=== PATIENT | male | born 1945 | race Caucasian/White ===

== ENCOUNTER 2016-11-29 04:57 | Inpatient (IN) | payer OTHER, MEDICAID, MEDICARE ==
[2016-11-29] VITALS (7 sets, daily range): BP systolic 114–185; BP diastolic 77–109; PULSE 100–109; RESP 16–20; TEMP 97.3–99.5; O2SAT 95–99
[~2016-11-29] VITALS: Ht 172.7 cm; Wt 69.1 kg
[~2016-11-29 04:57] MED LIST: ATOR20TA42 PO; CIPR500T2 PO; CIPR500T4 PO; DEPA250T2 PO; METO100T PO; PROT40TA PO; SUCR1S PO
[2016-11-29] MEDS ORDERED: VANCOMYCIN INJ 1,000 MG in SODIUM CHLOR 0.9% 250 ML INJ 250 ML IV STA (05:28)
[2016-11-29] MEDS ORDERED: SODIUM CHLOR 0.9% 1000 ML INJ 1,000 ML IV SCH (05:28)
[2016-11-29] MEDS ORDERED: CLINDAMYCIN INJ 900 MG in SODIUM CHLORIDE 0.9% INJ 100 ML IV STA (05:28)
[2016-11-29] MEDS ORDERED: SODIUM CHLORIDE 0.9% FLUSH 5 ML FLUSH IV FLUSH PRN (05:30)
--- NOTE | 2016-11-29 06:08 | PD ---
HPI Chief Complaint: Skin Problem Time Seen by Provider: 05:28 Travel History International Travel<30 days: No Contact w/Intl Traveler<30days: No Traveled to known affect area: No History of Present Illness HPI 71-year-old male presents to the emergency department by private transportation for complaint of worsening rash to the groin and buttock region after reportedly being bitten by a brown recluse spider 2 weeks ago on the right leg. Patient states he's been attempting to manage the area on his own 2 weeks. Patient is been applying all kind of topical ointments, [id number] and homeopathic regimens, including "soaking" in Clorox this morning prior to arrival to the emergency department. Patient does not report any fever or chills. Patient states that the area is becoming foul-smelling. Patient denies history of diabetes. Patient does self-cath but unclear as to why. Patient does not report any fever or chills. Patient also appears somewhat grandiose as he repetitively states that he is a , he is train to kill, he is in good health, and he has done everything to manage his illness but is not being successful. Patient denies any fever chills chest pain shortness of breath abdominal pain vomiting or diarrhea. Patient states that he has been in a coma for 3 days. Patient ambulates about the exam room without any antalgic movement or gait disturbance and appears to be in no distress; however rates his pain as 8/10 in intensity. PFSH Past Medical History Narrative Medical Asthma, hypertension, bipolar disorder, depression, urinary retention with self catheter; alcohol use; nursing notes reviewed Asthma: Yes (CHILDHOOD) Bipolar Disorder: Yes Anxiety: Yes High Cholesterol: Yes Diminished Hearing: Yes ([place]) Gastrointestinal Disorders: Yes (ACID REFLUX, FREQUENTLY VOMITS FOOD) GERD: Yes Genitourinary: Yes ((PER PT) S/P MRSA INF PROSTATE FREQUENT INFLAMATION -STR CATHS SELF-) Hypertension: Yes Psychiatric: Yes (BIPOLAR DISORDER) PNEUMOCCOCAL Vaccine (Year): 2 ?: Not Past Surgical History Hysterectomy: No Joint Replacement: No (? PARTS IN RIGHT KNEE AFTER O.R.) Valve Replacement: Yes (RIGHT KNEE PAIN) Social History Alcohol Use: Yes Tobacco Use: No Substance Use: No Allergies-Medications (Allergen,Severity, Reaction): Coded Allergies: Cipro (Verified Allergy, Severe, 8/7/17) states that in the past he got violent and does not want to take the med Penicillin (Verified Allergy, Severe, 11/29/16) Reported Meds & Prescriptions Reported Meds & Active Scripts Active Carafate 1 Gm/10 Ml Udc (Sucralfate) 1 Gm/10 Ml Susp 1 Gm PO TIDACHS 30 Days Protonix (Pantoprazole Sodium) 40 Mg Tabdr 40 Mg PO DAILY Ciprofloxacin HCl (Ciprofloxacin) 500 Mg Tab 500 Mg PO Q12 9 Days Lipitor (Atorvastatin) 20 Mg Tab 20 Mg PO HS 30 Days Cipro (Ciprofloxacin HCl) 500 Mg Tab 500 Mg PO BID 10 Days Reported Depakote 250 mg (Divalproex Sodium) 250 Mg Tab 1 Tab PO TID Lopressor (Metoprolol Tartrate) 100 Mg Tab 100 Mg PO BID Review of Systems ROS Limitations: Psychotic, Poor Historian Except as stated in HPI: all other systems reviewed are Neg Physical Exam Narrative GENERAL: Well-developed well-nourished without boisterous grandiose behavior in no acute distress no respiratory distress T: 97.3 F; RR:18, BP:114/83, O2sat: HR: 106 SKIN: Warm and dry. Attention to the groin and buttock region with erythema and large area of eschar -- foul smelling, scrotal erythema with 3 cm x 1.5 cm eschar, buttock cheeks across perineum 4 cm x 13 cm area of eschar and buttock cleft 2 cm x 0.5 cm ulceration with central subcentimeter eschar. No crepitus; scrotum nontender to palpation, buttock and perineal tenderness. HEAD: Atraumatic. Normocephalic. EYES: Pupils equal and round. No scleral icterus. No injection or drainage. ENT: No nasal bleeding or discharge. Mucous membranes pink and moist. NECK: Trachea midline. No JVD. CARDIOVASCULAR: Regular rate and rhythm. RESPIRATORY: No accessory muscle use. Clear to auscultation. Breath sounds equal bilaterally. GASTROINTESTINAL: Abdomen soft, non-tender, nondistended. Hepatic and splenic margins not palpable. MUSCULOSKELETAL: Extremities without clubbing, cyanosis, or edema. No obvious deformities. NEUROLOGICAL: Awake and alert. No obvious cranial nerve deficits. Motor grossly within normal limits. Five out of 5 muscle strength in the arms and legs. Normal speech. PSYCHIATRIC: Grandiose and delusional mood and affect; poor insight and judgment. Data Data Last Documented VS Vital Signs Date Time Temp Pulse Resp B/P Pulse Ox O2 Delivery O2 Flow Rate FiO2 11/29/16 07:00 98 11/29/16 05:04 97.3 103 18 114/83 Orders Ammonia (11/29/16 05:28) Complete Blood Count With Diff (11/29/16 05:28) Comprehensive Metabolic Panel (11/29/16:28) Creatine Kinase (Cpk) (11/29/16 05:28) Prothrombin Time / Inr (Pt) (11/29/16 05:28) Act Partial Throm Time (Ptt) (11/29/16:28) Thyroid Stimulating Hormone (11/29/16:28) Urinalysis - C+S If Indicated (11/29/16 05:28) Lactic Acid Sepsis Protocol (11/29/16 05:28) Blood Culture (11/29/16 05:28) Chest, Single Ap (11/29/16 05:28) Blood Glucose (11/29/16 05:28) Ecg Monitoring (11/29/16 05:28) Iv Access Insert/Monitor (11/29/16 05:28) Oximetry (11/29/16 05:28) Sodium Chloride 0.9% Flush (Ns Flush) (11/29/16 05:30) Sodium Chlor 0.9% 1000 Ml Inj (Ns 1000 M (11/29/16 05:28) Clindamycin Inj (Cleocin Inj) (11/29/16 05:28) Vancomycin Inj (Vancomycin Inj) (11/29/16 05:28) Wound Culture And Gram Stain (11/29/16 05:36) Alcohol (Ethanol) (11/29/16 05:50) Drug Screen, Random Urine (11/29/16 05:50) Salicylates (Aspirin) (11/29/16 05:50) Tylenol (Acetaminophen) (11/29/16 05:50) Valproic Acid (Depakene) (11/29/16 06:13) Aztreonam Inj (Azactam Inj) (11/29/16 06:15) Sodium Chlor 0.9% 1000 Ml Inj (Ns 1000 M (11/29/16 06:15) Potassium Chlor 10 Meq Premix (Kcl 10 Me (11/29/16 07:15) Urinary Catheter Insert/Apply (11/29/16 07:38) Admit Order (Ed Use Only) (11/29/16 ) ^ Saline Lock (11/29/16 07:41) Resp Oxygen Loki C Titrat 1-4 L (11/29/16 ) Notify Dr: Other (11/29/16 07:41) Sodium Chloride 0.9% Flush (Ns Flush) (11/29/16 09:00) Sodium Chloride 0.9% Flush (Ns Flush) (11/29/16 07:45) Consult General Surgery (11/29/16 07:41) Consult Urology (11/29/16 07:41) Labs Laboratory Tests Test 11/29/16 11/29/16 05:55 06:10 Lactic Acid Level 2.2 mmol/L Ammonia 32 MCMOL/L White Blood Count 6.5 TH/MM3 Red Blood Count 4.51 MIL/MM3 Hemoglobin 14.8 GM/DL Hematocrit 43.9 % Mean Corpuscular Volume 97.3 FL Mean Corpuscular Hemoglobin 32.8 PG Mean Corpuscular Hemoglobin 33.7 % Concent Red Cell Distribution Width 13.8 % Platelet Count 276 TH/MM3 Mean Platelet Volume 6.2 FL Neutrophils (%) (Auto) 57.9 % Lymphocytes (%) (Auto) 27.9 % Monocytes (%) (Auto) 11.9 % Eosinophils (%) (Auto) 1.1 % Basophils (%) (Auto) 1.2 % Neutrophils # (Auto) 3.7 TH/MM3 Lymphocytes # (Auto) 1.8 TH/MM3 Monocytes # (Auto) 0.8 TH/MM3 Eosinophils # (Auto) 0.1 TH/MM3 Basophils # (Auto) 0.1 TH/MM3 CBC Comment DIFF FINAL Differential Comment Prothrombin Time 10.2 SEC Prothromb Time International 0.9 RATIO Ratio Activated Partial 28.9 SEC Thromboplast Time Sodium Level 138 MEQ/L Potassium Level 2.5 MEQ/L Chloride Level 99 MEQ/L Carbon Dioxide Level 30.2 MEQ/L Anion Gap 9 MEQ/L Blood Urea Nitrogen 4 MG/DL Creatinine 0.55 MG/DL Estimat Glomerular Filtration 146 ML/MIN Rate Random Glucose 99 MG/DL Calcium Level 8.9 MG/DL Total Bilirubin 0.2 MG/DL Aspartate Amino Transf 29 U/L (AST/SGOT) Alanine Aminotransferase 20 U/L (ALT/SGPT) Alkaline Phosphatase 143 U/L Total Creatine Kinase 66 U/L Total Protein 7.4 GM/DL Albumin 2.8 GM/DL Thyroid Stimulating Hormone 0.824 uIU/ML 3rd Gen Ethyl Alcohol Level 223 MG/DL [facility] Medical Decision Making Medical Screen Exam Complete: Yes Emergency Medical Condition: Yes Medical Record Reviewed: Yes Interpretation(s) Lactic acid: 2.2, elevated cbc: wnl ammonia: 32, wnl coags: wnl Differential Diagnosis Cellulitis, Shavonne's gangrene, necrotizing fasciitis, decubitus ulcer, mood disorder, psychosis, substance ingestion, alcohol intoxication Narrative Course IV access obtained specimens collected and IV antibiotics administered vancomycin 1 g, clindamycin 900 mg, aztreonam 2 g as patient is allergic to penicillin Patient administered 1 L normal saline along with maintenance fluids 125 cc per hour Bedside Accu-Chek 96 Specimens collected and sent for resulting Area of involvement measures 13 x 4 cm across the buttock comparison a.m. and then area of 2 x 3 cm eschar to the scrotum with scrotal erythema c/w cellulitis and age indeterminate pressure ulcer w/ eschar appears somewhat chronic in nature however still concerning for dry gangrene without crepitus unlikely Shavonne's or necrotizing fasciitis no crepitus or rapid progression. Lactic acid identified to be elevated at 2.2 Call placed to Gen. surgery urology medicine services for admission and transfer to [facility] for surgical consultation and intervention cbc wnl; metabolic panel normal range bicarb and anion gap, hypokalemia alcohol level elevated 223 HemaPrompt Point of Care Internal Pos. & Neg. Controls: Passed Fecal Specimen Occult Blood: Negative Sepsis Criteria SIRS Criteria (2 or more): Heart rate over 90 Sepsis Criteria (SIRS+source): Infect source susp/known (scrotum/perineum) Severe Sepsis (+one): Lactate >2 Physician Communication Physician Communication call placed to urology--call back pending--discussed with Dr Bear, gen surgery -- discussed with customer care consultant, Dr Chahal, service will see in consultation at [facility] , medicine service will admit to their service-discussed with DR Boggs Diagnosis Primary Impression: Cellulitis, perineum Additional Impressions: Cellulitis of scrotum Pressure ulcer, unstageable, with eschar Alcohol abuse Hypokalemia Bipolar disorder Admitting Information Admitting Physician Requests: Admit Milena Saunders MD Nov 29, 2016 06:08
[2016-11-29] MEDS ORDERED: SODIUM CHLOR 0.9% 1000 ML INJ 1,000 ML IV ONE (06:15)
[2016-11-29] MEDS ORDERED: AZTREONAM INJ 2,000 MG in SODIUM CHLORIDE 0.9% INJ 100 ML IV ONE (06:15)
[2016-11-29 06:30] LABS: AUTOMATED NEUTROPHIL # 3.7 TH/MM3 (1.8-7.7); BASOPHIL # 0.1 TH/MM3 (0-0.2); BASOPHIL % 1.2 % (0.0-2.0); EOSINOPHIL # 0.1 TH/MM3 (0-0.4); EOSINOPHIL % 1.1 % (0.0-4.0); HEMATOCRIT 43.9 % (39.0-51.0); HEMO FLAGS DIFF FINAL; LYMPH % 27.9 % (9.0-44.0); LYMPHOCYTE # 1.8 TH/MM3 (1.0-4.8); MEAN CELL VOLUME 97.3 FL (80.0-100.0); MEAN CORPUSCULAR HEMOGLOBIN 32.8 PG (27.0-34.0); MEAN CORPUSCULAR HGB CONC 33.7 % (32.0-36.0); MONO % 11.9 % (0.0-8.0); NEUT % 57.9 % (16.0-70.0); PLATELET COUNT 276 TH/MM3 (150-450); RED BLOOD COUNT 4.51 MIL/MM3 (4.50-5.90); RED CELL DISTRIBUTION WIDTH 13.8 % (11.6-17.2); WHITE BLOOD COUNT 6.5 TH/MM3 (4.0-11.0)
[2016-11-29 06:42] LABS: APTT (PATIENT) 28.9 SEC (24.3-30.1); INTERNATIONAL NORMALIZED RATIO 0.9 RATIO; PROTHROMBIN TIME - PATIENT 10.2 SEC (9.8-11.6)
--- NOTE | 2016-11-29 06:47 | RADRPT ---
EXAM DATE/TIME: 11/29/2016 06:33 [facility] COMPARISON: CHEST SINGLE AP, May 12, 2014, 19:42. INDICATIONS : Syncopal episode. MEDICAL HISTORY : Hypertension. Asthma. SURGICAL HISTORY : None. ENCOUNTER: Initial ACUITY: 1 day PAIN SCORE: 0/10 LOCATION: Bilateral chest FINDINGS: The lungs are clear. Cardiomediastinal contours are normal. There is a fracture deformity distal left clavicle, mildly displaced, non-acute. CONCLUSION: No acute disease. Gerry Otoole MD on November 29, 2016 at 6:46 Board Certified Radiologist. This report was verified electronically.
[2016-11-29 06:55] LABS: ALKALINE PHOSPHATASE 143 U/L (45-117); ALT (GPT) 20 U/L (12-78); ANION GAP 9 MEQ/L (5-15); AST (GOT) 29 U/L (15-37); BICARBONATE 30.2 MEQ/L (21.0-32.0); BLOOD UREA NITROGEN 4 MG/DL (7-18); CHLORIDE 99 MEQ/L (98-107); GLOMERULAR FILTRATION RATE 146 ML/MIN (>89); SODIUM (NA) 138 MEQ/L (136-145); TOTAL BILIRUBIN ADULT 0.2 MG/DL (0.2-1.0)
[2016-11-29 06:56] LABS: CREATINE KINASE 66 U/L (39-308)
[2016-11-29 06:57] LABS: POTASSIUM 2.5 MEQ/L (3.5-5.1)
[2016-11-29] MEDS ORDERED: SODIUM CHLORIDE 0.9% FLUSH 10 ML FLUSH IVF PRN (07:45)
[2016-11-29] MEDS: POTASSIUM CHLOR 10 MEQ PREMIX 100 ML IV SCH ×3 (07:58→10:05)
[2016-11-29 08:03] LABS: ACETAMINOPHEN LESS THAN 2.0 MCG/ML (10.0-30.0)
[2016-11-29 08:03] LABS: LACTIC ACID GHOST NOT REPORTABLE
[2016-11-29 08:15] LABS: BLOOD, URINE NEG (NEG); KETONE, URINE NEG (NEG); NITRITE,URINE NEG (NEG)
[2016-11-29] MEDS ORDERED: ACETAMINOPHEN 325 MG TAB PO PRN (08:15)
[2016-11-29] MEDS ORDERED: ONDANSETRON HCL 4 MG/2 ML VIAL IVP PRN (08:15)
[2016-11-29 08:21] LABS: GLUCOSE,URINE 1000 OR GREATER mg/dL (NEG)
[2016-11-29 08:22] LABS: METHOD OF COLLECTION CATH; URINE COLOR STRAW (YELLW/STRAW)
[2016-11-29 08:23] LABS: BACTERIA, URINE MOD /hpf; COMMENT (UR) CATH-CULTURE IND; CULTURE IF INDICATED CATH CULTURE IND; SQUAMOUS EPITHELIAL CELL URINE 0-5 /hpf (0-5)
[2016-11-29 08:32] LABS: AMPHETAMINE, URINE NEG (NEG); BARBITURATES, URINE NEG (NEG)
[2016-11-29 08:36] LABS: COCAINE, URINE NEG (NEG)
[2016-11-29 08:39] LABS: MAGNESIUM 1.6 MG/DL (1.5-2.5)
[2016-11-29] MEDS: SODIUM CHLORIDE 0.9% FLUSH 10 ML FLUSH IV FLUSH SCH ×2 (09:00→19:47)
[2016-11-29] MEDS ORDERED: KETOROLAC TROMETHAMINE 30 MG/ML (IVP) VIAL IV PUSH PRN (10:30)
[2016-11-29] MEDS ORDERED: Vancomycin Consult Pharmacy 1 EA OTHER SCH (10:30)
[2016-11-29] MEDS ORDERED: VANCOMYCIN INJ 1,000 MG in SODIUM CHLOR 0.9% 250 ML INJ 250 ML IV SCH (10:30)
[2016-11-29] MEDS ORDERED: LORazepam 2 MG/ML VIAL IV PUSH PRN ×4 (10:45)
[2016-11-29] MEDS ORDERED: LORazepam 2 MG TAB PO PRN (10:45)
[2016-11-29] MEDS ORDERED: FLUMAZENIL 0.5 MG/5 ML VIAL IV PUSH PRN (10:45)
[2016-11-29] MEDS ORDERED: LORazepam 1 MG TAB PO PRN (10:45)
--- NOTE | 2016-11-29 10:46 | HHI.HP ---
[facility] Service [place] [facility] Primary Care Physician [facility] Admission Diagnosis Cellulits-scrotal/perineum;hypokalemia;alcohol ingestion;bipolar Diagnoses: Chief Complaint: Scrotal and perineal pain Travel History International Travel<30 Days: No Contact w/Intl Traveler <30 Da: No Traveled to Known Affected Are: No History of Present Illness Patient is a 71-year-old gentleman who is bipolar. He came to the emergency room today complaining of increased pain in the buttocks and scrotal area after he was apparently bitten by a spider 2 weeks ago area patient says that he did not see the spider but sought a spider bite. He reports having history of MRSA. The patient has been applying Indira and cinnamon and old bases into the area. He did take a bath and bleach. He also used soap and water and some sort of steroid cream. When the area became more painful and swollen and painful patient came to the emergency room, after the ghosts in his trailer told him to come. He reports that he is a [employer] and has been trained to kill. He is difficult historian due to his apparent tangential thought and hyperverbal speech. His pain he reports improved with ibuprofen. He does not use narcotics. 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 In the emergency room he isn't tachycardic. He does have elevated lactic acid and his blood pressure has been running low. He is septic. Patient has been admitted to the hospital through the emergency room for treatment of the same. Review of Systems Constitutional: DENIES: Diaphoretic episodes, Fatigue, Fever, Weight gain, Weight loss, Chills, Dizziness, Change in appetite, Night Sweats Endocrine: DENIES: Heat/cold intolerance, Polydipsia, Polyuria, Polyphagia Eyes: DENIES: Blurred vision, Diplopia, Eye inflammation, Eye pain, Vision loss , Photosensitivity, Double Vision Ears, nose, mouth, throat: DENIES: Tinnitus, Hearing loss, Vertigo, Nasal discharge, Oral lesions, Throat pain, Hoarseness, Ear Pain, Running Nose, Epistaxis, Sinus Pain, Toothache, Odynophagia Respiratory: DENIES: Apneas, Cough, Snoring, Wheezing, Hemoptysis, Sputum production, Shortness of breath Cardiovascular: DENIES: Chest pain, Palpitations, Syncope, Dyspnea on Exertion , PND, Lower Extremity Edema, Orthopnea, Claudication Gastrointestinal: DENIES: Abdominal pain, Black stools, Bloody stools, Constipation, Diarrhea, Nausea, Vomiting, Difficulty Swallowing, Anorexia Genitourinary: COMPLAINS OF: Testicular Pain, DENIES: Sexual dysfunction, Urinary frequency, Urinary incontinence, Urgency, Hematuria, Dysuria, Nocturia, Penile Discharge, Testicular Swelling Integumentary: DENIES: Abnormal pigmentation, Nail changes, Pruritus, Rash Hematologic/lymphatic: DENIES: Bruising, Lymphadenopathy Neurologic: DENIES: Abnormal gait, Headache, Localized weakness, Paresthesias, Seizures, Speech Problems, Tremor, Poor Balance Psychiatric: COMPLAINS OF: Anxiety, Agitation, DENIES: Confusion, Mood changes , Depression, Hallucinations, Suicidal Ideation, Homicidal Ideation, Delusions Past Family Social History Past Medical History Bipolar disorder Dyspepsia Hypertension Poor adherence to medical treatment Hyperlipidemia benign prostatic hyperplasia with urinary retention Past Surgical History Right knee Reported Medications Reviewed in the medical record, patient says he only takes his loperamide me and Lopressor and periodically takes Protonix Allergies: Coded Allergies: Cipro (Verified Allergy, Severe, 11/29/16) states that in the past he got violent and does not want to take the med Penicillin (Verified Allergy, Severe, 11/29/16) Active Ordered Medications Reviewed in the medical record Family History Patient has "no family no one cares about him " Social History No tobacco, excessive alcohol, lives alone Physical Exam Vital Signs Vital Signs Date Time Temp Pulse Resp B/P Pulse Ox O2 Delivery O2 Flow Rate FiO2 11/29/16 10:02 98.5 109 16 150/82 99 Room Air 11/29/16 07:00 98 11/29/16 05:04 97.3 103 18 114/83 97 Physical Exam GENERAL: This is a well-nourished, well-developed patient, hyperverbal, tangential and with grandiose ideas SKIN: Perineum is foul smelling with unstageable eschars in the scrotal sac and large eschar covered area in the perineal area with early ulcer formation in the gluteal Cleft HEAD: Atraumatic. Normocephalic. No temporal or scalp tenderness. EYES: Pupils equal round and reactive. Extraocular motions intact. No scleral icterus. No injection or drainage. ENT: Nose without bleeding, purulent drainage or septal hematoma. Throat without erythema, tonsillar hypertrophy or exudate. Uvula midline. Airway patent. NECK: Trachea midline. No JVD or lymphadenopathy. Supple, nontender, no meningeal signs. CARDIOVASCULAR: Sinus tachycardia without murmurs, gallops, or rubs. RESPIRATORY: Clear to auscultation. Breath sounds equal bilaterally. No wheezes , rales, or rhonchi. GASTROINTESTINAL: Abdomen soft, non-tender, nondistended. No hepato-splenomegaly , or palpable masses. No guarding. MUSCULOSKELETAL: Extremities without clubbing, cyanosis, or edema. No joint tenderness, effusion, or edema noted. No calf tenderness. Negative Homans sign bilaterally. NEUROLOGICAL: Awake and alert. Cranial nerves II through XII intact. Motor and sensory grossly within normal limits. Five out of 5 muscle strength in all muscle groups. Normal speech. Laboratory Laboratory Tests Test 11/29/16 11/29/16 11/29/16 11/29/16 05:55 06:10 08:00 08:45 Lactic Acid Level 2.2 2.3 Phosphorus Level 3.3 Magnesium Level 1.6 Ammonia 32 White Blood Count 6.5 Red Blood Count 4.51 Hemoglobin 14.8 Hematocrit 43.9 Mean Corpuscular Volume 97.3 Mean Corpuscular Hemoglobin 32.8 Mean Corpuscular Hemoglobin 33.7 Concent Red Cell Distribution Width 13.8 Platelet Count 276 Mean Platelet Volume 6.2 Neutrophils (%) (Auto) 57.9 Lymphocytes (%) (Auto) 27.9 Monocytes (%) (Auto) 11.9 Eosinophils (%) (Auto) 1.1 Basophils (%) (Auto) 1.2 Neutrophils # (Auto) 3.7 Lymphocytes # (Auto) 1.8 Monocytes # (Auto) 0.8 Eosinophils # (Auto) 0.1 Basophils # (Auto) 0.1 CBC Comment DIFF FINAL Differential Comment Prothrombin Time 10.2 Prothromb Time International 0.9 Ratio Activated Partial 28.9 Thromboplast Time Sodium Level 138 Potassium Level 2.5 Chloride Level 99 Carbon Dioxide Level 30.2 Anion Gap 9 Blood Urea Nitrogen 4 Creatinine 0.55 Estimat Glomerular Filtration 146 Rate Random Glucose 99 Calcium Level 8.9 Total Bilirubin 0.2 Aspartate Amino Transf 29 (AST/SGOT) Alanine Aminotransferase 20 (ALT/SGPT) Alkaline Phosphatase 143 Total Creatine Kinase 66 Total Protein 7.4 Albumin 2.8 Thyroid Stimulating Hormone 0.824 3rd Gen Salicylates Level LESS THAN 1.7 Acetaminophen Level LESS THAN 2.0 Valproic Acid (Depakene) Level 5 Ethyl Alcohol Level 223 Urine Collection Type CATH Urine Color STRAW Urine Turbidity CLEAR Urine pH 7.0 Urine Specific [place] 1.004 Urine Protein NEG Urine Glucose (UA) 1000 OR GREATER Urine Ketones NEG Urine Occult Blood NEG Urine Nitrite NEG Urine Bilirubin NEG Urine Leukocyte Esterase SMALL Urine WBC 3-5 Urine Squamous Epithelial 0-5 Cells Urine Amorphous Sediment FEW Urine Bacteria MOD Microscopic Urinalysis Comment CATH-CULTURE IND Urine Collection Time 0800 Urine Opiates Screen NEG Urine Barbiturates Screen NEG Urine Amphetamines Screen NEG Urine Benzodiazepines Screen NEG Urine Cocaine Screen NEG Urine Cannabinoids Screen NEG Date/Time Procedure Status Source Growth 11/29/16 08:00 Urine Culture Received Urine Catheterized Urine Pending 11/29/16 06:10 Gram Stain Received Wound Groin Pending 11/29/16 06:10 Wound Culture Received Wound Groin Pending 11/29/16 06:10 Aerobic Blood Culture Received Blood Peripheral Pending 11/29/16 06:10 Anaerobic Blood Culture Received Blood Peripheral Pending Result Diagram: 11/29/16 0610 11/29/16 0610 Imaging Last Impressions Chest X-Ray 11/29/16 0528 Signed Impressions: Service Date/Time: Tuesday, November 29, 2016 06:33 - CONCLUSION: No acute disease. Gerry Otoole MD Septic Shock Reassessment Heart: Regular rate and rhythm Lungs: Clear Skin: Warm Peripheral Pulses: Bounding Right Radial Bounding Left Radial Bounding Right Popliteal Bounding Left Popliteal Bounding Right Dorsalis Pedis Bounding Left Dorsalis Pedis Bounding Right Posterior Tibial Bounding Left Posterior Tibial Capillary Refill: Brisk Assessment and Plan Problem List: (1) Bipolar disorder ICD Code: F31.9 Status: Chronic Plan: Patient appears quite manic Says that he is having difficulty sleeping (has not slept for days) he does not take medications because they make him uncomfortable Patient will need psychiatry for evaluation (2) Hypokalemia ICD Code: E87.6 Status: Acute Plan: Place, follow trend, check magnesium and phosphorus (3) Perineal abscess ICD Code: L02.215 Status: Acute Plan: We'll continue vancomycin and aztreonam for now, patient reports he has a history of MRSA ID to see MRI pelvis pending rule out deep abscess May need surgical debridement Etiology unclear as patient is ambulatory (4) EtOH dependence ICD Code: F10.20 Status: Acute Plan: Patient's alcohol level is over 200 Will add Ativan as needed per protocol (5) HTN (hypertension) ICD Code: I10 Status: Acute Plan: Patient's home medications of Lopressor to resume (6) BPH (benign prostatic hyperplasia) ICD Code: N40.0 Status: Acute Plan: We'll check bladder scan, urinary catheterization as needed Flomax Assessment and Plan Plan of care to be determined by Hospital course Code Status Full code Discussed Condition With Patient, JOSE ENRIQUE Alvarez, [employer]BI[employer] Physician Certification 2 Midnight Certification Type: Admission for Inpatient Services Order for Inpatient Services The services are ordered in accordance with Medicare regulations or non- Medicare payer requirements, as applicable. In the case of services not specified as inpatient-only, they are appropriately provided as inpatient services in accordance with the 2-midnight benchmark. Estimated LOS (days): 4 4 days is the estimated time the patient will need to remain in the hospital, assuming treatment plan goals are met and no additional complications. Post-Hospital Plan: Home Aminata Boggs MD Nov 29, 2016 10:46
[2016-11-29] MEDS ORDERED: LOPE2CAP PO (12:17)
[2016-11-29] MEDS ORDERED: LISI40TA PO (12:17)
--- NOTE | 2016-11-29 13:06 | RADRPT ---
EXAM DATE/TIME: 11/29/2016 11:13 [facility] COMPARISON: No previous studies available for comparison. INDICATIONS : Abscess, from bottom 1/3 of scrotum to rectum for two weeks. CONTRAST: 14 cc Omniscan (gadodiamide) IV MEDICAL HISTORY : Prior MRSA issues. SURGICAL HISTORY : Total knee replacement, right. ENCOUNTER: Initial ACUITY: 2 weeks PAIN SCORE: 9/10 LOCATION: Bilateral scrotum to rectum. TECHNIQUE: Multiplanar, multisequence magnetic resonance imaging of the pelvis was performed. FINDINGS: REPRODUCTIVE: Marked distention of the corpus spongiosum is identified from the level of the membranous urethra to the glans penis. The penile urethra is concentrically compressed. Significant inflammation is identified in the scrotal wall however there are no organized fluid collections. Inflammatory changes involve the peroneal soft tissues. Again there is no evidence of or ganized fluid collection. The corpora cavernosum are moderately distended as well but otherwise have a normal anatomic con figuration. Small fluid collections are noted surrounding the testicles which otherwise demonstrate homogene ous signal intensity. There are no intrinsic testicular abnormalities. BLADDER: The bladder is incompletely distended. There is mild trabeculated wall thickening without evidence of intrinsic mass. RETROPERITONEUM: There is no lymphadenopathy. Vascular structures are within normal limits. BOWEL/MESENTERY: Visualized small and large bowel demonstrates no acute abnormality. There is no free fluid. INGUINAL: Mildly prominent lymph nodes are identified ranging in size up to 1.5 cm. MUSCULOSKELETAL: Bone marrow signal is within normal limits. CONCLUSION: 1. Marked fluid distention of the corpus spongiosum with concentric compression of the urethra 2. Moderate distention of the corpora cavernosum without intrinsic filling defects. 3. Scrotal and perineal soft tissue swelling without organized fluid collections. 4. Mildly prominent inguinal lymph nodes ranging in size up to 1.5 cm. Usman Anguiano MD on November 29, 2016 at 12:44 Board Certified Radiologist. This report was verified electronically.
[2016-11-29] MEDS: TAMSULOSIN HCL 0.4 MG CAP PO SCH (13:23)
[2016-11-29] MEDS: PANTOPRAZOLE SOD 40 MG DELAYED RELEASE TAB PO SCH (13:23)
[2016-11-29] MEDS ORDERED: GADODIAMIDE PF 287 MG/ML 5 ML VIAL (for RAD MRI) IV ONE (14:07)
--- NOTE | 2016-11-29 16:34 | PD.CONS ---
HPI Service Urology Consult Requested By Primary Care Physician [facility] Diagnosis: (1) Bipolar disorder ICD Code: F31.9 (2) Hypokalemia ICD Code: E87.6 (3) Perineal abscess ICD Code: L02.215 (4) EtOH dependence ICD Code: F10.20 (5) HTN (hypertension) ICD Code: I10 (6) BPH (benign prostatic hyperplasia) ICD Code: N40.0 History of Present Illness 71-year-old male with history of bipolar disorder who apparently believes he was bitten by a spider a few weeks ago and has cellulitis and ulceration of the perineal scrotal area. He's noted this for over the past 2 weeks and is actually baby and bleach to try to eradicate the problem. He also is having a lot of diarrhea he states for an unclear amount of time. He denies any fever or chills. He does have a history of nocturia with BPH and urinary retention. He is not a diabetic. Review of Systems ROS Limitations: Clinical Condition Constitutional: DENIES: Diaphoretic episodes Endocrine: DENIES: Heat/cold intolerance Eyes: DENIES: Blurred vision Ears, nose, mouth, throat: DENIES: Tinnitus Respiratory: DENIES: Apneas Cardiovascular: DENIES: Chest pain Gastrointestinal: DENIES: Abdominal pain Musculoskeletal: DENIES: Joint pain Integumentary: DENIES: Abnormal pigmentation Hematologic/lymphatic: DENIES: Bruising Neurologic: DENIES: Abnormal gait Psychiatric: COMPLAINS OF: Mood changes, Depression Except as stated in HPI: all other systems reviewed are Neg Past Family Social History Past Medical History Hypertension Bipolar disorder Hyperlipidemia BPH with obstruction and urinary retention in the past GERD Past Surgical History Arthroscopic surgery left knee Allergies: Coded Allergies: Cipro (Verified Allergy, Severe, 11/29/16) states that in the past he got violent and does not want to take the med Penicillin (Verified Allergy, Severe, 11/29/16) Family History Mother with COPD Social History Heavy drinker Denies smoking or using drugs Physical Exam Vital Signs Date Time Temp Pulse Resp B/P Pulse Ox O2 Delivery O2 Flow Rate FiO2 11/29/16 15:22 98.5 103 20 185/109 97 11/29/16 14:10 109 16 145/80 98 11/29/16 10:02 98.5 109 16 150/82 99 Room Air 11/29/16 07:00 98 11/29/16 05:04 97.3 103 18 114/83 97 Physical Exam GENERAL: This is a well-nourished, well-developed patient, in no apparent distress. SKIN: No rashes, ecchymoses or lesions. Cool and dry. HEAD: Atraumatic. Normocephalic. No temporal or scalp tenderness. EYES: Pupils equal round and reactive. Extraocular motions intact. No scleral icterus. No injection or drainage. ENT: Nose without bleeding, purulent drainage or septal hematoma. Throat without erythema, tonsillar hypertrophy or exudate. Uvula midline. Airway patent. NECK: Trachea midline. No JVD or lymphadenopathy. Supple, nontender, no meningeal signs. CARDIOVASCULAR: Regular rate and rhythm without murmurs, gallops, or rubs. RESPIRATORY: Clear to auscultation. Breath sounds equal bilaterally. No wheezes , rales, or rhonchi. GASTROINTESTINAL: Abdomen soft, non-tender, nondistended. No hepato-splenomegaly , or palpable masses. No guarding. GENITOURINARY: Cellulitis with skin breakdown of the perineum and scrotal region with eschar MUSCULOSKELETAL: Extremities without clubbing, cyanosis, or edema. No joint tenderness, effusion, or edema noted. No calf tenderness. Negative Homans sign bilaterally. NEUROLOGICAL: Awake and alert. Cranial nerves II through XII intact. Motor and sensory grossly within normal limits. Five out of 5 muscle strength in all muscle groups. Normal speech. Laboratory Tests Test 11/29/16 11/29/16 11/29/16 11/29/16 05:55 06:10 08:00 08:45 Lactic Acid Level 2.2 2.3 Phosphorus Level 3.3 Magnesium Level 1.6 Ammonia 32 White Blood Count 6.5 Red Blood Count 4.51 Hemoglobin 14.8 Hematocrit 43.9 Mean Corpuscular Volume 97.3 Mean Corpuscular Hemoglobin 32.8 Mean Corpuscular Hemoglobin 33.7 Concent Red Cell Distribution Width 13.8 Platelet Count 276 Mean Platelet Volume 6.2 Neutrophils (%) (Auto) 57.9 Lymphocytes (%) (Auto) 27.9 Monocytes (%) (Auto) 11.9 Eosinophils (%) (Auto) 1.1 Basophils (%) (Auto) 1.2 Neutrophils # (Auto) 3.7 Lymphocytes # (Auto) 1.8 Monocytes # (Auto) 0.8 Eosinophils # (Auto) 0.1 Basophils # (Auto) 0.1 CBC Comment DIFF FINAL Differential Comment Prothrombin Time 10.2 Prothromb Time International 0.9 Ratio Activated Partial 28.9 Thromboplast Time Sodium Level 138 Potassium Level 2.5 Chloride Level 99 Carbon Dioxide Level 30.2 Anion Gap 9 Blood Urea Nitrogen 4 Creatinine 0.55 Estimat Glomerular Filtration 146 Rate Random Glucose 99 Calcium Level 8.9 Total Bilirubin 0.2 Aspartate Amino Transf 29 (AST/SGOT) Alanine Aminotransferase 20 (ALT/SGPT) Alkaline Phosphatase 143 Total Creatine Kinase 66 Total Protein 7.4 Albumin 2.8 Thyroid Stimulating Hormone 0.824 3rd Gen Salicylates Level LESS THAN 1.7 Acetaminophen Level LESS THAN 2.0 Valproic Acid (Depakene) Level 5 Ethyl Alcohol Level 223 Urine Collection Type CATH Urine Color STRAW Urine Turbidity CLEAR Urine pH 7.0 Urine Specific [place] 1.004 Urine Protein NEG Urine Glucose (UA) 1000 OR GREATER Urine Ketones NEG Urine Occult Blood NEG Urine Nitrite NEG Urine Bilirubin NEG Urine Leukocyte Esterase SMALL Urine WBC 3-5 Urine Squamous Epithelial 0-5 Cells Urine Amorphous Sediment FEW Urine Bacteria MOD Microscopic Urinalysis Comment CATH-CULTURE IND Urine Collection Time 0800 Urine Opiates Screen NEG Urine Barbiturates Screen NEG Urine Amphetamines Screen NEG Urine Benzodiazepines Screen NEG Urine Cocaine Screen NEG Urine Cannabinoids Screen NEG Date/Time Procedure Status Source Growth 11/29/16 08:00 Urine Culture Received Urine Catheterized Urine Pending 11/29/16 06:10 Gram Stain - Final Resulted Wound Groin 11/29/16 06:10 Wound Culture Resulted Wound Groin Pending 11/29/16 06:10 Aerobic Blood Culture Received Blood Peripheral Pending 11/29/16 06:10 Anaerobic Blood Culture Received Blood Peripheral Pending Result Diagram: 11/29/16 0610 11/29/16 0610 Imaging Last Impressions Chest X-Ray 11/29/16 0528 Signed Impressions: Service Date/Time: Tuesday, November 29, 2016 06:33 - CONCLUSION: No acute disease. Gerry Otoole MD Pelvis MRI 11/29/16 0000 Signed Impressions: Service Date/Time: Tuesday, November 29, 2016 11:13 - CONCLUSION: 1. Marked fluid distention of the corpus spongiosum with concentric compression of the urethra 2. Moderate distention of the corpora cavernosum without intrinsic filling defects. 3. Scrotal and perineal soft tissue swelling without organized fluid collections. 4. Mildly prominent inguinal lymph nodes ranging in size up to 1.5 cm. Usman Anguiano MD Assessment and Plan Assessment and Plan 71-year-old male with evidence of bipolar disorder and BPH with obstruction with eschar and cellulitis of the perineal scrotal area Plan for debridement in the OR tomorrow afternoon. Nothing by mouth after midnight. Recommend wound care consult. Recommend psych consult. Thank you for the consult. Meliton Bear DO Nov 29, 2016 16:34
--- NOTE | 2016-11-29 17:28 | PD.CONS ---
cc: Maldonado Chahal MD [facility] Service Consultation NOTE FOR SURGICAL ATTENDING, DR. MALDONADO CHAHAL General Surgery Consult Requested By Dr. Saunders Reason for Consult Perineal cellulitis [facility] History of Present Illness This is a 71-year-old male with a past medical history of hypertension and bipolar. The patient arrived to the emergency department with complaints of a spider bite to his RIGHT leg and a wound to his perineal and scrotal area. The patient is a poor historian. The patient states that he has been "in a coma" for the past 3 days at home because of [place]. The patient reports that he attempted to soak the infected area in a bleach and water combined bath several times without any success. The patient states he has tried this in the past and has worked. The patient states he had a spider bite occur several weeks ago on his right leg and a neighbor who is also a nurse looked at the spider bite and diagnosed him with MRSA. He states he did not receive treatment for the spider bite. The patient believes that the spider bite on his leg is causing the perineal wound. Urology has been consulted and Dr. Bear plans to take the patient to the operating room and debridement of the perineal and scrotal wounds. A General Surgery has been requested for evaluation of perineal and scrotal wounds. Review of Systems Constitutional: COMPLAINS OF: Fatigue, DENIES: Weight loss, Chills Endocrine: DENIES: Polydipsia, Polyuria, Polyphagia Eyes: DENIES: Diplopia Ears, nose, mouth, throat: DENIES: Hearing loss Respiratory: DENIES: Cough Cardiovascular: DENIES: Chest pain Gastrointestinal: DENIES: Abdominal pain, Nausea, Vomiting Genitourinary: DENIES: Urinary frequency Musculoskeletal: DENIES: Joint pain Integumentary: DENIES: Rash Hematologic/lymphatic: DENIES: Bruising Immunologic/allergic: DENIES: Eczema Neurologic: DENIES: Headache, Localized weakness Psychiatric: DENIES: Confusion, Mood changes, Depression Past Family Social History Past Medical History Bipolar Hypertension Past Surgical History Right knee arthroscopy Reported Medications Lisinopril Allergies: Coded Allergies: Cipro (Verified Allergy, Severe, 11/29/16) states that in the past he got violent and does not want to take the med Penicillin (Verified Allergy, Severe, 11/29/16) Active Ordered Medications Current Medications Medications (Trade) Dose Ordered Sig/Ernie Route Start Time Stop Time Status Last Admin (NS Flush) 2 ml BID IV FLUSH 11/29/16 09:00 (NS Flush) 2 ml UNSCH PRN IVF 11/29/16 07:45 (Tylenol) 650 mg Q4H PRN PO 11/29/16 08:15 Ondansetron HCl 4 mg 4 mg Q6H PRN IVP 11/29/16 08:15 Aztreonam 1000 mg/ Sodium Chloride 100 ml @ 200 mls/hr Q8H IV 11/29/16 14:00 (Vancomycin Consult Pharmacy) 0 ml @ 0 mls/hr UNSCH OTHER 11/29/16 10:30 Ketorolac Tromethamine 15 mg 15 mg Q6H PRN IV PUSH 11/29/16 10:30 12/02/16 10:29 (NS 1000 ml Inj) 1,000 ml @ 100 mls/hr Q10H IV 11/29/16 11:00 (Romazicon Inj) 0.2 mg Q1M PRN IV PUSH 11/29/16 10:45 (Ativan) 1 mg Q4H PRN PO 11/29/16 10:45 (Ativan Inj) 1 mg Q4H PRN IV PUSH 11/29/16 10:45 (Ativan) 2 mg Q2H PRN PO 11/29/16 10:45 (Ativan Inj) 2 mg Q2H PRN IV PUSH 11/29/16 10:45 (Ativan Inj) 2 mg Q1H PRN IV PUSH 11/29/16 10:45 (Ativan Inj) 2 mg Q15M PRN IV PUSH 11/29/16 10:45 (Flomax) 0.4 mg DAILY PO 11/29/16 10:44 11/29/16 13:23 (Protonix) 40 mg DAILY PO 11/29/16 09:00 11/29/16 13:23 Metoprolol Tartrate 100 mg 100 mg BID PO 11/29/16 21:00 (Vancomycin Inj/ NS 500 ml Inj) 515 ml @ 257.5 mls/ hr Q12H IV 11/29/16 18:00 Miscellaneous Information SPECIFIC LAB TO BE DRAWN:VANCOMY... ONCE ONCE .XX 12/01/16 05:45 12/01/16 05:46 Family History non contributory Social History Positive EtOH use--- vodka drinks mixed with fruit juice; approximately 4 daily Denies tobacco use Denies illicit drug use Physical Exam Vital Signs Vital Signs Date Time Temp Pulse Resp B/P Pulse Ox O2 Delivery O2 Flow Rate FiO2 11/29/16 15:22 98.5 103 20 185/109 97 11/29/16 14:10 109 16 145/80 98 11/29/16 10:02 98.5 109 16 150/82 99 Room Air 11/29/16 07:00 98 11/29/16 05:04 97.3 103 18 114/83 97 Physical Exam GENERAL: A 71-year-old male who is hyperverbal; resting in bed in no acute distress; constantly moving SKIN: Perineal and scrotal eschar; erythema surrounding area; no drainage. HEAD: Atraumatic. Normocephalic. EYES: Pupils equal and round. No scleral icterus. No injection or drainage. ENT: No nasal bleeding or discharge. Mucous membranes pink and moist. NECK: Trachea midline. CARDIOVASCULAR: Regular rate and rhythm. RESPIRATORY: No accessory muscle use. Clear to auscultation. Breath sounds equal bilaterally. GASTROINTESTINAL: Abdomen soft, non-tender, nondistended. . MUSCULOSKELETAL: Extremities without clubbing, cyanosis, or edema. No obvious deformities. NEUROLOGICAL: Awake and alert. No obvious cranial nerve deficits. Motor grossly within normal limits. Five out of 5 muscle strength in the arms and legs. Hyperverbal. PSYCHIATRIC: Appropriate mood and affect; insight and judgment normal. Laboratory Laboratory Tests Test 11/29/16 11/29/16 11/29/16 11/29/16 05:55 06:10 08:00 08:45 Lactic Acid Level 2.2 2.3 Phosphorus Level 3.3 Magnesium Level 1.6 Ammonia 32 White Blood Count 6.5 Red Blood Count 4.51 Hemoglobin 14.8 Hematocrit 43.9 Mean Corpuscular Volume 97.3 Mean Corpuscular Hemoglobin 32.8 Mean Corpuscular Hemoglobin 33.7 Concent Red Cell Distribution Width 13.8 Platelet Count 276 Mean Platelet Volume 6.2 Neutrophils (%) (Auto) 57.9 Lymphocytes (%) (Auto) 27.9 Monocytes (%) (Auto) 11.9 Eosinophils (%) (Auto) 1.1 Basophils (%) (Auto) 1.2 Neutrophils # (Auto) 3.7 Lymphocytes # (Auto) 1.8 Monocytes # (Auto) 0.8 Eosinophils # (Auto) 0.1 Basophils # (Auto) 0.1 CBC Comment DIFF FINAL Differential Comment Prothrombin Time 10.2 Prothromb Time International 0.9 Ratio Activated Partial 28.9 Thromboplast Time Sodium Level 138 Potassium Level 2.5 Chloride Level 99 Carbon Dioxide Level 30.2 Anion Gap 9 Blood Urea Nitrogen 4 Creatinine 0.55 Estimat Glomerular Filtration 146 Rate Random Glucose 99 Calcium Level 8.9 Total Bilirubin 0.2 Aspartate Amino Transf 29 (AST/SGOT) Alanine Aminotransferase 20 (ALT/SGPT) Alkaline Phosphatase 143 Total Creatine Kinase 66 Total Protein 7.4 Albumin 2.8 Thyroid Stimulating Hormone 0.824 3rd Gen Salicylates Level LESS THAN 1.7 Acetaminophen Level LESS THAN 2.0 Valproic Acid (Depakene) Level 5 Ethyl Alcohol Level 223 Urine Collection Type CATH Urine Color STRAW Urine Turbidity CLEAR Urine pH 7.0 Urine Specific [place] 1.004 Urine Protein NEG Urine Glucose (UA) 1000 OR GREATER Urine Ketones NEG Urine Occult Blood NEG Urine Nitrite NEG Urine Bilirubin NEG Urine Leukocyte Esterase SMALL Urine WBC 3-5 Urine Squamous Epithelial 0-5 Cells Urine Amorphous Sediment FEW Urine Bacteria MOD Microscopic Urinalysis Comment CATH-CULTURE IND Urine Collection Time 0800 Urine Opiates Screen NEG Urine Barbiturates Screen NEG Urine Amphetamines Screen NEG Urine Benzodiazepines Screen NEG Urine Cocaine Screen NEG Urine Cannabinoids Screen NEG Date/Time Procedure Status Source Growth 11/29/16 08:00 Urine Culture Received Urine Catheterized Urine Pending 11/29/16 06:10 Gram Stain - Final Resulted Wound Groin 11/29/16 06:10 Wound Culture Resulted Wound Groin Pending 11/29/16 06:10 Aerobic Blood Culture Received Blood Peripheral Pending 11/29/16 06:10 Anaerobic Blood Culture Received Blood Peripheral Pending Result Diagram: 11/29/16 0610 11/29/16 0610 Imaging Last 48 hours Impressions Chest X-Ray 11/29/16 0528 Signed Impressions: Service Date/Time: Tuesday, November 29, 2016 06:33 - CONCLUSION: No acute disease. Gerry Otoole MD Pelvis MRI 11/29/16 0000 Signed Impressions: Service Date/Time: Tuesday, November 29, 2016 11:13 - CONCLUSION: 1. Marked fluid distention of the corpus spongiosum with concentric compression of the urethra 2. Moderate distention of the corpora cavernosum without intrinsic filling defects. 3. Scrotal and perineal soft tissue swelling without organized fluid collections. 4. Mildly prominent inguinal lymph nodes ranging in size up to 1.5 cm. Usman Anguiano MD Assessment and Plan Assessment and Plan 71-year-old male with perineal and scrotal eschar wounds -Dr. Bear from urology planning to take patient to the operating room tomorrow for debridement -Will be available if needed in operating room -Diet as tolerated; nothing by mouth after midnight -Recommend psychiatric evaluation -Thank you for this consult; we will continue to follow as needed Discussed Condition With Dr. Tirso Rodriguez Attending Statement NOTE FOR SURGICAL ATTENDING, DR. MALDONADO CHAHAL I agree with above assessment and plan. The exam, history, and the medical decision-making described in the above note were completed with the assistance of the mid-level provider. I reviewed and agree with the findings presented. I The following services were provided during this hospital visit: Chart data review, vital sign assessments/reviewing monitor data Review of consultations notes if present. Medication orders/review and/or management Ordering and/or reviewing lab tests Ordering and/or interpreting/reviewing x-rays and/or diagnostic studies Care of the patient and discussion of the patient with the care team Documentation time To help prompt me to consider important information that might be impacting today's encounter and assessment, information from prior notes written by myself or my colleagues may have been "brought forward/copy and pasted" into today's note. Evelyn Angel Nov 29, 2016 17:28 Maldonado Chahal MD Dec 01, 2016 08:13
[2016-11-29] MEDS: AZTREONAM INJ 1,000 MG in SODIUM CHLORIDE 0.9% INJ 100 ML IV SCH (18:21)
[2016-11-29] MEDS: SODIUM CHLOR 0.9% 1000 ML INJ 1,000 ML IV SCH ×2 (18:25→19:47)
[2016-11-29] MEDS: VANCOMYCIN 1,500 MG/NS 500 ML IV SCH ×2 (18:34)
[2016-11-29] MEDS: METOPROLOL TARTRATE 100 MG TAB PO SCH (19:46)
[2016-11-30] VITALS (7 sets, daily range): BP systolic 131–160; BP diastolic 64–93; PULSE 69–103; RESP 17–18; TEMP 97.6–98.8; O2SAT 92–99
[2016-11-30] MEDS: AZTREONAM INJ 1,000 MG in SODIUM CHLORIDE 0.9% INJ 100 ML IV SCH ×4 (00:40→22:43)
[2016-11-30] MEDS: SODIUM CHLOR 0.9% 1000 ML INJ 1,000 ML IV SCH ×2 (05:53→18:10)
[2016-11-30] MEDS: VANCOMYCIN 1,500 MG/NS 500 ML IV SCH ×4 (07:32→19:11)
[2016-11-30] MEDS ORDERED: PNEUMOCOCCAL POLYVALENT INJ 25 MCG/0.5 ML SYR IM ONE (09:00)
[2016-11-30] MEDS: TAMSULOSIN HCL 0.4 MG CAP PO SCH (10:11)
[2016-11-30] MEDS: PANTOPRAZOLE SOD 40 MG DELAYED RELEASE TAB PO SCH (10:11)
[2016-11-30] MEDS: SODIUM CHLORIDE 0.9% FLUSH 10 ML FLUSH IV FLUSH SCH ×2 (10:11→21:00)
[2016-11-30] MEDS: METOPROLOL TARTRATE 100 MG TAB PO SCH ×2 (10:11→22:42)
--- NOTE | 2016-11-30 10:59 | PD.PSY.CON ---
Provisional Diagnosis Admission Date Nov 29, 2016 at 07:47 Browning I. Bipolar disorder type I, manic episode with psychosis, alcohol use disorder Browning II. Deferred Browning III. Hypertension, scrotal inflammation Browning IV. No family or social support Browning V. 35 History of Present Illness Service Psychiatry Consult Requested By Reason for Consult Manic symptoms Primary Care Physician [facility] HPI The patient is a 71-year-old man, domiciled alone in [place], single, retired, , service connected, with psychiatric history of bipolar disorder, alcohol use disorder, multiple psychiatric hospitalizations, no previous suicidal attempts, establish outpatient psychiatric care through the [facility], apparently poorly compliant with medications, medical history of hypertension, BPH, who come to the emergency room today complaining of increased pain in the buttocks and scrotal area after he was apparently bitten by a spider 2 weeks ago area patient says that he did not see the spider but sought a spider bite. He was diagnosed with cellulitis of the perineal scrotal area. Dr. Bear from urology planning to take patient to the operating room for debridement today. On psychiatric evaluation today patient is found in his bed, he is cooperative, but poor historian, with pronounced pressured speech, malodorous, at times disorganized and tangential, but usually pleasant. Patient says that he came to the hospital because he has a problem "down there" he says that he has been applying Indira and cinnamon and old bases into the area. He also said he too a bath with bleach. When the area became more painful and swollen and painful patient came to the emergency room, after the ghosts in his trailer told him to come. Patient reports happy mood, he says that he recognizes that his acutely manic "but I like to be manic". Patient says that he came to the doctors, he usually doesn't come "because I have premaster degrees, to PhD's and I know more that you know". He reports that he is a [employer] and has been trained to kill, he also served to the [employer]. He says that he doesn't like to take medications, but if he has to take his Depakote and Seroquel and was doing. He says that [facility], but I don't usually take the medication. 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 Patient reports multiple psychiatric hospitalization, he has been in lithium in the past, Depakote, olanzapine, Seroquel, and SSRIs. 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 At this moment the patient denies suicidal ideation, denies homicidal ideation. He denies visual and auditory hallucinations. But, prominent delusions of grandiosity, disorganized speech, loosening of associations, tangentiality, pressured speech are present. Patient denies the use of illicit drugs, but he reports daily use of alcohol. Patient says that he takes about 1 pint of vodka, he denies withdrawal symptoms in the past or now. Review of Systems Constitutional: DENIES: Diaphoretic episodes, Fatigue, Fever, Weight gain, Weight loss, Chills, Dizziness, Change in appetite, Night Sweats Endocrine: DENIES: Heat/cold intolerance, Polydipsia, Polyuria, Polyphagia Eyes: DENIES: Blurred vision, Diplopia, Eye inflammation, Eye pain, Vision loss , Photosensitivity, Double Vision Ears, nose, mouth, throat: DENIES: Tinnitus, Hearing loss, Vertigo, Nasal discharge, Oral lesions, Throat pain, Hoarseness, Ear Pain, Running Nose, Epistaxis, Sinus Pain, Toothache, Odynophagia Respiratory: DENIES: Apneas, Cough, Snoring, Wheezing, Hemoptysis, Sputum production, Shortness of breath Gastrointestinal: DENIES: Abdominal pain, Black stools, Bloody stools, Constipation, Diarrhea, Nausea, Vomiting, Difficulty Swallowing, Anorexia Genitourinary: COMPLAINS OF: Testicular Pain, Testicular Swelling Musculoskeletal: DENIES: Joint pain, Muscle aches, Stiffness, Joint Swelling, Back pain, Neck pain Integumentary: DENIES: Abnormal pigmentation, Nail changes, Pruritus, Rash Hematologic/lymphatic: DENIES: Bruising, Lymphadenopathy Immunologic/allergic: DENIES: Eczema, Urticaria Neurologic: DENIES: Abnormal gait, Headache, Localized weakness, Paresthesias, Seizures, Speech Problems, Tremor, Poor Balance Psychiatric: COMPLAINS OF: Anxiety, Mood changes, Delusions, DENIES: Confusion , Depression, Hallucinations, Agitation, Suicidal Ideation, Homicidal Ideation Past Family Social History Coded Allergies: Cipro (Verified Allergy, Severe, 11/29/16) states that in the past he got violent and does not want to take the med Penicillin (Verified Allergy, Severe, 11/29/16) Reported Medications Loperamide 2 Mg Cap2 Mg PO DIRECTED PRN (DIARRHEA) Ref 0 One capsule after each loose stool. Not to exceed 8 capsules per day. 11/29/16 Lisinopril 40 Mg Tab40 Mg PO DAILY #30 TAB Ref 0 11/29/16 Current Medications Medications (Trade) Dose Ordered Sig/Ernie Route Start Time Stop Time Status Last Admin (NS Flush) 2 ml BID IV FLUSH 11/29/16 09:00 11/30/16 10:11 (NS Flush) 2 ml UNSCH PRN IVF 11/29/16 07:45 (Tylenol) 650 mg Q4H PRN PO 11/29/16 08:15 Ondansetron HCl 4 mg 4 mg Q6H PRN IVP 11/29/16 08:15 Aztreonam 1000 mg/ Sodium Chloride 100 ml @ 200 mls/hr Q8H IV 11/29/16 14:00 11/30/16 05:52 (Vancomycin Consult Pharmacy) 0 ml @ 0 mls/hr UNSCH OTHER 11/29/16 10:30 Ketorolac Tromethamine 15 mg 15 mg Q6H PRN IV PUSH 11/29/16 10:30 12/02/16 10:29 (NS 1000 ml Inj) 1,000 ml @ 100 mls/hr Q10H IV 11/29/16 11:00 11/30/16 05:53 (Romazicon Inj) 0.2 mg Q1M PRN IV PUSH 11/29/16 10:45 (Ativan) 1 mg Q4H PRN PO 11/29/16 10:45 (Ativan Inj) 1 mg Q4H PRN IV PUSH 11/29/16 10:45 (Ativan) 2 mg Q2H PRN PO 11/29/16 10:45 (Ativan Inj) 2 mg Q2H PRN IV PUSH 11/29/16 10:45 (Ativan Inj) 2 mg Q1H PRN IV PUSH 11/29/16 10:45 (Ativan Inj) 2 mg Q15M PRN IV PUSH 11/29/16 10:45 (Flomax) 0.4 mg DAILY PO 11/29/16 10:44 11/30/16 10:11 (Protonix) 40 mg DAILY PO 11/29/16 09:00 11/30/16 10:11 Metoprolol Tartrate 100 mg 100 mg BID PO 11/29/16 21:00 11/30/16 10:11 (Vancomycin Inj/ NS 500 ml Inj) 515 ml @ 257.5 mls/ hr Q12H IV 11/29/16 18:00 11/30/16 07:32 Miscellaneous Information SPECIFIC LAB TO BE DRAWN:VANCOMY... ONCE ONCE .XX 12/01/16 05:45 12/01/16 05:46 Family History Patient reports that his mother and grandmother were bipolar Social History Patient was born and raised in [place], he has been living in [place] since 1987, he is single, he lives alone in a trailer, , with [facility] benefits, and service-connected, his highest level of education is "masters and PHDs" Patient's Strengths (min. 2) Patient seems to have an insight of his manic behavior Physical Exam No tremors, no EPS, no stiffness, no kids disturbances present, but restlessness and psychomotor agitation noted. Vital Signs Vital Signs Date Time Temp Pulse Resp B/P Pulse Ox O2 Delivery O2 Flow Rate FiO2 11/30/16 08:00 98.8 82 18 160/91 95 11/30/16 04:39 21 11/29/16 10:02 Room Air I/O 11/29/16 11/29/16 11/30/16 08:00 16:00 00:00 Intake Total 1200 ml Balance 1200 ml Lab Results Mental Status Examination Appearance Elderly man, he appears younger than his stated age, long hair, disheveled, malodorous, he is cooperative, but disorganized, tangential kind of restless Speech: Pressured, Rapid Orientation: x3 Memory: Unremarkable Thought Process: Flight of Ideas, Loose Association, Tangential Thought Content: Bizarre thinking, Paranoid Language Patient uses correct grammar, good wording, Fund of Knowledge Patient knows who is president, understand the nature of his illness Hallucination Type: None Attention and Concentration: Abnormal Suicidal Ideation: No Previous Suicide Attempts: No Homicidal Ideation: No Previous Homicide Attempts: No Insight: Fair Judgment: Impulsive Affect: Irritable, Other (elevated ) Mood: Manic Motor Activity: Normal gait Assessment & Plan Problem List: (1) Bipolar disorder Assessment & Plan: At the moment of my psychiatric evaluation the patient presents with acute symptoms of mai consistent on pressured speech, disorganized behavior and thoughts, tangentiality, loosening of associations, delusions of grandiosity, inflated self-esteem. Patient denies suicidal and homicidal ideation, patient denies visual and auditory hallucinations. Patient has a significant history of bipolar disorder, with multiple hospitalizations, apparently doesn't have a good adherence with psychotropics which, was apparently exacerbated by daily alcohol use, have led to acute manic state. Acute state of mai has definitely impacted patient's judgment to the point that he has been taking very poor care and neglect in of his medical conditions. At this moment due to level of mai/psychosis patient can potentially become a danger to himself and he needs psychiatric hospitalization for stabilization. Patient is willing to come to the psychiatric unit voluntarily, but he definitely meets criteria for involuntary admission. We'll start Depakote 250 mg twice a day, Seroquel 25 mg twice a day for mood stabilization and psychosis. We will coordinate with medical team to transfer patient to med psych unit after surgery. Collateral information from [facility] is still pending. ICD Code: F31.9 Assessment & Plan Estimated LOS: days Problem Qualifiers (1) Bipolar disorder: Rafy Aggarwal MD Nov 30, 2016 10:59
--- NOTE | 2016-11-30 12:53 | HHI.PR ---
Subjective Remarks Patient reports feeling okay since last night. Plans for debridement today. Wanting to eat, has maintained his nothing by mouth status as instructed. Noted to be hypokalemic on most recent BMP Objective Vital Signs Date Time Temp Pulse Resp B/P Pulse Ox O2 Delivery O2 Flow Rate FiO2 11/30/16 12:00 98.8 69 18 158/93 97 11/30/16 08:00 98.8 82 18 160/91 95 11/30/16 04:39 21 11/30/16 04:00 98.3 91 17 133/81 95 11/30/16 00:00 98.6 92 18 131/64 92 11/29/16 20:00 99.5 103 18 136/77 95 11/29/16 17:00 98.7 100 157/102 97 11/29/16 15:22 98.5 103 20 185/109 97 11/29/16 14:10 109 16 145/80 98 I/O 11/29/16 11/29/16 11/29/16 11/30/16 11/30/16 11/30/16 06:59 14:59 22:59 06:59 14:59 22:59 Intake Total 1200 ml 900 ml Balance 1200 ml 900 ml Intake IV Total 1200 ml 900 ml Bladder Scan Volume Amount 36 ml Result Diagram: 11/29/16 0610 11/30/16 0545 Imaging Last Impressions Chest X-Ray 11/29/16 0528 Signed Impressions: Service Date/Time: Tuesday, November 29, 2016 06:33 - CONCLUSION: No acute disease. Gerry Otoole MD Pelvis MRI 11/29/16 0000 Signed Impressions: Service Date/Time: Tuesday, November 29, 2016 11:13 - CONCLUSION: 1. Marked fluid distention of the corpus spongiosum with concentric compression of the urethra 2. Moderate distention of the corpora cavernosum without intrinsic filling defects. 3. Scrotal and perineal soft tissue swelling without organized fluid collections. 4. Mildly prominent inguinal lymph nodes ranging in size up to 1.5 cm. Usman Anguiano MD Objective Remarks GENERAL: Resting comfortably CARDIOVASCULAR: Regular rate and rhythm without murmurs, gallops, or rubs. RESPIRATORY: Breath sounds equal and clear bilaterally. Unlabored breathing GASTROINTESTINAL: Abdomen soft, non-tender, nondistended. MUSCULOSKELETAL: No cyanosis, or edema. Skin: Has a scrotal, perineal and right groin eschars and ulcer that are foul- smelling A/P Problem List: (1) Hypokalemia ICD Code: E87.6 (2) Alcohol abuse ICD Code: F10.10 (3) Pressure ulcer, unstageable, with eschar ICD Code: L89.95 (4) Cellulitis, perineum ICD Code: L03.315 (5) Cellulitis of scrotum ICD Code: N49.2 (6) Perineal abscess ICD Code: L02.215 (7) Bipolar disorder ICD Code: F31.9 (8) HTN (hypertension) ICD Code: I10 (9) BPH (benign prostatic hyperplasia) ICD Code: N40.0 Assessment and Plan Patient admitted with infected perineal and scrotal eschars and ulcers. More clinically stable today, surgery planned today 1) Bipolar disorder Status: Chronic Plan: Clinically improved, appreciate psychiatry's input and recommendations, plan to transfer to [facility] when more medically stable posterior debridement. (2) Hypokalemia Plan: Replace and trend along with magnesium (3) Perineal abscess IPlan: Continue antibiotics, urology and surgery consulted, plan for debridement today (4) EtOH dependence Plan: CIWA protocol (5) HTN (hypertension) Plan: Lopressor (6) BPH (benign prostatic hyperplasia) Flomax Problem Qualifiers (1) Bipolar disorder: Quique Sullivan MD Nov 30, 2016 12:53
[2016-11-30] MEDS: QUEtiapine FUMARATE 25 MG TAB PO SCH ×2 (13:06→22:42)
[2016-11-30] MEDS: DIVALPROEX SODIUM DELAYED RELEASE 250 MG TAB PO SCH ×2 (13:07→22:42)
[2016-11-30] MEDS: POTASSIUM CHLOR 20 MEQ PREMIX 100 ML IV SCH ×2 (13:34→16:05)
[2016-11-30] MEDS ORDERED: ONDANSETRON HCL 4 MG/2 ML VIAL IV PUSH ONE (14:34)
[2016-11-30] MEDS ORDERED: PHENYLEPH/NS 1000 MCG/10 ML SYR IV ONE (14:34)
[2016-11-30] MEDS ORDERED: PROPOFOL 200 MG/20 ML AMP IV ONE (14:34)
[2016-11-30] MEDS ORDERED: ePHEDrine/NS 25 MG/5 ML SYR IV ONE (14:34)
[2016-11-30] MEDS ORDERED: LACTATED RINGER'S 1000 ML INJ 1,000 ML IV ONE (14:35)
[2016-11-30] MEDS ORDERED: FAMOTIDINE 20 MG/2 ML VIAL ONE (15:40)
[2016-11-30] MEDS ORDERED: MIDAZOLAM HCL 2 MG/2 ML VIAL ONE (17:09)
[2016-11-30] MEDS ORDERED: MORPHINE SULFATE 4 MG/ML INJ ONE (17:09)
[2016-11-30] MEDS ORDERED: ACETAMINOPHEN/HYDROcodone 325 MG/5 MG TAB PO PRN (17:30)
--- NOTE | 2016-11-30 17:38 | PD.OP ---
Operative Report Date of Surgery: Nov 30, 2016 Preoperative Diagnosis: Perineal/scrotal wound with eschar Postoperative Diagnosis: same Procedure: Debridement of eschar of perineal and scrotal wounds Anesthesia: Gen. LMA Surgeon: Meliton Bear Copyholder(s): None Resident Surgeon: None Operation and Findings: 71-year-old male presented with perineal and scrotal wounds with eschar and necrotic tissue. Decision made to bring the patient to the operating room to undergo debridement of the wound area. Risk and benefits were discussed preoperatively and he was willing to proceed. The patient is brought to the operating room identified by myself as Matthias Rodriguez. His placement dorsal lithotomy position, prepped and draped in usual sterile fashion, received preprocedure antibiotics and general LMA anesthesia was administered. Using the tenotomy scissors the eschar was debrided from the perineal region. 15 blade was used to excise the tissue overlying the inferior scrotal area which is about 2 cm in size. The curet was then used to remove all necrotic tissue that was remaining. Once the entire wound was free of necrotic tissue. Bovie cautery was used to obtain hemostasis. Wet-to-dry dressings were then placed over the perineal wounds and Xeroform was placed on the scrotal wound. A rectal bag was placed over the anus to prevent this patient from soiling as he has a habit of doing so. He was awoken next been transferred from stable condition. Meliton Bear DO Nov 30, 2016 17:38
[2016-11-30] MEDS ORDERED: DO NOT ADM ANY ANTICOAGULANT DRUGS PRN (17:41)
--- NOTE | 2016-11-30 18:05 | MB ---
cc: VASILE CHACON MD DATE OF CONSULTATION: 11/30/[address] Boggs REASON FOR CONSULTATION: Perineal abscess. HISTORY OF PRESENT ILLNESS This is a 71-year-old white male who presented to the emergency department with pain and worsening rash at the groin and buttock. The patient reports that he had a spider bite at the right leg at the lateral aspect of the knee approximately 2 weeks ago. He states that he was using local measures to treat that and then he subsequently developed a skin lesion at the scrotum and also the area at the buttock beneath the scrotum at the perineum. He was using different local treatments including cinnamon powder and also used Clorox as well and was using toilet paper to keep the area dry. He noted that the area was weeping quite a bit and the drainage was foul-smelling and subsequently developed worsening pain, and presented to the emergency department for evaluation. The patient appears to have disjointed thoughts. He states that he has used all kinds of different home remedies to treat himself in the past. Culture was taken from the wound and it is pending. The patient was evaluated by urology and he is due to undergo debridement later today. He is awake and alert. He is afebrile. White blood cell count is normal. The patient denies fever or chills and has no other complaints. PAST MEDICAL HISTORY: 1. Bipolar disorder. 2. Hypertension. 3. Hyperlipidemia. 4. Dyspepsia. ALLERGIES CIPRO PENICILLIN MEDICATIONS: 1. Seroquel. 2. Depakote. 3. Lopressor. 4. Vancomycin. 5. Aztreonam. 6. Ativan. 7. Flomax. 8. Protonix. SOCIAL HISTORY: Denies tobacco use. Positive alcohol use. Denies illicit drugs. FAMILY HISTORY: Noncontributory. REVIEW OF SYSTEMS: Pertinent as mentioned above, pain in the scrotum and perineum. Otherwise, negative on 10 point review. PHYSICAL EXAMINATION: The patient is a well-developed male who is in no acute distress. He is awake, alert, oriented. VITAL SIGNS: Temperature 98.8, blood pressure 160/91, respiratory rate 18, heart rate 82. HEENT: Atraumatic. Extraocular movements grossly intact. Pupils reactive to light. No icterus. OROPHARYNX: No visible lesions. NECK: Supple. No adenopathy. LUNGS: Clear breath sounds bilaterally. HEART: Regular rate and rhythm. No murmurs, rubs, or gallops. ABDOMEN: Bowel sounds present, soft, nontender. GENITOURINARY: Scrotum has a necrotic superficial lesion with surrounding pale discoloration of the skin. Underneath the scrotum, the perineum on both sides has peeled necrotic ulcerations which is weeping and has foul-smelling fluid. This goes across from the left to the right side of the perineum and he has also other coin lesion satellites around the main ulcerations. The area is very painful to palpation. RECTAL: Not performed. EXTREMITIES: Patient has one excoriated dry lesion at the right tibia just below the knee region. There is no drainage or erythema located there. The rest of the extremities have no clubbing, cyanosis or edema. SKIN: Noted just rash. NEUROLOGIC: Nonfocal. PSYCHIATRIC: The patient appears to have disjointed thoughts, otherwise is calm. LABORATORY DATA WBC 6.5, platelets 276, 57% neutrophils, creatinine 0.59. Liver function tests normal. Wound culture pending. Gram stain showed rare white cells and heavy mixed jacquelyn. Blood cultures, no growth. Urine culture pending. MRI of the pelvis showed scrotum and perineal soft tissue swelling without organized fluid collection. IMPRESSION Perineal abscess and necrotic cellulitis. RECOMMENDATIONS 1. Continue vancomycin. 2. Continue aztreonam. 3. Monitor wound culture. 4. Monitor blood culture. 5. Monitor new cultures after surgery is performed today. Thank you for this consultation. The patient's progress will be monitored and further recommendations will be given on followup. Vasile Chacon MD FD/SELVIN /11:18 AM /5:33 PM
[2016-11-30] MEDS ORDERED: HYDROmorphone HCL PF 1 MG/ML VIAL IV PRN (19:45)
[2016-12-01] VITALS: BP 94/52; PULSE 74; RESP 18; TEMP 97.1; O2SAT 96
[2016-12-01 04:00] VITALS: BP 112/67; PULSE 83; RESP 17; TEMP 96.1; O2SAT 97
[2016-12-01] MEDS: AZTREONAM INJ 1,000 MG in SODIUM CHLORIDE 0.9% INJ 100 ML IV SCH ×2 (04:54→14:15)
[2016-12-01] MEDS: SODIUM CHLOR 0.9% 1000 ML INJ 1,000 ML IV SCH (04:55)
[2016-12-01] MEDS ORDERED: PHARMACY ORDERED LAB ONE (05:45)
[2016-12-01] MEDS: VANCOMYCIN 1,500 MG/NS 500 ML IV SCH ×2 (06:14)
[2016-12-01 08:00] VITALS: BP_SYST 113; BP_SYST 138; BP_DIAS 68; BP_DIAS 96; PULSE 72; PULSE 83; RESP 18; TEMP 97.3; TEMP 98; O2SAT 98; O2SAT 99
--- NOTE | 2016-12-01 08:29 | EKG ---
Date Performed: 11/30/2016 Time Performed: 15:50:25 PTAGE: 71 years EKG: Sinus rhythm PROLONGED QT INTERVAL ABNORMAL ECG PREVIOUS TRACING : 05/06/2014 11.00 DOCTOR: Bryan Magana Interpretating Date/Time 12/01/2016 08:27:34
--- NOTE | 2016-12-01 08:32 | HHI.PR ---
Subjective Patient symptoms today Pt seen and examined. Desires regular food with salt. Objective Vital Signs Vital Signs Date Time Temp Pulse Resp B/P Pulse Ox O2 Delivery O2 Flow Rate FiO2 12/01/16 08:00 97.3 72 18 113/68 99 12/01/16 04:00 96.1 83 17 112/67 97 12/01/16 00:00 97.1 74 18 94/52 96 11/30/16 20:00 97.6 103 17 141/89 99 11/30/16 18:10 97.5 77 16 148/86 95 Room Air 11/30/16 18:00 76 16 137/79 98 Nasal Cannula 2 11/30/16 17:45 78 16 121/74 100 Nasal Cannula 3 11/30/16 17:40 97.3 76 17 113/68 99 Nasal Cannula 3 11/30/16 17:37 98 21 11/30/16 13:29 98 21 11/30/16 12:00 98.8 69 18 158/93 97 Intake & Output 12/01/16 12/01/16 07:00 19:00 Intake Total 1140 ml 240 ml Balance 1140 ml 240 ml Intake Oral 240 ml 240 ml IV Total 900 ml # Voids 2 1 # Bowel Movements 1 1 Result Diagram: 11/29/16 0610 11/30/16 0545 Objective Remarks Abd:soft,nt,nd Wound: dressings intact with some drainage Medications and IVs Current Medications Medications (Trade) Dose Ordered Sig/Ernie Route Start Time Stop Time Status Last Admin (NS Flush) 2 ml BID IV FLUSH 11/29/16 09:00 11/30/16 10:11 (NS Flush) 2 ml UNSCH PRN IVF 11/29/16 07:45 (Tylenol) 650 mg Q4H PRN PO 11/29/16 08:15 Ondansetron HCl 4 mg 4 mg Q6H PRN IVP 11/29/16 08:15 Aztreonam 1000 mg/ Sodium Chloride 100 ml @ 200 mls/hr Q8H IV 11/29/16 14:00 12/01/16 04:54 (Vancomycin Consult Pharmacy) 0 ml @ 0 mls/hr UNSCH OTHER 11/29/16 10:30 Ketorolac Tromethamine 15 mg 15 mg Q6H PRN IV PUSH 11/29/16 10:30 12/02/16 10:29 (NS 1000 ml Inj) 1,000 ml @ 100 mls/hr Q10H IV 11/29/16 11:00 12/01/16 04:55 (Romazicon Inj) 0.2 mg Q1M PRN IV PUSH 11/29/16 10:45 (Ativan) 1 mg Q4H PRN PO 11/29/16 10:45 (Ativan Inj) 1 mg Q4H PRN IV PUSH 11/29/16 10:45 (Ativan) 2 mg Q2H PRN PO 11/29/16 10:45 (Ativan Inj) 2 mg Q2H PRN IV PUSH 11/29/16 10:45 (Ativan Inj) 2 mg Q1H PRN IV PUSH 11/29/16 10:45 (Ativan Inj) 2 mg Q15M PRN IV PUSH 11/29/16 10:45 (Flomax) 0.4 mg DAILY PO 11/29/16 10:44 11/30/16 10:11 (Protonix) 40 mg DAILY PO 11/29/16 09:00 11/30/16 10:11 Metoprolol Tartrate 100 mg 100 mg BID PO 11/29/16 21:00 11/30/16 22:42 (Vancomycin Inj/ NS 500 ml Inj) 515 ml @ 257.5 mls/ hr Q12H IV 11/29/16 18:00 12/01/16 06:14 (SEROquel) 25 mg BID PO 11/30/16 10:30 11/30/16 22:42 (Depakote Dr) 250 mg Q12HR PO 11/30/16 10:30 11/30/16 22:42 (Dilaudid Pf Inj) 1 mg Q4H PRN IV 11/30/16 19:45 (Sarepta 5-325 Mg) 2 tab Q6H PRN PO 11/30/16 17:30 Miscellaneous Information ALL NURSING DEPARTME... UNSCH PRN .XX 11/30/16 17:41 12/01/16 17:40 Assessment and Plan Assessment and Plan 71-year-old male with evidence of bipolar disorder and BPH with obstruction with eschar and cellulitis of the perineal scrotal area Plan for debridement in the OR tomorrow afternoon. Nothing by mouth after midnight. Recommend wound care consult. Recommend psych consult. Thank you for the consult. 12/01/16 71-year-old male with evidence of bipolar disorder and BPH with obstruction with eschar and cellulitis of the perineal scrotal area s/p debridement. Continue wet/dry dressing changes Regular diet Meliton Bear DO Dec 01, 2016 08:32
[2016-12-01] MEDS: PANTOPRAZOLE SOD 40 MG DELAYED RELEASE TAB PO SCH (08:35)
[2016-12-01] MEDS: QUEtiapine FUMARATE 25 MG TAB PO SCH (08:35)
[2016-12-01] MEDS: TAMSULOSIN HCL 0.4 MG CAP PO SCH (08:35)
[2016-12-01] MEDS: METOPROLOL TARTRATE 100 MG TAB PO SCH (08:35)
[2016-12-01] MEDS: SODIUM CHLORIDE 0.9% FLUSH 10 ML FLUSH IV FLUSH SCH (08:35)
[2016-12-01] MEDS: DIVALPROEX SODIUM DELAYED RELEASE 250 MG TAB PO SCH (08:35)
[2016-12-01 08:40] LABS: BICARBONATE 26.4 MEQ/L (21.0-32.0); POTASSIUM 3.4 MEQ/L (3.5-5.1)
[2016-12-01 10:20] VITALS: O2SAT 97
[2016-12-01 12:00] VITALS: BP 130/92; PULSE 77; RESP 18; TEMP 98.2; O2SAT 97
--- NOTE | 2016-12-01 12:10 | HHI.PYPN ---
Subjective Remarks Patient seen for psychiatric reevaluation while nurse is changing gauzes. Patient is very talkative, pressured, disorganized. He has been compliant with his medication, no significant side effects reported. As per nursing staff, patient has been restless, continuously talking, no making much sense. No agitation, no aggressive behavior reported. Review of Systems Genitourinary: COMPLAINS OF: Testicular Pain, Testicular Swelling Objective Alert: Yes [place]: Person, Place, Date Mood: Anxious Affect: Manic, Other (elevated) Memory Intact: Comment (no formally assessed) Hallucinations: Other (no perceptual disturbances) Delusions: No Delusion Type: Other (not elicited at this moment) Suicidal: Ideation (no SI) Homicidal: Ideation (no HI) Insight/Judgment Poor Labs Test 12/01/16 12/01/16 06:10 07:53 Vancomycin Level Trough 11.0 MCG/ML Sodium Level 138 MEQ/L Potassium Level 3.4 MEQ/L Chloride Level 104 MEQ/L Carbon Dioxide Level 26.4 MEQ/L Anion Gap 8 MEQ/L Blood Urea Nitrogen 6 MG/DL Creatinine 0.55 MG/DL Estimat Glomerular Filtration 146 ML/MIN Rate Random Glucose 82 MG/DL Calcium Level 7.6 MG/DL Date/Time Procedure Status Source Growth 11/29/16 08:00 Urine Culture - Final Complete Urine Catheterized Urine Strep Not A,B D Klebsiella Pneumoniae 11/29/16 06:10 Gram Stain - Final Complete Wound Groin 11/29/16 06:10 Wound Culture - Final Complete Strep Not A,B D Proteus Mirabilis 11/29/16 06:10 Aerobic Blood Culture - Preliminary Resulted Blood Peripheral NO GROWTH IN 2 DAYS 11/29/16 06:10 Anaerobic Blood Culture - Preliminary Resulted Blood Peripheral NO GROWTH IN 2 DAYS Vitals/IOs Vital Signs Date Time Temp Pulse Resp B/P Pulse Ox O2 Delivery O2 Flow Rate FiO2 12/01/16 12:00 98.2 77 18 130/92 97 12/01/16 10:20 21 11/30/16 18:10 Room Air 11/30/16 18:00 2 Intake and Output 11/30/16 11/30/16 12/01/16 08:00 16:00 00:00 Intake Total 900 ml 900 ml 2040 ml Output Total 15 ml Balance 900 ml 900 ml 2025 ml Assessment & Plan Problem List: (1) Bipolar disorder Assessment & Plan: Patient continues to be acutely manic. He will be transferred to the med psych unit continue psychiatric medication. ICD Code: F31.9 Assessment & Plan Estimated LOS: days Justification for Cont. Inpt. Patient needs psychiatric admission for stabilization of mai. Problem Qualifiers (1) Bipolar disorder: Rafy Aggarwal MD Dec 01, 2016 12:10
--- NOTE | 2016-12-01 13:19 | HHI.IDPN ---
Note Infectious Disease Note Patient is post debridement of perineum abscess. No distress. Complaining that he asked for a pain pill and is not getting it soon enough. Swearing and threatening ti leave the hospital. Afebrile. Wound culture has Strep non A,B D and klebsiella. PAST MEDICAL HISTORY: 1. Bipolar disorder. 2. Hypertension. 3. Hyperlipidemia. 4. Dyspepsia. ALLERGIES CIPRO PENICILLIN ANTIBIOTICS: 1. Vancomycin. 2. Aztreonam. PHYSICAL EXAMINATION: GENERAL: No acute distress. HEENT: No icterus. OROPHARYNX: No visible lesions. LUNGS: Clear breath sounds. HEART: Regular rate and rhythm. No murmurs, rubs, or gallops. ABDOMEN: Bowel sounds present, soft, nontender. GENITOURINARY: Post debridement of perineum. dressing in place. EXTREMITIES: No clubbing, cyanosis or edema. SKIN: Noted just rash. NEUROLOGIC: Nonfocal. PSYCHIATRIC: Anxious. Disjointed thoughts. Emotionally labile. IMPRESSION Perineal abscess and necrotic cellulitis. RECOMMENDATIONS 1. Continue vancomycin. 2. Continue aztreonam. Would give IV vancomycin plus Aztreonam or Ertapenem( Once a day dosing) x 2 weeks from day of last debridement. Planned debridement tomorrow pre Urology note. Ankur Chacon MD Dec 01, 2016 13:19
--- NOTE | 2016-12-01 13:23 | PD.WCN.NOT ---
Wound Consult Description: Scrotal/ Perianal wound s/p surgical debridement,and coccyx wound. Communicated with: CLARI Chin and Call placed to Doctor Meliton Bear for orders Recommendation: Please cleanse wound to perianal/ scrotal area with normal saline Apply 0.125% Dakin's moistened gauze packed into wound bed and pulled out ~1cm to allow for tissue growth. Apply skin prep to periwound. Cover periwound full thickness skin loss to scrotal area with Xeroform single layer gauze. Cover Scrotal/ perianal wound with dry 4x4 gauze pads and ABD pad. Secure dressing with mesh under wear and change BID. Please cleanse wound to coccyx area with normal saline and apply single layer Xeroform gauze dressing just over wound bed and cover with small dry bordered gauze change every other day or PRN if saturated or dislodged. Additional Information: Patient seen on for evaluation of wound to perianal/ scrotum that is s/p surgical debridement. Surgery was performed yesterday by Doctor Meliton Bear.Removed dry wash cloth and mesh underwear to reveal Scrotal/ Perianal wound. Wound bed presents with ~20%yellow loosely adherent yellow slough, ~50% dark red non granulation tissue and ~30% adipose tissue. Wound is noted with minimal sanguinous drainage that is without odor. Wound measurements are as follows 7cmx 5cm x3.8cm. Wound margins are sharp and defined.Periwound presents with erythema that is blanchable and full thickness skin loss at 6 o'clock. Full thickness skin loss is noted with ~70% yellow tissue and ~30% pink tissue.Cleansed wound with normal saline. Applied skin prep to periwound, before applying Xeroform single layer gauze just over full thickness skin loss. Packed wound with normal saline moistened 4x4 gauze pads pulled out ~1cm to allow for tissue growth. Covered with dry 4x4 gauze pads and ABD pad. Secured with mesh underwear. Patient also noted with wound to coccyx area. Patient states, I don't know how I got this wound back there.I layed in bed for several days in pain from this wound on my scrotum and had diarrhea." Coccyx wound presents with ~30% pink tissue and ~70% white tissue. Wound measures 2.4 cm x 0.4 cm x ~0.2 cm. Periwound is thickened with slight erythema. Cleansed wound with normal saline and applied Xeroform in single layer just over wound bed and covered with dry 4x4 gauze pad. Secured dressing with tape. Ostomy Date of Surgery: Nov 30, 2016 [facility] Dec 01, 2016 13:23
[2016-12-01] MEDS ORDERED: SODIUM HYPOCHLORITE 0.125% 500 ML BTL OTHER SCH (15:30)
[2016-12-01] MEDS ORDERED: VANCOMYCIN INJ 1,750 MG in SODIUM CHLORID 0.9% 500 ML INJ 500 ML IV SCH (18:00)
--- NOTE | 2016-12-01 18:15 | HHI.PR ---
Subjective Remarks Patient had debridement yesterday in OR, tolerated well overall. Did have some mood disturbance episodes afterwards. Vital signs remained overall stable. Upon entering the room, the patient speaking in a very tangential fashion. Not complaining of any pain to me Objective Vital Signs Date Time Temp Pulse Resp B/P Pulse Ox O2 Delivery O2 Flow Rate FiO2 12/01/16 12:00 98.2 77 18 130/92 97 12/01/16 10:20 97 21 12/01/16 08:00 98.0 83 18 138/96 98 12/01/16 08:00 97.3 72 18 113/68 99 12/01/16 04:00 96.1 83 17 112/67 97 12/01/16 00:00 97.1 74 18 94/52 96 11/30/16 20:00 97.6 103 17 141/89 99 I/O 11/30/16 11/30/16 11/30/16 12/01/16 12/01/16 12/01/16 06:59 14:59 22:59 06:59 14:59 22:59 Intake Total 900 ml 900 ml 1800 ml 1140 ml 1440 ml Output Total 15 ml Balance 900 ml 900 ml 1785 ml 1140 ml 1440 ml Intake Oral 0 ml 240 ml 1440 ml IV Total 900 ml 900 ml 100 ml 900 ml Other 1700 ml Estimated Blood Loss 15 ml # Voids 1 1 2 4 # Bowel Movements 0 1 1 2 Result Diagram: 11/29/16 0610 12/01/16 0753 Objective Remarks GENERAL: Resting comfortably, talking nonstop CARDIOVASCULAR: No lower extremity edema RESPIRATORY: Breath sounds equal and clear bilaterally. Unlabored breathing GASTROINTESTINAL: Abdomen soft, non-tender, nondistended. Skin: Surgical wounds on perineum status post debridement A/P Problem List: (1) Hypokalemia ICD Code: E87.6 (2) Alcohol abuse ICD Code: F10.10 (3) Pressure ulcer, unstageable, with eschar ICD Code: L89.95 (4) Cellulitis, perineum ICD Code: L03.315 (5) Cellulitis of scrotum ICD Code: N49.2 (6) Perineal abscess ICD Code: L02.215 (7) Bipolar disorder ICD Code: F31.9 (8) HTN (hypertension) ICD Code: I10 (9) BPH (benign prostatic hyperplasia) ICD Code: N40.0 Assessment and Plan Patient admitted with infected perineal and scrotal eschars and ulcers. s/p debridement; psychiatry managing bipolar d/o 1) Bipolar disorder Psychiatry managing. Being transferred to psychiatry today pending okay from urology. (2) Hypokalemia Replace and monitor as necessary (3) Perineal abscess IPlan: Continue antibiotics; status post debridement, neurology following. (4) EtOH dependence Plan: CIWA protocol (5) HTN (hypertension) Plan: Lopressor (6) BPH (benign prostatic hyperplasia) Flomax Problem Qualifiers (1) Bipolar disorder: Quique Sullivan MD Dec 01, 2016 18:15
[2016-12-03] MEDS ORDERED: PHARMACY ORDERED LAB ONE (05:45)
== END 2016-12-01 15:58 | DRG 571 ==
LOC: PHED 04:57 → PHEDA 07:47 → HOCB 14:51
PROVIDERS: ADMIT Hospitalist; ATTEND Hospitalist
PROC: 0JBB0ZZ Excision of Perineum Subcutaneous Tissue and Fascia, Open Approach (ICD-10-PCS; principal; 2016-11-30 16:08)
DX: L02.215 Cutaneous abscess of perineum (principal); N13.8 Other obstructive and reflux uropathy; L89.890 Pressure ulcer of other site, unstageable; L03.315 Cellulitis of perineum; I10 Essential (primary) hypertension; N40.1 Benign prostatic hyperplasia with lower urinary tract symptoms; E87.6 Hypokalemia; H91.90 Unspecified hearing loss, unspecified ear; K21.9 Gastro-esophageal reflux disease without esophagitis; E78.5 Hyperlipidemia, unspecified; R33.8 Other retention of urine; F31.9 Bipolar disorder, unspecified; R19.7 Diarrhea, unspecified; N49.2 Inflammatory disorders of scrotum; F10.20 Alcohol dependence, uncomplicated; F41.9 Anxiety disorder, unspecified; T63.301A Toxic effect of unspecified spider venom, accidental (unintentional), initial encounter; Y90.7 Blood alcohol level of 200-239 mg/100 ml; Z86.14 Personal history of Methicillin resistant Staphylococcus aureus infection; Z88.0 Allergy status to penicillin; Z88.1 Allergy status to other antibiotic agents; Z23 Encounter for immunization
CPT/HCPCS: 71010; 72197; 80048; 80053; 80164; 80202; 80307; 81001; 82140; 82550; 82565; 83605; 83735; 84100; 84443; 85025; 85610; 85730; 86403; 87040; 87070; 87077; 87086; 87186; 87205; 88304; 88307; 90732; 93005; 96361; 96365; 96375; A9579; J2250; J2270; J2370; J2405; J3010; J3370; J3480; J7030; J7040; J7050; J7120

== ENCOUNTER 2016-12-01 16:11 | Inpatient (IN) | payer OTHER, MEDICAID, MEDICARE ==
[~2016-12-01 16:11] MED LIST changes: -ATOR20TA42 PO; -CIPR500T2 PO; -CIPR500T4 PO; -DEPA250T2 PO; +LISI40TA PO; +LOPE2CAP PO; -METO100T PO; -PROT40TA PO; -SUCR1S PO
[2016-12-01 16:33] VITALS: BP 130/78; PULSE 90; RESP 16; TEMP 98.4
[2016-12-01] MEDS ORDERED: LORazepam 2 MG/ML VIAL IV PUSH PRN ×4 (16:45)
[2016-12-01] MEDS ORDERED: FLUMAZENIL 0.5 MG/5 ML VIAL IV PUSH PRN (16:45)
[2016-12-01] MEDS ORDERED: LORazepam 1 MG TAB PO PRN ×2 (16:45→18:00)
[2016-12-01] MEDS: REMOVE OLD PATCH T-DERMAL SCH (17:49)
[2016-12-01] MEDS: NICOTINE 21 MG/24 HR PATCH T-DERMAL SCH (17:49)
[2016-12-01] MEDS ORDERED: LORazepam 2 MG/ML VIAL IM PRN ×2 (18:00)
[2016-12-01] MEDS ORDERED: ACETAMINOPHEN 325 MG TAB PO PRN (18:00)
[2016-12-01] MEDS ORDERED: MAGNESIUM HYDROXIDE SUSP 30 ML CUP PO PRN (18:00)
[2016-12-01 18:12] VITALS: BP 130/78; PULSE 90; RESP 16; TEMP 98.4
[2016-12-01] MEDS: DIVALPROEX DR 500 MG TABEC PO SCH (21:00)
[2016-12-01] MEDS: LOPERAMIDE HCL 2 MG CAP PO PRN (21:23)
[2016-12-01] MEDS: QUEtiapine FUMARATE 100 MG TAB PO SCH (21:23)
[2016-12-01] MEDS: LORazepam 2 MG TAB PO PRN (21:23)
[2016-12-02 05:38] VITALS: BP 141/82; PULSE 112; RESP 16; TEMP 98.7; O2SAT 95
[2016-12-02] MEDS: DIVALPROEX DR 500 MG TABEC PO SCH ×2 (09:00→21:53)
[2016-12-02] MEDS ORDERED: LISINOPRIL 20 MG TAB PO SCH (09:00)
[2016-12-02] MEDS: REMOVE OLD PATCH T-DERMAL SCH (09:00)
--- NOTE | 2016-12-02 09:01 | PD.CONS ---
HPI Service [facility] Hospitalists Consult Requested By Rafy Aggarwal M.D. Reason for Consult Medical management Primary Care Physician Unknown Diagnoses: History of Present Illness Written by Chad Barajas, acting as scribe for Dr. Brooke Figueredo on 12/02/16 at 08: 30. Mr. Rodriguez is 71 yo, with history of bipolar disease, hypertension, hyperlipidemia, and benign prostatic hypertrophy. Due to his mental state, Mr. Rodriguez did not provide much history of his current condition. 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 Per medical records, patient had been applying Indira and cinnamon into the area. He did take a bath and bleach. He also used soap and water and some sort of steroid cream. His pain he reports improved with ibuprofen. When the area became more painful and swollen and painful patient came to the emergency room, after the ghosts in his trailer told him to come. Additionally, he reported he is a [employer] and has been trained to kill. Admitting team noted pt was a difficult historian due to his apparent tangential thought and hyperverbal speech. He does not use narcotics. 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 In the emergency room he isn't tachycardic. He does have elevated lactic acid and his blood pressure has been running low. He is septic. Patient to be admitted to the hospital through the emergency room for treatment of the same. Mr. Rodriguez was diagnosed with cellulitis of the perineal and scrotal area. Infectious disease (Dr. Chacon) was consulted and he was started on a regimen of IV vancomycin and aztreonam for wound infected with Strep non A B and D strains as well as Klebsiella.. Pt underwent debridement on 11/30/[address] Bear, urology. Psychiatry was consulted and after he was medically stable transferred to the medical psychiatry unit. Dr. Aggarwal consulted the hospitalist team to medically manage Mr. Rodriguez's condition. At time of interview, Mr. Rodriguez was sitting up in bed, eating breakfast. He questioned why he was in long term and when Dr. Figueredo stated the reason for the visit, pt stated "the same old psychobabble again." Pt claimed he had an IQ of 140 and "one you go above 139 you go cuckoo." He reported having chills that "come and go" as well as "diarrhea." Pt stated he had concerns about the diarrhea as "it is close to the wound site and I can't get it dirty with poop." Pt denied fever, cough,shortness of breath, nausea, vomiting, pain (other than that associated with recent debridement). Personal history questions were not answered. Review of Systems ROS Limitations: Psychotic Except as stated in HPI: all other systems reviewed are Neg Past Family Social History Allergies: Coded Allergies: Cipro (Verified Allergy, Severe, 11/29/16) states that in the past he got violent and does not want to take the med Penicillin (Verified Allergy, Severe, 11/29/16) Past Medical History benign prostatic hypertrophy. bipolar disease hyperlipidemia hypertension Past Surgical History Right knee arthroplasty Reported Medications Reported Meds & Active Scripts Active Reported Loperamide (Loperamide HCl) 2 Mg Cap 2 Mg PO DIRECTED PRN One capsule after each loose stool. Not to exceed 8 capsules per day. Lisinopril 40 Mg Tab 40 Mg PO DAILY Active Ordered Medications Current Medications Medications (Trade) Dose Ordered Sig/Ernie Route Start Time Stop Time Status Last Admin (Imodium) 2 mg Q4HR PRN PO 12/01/16 18:00 12/01/16 21:23 (Prinivil) 49 mg DAILY PO 12/02/16 09:00 (Ativan) 0.5 mg Q12H PRN PO 12/01/16 18:00 (Ativan Inj) 0.5 mg Q12H PRN IM 12/01/16 18:00 12/01/16 17:50 (Tylenol) 650 mg Q4H PRN PO 12/01/16 18:00 (Milk Of Magnesia Liq) 30 ml DAILY PRN PO 12/01/16 18:00 (Mag-Al Plus Susp Liq) 30 ml Q6H PRN PO 12/01/16 18:00 (Habitrol 21 Mg Patch.24 Hr) 1 patch DAILY T-DERMAL 12/01/16 18:00 (Romazicon Inj) 0.2 mg Q1M PRN IV PUSH 12/01/16 16:45 (Ativan) 1 mg Q4H PRN PO 12/01/16 16:45 (Ativan Inj) 1 mg Q4H PRN IV PUSH 12/01/16 16:45 (Ativan) 2 mg Q2H PRN PO 12/01/16 16:45 12/01/16 21:23 (Ativan Inj) 2 mg Q2H PRN IV PUSH 12/01/16 16:45 (Ativan Inj) 2 mg Q1H PRN IV PUSH 12/01/16 16:45 (Ativan Inj) 2 mg Q15M PRN IV PUSH 12/01/16 16:45 (Depakote Dr) 500 mg BID PO 12/01/16 21:00 (SEROquel) 100 mg HS PO 12/01/16 21:00 12/01/16 21:23 Miscellaneous Information 1 DAILY T-DERMAL 12/01/16 18:00 ([place] 10-325 Mg) 1 tab Q6H PRN PO 12/02/16 00:30 (Lactinex) 1 tab Q12HR PO 12/02/16 09:00 Family History Both parents from complications of COPD Mother was noted to have lived into her 90's (per chart review). Social History Information obtained through chart review: Pt is single and lives alone. History of illicit drug in distant past. Marijuana usage reported. Nicotine use denied. Pt is reported to drink vodka mixed into fruit drinks approximately 4/day. Physical Exam Vital Signs Vital Signs Date Time Temp Pulse Resp B/P Pulse Ox O2 Delivery O2 Flow Rate FiO2 12/02/16 05:38 98.7 112 16 141/82 95 12/01/16 18:12 98.4 90 16 130/78 12/01/16 16:33 98.4 90 16 130/78 Physical Exam GENERAL: This is a well-nourished, well-developed patient, in mild distress. SKIN: No rashes, ecchymoses. Cool and dry. Dressing noted over perineal region. Barrett catheter present. HEAD: Atraumatic. Normocephalic. No temporal or scalp tenderness. EYES: Pupils equal round and reactive. Extraocular motions intact. No scleral icterus. No injection or drainage. ENT: Nose without bleeding or purulent drainage. Airway patent. NECK: Trachea midline. No lymphadenopathy. Supple and nontender. CARDIOVASCULAR: Regular rate and rhythm without murmurs, gallops, or rubs. RESPIRATORY: Clear to auscultation. Breath sounds equal bilaterally. No wheezes , rales, or rhonchi. GASTROINTESTINAL: Abdomen soft, non-tender, nondistended. No hepato- splenomegaly or guarding. MUSCULOSKELETAL: Extremities without clubbing, cyanosis, or edema. No joint tenderness, effusion, or edema noted. NEUROLOGICAL: Awake and alert. Cranial nerves II through XII intact. Motor and sensory grossly within normal limits. Five out of 5 muscle strength in all muscle groups. Speech clear and fluent, tangential and at times bizarre. Assessment and Plan Assessment and Plan Mr. Rodriguez is 71 yo, with history of bipolar disease, hypertension, hyperlipidemia, and benign prostatic hypertrophy. He was admitted on 11/29 for perineal eschar and ulcers and underwent debridement on 11/30/16. He was subsequently transferred to the medical psychiatric unit on 11/30/16. 1) Bipolar disorder -Psychiatry managing. (2) Hypokalemia -Replace and monitor as necessary (3) Perineal abscess -Continue antibiotics; status post debridement, -Wound care consulted -Infectious disease consulted -Continue Vancomycin and aztreonam daily (stop date 12/14/16). (4) EtOH dependence -CIWA protocol (5) HTN (hypertension) -Lopressor (6) BPH (benign prostatic hyperplasia) -Flomax -Barrett catheter -Urology following Thank you for the consult. Hospitalist team will continue to follow. This note was transcribed by hayes MILLAN. I, Dr. Tawana Figueredo personally performed the history, physical exam, and medical decision making; and confirmed the accuracy of the information in the transcribed note. Authenticated by Dr. Tawana Figueredo on 12/02/16 at 08:30. Discussed Condition With Pt, RN, and Dr. Aggarwal. Chad Barajas Jr. Dec 02, 2016 09:01 Tawana Figueredo MD Dec 02, 2016 14:28
[2016-12-02] MEDS ORDERED: METOPROLOL TARTRATE 100 MG TAB PO SCH (09:15)
[2016-12-02] MEDS: LACTOBACILLUS ACIDOPHILUS TAB PO SCH ×2 (09:43→21:53)
[2016-12-02] MEDS: NICOTINE 21 MG/24 HR PATCH T-DERMAL SCH (09:43)
[2016-12-02] MEDS: LISINOPRIL 20 MG TAB PO SCH (09:44)
[2016-12-02 11:32] LABS: ANION GAP 7 MEQ/L (5-15); BLOOD UREA NITROGEN 7 MG/DL (7-18); CHLORIDE 105 MEQ/L (98-107); GLOMERULAR FILTRATION RATE 128 ML/MIN (>89); POTASSIUM 3.5 MEQ/L (3.5-5.1); SODIUM (NA) 139 MEQ/L (136-145)
[2016-12-02 11:35] LABS: HDL CHOLESTEROL 51.3 MG/DL (40.0-60.0); LDL CHOLESTEROL 92 MG/DL (0-99)
[2016-12-02 11:37] LABS: C. DIFF EPI 027 PRESUMPTIVE NEGATIVE (NEGATIVE)
--- NOTE | 2016-12-02 12:43 | HHI.PR ---
Subjective Patient symptoms today Pt irritated and uncooperative. Soiling of underwear. Sood placed last PM due to AUR. Objective Vital Signs Vital Signs Date Time Temp Pulse Resp B/P Pulse Ox O2 Delivery O2 Flow Rate FiO2 12/02/16 05:38 98.7 112 16 141/82 95 12/01/16 18:12 98.4 90 16 130/78 12/01/16 16:33 98.4 90 16 130/78 Intake & Output 12/02/16 12/02/16 07:00 19:00 Intake Total 720 ml 960 ml Output Total 2150 ml Balance -1430 ml 960 ml Intake Oral 720 ml 960 ml Output Urine Total 2150 ml Result Diagram: 12/02/16 1101 Objective Remarks Abd:soft,nt,nd Sood; Urine clear Wound: soiled Medications and IVs Current Medications Medications (Trade) Dose Ordered Sig/Ernie Route Start Time Stop Time Status Last Admin (Imodium) 2 mg Q4HR PRN PO 12/01/16 18:00 12/01/16 21:23 (Ativan) 0.5 mg Q12H PRN PO 12/01/16 18:00 (Ativan Inj) 0.5 mg Q12H PRN IM 12/01/16 18:00 12/01/16 17:50 (Tylenol) 650 mg Q4H PRN PO 12/01/16 18:00 (Milk Of Magnesia Liq) 30 ml DAILY PRN PO 12/01/16 18:00 (Mag-Al Plus Susp Liq) 30 ml Q6H PRN PO 12/01/16 18:00 (Habitrol 21 Mg Patch.24 Hr) 1 patch DAILY T-DERMAL 12/01/16 18:00 12/02/16 09:43 (Romazicon Inj) 0.2 mg Q1M PRN IV PUSH 12/01/16 16:45 (Ativan) 1 mg Q4H PRN PO 12/01/16 16:45 (Ativan Inj) 1 mg Q4H PRN IV PUSH 12/01/16 16:45 (Ativan) 2 mg Q2H PRN PO 12/01/16 16:45 12/01/16 21:23 (Ativan Inj) 2 mg Q2H PRN IV PUSH 12/01/16 16:45 (Ativan Inj) 2 mg Q1H PRN IV PUSH 12/01/16 16:45 (Ativan Inj) 2 mg Q15M PRN IV PUSH 12/01/16 16:45 (Depakote Dr) 500 mg BID PO 12/01/16 21:00 (SEROquel) 100 mg HS PO 12/01/16 21:00 12/01/16 21:23 Miscellaneous Information 1 DAILY T-DERMAL 12/01/16 18:00 ([place] 10-325 Mg) 1 tab Q6H PRN PO 12/02/16 00:30 (Lactinex) 1 tab Q12HR PO 12/02/16 09:00 12/02/16 09:43 (Lopressor) 100 mg Q12HR PO 12/02/16 21:00 (Prinivil) 40 mg DAILY PO 12/02/16 10:00 12/02/16 09:44 Assessment and Plan Assessment and Plan 71 y.o psychotic male s/p debridement of perineal/scrotal wound with AUR Dakins solution ordered for BID Maintain sood catheter Start Flomax 0.4mg QHS Meliton Bear DO Dec 02, 2016 12:43
[2016-12-02] MEDS: SODIUM HYPOCHLORITE 0.5% 500 ML BTL TOPICAL SCH ×2 (12:45→21:00)
[2016-12-02] MEDS: LOPERAMIDE HCL 2 MG CAP PO PRN ×2 (12:51→20:11)
[2016-12-02] MEDS: TAMSULOSIN HCL 0.4 MG CAP PO SCH ×2 (13:02→13:05)
--- NOTE | 2016-12-02 13:39 | HHI.HP ---
Provisional Diagnosis Admission Date Dec 01, 2016 at 16:11 [place] I. Bipolar disorder, current episode manic severe [place] II. Deferred [place] III. Hypertension, dyspepsia, hyperlipidemia, benign prostatic hyperplasia with urinary retention. Current perennial abscess. [place] IV. History of noncompliance with treatment, chronic mental illness, limited social support Columbia V. 30 Certification of Person's Competence To Provide Express and Informed Consent I have personally examined Matthias Rodriguez , a person being served at [facility] on, Dec 02, 2016 13:30. Express and informed consent means consent voluntarily given in writing, by a competent person, after sufficient explanation and disclosure of the subject matter involved to enable the person to make a knowing and willful decision without any element of force, fraud, deceit, duress, or other form of constraint or coercion. This person is 18 years of age or older, is not now known to be incompetent to consent to treatment with a guardian advocate, and does not have a health care surrogate or proxy currently making medical treatment decisions. I have found this person to be one of the following: [] Competent to provide express and informed consent, as defined above, for voluntary admission to this facility and is competent to provide express and informed consent for treatment. He/she has the consistent capacity to make well reasoned, willful, and knowing decisions concerning his or her medical or mental health treatment. The person fully and consistently understands the purpose of the admission for examination/placement and is fully capable of personally exercising all rights assured under [place] [] Incompetent to provide express and informed consent to voluntary admission, and this is incompetent to provide express and informed consent to treatment. The person must be transferred to involuntary status and a petition for a guardian advocate filed with the Circuit Court. [x] Refusing to provide express and informed consent to voluntary admission but is competent to provide express and informed consent for treatment. The person must be discharged or transferred to involuntary status. Form shall be completed within 24 hours of a person's arrival at the receiving facility and filed in the clinical record of each person: 1. Admitted on a voluntary basis 2. Permitted to provide express and informed consent to his/her own treatment 3. Allowed to transfer from involuntary to voluntary status 4. Prior to permitting a person to consent to his or her own treatment after having been previously found incompetent to consent to treatment. History of Present Illness Capacity: Has Capacity HPI Patient is a 71-year-old man, single living in [place], , past psychiatric history of bipolar disorder, alcohol use disorder, previous psychiatric hospitalizations, no prior suicide attempts, [facility], history of noncompliance with treatment, who brought himself to the emergency room on 11/29/16 complaining of pain in his scrotal area which he had been self treating himself with Indira, cinnamon, bleach bath, and unspecified steroid cream and told by a ghost to come to the emergency room. Patient was admitted to the medical floor for perennial abscess for further management and treatment. Patient was followed by urology and surgical team for debridement and continued on antibiotics. During admission patient was noted to be hyperverbal, tangential, grandiose suspicion of acute mai which psychiatry was consulted for evaluation. As per Dr. Rogers note: patient reports happy mood, he says that he recognizes that his acutely manic "but I like to be manic". Patient says that he came to the doctors, he usually doesn't come "because I have premaster degrees, to PhD's and I know more that you know". 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 He says that he doesn't like to take medications, but if he has to take his Depakote and Seroquel and was doing. He says that he [facility], but I don't usually take the medication. 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 ..prominent delusions of grandiosity, disorganized speech, loosening of associations, tangentiality, pressured speech are present.... It was determined that due to patients acute state of mai has impacted patients judgment in that he has been taking very poor care and neglect of his medical conditions and poses danger to himself which he was placed under involuntary admission and transferred to the medical/psychiatry unit on for mood stabilization and psychosis . Patient was restarted on Depakote 250mg PO BID and titrated up to 500mg PO BID as well as Seroquel 25mg PO BID and uptitrated to 50mg PO BID. Patient seen on the unit with nurse, found to be irritable and superficially cooperative and at times dismissive. As per nursing report patient has been irritable. Patient found sitting in hospital bed eating breakfast reports be feeling upset that he has to be under psychiatric care and noted to be tangential, somewhat disorganized and irritable with administrative underwriter. Patient states that he is here to take his medications for his current problem down there but refuses take any psychiatric medications as he states that he has a lot of energy which he doesnt need to take energy drinks for and that theyre trying to sandbag me referring to reducing the amount of energy feels. Patient states that he does not need take medications. Patient also noted to be hypersexual and that he was stayed that he needs to have a woman any woman even an Amazon woman. Patient also mentioning feeling upset that he has to take medications for his diarrhea and that he is difficult for him and frustrating to be soiling himself. Patient states that if anyone tries to force him to take medications intramuscularly he will fight everyone tooth-and- nail. Patient continues to be dismissive, hyperverbal with some pressured speech, irritable and refused to continue interview with administrative underwriter. Past psychiatric history: Previous psychiatric diagnoses of bipolar disorder, alcohol use disorder, history of previous substance use, previous psychiatric hospitalizations, as per chart patient admitted to various [facility] facilities, no history of suicide attempt or self aged behavior as per chart, previous medication trials as reported by patient and previous notes include Depakote, olanzapine, Seroquel, SSRIs. Past family psychiatric history: As per chart, paternal grandmother diagnosed with classic manic depression. Past medical history: Hypertension, dyspepsia, hyperlipidemia, benign prostatic hyperplasia with urinary retention. Current perennial abscess. 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 Patient is single living in [facility], living in [place] since 1987. Currently receiving [facility] benefits. Patient previously reported ties education as masters in PhDs Review of Systems Except as stated in HPI: all other systems reviewed are Neg Past Psych History Psychological trauma history Unable to assess Violence risk - others (6 mos) Low Violence risk - self (6 mos) Low Substance Abuse History Drugs/Alcohol past 12 months History of alcohol use disorder as per chart daily use of alcohol. As per chart history of abusing illicit drugs but unable to assess current use of any is patient of cooperative with interview. Past Family Social History Coded Allergies: Cipro (Verified Allergy, Severe, 11/29/16) states that in the past he got violent and does not want to take the med Penicillin (Verified Allergy, Severe, 11/29/16) Reported Medications Loperamide 2 Mg Cap2 Mg PO DIRECTED PRN (DIARRHEA) Ref 0 One capsule after each loose stool. Not to exceed 8 capsules per day. 11/29/16 Lisinopril 40 Mg Tab40 Mg PO DAILY #30 TAB Ref 0 11/29/16 Current Medications Medications (Trade) Dose Ordered Sig/Ernie Route Start Time Stop Time Status Last Admin (Imodium) 2 mg Q4HR PRN PO 12/01/16 18:00 12/02/16 12:51 (Ativan) 0.5 mg Q12H PRN PO 12/01/16 18:00 (Ativan Inj) 0.5 mg Q12H PRN IM 12/01/16 18:00 12/01/16 17:50 (Tylenol) 650 mg Q4H PRN PO 12/01/16 18:00 (Milk Of Magnesia Liq) 30 ml DAILY PRN PO 12/01/16 18:00 (Mag-Al Plus Susp Liq) 30 ml Q6H PRN PO 12/01/16 18:00 (Habitrol 21 Mg Patch.24 Hr) 1 patch DAILY T-DERMAL 12/01/16 18:00 12/02/16 09:43 (Romazicon Inj) 0.2 mg Q1M PRN IV PUSH 12/01/16 16:45 (Ativan) 1 mg Q4H PRN PO 12/01/16 16:45 (Ativan Inj) 1 mg Q4H PRN IV PUSH 12/01/16 16:45 (Ativan) 2 mg Q2H PRN PO 12/01/16 16:45 12/01/16 21:23 (Ativan Inj) 2 mg Q2H PRN IV PUSH 12/01/16 16:45 (Ativan Inj) 2 mg Q1H PRN IV PUSH 12/01/16 16:45 (Ativan Inj) 2 mg Q15M PRN IV PUSH 12/01/16 16:45 (Depakote Dr) 500 mg BID PO 12/01/16 21:00 (SEROquel) 100 mg HS PO 12/01/16 21:00 12/01/16 21:23 Miscellaneous Information 1 DAILY T-DERMAL 12/01/16 18:00 ([place] 10-325 Mg) 1 tab Q6H PRN PO 12/02/16 00:30 (Lactinex) 1 tab Q12HR PO 12/02/16 09:00 12/02/16 09:43 (Lopressor) 100 mg Q12HR PO 12/02/16 21:00 (Prinivil) 40 mg DAILY PO 12/02/16 10:00 12/02/16 09:44 (Dakin'S 0.5% Soln) 500 ml BID TOPICAL 12/02/16 12:45 (Flomax) 0.4 mg DAILY PO 12/02/16 12:45 12/02/16 13:02 Family History As per chart, paternal grandmother diagnosed with classic manic depression. 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 Patient is single living in [facility], living in [place] since 1987. Currently receiving [facility] benefits. Patient previously reported ties education as masters in PhDs Patient's Strengths (min. 2) Verbal, communicative Physical Exam Patient uncooperative with physical exam about appearance no gross motor abnormalities, no tremors, no EPS, no stiffness, but noted to have some psychomotor agitation. Vital Signs Vital Signs Date Time Temp Pulse Resp B/P Pulse Ox O2 Delivery O2 Flow Rate FiO2 12/02/16 05:38 98.7 112 16 141/82 95 I/O 12/01/16 12/01/16 12/02/16 08:00 16:00 00:00 Intake Total 360 ml Output Total 650 ml Balance -290 ml Lab Results Labs reviewed Laboratory Tests Test 12/02/16 11:01 Random Glucose 115 MG/DL (74-106) Calcium Level 8.2 MG/DL (8.5-10.1) Mental Status Examination Appearance Patient appears younger than stated age, poor hygiene and grooming, in hospital leeann found sitting in hospital bed eating breakfast, uncooperative interview noted to be irritable. Fair eye contact Speech: Pressured Orientation: Person, Place Memory: Unremarkable Thought Process: Loose Association, Tangential Thought Content: Other (perseverative on having high energy and not needing any medications.) Language Fluid and spontaneous Fund of Knowledge Average Hallucination Type: None Attention and Concentration: Easily Distracted Suicidal Ideation: No Previous Suicide Attempts: No Homicidal Ideation: No Previous Homicide Attempts: No Insight: Poor Judgment: Poor Affect: Irritable Mood: Irritable Assessment & Plan Problem List: (1) Bipolar disorder ICD Code: F31.9 Assessment & Plan Estimated LOS: 5-7 days. Patient is a 71-year-old man who carries a diagnoses of bipolar disorder with multiple psychiatric hospitalizations, history of medication noncompliance who was recently admitted to the medical floor for perennial abscess, treated with antibiotics and surgical debridement, which during admission was noted to endorse manic symptoms and was transferred to the medical/psychiatric unit under involuntary admission for psychiatric stabilization. Patient during evaluation noted to be irritable, pressured speech, grandiose with delusions of grandeur, hypersexual, disorganized, tangential, and will continue to require inpatient hospitalization for psychiatric stabilization. Patient to continue Depakote 500 mg by mouth twice a day for mood stabilization and quetiapine 100 mg by mouth at bedtime. Monitor for medication response and adverse drug reactions. Encourage patient to adhere to medication treatment. [facility]. Discharge planning in progress Discharge Planning In progress Problem Qualifiers (1) Bipolar disorder: Qualified Code: F31.13 - Bipolar disorder, current episode manic without psychotic features, severe Camron Hayes MD Dec 02, 2016 13:39
[2016-12-02] MEDS ORDERED: DIVALPROEX DR 500 MG TABEC PO ONE (14:00)
--- NOTE | 2016-12-02 14:13 | HHI.IDPN ---
Note Infectious Disease Note ID follow up. Transferred to psych inpatient. Patient is post debridement of perineum abscess. reportedly has feces getting unto the perineum wound per RN. No distress. Rambling and complaining. Afebrile. Wound culture has Strep non A,B D and klebsiella. PAST MEDICAL HISTORY: 1. Bipolar disorder. 2. Hypertension. 3. Hyperlipidemia. 4. Dyspepsia. ALLERGIES CIPRO PENICILLIN ANTIBIOTICS: 1. Vancomycin. 2. Aztreonam. PHYSICAL EXAMINATION: GENERAL: No acute distress. HEENT: No icterus. OROPHARYNX: No visible lesions. LUNGS: Clear breath sounds. HEART: Regular rate and rhythm. No murmurs, rubs, or gallops. ABDOMEN: Bowel sounds present, soft, nontender. GENITOURINARY: Post debridement of perineum. dressing in place. EXTREMITIES: No clubbing, cyanosis or edema. SKIN: No rash. NEUROLOGIC: Nonfocal. PSYCHIATRIC: remains anxious. Disjointed thoughts. Emotionally labile. IMPRESSION Perineal abscess and necrotic cellulitis. Klebsiella/ strep not A,B D. Post debridement. RECOMMENDATIONS 1. Continue vancomycin. Pharmacy to dose. 2. Continue aztreonam. Plan on IV vancomycin plus Aztreonam or Ertapenem( Once a day dosing) x 2 weeks from day of last debridement. Ankur Chacon MD Dec 02, 2016 14:13
[2016-12-02] MEDS ORDERED: Vancomycin Consult Pharmacy 1 EA OTHER SCH (14:15)
[2016-12-02] MEDS: AZTREONAM INJ 2,000 MG in SODIUM CHLORIDE 0.9% INJ 100 ML IV SCH (16:00)
[2016-12-02 16:45] LABS: HEMOGLOBIN A1a 1.3 %; HEMOGLOBIN A1b 0.8 %; HEMOGLOBIN Ao 84.8 %; HEMOGLOBIN F 1.5 %; HEMOGLOBIN LA1C 2.2 %; HEMOGLOBIN P3 3.4 %
[2016-12-02 18:08] VITALS: BP 154/92; PULSE 115; RESP 19; TEMP 98.5; O2SAT 97
[2016-12-02] MEDS: VANCOMYCIN INJ 1,750 MG in SODIUM CHLORID 0.9% 500 ML INJ 500 ML IV SCH (18:25)
[2016-12-02] MEDS: ACETAMINOPHEN/HYDROcodone 325 MG/10 MG TAB PO PRN (20:12)
[2016-12-02] MEDS: METOPROLOL TARTRATE 100 MG TAB PO SCH (21:53)
[2016-12-02] MEDS: QUEtiapine FUMARATE 100 MG TAB PO SCH (21:54)
[2016-12-03] MEDS: AZTREONAM INJ 2,000 MG in SODIUM CHLORIDE 0.9% INJ 100 ML IV SCH ×3 (01:45→16:00)
[2016-12-03] MEDS: LORazepam 0.5 MG TAB PO PRN (02:19)
[2016-12-03] MEDS: ACETAMINOPHEN/HYDROcodone 325 MG/10 MG TAB PO PRN (02:24)
[2016-12-03] MEDS: VANCOMYCIN INJ 1,750 MG in SODIUM CHLORID 0.9% 500 ML INJ 500 ML IV SCH ×2 (05:28→18:12)
[2016-12-03 06:24] VITALS: BP 148/91; PULSE 85; RESP 18; TEMP 97; O2SAT 95
[2016-12-03] MEDS: NICOTINE 21 MG/24 HR PATCH T-DERMAL SCH (09:00)
[2016-12-03] MEDS: SODIUM HYPOCHLORITE 0.5% 500 ML BTL TOPICAL SCH ×2 (09:00→21:00)
[2016-12-03] MEDS: REMOVE OLD PATCH T-DERMAL SCH (09:00)
[2016-12-03] MEDS: LACTOBACILLUS ACIDOPHILUS TAB PO SCH ×2 (09:27→21:00)
[2016-12-03] MEDS: LISINOPRIL 20 MG TAB PO SCH (09:27)
[2016-12-03] MEDS: LOPERAMIDE HCL 2 MG CAP PO PRN (09:27)
[2016-12-03] MEDS: METOPROLOL TARTRATE 100 MG TAB PO SCH ×2 (09:28→21:00)
[2016-12-03] MEDS: DIVALPROEX DR 500 MG TABEC PO SCH ×2 (09:28→21:00)
--- NOTE | 2016-12-03 10:49 | HHI.PR ---
Subjective Patient symptoms today Pt resting comfortably. Sood with clear urine. Objective Vital Signs Vital Signs Date Time Temp Pulse Resp B/P Pulse Ox O2 Delivery O2 Flow Rate FiO2 12/03/16 06:24 97.0 85 18 148/91 95 12/02/16 18:08 98.5 115 19 154/92 97 Intake & Output 12/03/16 12/03/16 07:00 19:00 Intake Total 3800 ml 240 ml Output Total 3850 ml Balance -50 ml 240 ml Intake Oral 3200 ml 240 ml IV Total 600 ml Output Urine Total 3850 ml Result Diagram: 12/02/16 1101 Objective Remarks Abd:soft,nt,nd Sood; Urine clear Wound: soiled 12/03 Abd:soft,nt,nd Sood clear Wound: dressing intact Medications and IVs Current Medications Medications (Trade) Dose Ordered Sig/Ernie Route Start Time Stop Time Status Last Admin (Imodium) 2 mg Q4HR PRN PO 12/01/16 18:00 12/03/16 09:27 (Ativan) 0.5 mg Q12H PRN PO 12/01/16 18:00 12/03/16 02:19 (Ativan Inj) 0.5 mg Q12H PRN IM 12/01/16 18:00 12/01/16 17:50 (Tylenol) 650 mg Q4H PRN PO 12/01/16 18:00 (Milk Of Magnesia Liq) 30 ml DAILY PRN PO 12/01/16 18:00 (Mag-Al Plus Susp Liq) 30 ml Q6H PRN PO 12/01/16 18:00 (Habitrol 21 Mg Patch.24 Hr) 1 patch DAILY T-DERMAL 12/01/16 18:00 12/03/16 09:00 (Romazicon Inj) 0.2 mg Q1M PRN IV PUSH 12/01/16 16:45 (Ativan) 1 mg Q4H PRN PO 12/01/16 16:45 (Ativan Inj) 1 mg Q4H PRN IV PUSH 12/01/16 16:45 (Ativan) 2 mg Q2H PRN PO 12/01/16 16:45 12/01/16 21:23 (Ativan Inj) 2 mg Q2H PRN IV PUSH 12/01/16 16:45 (Ativan Inj) 2 mg Q1H PRN IV PUSH 12/01/16 16:45 (Ativan Inj) 2 mg Q15M PRN IV PUSH 12/01/16 16:45 (Depakote Dr) 500 mg BID PO 12/01/16 21:00 12/03/16 09:28 (SEROquel) 100 mg HS PO 12/01/16 21:00 12/02/16 21:54 Miscellaneous Information 1 DAILY T-DERMAL 12/01/16 18:00 ([place] 10-325 Mg) 1 tab Q6H PRN PO 12/02/16 00:30 12/03/16 02:24 (Lactinex) 1 tab Q12HR PO 12/02/16 09:00 12/03/16 09:27 (Lopressor) 100 mg Q12HR PO 12/02/16 21:00 12/03/16 09:28 (Prinivil) 40 mg DAILY PO 12/02/16 10:00 12/03/16 09:27 (Dakin'S 0.5% Soln) 500 ml BID TOPICAL 12/02/16 12:45 12/02/16 21:00 Tamsulosin HCl 0.4 mg 0.4 mg DAILY PO 12/02/16 12:45 12/02/16 13:02 Pharmacy Profile Note 0 ml @ 0 mls/hr UNSCH OTHER 12/02/16 14:15 Aztreonam 2000 mg/ Sodium Chloride 100 ml @ 200 mls/hr Q8H IV 12/02/16 16:00 12/03/16 08:00 (Vancomycin Inj/ NS 500 ml Inj) 517.5 ml @ 250 mls/hr Q12H IV 12/02/16 18:00 12/03/16 05:28 Miscellaneous Information SPECIFIC LAB TO BE DRAWN:VANCOMYCIN TROUGH DATE TO... ONCE ONCE .XX 12/04/16 05:45 12/04/16 05:46 (KlonoPIN) 0.5 mg BID PO 12/03/16 10:15 (SEROquel) 50 mg DAILY PO 12/03/16 10:15 Assessment and Plan Assessment and Plan 71 y.o psychotic male s/p debridement of perineal/scrotal wound with AUR Dakins solution ordered for BID Maintain sood catheter Start Flomax 0.4mg QHS 12/03 71 y.o psychotic male s/p debridement of perineal/scrotal wound with AUR Dakins solution to wound BID; apply tegaderm over dressing to prevent soiling. Maintain sood catheter. Void trial next /Tue. Continue Flomax 0.4mg QHS Meliton Bear DO Dec 03, 2016 10:48
[2016-12-03] MEDS: QUEtiapine FUMARATE 25 MG TAB PO SCH (11:18)
[2016-12-03] MEDS: clonazePAM 0.5 MG TAB PO SCH ×2 (11:18→21:00)
--- NOTE | 2016-12-03 11:58 | HHI.PR ---
Subjective Remarks In the chair. says he has no fevr or chills. No pain in his groin. Says he is eating well but doesn't like the food much. ' No fever ro chills. No n/v/d/c. Objective Vitals Vital Signs Date Time Temp Pulse Resp B/P Pulse Ox O2 Delivery O2 Flow Rate FiO2 12/03/16 06:24 97.0 85 18 148/91 95 12/02/16 18:08 98.5 115 19 154/92 97 I/O 12/02/16 12/02/16 12/02/16 12/03/16 12/03/16 12/03/16 07:00 15:00 23:00 07:00 15:00 23:00 Intake Total 360 ml 2200 ml 960 ml 3800 ml 240 ml Output Total 2150 ml 1000 ml 3850 ml Balance -1790 ml 2200 ml -40 ml -50 ml 240 ml Intake Oral 360 ml 2200 ml 960 ml 3200 ml 240 ml IV Total 600 ml Output Urine Total 2150 ml 1000 ml 3850 ml Result Diagram: 12/02/16 1101 Objective Remarks GENERAL: This is a well-nourished, well-developed patient, in mild distress. CARDIOVASCULAR: Regular rate and rhythm without murmurs, gallops, or rubs. RESPIRATORY: Clear to auscultation. Breath sounds equal bilaterally. No wheezes , rales, or rhonchi. GASTROINTESTINAL: Abdomen soft, non-tender, nondistended. No hepato- splenomegaly or guarding. MUSCULOSKELETAL: Extremities without clubbing, cyanosis, or edema. No joint tenderness, effusion, or edema noted. NEUROLOGICAL: Awake and alert. Cranial nerves II through XII intact. Motor and sensory grossly within normal limits. Five out of 5 muscle strength in all muscle groups. Speech clear and fluent, tangential and at times bizarre. A/P Assessment and Plan Mr. Rodriguez is 71 yo, with history of bipolar disease, hypertension, hyperlipidemia, and benign prostatic hypertrophy. He was admitted on 11/29 for perineal eschar and ulcers and underwent debridement on 11/30/16. He was subsequently transferred to the medical psychiatric unit on 11/30/16. Bipolar disorder -Psychiatry managing. Hypokalemia -Replace and monitor as necessary Perineal abscess Continue antibiotics; status post debridement, Wound care consulted Infectious disease consulted Continue Vancomycin and aztreonam daily (stop date 12/14/16). EtOH dependence -CIWA protocol HTN (hypertension) Lopressor BPH (benign prostatic hyperplasia) Flomax Barrett catheter Urology following Discussed Condition With Patient, nurse Tawana Figueredo MD Dec 03, 2016 11:58
--- NOTE | 2016-12-03 16:14 | HHI.PYPN ---
Subjective Remarks Patient seen for follow-up, chart reviewed. After discussion with nursing patient required Ativan IM last evening as he had pulled out his IV line twice and was found picking up feces and throwing them around the bathroom. He was also reported as per nursing the patient was soil himself allowing feces to contaminate recent debridement and would also pullout dressing. It was also reported nursing the patient is inappropriate and noted to be hypersexual stating inappropriate sexual comments toward nursing staff. Patient found sitting in hospital bed after showering this morning and was noted to be loud with pressured speech somewhat disorganized, and perseverative on the idea that he has diarrhea although as per nursing patient has well-formed stools. Patient also complains of not having enough skin cream which is states and asking but has not been given. Patient stated that he did feeling "good" and that he has been talking to the machinery that the machinery or telling him that they need to be calibrated. Patient reports tolerating medications well. Compliance with treatment recommendations reiterated to patient and had denies to discontinue from pulling out his IV line as he continued to required IV antibiotics as per primary medical team which she states that they had come off as he would roll his side or rub up against the bed. Patient states that he will work with the nurses but that he will "fight the doctors". Review of Systems Except as stated in HPI: all other systems reviewed are Neg Objective Alert: Yes [place]: Person, Place Mood: Other ("good") Affect: Manic Memory Intact: Comment (not formally assessed) Hallucinations: Other (denied) Delusions: Yes Delusion Type: Grandiose Suicidal: Ideation (denies) Homicidal: Ideation (denies) Insight/Judgment Poor insight, poor impulse control and judgment Vitals/IOs Vital Signs Date Time Temp Pulse Resp B/P Pulse Ox O2 Delivery O2 Flow Rate FiO2 12/03/16 06:24 97.0 85 18 148/91 95 Intake and Output 12/02/16 12/02/16 12/02/16 07:59 15:59 23:59 Intake Total 360 ml 2200 ml 2880 ml Output Total 1500 ml 2450 ml Balance -1140 ml 2200 ml 430 ml Assessment & Plan Problem List: (1) Bipolar disorder ICD Code: F31.9 Assessment & Plan Patient continues to endorse manic symptoms noted to have pressured speech, irritable, hypersexual, continues with delusions of grandeur with poor insight, impulse control and judgment. Patient perseverative on having diarrhea yet nursing reports patient has well-formed stools. Patient was provided with information regarding risks of contaminating his recent debridement and maintaining good hygiene for the same. Patient continues to be disorganized and tangential and due to current manic symptoms continue to require inpatient psychiatric stabilization. Patient at this time requests discharge, currently under [place] act, petition for involuntary hospitalization started Will request second opinion. Patient to continue Depakote 500 mg by mouth twice a day, cervical be increased to 50 mg a.m. and out of milligrams at bedtime, we'll start clonazepam 0.5 mg twice a day. Monitored for medication response and possible adverse drug reactions. Valproic acid level requested for tomorrow a.m. Recommendations as per primary medical team. Discharge planning in progress. Justification for Cont. Inpt. Patient at risk for further decompensation if at lower level of care Discharge Planning In progress Problem Qualifiers (1) Bipolar disorder: Qualified Code: F31.13 - Bipolar disorder, current episode manic without psychotic features, severe Camron Hayes MD Dec 03, 2016 16:14
[2016-12-03 18:19] VITALS: BP 169/98; PULSE 98; RESP 18; TEMP 98.5; O2SAT 99
[2016-12-03 18:23] VITALS: BP 137/86
[2016-12-03] MEDS: QUEtiapine FUMARATE 100 MG TAB PO SCH (21:00)
[2016-12-04] MEDS: ALUMINUM/MAGNESIUM/SIMETH 30 ML CUP PO PRN (00:15)
[2016-12-04] MEDS: LORazepam 0.5 MG TAB PO PRN (00:34)
[2016-12-04] MEDS: LOPERAMIDE HCL 2 MG CAP PO PRN (00:34)
[2016-12-04 04:59] VITALS: BP 127/35; PULSE 72; RESP 18; TEMP 98; O2SAT 98
[2016-12-04] MEDS ORDERED: PHARMACY ORDERED LAB ONE ×2 (05:45→17:45)
[2016-12-04] MEDS: VANCOMYCIN INJ 1,750 MG in SODIUM CHLORID 0.9% 500 ML INJ 500 ML IV SCH ×2 (05:54→18:00)
[2016-12-04] MEDS: METOPROLOL TARTRATE 100 MG TAB PO SCH ×2 (07:57→21:00)
[2016-12-04] MEDS: TAMSULOSIN HCL 0.4 MG CAP PO SCH (07:57)
[2016-12-04] MEDS: AZTREONAM INJ 2,000 MG in SODIUM CHLORIDE 0.9% INJ 100 ML IV SCH ×4 (07:57→15:35)
[2016-12-04] MEDS: DIVALPROEX DR 500 MG TABEC PO SCH (07:57)
[2016-12-04] MEDS: NICOTINE 21 MG/24 HR PATCH T-DERMAL SCH (07:58)
[2016-12-04] MEDS: clonazePAM 0.5 MG TAB PO SCH ×2 (07:58→21:00)
[2016-12-04] MEDS: LACTOBACILLUS ACIDOPHILUS TAB PO SCH ×2 (07:58→21:00)
[2016-12-04] MEDS: LISINOPRIL 20 MG TAB PO SCH (07:58)
[2016-12-04] MEDS: QUEtiapine FUMARATE 25 MG TAB PO SCH (07:58)
[2016-12-04] MEDS: REMOVE OLD PATCH T-DERMAL SCH (07:58)
[2016-12-04] MEDS: SODIUM HYPOCHLORITE 0.5% 500 ML BTL TOPICAL SCH ×2 (08:00→21:00)
[2016-12-04 09:03] LABS: ALT (GPT) 21 U/L (12-78); ANION GAP 8 MEQ/L (5-15); AST (GOT) 29 U/L (15-37); BICARBONATE 25.9 MEQ/L (21.0-32.0); BLOOD UREA NITROGEN 10 MG/DL (7-18); CHLORIDE 106 MEQ/L (98-107); GLOMERULAR FILTRATION RATE 132 ML/MIN (>89); POTASSIUM 3.9 MEQ/L (3.5-5.1); SODIUM (NA) 140 MEQ/L (136-145)
[2016-12-04 09:12] LABS: ALKALINE PHOSPHATASE 92 U/L (45-117); TOTAL BILIRUBIN ADULT 0.3 MG/DL (0.2-1.0)
--- NOTE | 2016-12-04 10:07 | PD.PSY.CON ---
Provisional Diagnosis Admission Date Dec 01, 2016 at 16:11 [place] I. Bipolar disorder, current episode manic severe [place] II. Deferred [place] III. Hypertension, dyspepsia, hyperlipidemia, benign prostatic hyperplasia with urinary retention. Current perennial abscess. [place] IV. History of noncompliance with treatment, chronic mental illness, limited social support [place] V. 30 History of Present Illness Service Psychiatry Consult Requested By Reason for Consult Second opinion Primary Care Physician Unknown HPI Patient is a 71-year-old man, single living in the [place], , past psychiatric history of bipolar disorder, alcohol use disorder, previous psychiatric hospitalizations, no prior suicide attempts, currently connected to outpatient services through the [place], history of noncompliance with treatment, who brought himself to the emergency room on 11/29/16 complaining of pain in his scrotal area which he had been self treating himself with Indira, cinnamon, bleach bath, and unspecified steroid cream and told by a ghost to come to the emergency room. Patient was admitted to the medical floor for perennial abscess for further management and treatment. Patient was followed by urology and surgical team for debridement and continued on antibiotics. During admission patient was noted to be hyperverbal, tangential, grandiose suspicion of acute mai which psychiatry was consulted for evaluation. As per Dr. Rogers note: patient reports happy mood, he says that he recognizes that his acutely manic "but I like to be manic". Patient says that he came to the doctors, he usually doesn't come "because I have premaster degrees, to PhD's and I know more that you know". 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 He says that he doesn't like to take medications, but if he has to take his Depakote and Seroquel and was doing. He [facility] but I don't usually take the medication. 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 ..prominent delusions of grandiosity, disorganized speech, loosening of associations, tangentiality, pressured speech are present.... It was determined that due to patients acute state of mai has impacted patients judgment in that he has been taking very poor care and neglect of his medical conditions and poses danger to himself which he was placed under involuntary admission and transferred to the medical/psychiatry unit on for mood stabilization and psychosis . Patient was restarted on Depakote 250mg PO BID and titrated up to 500mg PO BID as well as Seroquel 25mg PO BID and uptitrated to 50mg PO BID. Patient seen on the unit with nurse, found to be irritable and superficially cooperative and at times dismissive. As per nursing report patient has been irritable. Patient found sitting in hospital bed eating breakfast reports be feeling upset that he has to be under psychiatric care and noted to be tangential, somewhat disorganized and irritable with publicity writer. Patient states that he is here to take his medications for his current problem down there but refuses take any psychiatric medications as he states that he has a lot of energy which he doesnt need to take energy drinks for and that theyre trying to sandbag me referring to reducing the amount of energy feels. Patient states that he does not need take medications. Patient also noted to be hypersexual and that he was stayed that he needs to have a woman any woman even an Amazon woman. Patient also mentioning feeling upset that he has to take medications for his diarrhea and that he is difficult for him and frustrating to be soiling himself. Patient states that if anyone tries to force him to take medications intramuscularly he will fight everyone tooth-and- nail. Patient continues to be dismissive, hyperverbal with some pressured speech, irritable and refused to continue interview with publicity writer. Past psychiatric history: Previous psychiatric diagnoses of bipolar disorder, alcohol use disorder, history of previous substance use, previous psychiatric hospitalizations, as per chart patient admitted to various [place] facilities, no history of suicide attempt or self aged behavior as per chart, previous medication trials as reported by patient and previous notes include Depakote, olanzapine, Seroquel, SSRIs. Past family psychiatric history: As per chart, paternal grandmother diagnosed with classic manic depression. Past medical history: Hypertension, dyspepsia, hyperlipidemia, benign prostatic hyperplasia with urinary retention. Current perennial abscess. 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 Patient is single living in [facility], living in [place] since 1987. [facility]. Patient previously reported ties education as masters in PhDs Today 12/04/2016 patient seen for second opinion, continue to be manic, very talkative, elevated mood, disorganized, but more insightful and redirectable. Oriented 3, compliant with his medication. Denies suicidal or homicidal ideation, denies visual and auditory hallucinations. Review of Systems Constitutional: DENIES: Diaphoretic episodes, Fatigue, Fever, Weight gain, Weight loss, Chills, Dizziness, Change in appetite, Night Sweats Endocrine: DENIES: Heat/cold intolerance, Polydipsia, Polyuria, Polyphagia Eyes: DENIES: Blurred vision, Diplopia, Eye inflammation, Eye pain, Vision loss , Photosensitivity, Double Vision Ears, nose, mouth, throat: DENIES: Tinnitus, Hearing loss, Vertigo, Nasal discharge, Oral lesions, Throat pain, Hoarseness, Ear Pain, Running Nose, Epistaxis, Sinus Pain, Toothache, Odynophagia Respiratory: DENIES: Apneas, Cough, Snoring, Wheezing, Hemoptysis, Sputum production, Shortness of breath Cardiovascular: DENIES: Chest pain, Palpitations, Syncope, Dyspnea on Exertion , PND, Lower Extremity Edema, Orthopnea, Claudication Gastrointestinal: DENIES: Abdominal pain, Black stools, Bloody stools, Constipation, Diarrhea, Nausea, Vomiting, Difficulty Swallowing, Anorexia Musculoskeletal: DENIES: Joint pain, Muscle aches, Stiffness, Joint Swelling, Back pain, Neck pain Integumentary: DENIES: Abnormal pigmentation, Nail changes, Pruritus, Rash Hematologic/lymphatic: DENIES: Bruising, Lymphadenopathy Immunologic/allergic: DENIES: Eczema, Urticaria Neurologic: DENIES: Abnormal gait, Headache, Localized weakness, Paresthesias, Seizures, Speech Problems, Tremor, Poor Balance Psychiatric: DENIES: Anxiety, Confusion, Mood changes, Depression, Hallucinations, Agitation, Suicidal Ideation, Homicidal Ideation, Delusions Past Family Social History Coded Allergies: Cipro (Verified Allergy, Severe, 11/29/16) states that in the past he got violent and does not want to take the med Penicillin (Verified Allergy, Severe, 11/29/16) Reported Medications Loperamide 2 Mg Cap2 Mg PO DIRECTED PRN (DIARRHEA) Ref 0 One capsule after each loose stool. Not to exceed 8 capsules per day. 11/29/16 Lisinopril 40 Mg Tab40 Mg PO DAILY #30 TAB Ref 0 11/29/16 Current Medications Medications (Trade) Dose Ordered Sig/Ernie Route Start Time Stop Time Status Last Admin (Imodium) 2 mg Q4HR PRN PO 12/01/16 18:00 12/04/16 00:34 (Ativan) 0.5 mg Q12H PRN PO 12/01/16 18:00 12/04/16 00:34 (Ativan Inj) 0.5 mg Q12H PRN IM 12/01/16 18:00 12/01/16 17:50 (Tylenol) 650 mg Q4H PRN PO 12/01/16 18:00 (Milk Of Magnesia Liq) 30 ml DAILY PRN PO 12/01/16 18:00 (Mag-Al Plus Susp Liq) 30 ml Q6H PRN PO 12/01/16 18:00 12/04/16 00:15 (Habitrol 21 Mg Patch.24 Hr) 1 patch DAILY T-DERMAL 12/01/16 18:00 12/04/16 07:58 (Romazicon Inj) 0.2 mg Q1M PRN IV PUSH 12/01/16 16:45 (Ativan) 1 mg Q4H PRN PO 12/01/16 16:45 (Ativan Inj) 1 mg Q4H PRN IV PUSH 12/01/16 16:45 (Ativan) 2 mg Q2H PRN PO 12/01/16 16:45 12/01/16 21:23 (Ativan Inj) 2 mg Q2H PRN IV PUSH 12/01/16 16:45 (Ativan Inj) 2 mg Q1H PRN IV PUSH 12/01/16 16:45 (Ativan Inj) 2 mg Q15M PRN IV PUSH 12/01/16 16:45 (Depakote Dr) 500 mg BID PO 12/01/16 21:00 12/04/16 07:57 (SEROquel) 100 mg HS PO 12/01/16 21:00 12/03/16 21:00 Miscellaneous Information 1 DAILY T-DERMAL 12/01/16 18:00 12/04/16 07:58 ([place] 10-325 Mg) 1 tab Q6H PRN PO 12/02/16 00:30 12/03/16 02:24 (Lactinex) 1 tab Q12HR PO 12/02/16 09:00 12/04/16 07:58 (Lopressor) 100 mg Q12HR PO 12/02/16 21:00 12/04/16 07:57 (Prinivil) 40 mg DAILY PO 12/02/16 10:00 12/04/16 07:58 (Dakin'S 0.5% Soln) 500 ml BID TOPICAL 12/02/16 12:45 12/02/16 21:00 Tamsulosin HCl 0.4 mg 0.4 mg DAILY PO 12/02/16 12:45 12/04/16 07:57 Pharmacy Profile Note 0 ml @ 0 mls/hr UNSCH OTHER 12/02/16 14:15 Aztreonam 2000 mg/ Sodium Chloride 100 ml @ 200 mls/hr Q8H IV 12/02/16 16:00 12/04/16 07:57 (Vancomycin Inj/ NS 500 ml Inj) 517.5 ml @ 250 mls/hr Q12H IV 12/02/16 18:00 12/04/16 05:54 (KlonoPIN) 0.5 mg BID PO 12/03/16 10:15 12/04/16 07:58 (SEROquel) 50 mg DAILY PO 12/03/16 10:15 12/04/16 07:58 Miscellaneous Information SPECIFIC LAB TO BE DRAWN:VANCOMYCIN TROUGH DATE TO... ONCE ONCE .XX 12/04/16 17:45 12/04/16 17:46 Patient's Strengths (min. 2) Verbal, communicative Physical Exam Vital Signs Vital Signs Date Time Temp Pulse Resp B/P Pulse Ox O2 Delivery O2 Flow Rate FiO2 12/04/16 04:59 98.0 72 18 127/35 98 I/O 12/03/16 12/03/16 12/03/16 07:59 15:59 23:59 Intake Total 1880 ml 840 ml 480 ml Output Total 2400 ml 900 ml Balance -520 ml 840 ml -420 ml Mental Status Examination Speech: Pressured Orientation: Person, Place Memory: Unremarkable Thought Process: Loose Association, Tangential Thought Content: Other (perseverative on having high energy and not needing any medications.) Hallucination Type: None Attention and Concentration: Easily Distracted Suicidal Ideation: No Previous Suicide Attempts: No Homicidal Ideation: No Previous Homicide Attempts: No Insight: Poor Judgment: Poor Affect: Irritable Mood: Irritable Assessment & Plan Problem List: (1) Bipolar disorder Assessment & Plan: I have seen and examined this patient, review psychoeducation, I agree and concur with Dr. Hayes ICD Code: F31.9 Assessment & Plan Estimated LOS: days Problem Qualifiers (1) Bipolar disorder: Qualified Code: F31.13 - Bipolar disorder, current episode manic without psychotic features, severe Rafy Aggarwal MD Dec 04, 2016 10:07
--- NOTE | 2016-12-04 10:14 | HHI.PR ---
Subjective Remarks Ambulating in the room. Says she has no fever or chills. There is no pain in his groin. Eating better. No n/v/d/c. Objective Vitals Vital Signs Date Time Temp Pulse Resp B/P Pulse Ox O2 Delivery O2 Flow Rate FiO2 12/04/16 04:59 98.0 72 18 127/35 98 12/03/16 18:23 137/86 12/03/16 18:19 98.5 98 18 169/98 99 I/O 12/03/16 12/03/16 12/03/16 12/04/16 12/04/16 12/04/16 07:00 15:00 23:00 07:00 15:00 23:00 Intake Total 3800 ml 840 ml 480 ml 728 ml 240 ml Output Total 3850 ml 900 ml 2550 ml Balance -50 ml 840 ml -420 ml -1822 ml 240 ml Intake Oral 3200 ml 840 ml 480 ml 120 ml 240 ml IV Total 600 ml 608 ml Output Urine Total 3850 ml 900 ml 2550 ml # Bowel Movements 0 0 Result Diagram: 12/04/16 0808 Objective Remarks GENERAL: This is a well-nourished, well-developed patient, in mild distress. CARDIOVASCULAR: Regular rate and rhythm without murmurs, gallops, or rubs. RESPIRATORY: Clear to auscultation. Breath sounds equal bilaterally. No wheezes , rales, or rhonchi. GASTROINTESTINAL: Abdomen soft, non-tender, nondistended. No hepato- splenomegaly or guarding. MUSCULOSKELETAL: Extremities without clubbing, cyanosis, or edema. No joint tenderness, effusion, or edema noted. NEUROLOGICAL: Awake and alert. Cranial nerves II through XII intact. Motor and sensory grossly within normal limits. Five out of 5 muscle strength in all muscle groups. Speech clear and fluent, tangential and at times bizarre. A/P Assessment and Plan Mr. Rodriguez is 71 yo, with history of bipolar disease, hypertension, hyperlipidemia, and benign prostatic hypertrophy. He was admitted on 11/29 for perineal eschar and ulcers and underwent debridement on 11/30/16. He was subsequently transferred to the medical psychiatric unit on 11/30/16. Bipolar disorder -Psychiatry managing. Hypokalemia -Replace and monitor as necessary Perineal abscess Continue antibiotics; status post debridement, Wound care consulted Infectious disease consulted Continue Vancomycin and aztreonam daily (stop date 12/14/16). EtOH dependence -CIWA protocol HTN (hypertension) Lopressor BPH (benign prostatic hyperplasia) Flomax Barrett catheter Urology following Discussed Condition With Patient, nurse Tawana Figueredo MD Dec 04, 2016 10:14
--- NOTE | 2016-12-04 10:25 | HHI.PYPN ---
Subjective Remarks Patient is a for follow, chart review. After discussion with nursing staff patient patient refusing to hear to dressing changes of recent debridement. Patient continues to be noted to be sexually inappropriate but recently has not been noted to be throwing feces in the bathroom. Patient found sitting in hospital bed, noted to be labile, continues to have some pressured speech but less so than yesterday. Patient continues to be tangential and disorganized at times but noted to be improving. Patient was upset that his meal requests of her back wrong and not having been his choices. Patient states be grateful that he has "great nurses" caring after him during his hospitalization. Patient at this time denies SI, HI, AVH but continues to endorse grandiose and paranoid delusions against doctor's that are all against him. Review of Systems Except as stated in HPI: all other systems reviewed are Neg Objective Alert: Yes [place]: Person, Place Mood: Other ("good") Affect: Manic Memory Intact: Comment (not formally assessed) Hallucinations: Other (denied) Delusions: Yes Delusion Type: Grandiose Suicidal: Ideation (denies) Homicidal: Ideation (denies) Insight/Judgment Poor insight, impulse control and judgment Labs Labs reviewed. Valproic acid level: 40 (subtherapeutic) Test 12/04/16 08:08 Sodium Level 140 MEQ/L Potassium Level 3.9 MEQ/L Chloride Level 106 MEQ/L Carbon Dioxide Level 25.9 MEQ/L Anion Gap 8 MEQ/L Blood Urea Nitrogen 10 MG/DL Creatinine 0.60 MG/DL Estimat Glomerular Filtration 132 ML/MIN Rate Random Glucose 83 MG/DL Calcium Level 8.7 MG/DL Total Bilirubin 0.3 MG/DL Aspartate Amino Transf 29 U/L (AST/SGOT) Alanine Aminotransferase 21 U/L (ALT/SGPT) Alkaline Phosphatase 92 U/L Total Protein 7.3 GM/DL Albumin 2.6 GM/DL Thyroid Stimulating Hormone 2.020 uIU/ML 3rd Gen Valproic Acid (Depakene) Level 40 MCG/ML Vitals/IOs Vital Signs Date Time Temp Pulse Resp B/P Pulse Ox O2 Delivery O2 Flow Rate FiO2 12/04/16 04:59 98.0 72 18 127/35 98 Intake and Output 12/03/16 12/03/16 12/04/16 08:00 16:00 00:00 Intake Total 1880 ml 840 ml 480 ml Output Total 2400 ml 900 ml Balance -520 ml 840 ml -420 ml Assessment & Plan Problem List: (1) Bipolar disorder ICD Code: F31.9 Assessment & Plan Patient at this time continues to be noted to be labile, slightly less disorganized today however continues to be grandiose with paranoid delusions against doctor's, sexually inappropriate with nursing and continues to have some pressured speech along with tangentiality. Patient seems to be slowly improving was encouraged to continue following recommendations as per primary medical team so that patient can have an adequate recovery after recent debridement. Patient encouraged to allow nursing staff to change wound dressing which he acknowledged. Labs reviewed. Valproic acid level was subtherapeutic therefore Depakote will be increased to 500 a.m. and 750 at bedtime, continued quetiapine 50 mg a.m. and 100 mg at bedtime, will repeat EKG and recheck QTc. Patient to continue medical recommendations as per primary medical team. Continue to encourage patient to maintain wound dressing clean. Discharge planning in progress Justification for Cont. Inpt. Patient at risk for further decompensation if it lower level of care Discharge Planning In progress Problem Qualifiers (1) Bipolar disorder: Qualified Code: F31.13 - Bipolar disorder, current episode manic without psychotic features, severe Camron Hayes MD Dec 04, 2016 10:25
[2016-12-04] MEDS: PROMETHAZINE HCL 25 MG TAB PO PRN (15:06)
--- NOTE | 2016-12-04 17:13 | EKG ---
Date Performed: 12/04/2016 Time Performed: 11:19:00 PTAGE: 71 years EKG: Sinus rhythm NORMAL ECG Since PREVIOUS TRACING , no significant change noted PREVIOUS TRACIN11/30/2016 15.50 DOCTOR: Bob Clark Interpretating Date/Time 12/04/2016 17:11:51
[2016-12-04 18:00] VITALS: BP 122/84; PULSE 84; RESP 18; TEMP 98.9; O2SAT 96
[2016-12-04] MEDS: QUEtiapine FUMARATE 100 MG TAB PO SCH (21:00)
[2016-12-04] MEDS: DIVALPROEX SODIUM DELAYED RELEASE 250 MG TAB PO SCH (21:00)
[2016-12-05] MEDS: VANCOMYCIN INJ 1,250 MG in SODIUM CHLOR 0.9% 250 ML INJ 250 ML IV SCH ×3 (01:00→23:55)
[2016-12-05 05:13] VITALS: BP 132/86; PULSE 78; RESP 18; TEMP 98.3; O2SAT 96
[2016-12-05] MEDS: METOPROLOL TARTRATE 100 MG TAB PO SCH ×2 (08:04→21:25)
[2016-12-05] MEDS: AZTREONAM INJ 2,000 MG in SODIUM CHLORIDE 0.9% INJ 100 ML IV SCH ×4 (08:04→15:40)
[2016-12-05] MEDS: TAMSULOSIN HCL 0.4 MG CAP PO SCH (08:04)
[2016-12-05] MEDS: LACTOBACILLUS ACIDOPHILUS TAB PO SCH ×2 (08:04→21:25)
[2016-12-05] MEDS: NICOTINE 21 MG/24 HR PATCH T-DERMAL SCH (08:04)
[2016-12-05] MEDS: QUEtiapine FUMARATE 25 MG TAB PO SCH (08:04)
[2016-12-05] MEDS: DIVALPROEX DR 500 MG TABEC PO SCH ×2 (08:04→21:24)
[2016-12-05] MEDS: LISINOPRIL 20 MG TAB PO SCH (08:04)
[2016-12-05] MEDS: clonazePAM 0.5 MG TAB PO SCH ×2 (08:04→21:25)
[2016-12-05] MEDS: REMOVE OLD PATCH T-DERMAL SCH (08:05)
[2016-12-05] MEDS: SODIUM HYPOCHLORITE 0.5% 500 ML BTL TOPICAL SCH ×2 (08:05→21:00)
--- NOTE | 2016-12-05 10:54 | HHI.PR ---
Subjective Patient symptoms today Pt more calm today. Dressing intact. Objective Vital Signs Vital Signs Date Time Temp Pulse Resp B/P Pulse Ox O2 Delivery O2 Flow Rate FiO2 12/05/16 05:13 98.3 78 18 132/86 96 12/04/16 18:00 98.9 84 18 122/84 96 Intake & Output 12/05/16 12/05/16 07:00 19:00 Intake Total 720 ml 720 ml Output Total 3600 ml Balance -2880 ml 720 ml Intake Oral 720 ml 720 ml Output Urine Total 3600 ml Result Diagram: 12/04/16 0808 Objective Remarks Abd:soft,nt,nd Sood; Urine clear Wound: soiled 12/03 Abd:soft,nt,nd Sood clear Wound: dressing intact 12/05 Abd:soft,nt,nd Sood clear Wound: dressing changed: wound clean Medications and IVs Current Medications Medications (Trade) Dose Ordered Sig/Ernie Route Start Time Stop Time Status Last Admin (Imodium) 2 mg Q4HR PRN PO 12/01/16 18:00 12/04/16 00:34 (Ativan) 0.5 mg Q12H PRN PO 12/01/16 18:00 12/04/16 00:34 (Ativan Inj) 0.5 mg Q12H PRN IM 12/01/16 18:00 12/01/16 17:50 (Tylenol) 650 mg Q4H PRN PO 12/01/16 18:00 12/04/16 15:06 (Milk Of Magnesia Liq) 30 ml DAILY PRN PO 12/01/16 18:00 (Mag-Al Plus Susp Liq) 30 ml Q6H PRN PO 12/01/16 18:00 12/04/16 00:15 (Habitrol 21 Mg Patch.24 Hr) 1 patch DAILY T-DERMAL 12/01/16 18:00 12/04/16 07:58 (Romazicon Inj) 0.2 mg Q1M PRN IV PUSH 12/01/16 16:45 (Ativan) 1 mg Q4H PRN PO 12/01/16 16:45 (Ativan Inj) 1 mg Q4H PRN IV PUSH 12/01/16 16:45 (Ativan) 2 mg Q2H PRN PO 12/01/16 16:45 12/01/16 21:23 (Ativan Inj) 2 mg Q2H PRN IV PUSH 12/01/16 16:45 (Ativan Inj) 2 mg Q1H PRN IV PUSH 12/01/16 16:45 (Ativan Inj) 2 mg Q15M PRN IV PUSH 12/01/16 16:45 (SEROquel) 100 mg HS PO 12/01/16 21:00 12/04/16 21:00 Miscellaneous Information 1 DAILY T-DERMAL 12/01/16 18:00 12/04/16 07:58 ([place] 10-325 Mg) 1 tab Q6H PRN PO 12/02/16 00:30 12/03/16 02:24 (Lactinex) 1 tab Q12HR PO 12/02/16 09:00 12/05/16 08:04 (Lopressor) 100 mg Q12HR PO 12/02/16 21:00 12/05/16 08:04 (Prinivil) 40 mg DAILY PO 12/02/16 10:00 12/05/16 08:04 (Dakin'S 0.5% Soln) 500 ml BID TOPICAL 12/02/16 12:45 12/02/16 21:00 Tamsulosin HCl 0.4 mg 0.4 mg DAILY PO 12/02/16 12:45 12/05/16 08:04 Pharmacy Profile Note 0 ml @ 0 mls/hr UNSCH OTHER 12/02/16 14:15 (Azactam Inj/NS Inj) 100 ml @ 200 mls/hr Q8H IV 12/02/16 16:00 12/05/16 08:04 (KlonoPIN) 0.5 mg BID PO 12/03/16 10:15 12/05/16 08:04 (SEROquel) 50 mg DAILY PO 12/03/16 10:15 12/05/16 08:04 (Libertad Gutierrez) 500 mg BID PO 12/05/16 09:00 12/05/16 08:04 (Libertad Gutierrez) 250 mg HS PO 12/04/16 21:00 12/04/16 21:00 Promethazine HCl 25 mg 25 mg Q6H PRN PO 12/04/16 14:45 12/04/16 15:06 (Vancomycin Inj/ NS 250 ml Inj) 262.5 ml @ 250 mls/hr Q12H IV 12/05/16 01:00 12/05/16 01:00 Miscellaneous Information SPECIFIC LAB TO BE ... ONCE ONCE .XX 12/06/16 12:45 12/06/16 12:46 Assessment and Plan Assessment and Plan 71 y.o psychotic male s/p debridement of perineal/scrotal wound with AUR Dakins solution ordered for BID Maintain sood catheter Start Flomax 0.4mg QHS 12/03 71 y.o psychotic male s/p debridement of perineal/scrotal wound with AUR Dakins solution to wound BID; apply tegaderm over dressing to prevent soiling. Maintain sood catheter. Void trial next /Tue. Continue Flomax 0.4mg QHS 12/05 71 y.o psychotic male s/p debridement of perineal/scrotal wound with AUR Dakins solution to wound BID; apply tegaderm over dressing to prevent soiling. Maintain sood catheter. Void trial next /Tue. Continue Flomax 0.4mg QHS Will order santyl ointment to apply to wound. Meliton Bear DO Dec 05, 2016 10:54
[2016-12-05] MEDS: LORazepam 0.5 MG TAB PO PRN ×2 (13:36→21:25)
--- NOTE | 2016-12-05 16:09 | HHI.PYPN ---
Subjective Remarks Patient seen for psychiatric reevaluation along with nurse in charge, patient continues to be disorganized, irritable, confrontative, with marked rapid and tangential speech. As per nurses, patient has been less destructive and hostile in the unit. He is oriented 3, compliant with medications, no significant side effects noted. Review of Systems Other No somatic complaints Objective Alert: Yes [place]: Person, Place Mood: Other ("good") Affect: Manic Memory Intact: Comment (not formally assessed) Hallucinations: Other (denied) Delusions: Yes Delusion Type: Grandiose Suicidal: Ideation (denies) Homicidal: Ideation (denies) Insight/Judgment Poor Labs Test 12/04/16 17:50 Vancomycin Level Trough 22.7 MCG/ML Vitals/IOs Vital Signs Date Time Temp Pulse Resp B/P Pulse Ox O2 Delivery O2 Flow Rate FiO2 12/05/16 05:13 98.3 78 18 132/86 96 Intake and Output 12/04/16 12/04/16 12/05/16 08:00 16:00 00:00 Intake Total 968 ml 960 ml 960 ml Output Total 2550 ml 2400 ml Balance -1582 ml 960 ml -1440 ml Assessment & Plan Problem List: (1) Bipolar disorder Assessment & Plan: Patient continues to be acutely manic and delusional, we'll discontinue morning Seroquel, and increased at bedtime Seroquel to 200 mg for mood stabilization. ICD Code: F31.9 Assessment & Plan Estimated LOS: days Justification for Cont. Inpt. Patient is acutely manic/psychotic, Mr. continue psychiatric hospitalization for stabilization Problem Qualifiers (1) Bipolar disorder: Qualified Code: F31.13 - Bipolar disorder, current episode manic without psychotic features, severe Rafy Aggarwal MD Dec 05, 2016 16:09
--- NOTE | 2016-12-05 16:14 | HHI.PR ---
Subjective Remarks Ambulating in the room. Says he doesn't have any pain. No fever or chills. Urine is clear. Wants to take a shower. Denies abdominal pain or suprapubic pain. No groin pain. Denies chest pain shortness of breath nausea, vomiting, diarrhea or constipation. Objective Vitals Vital Signs Date Time Temp Pulse Resp B/P Pulse Ox O2 Delivery O2 Flow Rate FiO2 12/05/16 05:13 98.3 78 18 132/86 96 12/04/16 18:00 98.9 84 18 122/84 96 I/O 12/04/16 12/04/16 12/04/16 12/05/16 12/05/16 12/05/16 07:00 15:00 23:00 07:00 15:00 23:00 Intake Total 728 ml 480 ml 1680 ml 240 ml 1200 ml Output Total 2550 ml 2400 ml 1200 ml Balance -1822 ml 480 ml -720 ml -960 ml 1200 ml Intake Oral 120 ml 480 ml 1680 ml 240 ml 1200 ml IV Total 608 ml Output Urine Total 2550 ml 2400 ml 1200 ml # Bowel Movements 0 Result Diagram: 12/04/16 0808 Objective Remarks GENERAL: This is a well-nourished, well-developed patient, in mild distress. CARDIOVASCULAR: Regular rate and rhythm without murmurs, gallops, or rubs. RESPIRATORY: Clear to auscultation. Breath sounds equal bilaterally. No wheezes , rales, or rhonchi. GASTROINTESTINAL: Abdomen soft, non-tender, nondistended. No hepato- splenomegaly or guarding. MUSCULOSKELETAL: Extremities without clubbing, cyanosis, or edema. No joint tenderness, effusion, or edema noted. NEUROLOGICAL: Awake and alert. Cranial nerves II through XII intact. Motor and sensory grossly within normal limits. Five out of 5 muscle strength in all muscle groups. Speech clear and fluent, tangential and at times bizarre. A/P Assessment and Plan Mr. Rodriguez is 71 yo, with history of bipolar disease, hypertension, hyperlipidemia, and benign prostatic hypertrophy. He was admitted on 11/29 for perineal eschar and ulcers and underwent debridement on 11/30/16. He was subsequently transferred to the medical psychiatric unit on 11/30/16. Bipolar disorder -Psychiatry managing. Hypokalemia -Replace and monitor as necessary Perineal abscess Continue antibiotics; status post debridement, Wound care consulted Infectious disease consulted Continue Vancomycin and aztreonam daily (stop date 12/14/16). EtOH dependence -[facility] protocol HTN (hypertension) Lopressor BPH (benign prostatic hyperplasia) Flomax Barrett catheter Urology following Discussed Condition With Patient, nurse Tawana Figueredo MD Dec 05, 2016 16:14
[2016-12-05] MEDS ORDERED: QUEtiapine FUMARATE 200 MG TAB PO SCH (21:00)
[2016-12-05] MEDS: ALUMINUM/MAGNESIUM/SIMETH 30 ML CUP PO PRN (21:24)
[2016-12-05] MEDS: DIVALPROEX SODIUM DELAYED RELEASE 250 MG TAB PO SCH (21:24)
[2016-12-05] MEDS: LOPERAMIDE HCL 2 MG CAP PO PRN (21:25)
[2016-12-06] MEDS: AZTREONAM INJ 2,000 MG in SODIUM CHLORIDE 0.9% INJ 100 ML IV SCH ×3 (01:49→16:00)
[2016-12-06 04:46] VITALS: BP 94/53; PULSE 80; RESP 15; TEMP 97.7; O2SAT 93
[2016-12-06] MEDS: LACTOBACILLUS ACIDOPHILUS TAB PO SCH ×2 (08:51→20:20)
[2016-12-06] MEDS: DIVALPROEX DR 500 MG TABEC PO SCH ×2 (08:51→20:21)
[2016-12-06] MEDS: clonazePAM 0.5 MG TAB PO SCH ×2 (08:51→20:21)
[2016-12-06] MEDS: TAMSULOSIN HCL 0.4 MG CAP PO SCH (08:51)
[2016-12-06] MEDS: NICOTINE 21 MG/24 HR PATCH T-DERMAL SCH (08:52)
[2016-12-06] MEDS: METOPROLOL TARTRATE 100 MG TAB PO SCH (08:52)
[2016-12-06] MEDS: SODIUM HYPOCHLORITE 0.5% 500 ML BTL TOPICAL SCH ×2 (08:52→21:00)
[2016-12-06] MEDS: COLLAGENASE OINT 30 GM TUBE TOPICAL SCH (08:52)
[2016-12-06] MEDS: LISINOPRIL 20 MG TAB PO SCH (08:52)
[2016-12-06] MEDS: REMOVE OLD PATCH T-DERMAL SCH (08:52)
[2016-12-06] MEDS ORDERED: PILL SPLITTER OTHER PRN (09:00)
[2016-12-06] MEDS: LORazepam 0.5 MG TAB PO PRN (10:53)
[2016-12-06] MEDS ORDERED: PHARMACY ORDERED LAB ONE (12:45)
[2016-12-06] MEDS: VANCOMYCIN INJ 1,250 MG in SODIUM CHLOR 0.9% 250 ML INJ 250 ML IV SCH ×2 (13:00→17:05)
--- NOTE | 2016-12-06 14:10 | HHI.PR ---
Subjective Remarks patient agitated earlier today received ativa Discussed w RN patient sedated and sleeping Objective Vitals Vital Signs Date Time Temp Pulse Resp B/P Pulse Ox O2 Delivery O2 Flow Rate FiO2 12/06/16 04:46 97.7 80 15 94/53 93 I/O 12/05/16 12/05/16 12/05/16 12/06/16 12/06/16 12/06/16 07:00 15:00 23:00 07:00 15:00 23:00 Intake Total 240 ml 1200 ml 2400 ml 240 ml 960 ml Output Total 1200 ml 1650 ml 1900 ml Balance -960 ml 1200 ml 750 ml -1660 ml 960 ml Intake Oral 240 ml 1200 ml 2400 ml 240 ml 960 ml Output Urine Total 1200 ml 1650 ml 1900 ml Result Diagram: 12/06/16 0747 Objective Remarks Lethargic, difficult o arouse lungs clear bl S1S2 RRR abdomnen soft, non tender Procedures none Medications and IVs Current Medications Medications (Trade) Dose Ordered Sig/Ernie Route Start Time Stop Time Status Last Admin (Imodium) 2 mg Q4HR PRN PO 12/01/16 18:00 12/05/16 21:25 (Ativan) 0.5 mg Q12H PRN PO 12/01/16 18:00 12/06/16 10:53 (Ativan Inj) 0.5 mg Q12H PRN IM 12/01/16 18:00 12/01/16 17:50 (Tylenol) 650 mg Q4H PRN PO 12/01/16 18:00 12/04/16 15:06 (Milk Of Magnesia Liq) 30 ml DAILY PRN PO 12/01/16 18:00 (Mag-Al Plus Susp Liq) 30 ml Q6H PRN PO 12/01/16 18:00 12/05/16 21:24 (Habitrol 21 Mg Patch.24 Hr) 1 patch DAILY T-DERMAL 12/01/16 18:00 12/04/16 07:58 (Romazicon Inj) 0.2 mg Q1M PRN IV PUSH 12/01/16 16:45 (Ativan) 1 mg Q4H PRN PO 12/01/16 16:45 (Ativan Inj) 1 mg Q4H PRN IV PUSH 12/01/16 16:45 (Ativan) 2 mg Q2H PRN PO 12/01/16 16:45 12/01/16 21:23 (Ativan Inj) 2 mg Q2H PRN IV PUSH 12/01/16 16:45 (Ativan Inj) 2 mg Q1H PRN IV PUSH 12/01/16 16:45 (Ativan Inj) 2 mg Q15M PRN IV PUSH 12/01/16 16:45 Miscellaneous Information 1 DAILY T-DERMAL 12/01/16 18:00 12/04/16 07:58 ([place] 10-325 Mg) 1 tab Q6H PRN PO 12/02/16 00:30 12/03/16 02:24 (Lactinex) 1 tab Q12HR PO 12/02/16 09:00 12/06/16 08:51 (Lopressor) 100 mg Q12HR PO 12/02/16 21:00 12/06/16 08:52 (Prinivil) 40 mg DAILY PO 12/02/16 10:00 12/05/16 08:04 (Dakin'S 0.5% Soln) 500 ml BID TOPICAL 12/02/16 12:45 12/06/16 08:52 Tamsulosin HCl 0.4 mg 0.4 mg DAILY PO 12/02/16 12:45 12/06/16 08:51 Pharmacy Profile Note 0 ml @ 0 mls/hr UNSCH OTHER 12/02/16 14:15 (Azactam Inj/NS Inj) 100 ml @ 200 mls/hr Q8H IV 12/02/16 16:00 12/06/16 08:51 (KlonoPIN) 0.5 mg BID PO 12/03/16 10:15 12/06/16 08:51 (Libertad Gutierrez) 500 mg BID PO 12/05/16 09:00 12/06/16 08:51 (Libertad Gutierrez) 250 mg HS PO 12/04/16 21:00 12/05/16 21:24 (Phenergan) 25 mg Q6H PRN PO 12/04/16 14:45 12/04/16 15:06 (Santyl Oint) 1 applic DAILY TOPICAL 12/06/16 09:00 12/06/16 08:52 (SEROquel) 250 mg HS PO 12/06/16 21:00 Miscellaneous 1 ea 1 ea UNSCH PRN OTHER 12/06/16 09:00 (Vancomycin Inj/ NS 250 ml Inj) 262.5 ml @ 250 mls/hr Q18H IV 12/06/16 18:00 A/P Problem List: (1) Bipolar disorder ICD Code: F31.9 Status: Chronic (2) Cellulitis, perineum ICD Code: L03.315 Status: Acute (3) Alcohol abuse ICD Code: F10.10 Status: Chronic (4) Cellulitis of scrotum ICD Code: N49.2 Status: Acute (5) Perineal abscess ICD Code: L02.215 Status: Acute (6) BPH (benign prostatic hyperplasia) ICD Code: N40.0 Status: Chronic (7) HTN (hypertension) ICD Code: I10 Status: Chronic (8) Alcohol abuse with alcohol-induced disorder ICD Code: F10.19 Status: Chronic (9) Hypotension ICD Code: I95.9 Status: Acute Assessment and Plan Mr. Rodriguez is 71 yo, with history of bipolar disease, hypertension, hyperlipidemia, and benign prostatic hypertrophy. He was admitted on 11/29 for perineal eschar and ulcers and underwent debridement on 11/30/16. He was subsequently transferred to the medical psychiatric unit on 11/30/16. Bipolar disorder -Psychiatry managing. Seroquel increased to 200 mg. Hypokalemia - Resolved. Replace orally as needed. Continue to monitor BMP. Perineal abscess Continue antibiotics; status post debridement, Wound care consulted Infectious disease consulted - Recommended IV Vancomycin and Aztreonam. Continue Vancomycin and aztreonam daily (stop date 12/14/16). EtOH dependence -[facility] protocol HTN (hypertension) 12/06 Will hold metoprolol and lisinopril due to hypotension which could be sedation induced, Consider IVF bolus if still hypotensive. BPH (benign prostatic hyperplasia) Flomax Barrett catheter Urology following Discharge Planning not medically clear until bp stable and cleared by ID Problem Qualifiers (1) Bipolar disorder: Qualified Code: F31.13 - Bipolar disorder, current episode manic without psychotic features, severe (2) BPH (benign prostatic hyperplasia): Qualified Code: N40.0 - Benign prostatic hyperplasia without lower urinary tract symptoms Oj Rockwell MD Dec 06, 2016 14:10
--- NOTE | 2016-12-06 14:11 | HHI.PYPN ---
Subjective Remarks Patient seen for follow-up with nurse, chart review. In discussion with nursing staff, patient was noted to be irritable with all physicians upon their visits for follow-up. Patient allowed to have dressing changes yesterday also offered by mouth Ativan 1. Patient found sitting in hospital bed eating breakfast, noted irritable with pressured speech and tangential patient stated being upset about not having the flu that he had ordered immediately, stating that he would like to meet this person in charge of his order and "meet him oustide". 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 Later this morning patient had bag from sood catheter spill onto his bed and bag was found to have been punctured but unclear if this was intentional or not as patient noted to be placing bag not carefully around him. Review of Systems Except as stated in HPI: all other systems reviewed are Neg Objective Alert: Yes [place]: Person, Place Mood: Other ("good") Affect: Manic Memory Intact: Comment (not formally assessed) Hallucinations: Other (denied) Delusions: Yes Delusion Type: Grandiose Suicidal: Ideation (denies) Homicidal: Ideation (denies) Insight/Judgment poor insight, impulse control and judgement Remarks Patient appears stated age, and hospital gown, cooperative in interview, fair hygiene, poor grooming, noted to be irritable on interview. fair eye contact, thought process: less disorganized today, thought content: perseverative on not having his meals as he has requested them. Labs labs reviewed Test 12/06/16 12/06/16 07:47 12:20 Creatinine 0.59 MG/DL Estimat Glomerular Filtration 135 ML/MIN Rate Vancomycin Level Trough 20.0 MCG/ML Vitals/IOs Vital Signs Date Time Temp Pulse Resp B/P Pulse Ox O2 Delivery O2 Flow Rate FiO2 12/06/16 04:46 97.7 80 15 94/53 93 Intake and Output 12/05/16 12/05/16 12/06/16 08:00 16:00 00:00 Intake Total 960 ml 480 ml 2400 ml Output Total 1200 ml 1650 ml Balance -240 ml 480 ml 750 ml Assessment & Plan Problem List: (1) Bipolar disorder ICD Code: F31.9 Assessment & Plan Patient continues to be labile, irritable, with pressured speech noted (less today), tangential, less disorganized, less sexually preoccupied, but continues with poor impulse control and judgement. Patient did allow medical team to change dressing from debridement site. Increase quetiapine to 250mg PO HS, continue Depakote 500mg AM/750mg HS for mood stabilization, continue clonazepam 0.5mg PO BID, will draw valproic acid level tomorrow AM. Monitor for medication response, and possible adverse drug reactions. Continue to encourage patient to comply with treatment, and recommendations as per primary medical team. Discharge planning in progress Justification for Cont. Inpt. Patient at risk for decompensation if at lower level of care Discharge Planning In progress Problem Qualifiers (1) Bipolar disorder: Qualified Code: F31.13 - Bipolar disorder, current episode manic without psychotic features, severe Camron Hayes MD Dec 06, 2016 14:11
[2016-12-06] MEDS: ALUMINUM/MAGNESIUM/SIMETH 30 ML CUP PO PRN ×2 (16:05→20:20)
[2016-12-06] MEDS: PROMETHAZINE HCL 25 MG TAB PO PRN ×2 (16:05→21:11)
[2016-12-06] MEDS: LOPERAMIDE HCL 2 MG CAP PO PRN ×2 (18:05→21:55)
[2016-12-06 18:27] VITALS: BP 119/69; PULSE 83; RESP 14; TEMP 99.5; O2SAT 95
[2016-12-06] MEDS: ACETAMINOPHEN/HYDROcodone 325 MG/10 MG TAB PO PRN (20:20)
[2016-12-06] MEDS: DIVALPROEX SODIUM DELAYED RELEASE 250 MG TAB PO SCH (20:21)
[2016-12-06] MEDS ORDERED: QUEtiapine FUMARATE 100 MG TAB PO SCH (21:00)
[2016-12-07 05:17] VITALS: BP 99/60; PULSE 91; RESP 16; TEMP 97.5; O2SAT 96
[2016-12-07] MEDS: TAMSULOSIN HCL 0.4 MG CAP PO SCH (08:32)
[2016-12-07] MEDS: DIVALPROEX DR 500 MG TABEC PO SCH ×2 (08:32→21:16)
[2016-12-07] MEDS: clonazePAM 0.5 MG TAB PO SCH ×2 (08:32→21:16)
[2016-12-07] MEDS: LACTOBACILLUS ACIDOPHILUS TAB PO SCH ×2 (08:34→21:16)
[2016-12-07] MEDS: AZTREONAM INJ 2,000 MG in SODIUM CHLORIDE 0.9% INJ 100 ML IV SCH ×5 (08:34→23:16)
[2016-12-07] MEDS: COLLAGENASE OINT 30 GM TUBE TOPICAL SCH (08:34)
[2016-12-07] MEDS: SODIUM HYPOCHLORITE 0.5% 500 ML BTL TOPICAL SCH ×2 (08:34→21:25)
[2016-12-07] MEDS: REMOVE OLD PATCH T-DERMAL SCH (08:44)
[2016-12-07] MEDS: NICOTINE 21 MG/24 HR PATCH T-DERMAL SCH (08:44)
[2016-12-07] MEDS: LOPERAMIDE HCL 2 MG CAP PO PRN ×2 (08:46→16:31)
[2016-12-07] MEDS ORDERED: SODIUM CHLORID 0.9% 500 ML INJ 500 ML IV ONE (10:15)
[2016-12-07] MEDS: VANCOMYCIN INJ 1,250 MG in SODIUM CHLOR 0.9% 250 ML INJ 250 ML IV SCH (12:00)
--- NOTE | 2016-12-07 12:29 | HHI.PR ---
Subjective Patient symptoms today Pt OOB; sood clear Objective Vital Signs Vital Signs Date Time Temp Pulse Resp B/P Pulse Ox O2 Delivery O2 Flow Rate FiO2 12/07/16 05:17 97.5 91 16 99/60 96 12/06/16 18:27 99.5 83 14 119/69 95 Intake & Output 12/07/16 12/07/16 06:59 18:59 Intake Total 240 ml 480 ml Output Total 1900 ml Balance -1660 ml 480 ml Intake Oral 240 ml 480 ml Output Urine Total 1900 ml # Bowel Movements 1 Result Diagram: 12/06/16 0747 Objective Remarks Abd:soft,nt,nd Sood; Urine clear Wound: soiled 12/03 Abd:soft,nt,nd Sood clear Wound: dressing intact 12/05 Abd:soft,nt,nd Sood clear Wound: dressing changed: wound clean 12/07 Abd:soft,nt,nd Sood: urine clear Dressing intact Medications and IVs Current Medications Medications (Trade) Dose Ordered Sig/Ernie Route Start Time Stop Time Status Last Admin (Imodium) 2 mg Q4HR PRN PO 12/01/16 18:00 12/07/16 08:46 (Ativan) 0.5 mg Q12H PRN PO 12/01/16 18:00 12/06/16 10:53 (Ativan Inj) 0.5 mg Q12H PRN IM 12/01/16 18:00 12/01/16 17:50 (Tylenol) 650 mg Q4H PRN PO 12/01/16 18:00 12/04/16 15:06 (Milk Of Magnesia Liq) 30 ml DAILY PRN PO 12/01/16 18:00 (Mag-Al Plus Susp Liq) 30 ml Q6H PRN PO 12/01/16 18:00 12/06/16 20:20 (Habitrol 21 Mg Patch.24 Hr) 1 patch DAILY T-DERMAL 12/01/16 18:00 12/04/16 07:58 (Romazicon Inj) 0.2 mg Q1M PRN IV PUSH 12/01/16 16:45 (Ativan) 1 mg Q4H PRN PO 12/01/16 16:45 (Ativan Inj) 1 mg Q4H PRN IV PUSH 12/01/16 16:45 (Ativan) 2 mg Q2H PRN PO 12/01/16 16:45 12/01/16 21:23 (Ativan Inj) 2 mg Q2H PRN IV PUSH 12/01/16 16:45 (Ativan Inj) 2 mg Q1H PRN IV PUSH 12/01/16 16:45 (Ativan Inj) 2 mg Q15M PRN IV PUSH 12/01/16 16:45 Miscellaneous Information 1 DAILY T-DERMAL 12/01/16 18:00 12/04/16 07:58 ([place] 10-325 Mg) 1 tab Q6H PRN PO 12/02/16 00:30 12/06/16 20:20 (Lactinex) 1 tab Q12HR PO 12/02/16 09:00 12/07/16 08:34 (Lopressor) 100 mg Q12HR PO 12/02/16 21:00 Hold 12/06/16 08:52 (Prinivil) 40 mg DAILY PO 12/02/16 10:00 Hold 12/05/16 08:04 (Dakin'S 0.5% Soln) 500 ml BID TOPICAL 12/02/16 12:45 12/07/16 08:34 Tamsulosin HCl 0.4 mg 0.4 mg DAILY PO 12/02/16 12:45 12/07/16 08:32 Pharmacy Profile Note 0 ml @ 0 mls/hr UNSCH OTHER 12/02/16 14:15 (Azactam Inj/NS Inj) 100 ml @ 200 mls/hr Q8H IV 12/02/16 16:00 12/07/16 08:34 (KlonoPIN) 0.5 mg BID PO 12/03/16 10:15 12/07/16 08:32 (Libertad Gutierrez) 500 mg BID PO 12/05/16 09:00 12/07/16 08:32 (Depnicolás Gutierrez) 250 mg HS PO 12/04/16 21:00 12/06/16 20:21 (Phenergan) 25 mg Q6H PRN PO 12/04/16 14:45 12/06/16 21:11 (Santyl Oint) 1 applic DAILY TOPICAL 12/06/16 09:00 12/07/16 08:34 Miscellaneous 1 ea 1 ea UNSCH PRN OTHER 12/06/16 09:00 (Vancomycin Inj/ NS 250 ml Inj) 262.5 ml @ 250 mls/hr Q18H IV 12/06/16 18:00 12/07/16 12:00 (SEROquel) 300 mg HS PO 12/07/16 21:00 Assessment and Plan Assessment and Plan 71 y.o psychotic male s/p debridement of perineal/scrotal wound with AUR Dakins solution ordered for BID Maintain sood catheter Start Flomax 0.4mg QHS 12/03 71 y.o psychotic male s/p debridement of perineal/scrotal wound with AUR Dakins solution to wound BID; apply tegaderm over dressing to prevent soiling. Maintain sood catheter. Void trial next /Tue. Continue Flomax 0.4mg QHS 12/05 71 y.o psychotic male s/p debridement of perineal/scrotal wound with AUR Dakins solution to wound BID; apply tegaderm over dressing to prevent soiling. Maintain sood catheter. Void trial next /Tue. Continue Flomax 0.4mg QHS Will order santyl ointment to apply to wound. 12/07 71 y.o psychotic male s/p debridement of perineal/scrotal wound with AUR Dakins solution to wound BID; apply tegaderm over dressing to prevent soiling. Maintain sood catheter. Void trial in AM Continue Flomax 0.4mg QHS Santyl ointment to apply to wound. Meliton Bear DO Dec 07, 2016 12:29
[2016-12-07 14:46] LABS: AUTOMATED NEUTROPHIL # 2.9 TH/MM3 (1.8-7.7); BASOPHIL % 0.5 % (0.0-2.0); EOSINOPHIL # 0.1 TH/MM3 (0-0.4); EOSINOPHIL % 1.8 % (0.0-4.0); HEMATOCRIT 37.7 % (39.0-51.0); HEMO FLAGS DIFF FINAL; LYMPH % 29.1 % (9.0-44.0); LYMPHOCYTE # 1.6 TH/MM3 (1.0-4.8); MEAN CELL VOLUME 97.3 FL (80.0-100.0); MEAN CORPUSCULAR HEMOGLOBIN 33.4 PG (27.0-34.0); MEAN CORPUSCULAR HGB CONC 34.3 % (32.0-36.0); MONO % 15.5 % (0.0-8.0); NEUT % 53.1 % (16.0-70.0); PLATELET COUNT 405 TH/MM3 (150-450); RED BLOOD COUNT 3.87 MIL/MM3 (4.50-5.90); RED CELL DISTRIBUTION WIDTH 14.5 % (11.6-17.2); WHITE BLOOD COUNT 5.6 TH/MM3 (4.0-11.0)
[2016-12-07 14:46] LABS: ALT (GPT) 34 U/L (12-78); ANION GAP 8 MEQ/L (5-15); AST (GOT) 37 U/L (15-37); BICARBONATE 27.5 MEQ/L (21.0-32.0); BLOOD UREA NITROGEN 14 MG/DL (7-18); CHLORIDE 104 MEQ/L (98-107); GLOMERULAR FILTRATION RATE 119 ML/MIN (>89); MAGNESIUM 2.3 MG/DL (1.5-2.5); POTASSIUM 4.3 MEQ/L (3.5-5.1); SODIUM (NA) 139 MEQ/L (136-145)
[2016-12-07 14:47] LABS: ALKALINE PHOSPHATASE 97 U/L (45-117); TOTAL BILIRUBIN ADULT 0.2 MG/DL (0.2-1.0)
--- NOTE | 2016-12-07 16:19 | HHI.PYPN ---
Subjective Remarks Patient seen for follow-up, chart reviewed. As per nursing report patient yesterday was throwing feces in the bathroom, fixated on his meals, med compliant continued to be suspicious that the medication if we are poisoning. Patient found lying in hospital bed was able to engage in interview. Patient states that he is upset at the person in charge of his food is getting his food order wrong on purpose and makes comments that this person she'll be fired. Patient states that his current bowel but has been "off and on" and it is fixated on having loperamide to control his bowels. Aspirin as a staff patient has not had a loose stools but is noted to be throwing his feces in the bathroom. Patient also was noted to continue to shower water running for extended amounts of time and when asked about this patient stated that he simply wanted it on to get some water to drink. Patient continues to be perseverative on his food continues to report feeling upset due to the same. Review of Systems Except as stated in HPI: all other systems reviewed are Neg Objective Alert: Yes [place]: Person, Place Mood: Angry Affect: Other (congruent with mood) Memory Intact: Comment (not formally assessed) Hallucinations: Other (denied) Delusions: Yes Delusion Type: Grandiose, Paranoid (about food and meds) Suicidal: Ideation (denies) Homicidal: Ideation (denies) Insight/Judgment poor insight, impulse control and judgment Labs Test 12/07/16 12/07/16 13:34 13:36 Sodium Level 139 MEQ/L Potassium Level 4.3 MEQ/L Chloride Level 104 MEQ/L Carbon Dioxide Level 27.5 MEQ/L Anion Gap 8 MEQ/L Blood Urea Nitrogen 14 MG/DL Creatinine 0.66 MG/DL Estimat Glomerular Filtration 119 ML/MIN Rate Random Glucose 108 MG/DL Calcium Level 8.7 MG/DL Magnesium Level 2.3 MG/DL Total Bilirubin 0.2 MG/DL Aspartate Amino Transf 37 U/L (AST/SGOT) Alanine Aminotransferase 34 U/L (ALT/SGPT) Alkaline Phosphatase 97 U/L Total Protein 7.3 GM/DL Albumin 2.6 GM/DL Valproic Acid (Depakene) Level 61 MCG/ML White Blood Count 5.6 TH/MM3 Red Blood Count 3.87 MIL/MM3 Hemoglobin 12.9 GM/DL Hematocrit 37.7 % Mean Corpuscular Volume 97.3 FL Mean Corpuscular Hemoglobin 33.4 PG Mean Corpuscular Hemoglobin 34.3 % Concent Red Cell Distribution Width 14.5 % Platelet Count 405 TH/MM3 Mean Platelet Volume 6.9 FL Neutrophils (%) (Auto) 53.1 % Lymphocytes (%) (Auto) 29.1 % Monocytes (%) (Auto) 15.5 % Eosinophils (%) (Auto) 1.8 % Basophils (%) (Auto) 0.5 % Neutrophils # (Auto) 2.9 TH/MM3 Lymphocytes # (Auto) 1.6 TH/MM3 Monocytes # (Auto) 0.9 TH/MM3 Eosinophils # (Auto) 0.1 TH/MM3 Basophils # (Auto) 0.0 TH/MM3 CBC Comment DIFF FINAL Differential Comment Vitals/IOs Vital Signs Date Time Temp Pulse Resp B/P Pulse Ox O2 Delivery O2 Flow Rate FiO2 12/07/16 05:17 97.5 91 16 99/60 96 Intake and Output 12/06/16 12/06/16 12/07/16 08:00 16:00 00:00 Intake Total 240 ml 960 ml 240 ml Output Total 1900 ml 750 ml Balance -1660 ml 960 ml -510 ml Assessment & Plan Problem List: (1) Bipolar disorder ICD Code: F31.9 Assessment & Plan Patient continues to be disorganized at times with poor impulse control, continues to endorse grandiose delusions as well as paranoia that the [employer] employees are trying to get his orders or on purpose, continues to be noted to be throwing feces around in the restroom noted to be quite irritable still. Patient noted to be with less pressured speech but continues to require further inpatient psychiatric stabilization. Quetiapine will be decreased to 300 mg at bedtime, continue Depakote 500 a.m. 750 at bedtime, valproic acid level was not done this morning I will reorder for tomorrow morning to check levels and adjust dosages to reach therapeutic levels. Continue to monitor her medication response and adverse drug reactions. Continue to encourage patient to adhere to recommendations as per primary medical team. Discharge planning in progress Justification for Cont. Inpt. Patient risk for further decompensation if it lower level of care Discharge Planning In progress Problem Qualifiers (1) Bipolar disorder: Qualified Code: F31.13 - Bipolar disorder, current episode manic without psychotic features, severe Camron Hayes MD Dec 07, 2016 16:19
--- NOTE | 2016-12-07 16:32 | HHI.PR ---
Subjective Remarks deferred entry - patient seen earlier at 11:00 am BP low Patient states "everything hurts" denies cp/sob denies fevers or chills Objective Vitals Vital Signs Date Time Temp Pulse Resp B/P Pulse Ox O2 Delivery O2 Flow Rate FiO2 12/07/16 05:17 97.5 91 16 99/60 96 12/06/16 18:27 99.5 83 14 119/69 95 I/O 12/06/16 12/06/16 12/06/16 12/07/16 12/07/16 12/07/16 06:59 14:59 22:59 06:59 14:59 22:59 Intake Total 240 ml 960 ml 240 ml 1920 ml Output Total 3550 ml 1900 ml 2000 ml Balance -3310 ml 960 ml -1660 ml -80 ml Intake Oral 240 ml 960 ml 240 ml 1920 ml Output Urine Total 3550 ml 1900 ml 2000 ml # Voids 1 # Bowel Movements 1 Result Diagram: 12/07/16 1336 12/07/16 1334 Objective Remarks Lethargic, difficult o arouse lungs clear bl S1S2 RRR abdomnen soft, non tender Procedures none Medications and IVs Current Medications Medications (Trade) Dose Ordered Sig/Ernie Route Start Time Stop Time Status Last Admin (Imodium) 2 mg Q4HR PRN PO 12/01/16 18:00 12/07/16 08:46 (Ativan) 0.5 mg Q12H PRN PO 12/01/16 18:00 12/06/16 10:53 (Ativan Inj) 0.5 mg Q12H PRN IM 12/01/16 18:00 12/01/16 17:50 (Tylenol) 650 mg Q4H PRN PO 12/01/16 18:00 12/04/16 15:06 (Milk Of Magnesia Liq) 30 ml DAILY PRN PO 12/01/16 18:00 (Mag-Al Plus Susp Liq) 30 ml Q6H PRN PO 12/01/16 18:00 12/06/16 20:20 (Habitrol 21 Mg Patch.24 Hr) 1 patch DAILY T-DERMAL 12/01/16 18:00 12/04/16 07:58 (Romazicon Inj) 0.2 mg Q1M PRN IV PUSH 12/01/16 16:45 (Ativan) 1 mg Q4H PRN PO 12/01/16 16:45 (Ativan Inj) 1 mg Q4H PRN IV PUSH 12/01/16 16:45 (Ativan) 2 mg Q2H PRN PO 12/01/16 16:45 12/01/16 21:23 (Ativan Inj) 2 mg Q2H PRN IV PUSH 12/01/16 16:45 (Ativan Inj) 2 mg Q1H PRN IV PUSH 12/01/16 16:45 (Ativan Inj) 2 mg Q15M PRN IV PUSH 12/01/16 16:45 Miscellaneous Information 1 DAILY T-DERMAL 12/01/16 18:00 12/04/16 07:58 ([place] 10-325 Mg) 1 tab Q6H PRN PO 12/02/16 00:30 12/06/16 20:20 (Lactinex) 1 tab Q12HR PO 12/02/16 09:00 12/07/16 08:34 (Lopressor) 100 mg Q12HR PO 12/02/16 21:00 Hold 12/06/16 08:52 (Prinivil) 40 mg DAILY PO 12/02/16 10:00 Hold 12/05/16 08:04 (Dakin'S 0.5% Soln) 500 ml BID TOPICAL 12/02/16 12:45 12/07/16 08:34 Tamsulosin HCl 0.4 mg 0.4 mg DAILY PO 12/02/16 12:45 12/07/16 08:32 Pharmacy Profile Note 0 ml @ 0 mls/hr UNSCH OTHER 12/02/16 14:15 (Azactam Inj/NS Inj) 100 ml @ 200 mls/hr Q8H IV 12/02/16 16:00 12/07/16 08:34 (KlonoPIN) 0.5 mg BID PO 12/03/16 10:15 12/07/16 08:32 (Libertad Gutierrez) 500 mg BID PO 12/05/16 09:00 12/07/16 08:32 (Libertad Gutierrez) 250 mg HS PO 12/04/16 21:00 12/06/16 20:21 (Phenergan) 25 mg Q6H PRN PO 12/04/16 14:45 12/06/16 21:11 (Santyl Oint) 1 applic DAILY TOPICAL 12/06/16 09:00 12/07/16 08:34 Miscellaneous 1 ea 1 ea UNSCH PRN OTHER 12/06/16 09:00 (Vancomycin Inj/ NS 250 ml Inj) 262.5 ml @ 250 mls/hr Q18H IV 12/06/16 18:00 12/07/16 12:00 (SEROquel) 300 mg HS PO 12/07/16 21:00 Miscellaneous Information SPECIFIC LAB TO BE DRAWN:VANCOMYCIN TROUGH DATE TO... ONCE ONCE .XX 12/08/16 05:45 12/08/16 05:46 A/P Problem List: (1) Bipolar disorder ICD Code: F31.9 Status: Chronic (2) Cellulitis, perineum ICD Code: L03.315 Status: Acute (3) Alcohol abuse ICD Code: F10.10 Status: Chronic (4) Cellulitis of scrotum ICD Code: N49.2 Status: Acute (5) Perineal abscess ICD Code: L02.215 Status: Acute (6) BPH (benign prostatic hyperplasia) ICD Code: N40.0 Status: Chronic (7) HTN (hypertension) ICD Code: I10 Status: Chronic (8) Alcohol abuse with alcohol-induced disorder ICD Code: F10.19 Status: Chronic (9) Hypotension ICD Code: I95.9 Status: Acute Assessment and Plan Mr. Rodriguez is 71 yo, with history of bipolar disease, hypertension, hyperlipidemia, and benign prostatic hypertrophy. He was admitted on 11/29 for perineal eschar and ulcers and underwent debridement on 11/30/16. He was subsequently transferred to the medical psychiatric unit on 11/30/16. Bipolar disorder -Psychiatry managing. Seroquel increased to 200 mg. Hypokalemia - Resolved. Replace orally as needed. Continue to monitor BMP. Perineal abscess Continue antibiotics; status post debridement, Wound care consulted Infectious disease consulted - Recommended IV Vancomycin and Aztreonam. Continue Vancomycin and aztreonam daily (stop date 12/14/16). EtOH dependence -[facility] protocol HTN (hypertension) 12/06 Will hold metoprolol and lisinopril due to hypotension which could be sedation induced, Consider IVF bolus if still hypotensive. 12/07 Patient still hypotensive likely due to poor oral intake. Will give an IVF bolus with NS. BPH (benign prostatic hyperplasia) Flomax Barrett catheter Urology following 12/07 voiding trials in am Discharge Planning not cleared for DC until BP stable Problem Qualifiers (1) Bipolar disorder: Qualified Code: F31.13 - Bipolar disorder, current episode manic without psychotic features, severe (2) BPH (benign prostatic hyperplasia): Qualified Code: N40.0 - Benign prostatic hyperplasia without lower urinary tract symptoms Oj Rockwell MD Dec 07, 2016 16:32
[2016-12-07] MEDS: MEGESTROL ACETATE SUSP 400 MG/10 ML CUP PO SCH (17:00)
[2016-12-07 17:57] VITALS: BP 108/70; PULSE 113; RESP 18; TEMP 97.5; O2SAT 96
[2016-12-07 18:38] LABS: BACTERIA, URINE RARE /hpf; BLOOD, URINE NEG (NEG); GLUCOSE,URINE NEG (NEG); KETONE, URINE NEG (NEG); MUCUS URINE FEW /lpf (OCC); NITRITE,URINE NEG (NEG); SQUAMOUS EPITHELIAL CELL URINE 1 /hpf (0-5); URINE COLOR YELLOW (YELLW/STRAW)
[2016-12-07 18:39] LABS: COMMENT (UR) CATH-CULTURE IND; CULTURE IF INDICATED CATH CULTURE IND
[2016-12-07] MEDS: QUEtiapine FUMARATE 100 MG TAB PO SCH (21:16)
[2016-12-07] MEDS: DIVALPROEX SODIUM DELAYED RELEASE 250 MG TAB PO SCH (21:16)
[2016-12-08] MEDS: VANCOMYCIN INJ 1,250 MG in SODIUM CHLOR 0.9% 250 ML INJ 250 ML IV SCH (05:45)
[2016-12-08] MEDS ORDERED: PHARMACY ORDERED LAB ONE (05:45)
[2016-12-08 05:58] VITALS: BP 119/64; PULSE 82; RESP 18; TEMP 98.2; O2SAT 98
--- NOTE | 2016-12-08 08:49 | HHI.PYPN ---
Subjective Remarks Patient seen for follow-up, chart reviewed. After discussion with nursing staff patient had Barrett discontinued it was upset about this this morning. Patient has not pulled his IV lines recently. Patient continues to clean himself with his bare hands after a bowel movement and threw feces around the bathroom. Patient found lying in hospital bed as he was able to wake up for interview today. Patient mentions that they have remove the Barrett catheter and states that "it was like a ball and chain" to keep him from leaving the hospital. Dimension the prior his authorization he would use a catheter on himself multiple times a day and it had reported to nursing that times he uses St. catheter multiple times. Patient states that the nursing staff here are excellent and help him but is upset at the staff of the cafeteria as the do not bring him when he requests for his meals. Treatment regimen was reviewed with the patient and is aware that policy writer is managing his bipolar disorder which she has no objections to. Patient also aware that there was a petition for involuntary status placed but also mentions that he is willing to work with the doctors well at times have stated out loud that he is wanting to sign himself out throughout this week when upset. Patient mentions that prior to coming to the hospital he was aware that he was not sleepy for 2 weeks straight and not eating as well as worried about the cellulitis that he is currently being treated for. 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 Review of Systems Except as stated in HPI: all other systems reviewed are Neg Objective Alert: Yes [place]: Person, Place Mood: Other (all right) Affect: Other (congruent with mood but at times be noted to be irritable when speaking about his nails.) Memory Intact: Comment (not formally assessed) Hallucinations: Other (denied) Delusions: Yes Delusion Type: Grandiose, Paranoid (about food ) Suicidal: Ideation (denies) Homicidal: Ideation (denies) Insight/Judgment Limited insight, poor impulse control, poor judgment Labs Test 12/07/16 12/07/16 12/07/16 12/08/16 13:34 13:36 18:00 05:45 Sodium Level 139 MEQ/L Potassium Level 4.3 MEQ/L Chloride Level 104 MEQ/L Carbon Dioxide Level 27.5 MEQ/L Anion Gap 8 MEQ/L Blood Urea Nitrogen 14 MG/DL Creatinine 0.66 MG/DL Estimat Glomerular Filtration 119 ML/MIN Rate Random Glucose 108 MG/DL Calcium Level 8.7 MG/DL Magnesium Level 2.3 MG/DL Total Bilirubin 0.2 MG/DL Aspartate Amino Transf 37 U/L (AST/SGOT) Alanine Aminotransferase 34 U/L (ALT/SGPT) Alkaline Phosphatase 97 U/L Total Protein 7.3 GM/DL Albumin 2.6 GM/DL Valproic Acid (Depakene) Level 61 MCG/ML White Blood Count 5.6 TH/MM3 Red Blood Count 3.87 MIL/MM3 Hemoglobin 12.9 GM/DL Hematocrit 37.7 % Mean Corpuscular Volume 97.3 FL Mean Corpuscular Hemoglobin 33.4 PG Mean Corpuscular Hemoglobin 34.3 % Concent Red Cell Distribution Width 14.5 % Platelet Count 405 TH/MM3 Mean Platelet Volume 6.9 FL Neutrophils (%) (Auto) 53.1 % Lymphocytes (%) (Auto) 29.1 % Monocytes (%) (Auto) 15.5 % Eosinophils (%) (Auto) 1.8 % Basophils (%) (Auto) 0.5 % Neutrophils # (Auto) 2.9 TH/MM3 Lymphocytes # (Auto) 1.6 TH/MM3 Monocytes # (Auto) 0.9 TH/MM3 Eosinophils # (Auto) 0.1 TH/MM3 Basophils # (Auto) 0.0 TH/MM3 CBC Comment DIFF FINAL Differential Comment Urine Color YELLOW Urine Turbidity CLEAR Urine pH 6.0 Urine Specific [employer] 1.024 Urine Protein TRACE mg/dL Urine Glucose (UA) NEG mg/dL Urine Ketones NEG mg/dL Urine Occult Blood NEG Urine Nitrite NEG Urine Bilirubin NEG Urine Urobilinogen LESS THAN 2.0 MG/DL Urine Leukocyte Esterase SMALL Urine RBC LESS THAN 1 /hpf Urine WBC 2 /hpf Urine Squamous Epithelial 1 /hpf Cells Urine Bacteria RARE /hpf Urine Mucus FEW /lpf Microscopic Urinalysis Comment CATH-CULTURE IND Vancomycin Level Trough 11.7 MCG/ML Date/Time Procedure Status Source Growth 12/07/16 18:00 Urine Culture Received Urine Catheterized Urine Pending Vitals/IOs Vital Signs Date Time Temp Pulse Resp B/P Pulse Ox O2 Delivery O2 Flow Rate FiO2 12/08/16 05:58 98.2 82 18 119/64 98 Intake and Output 12/07/16 12/07/16 12/08/16 08:00 16:00 00:00 Intake Total 1920 ml 1200 ml Output Total 1150 ml 2000 ml 1500 ml Balance -1150 ml -80 ml -300 ml Assessment & Plan Problem List: (1) Bipolar disorder ICD Code: F31.9 Assessment & Plan Patient at this timeless disorganized with less pressured speech but continues to have poor impulse control and poor judgment, continues to clean himself with his hands after bottle with him throwing feces in the restroom, continues to be sexually preoccupied, continues to be tangential and with grandiose and paranoid delusions of cafeteria staff getting his orders for his meals wrong purpose. Patient has been compliant with medications with no reported adverse drug reactions, Depakote level yesterday was 0.60 but was drawn in the afternoon after morning dose. We'll increase Depakote to 500 a.m. 1000 at bedtime for mood stabilization, continue quetiapine 300 mg at bedtime for mood stabilization, we'll draw Depakote level Tuesday morning. Patient to continue recommendations as per primary medical team, monitor for medication response adverse drug reactions. Discharge planning in progress. Justification for Cont. Inpt. Patient risk for further decompensation if lower level of care Discharge Planning In progress Problem Qualifiers (1) Bipolar disorder: Qualified Code: F31.13 - Bipolar disorder, current episode manic without psychotic features, severe Camron Hayes MD Dec 08, 2016 08:49
[2016-12-08] MEDS: SODIUM HYPOCHLORITE 0.5% 500 ML BTL TOPICAL SCH ×2 (09:00→20:57)
[2016-12-08] MEDS: COLLAGENASE OINT 30 GM TUBE TOPICAL SCH (09:00)
[2016-12-08] MEDS: REMOVE OLD PATCH T-DERMAL SCH (09:00)
[2016-12-08] MEDS: NICOTINE 21 MG/24 HR PATCH T-DERMAL SCH (09:00)
[2016-12-08] MEDS: clonazePAM 0.5 MG TAB PO SCH ×2 (09:24→20:55)
[2016-12-08] MEDS: LOPERAMIDE HCL 2 MG CAP PO PRN ×2 (09:24→13:46)
[2016-12-08] MEDS: LACTOBACILLUS ACIDOPHILUS TAB PO SCH ×2 (09:24→20:55)
[2016-12-08] MEDS: MEGESTROL ACETATE SUSP 400 MG/10 ML CUP PO SCH (09:24)
[2016-12-08] MEDS: TAMSULOSIN HCL 0.4 MG CAP PO SCH (09:24)
[2016-12-08] MEDS: DIVALPROEX DR 500 MG TABEC PO SCH ×2 (09:24→20:54)
[2016-12-08] MEDS: AZTREONAM INJ 2,000 MG in SODIUM CHLORIDE 0.9% INJ 100 ML IV SCH ×2 (09:26→15:00)
--- NOTE | 2016-12-08 10:51 | HHI.PR ---
Subjective Patient symptoms today Pt seen and examined. Objective Vital Signs Vital Signs Date Time Temp Pulse Resp B/P Pulse Ox O2 Delivery O2 Flow Rate FiO2 12/08/16 05:58 98.2 82 18 119/64 98 12/07/16 17:57 97.5 113 18 108/70 96 Intake & Output 12/08/16 12/08/16 07:00 19:00 Intake Total 720 ml 120 ml Output Total 2650 ml Balance -1930 ml 120 ml Intake Oral 720 ml 120 ml Output Urine Total 2650 ml Result Diagram: 12/07/16 1336 12/07/16 1334 Objective Remarks Abd:soft,nt,nd Sood; Urine clear Wound: soiled 12/03 Abd:soft,nt,nd Sood clear Wound: dressing intact 12/05 Abd:soft,nt,nd Sood clear Wound: dressing changed: wound clean 12/07 Abd:soft,nt,nd Sood: urine clear Dressing intact 12/08 Abd:soft,nt,nd Sood out; has not voided as of yet Wound: clean and dry; dressing changed with Dakin's at bedside Medications and IVs Current Medications Medications (Trade) Dose Ordered Sig/Ernie Route Start Time Stop Time Status Last Admin (Imodium) 2 mg Q4HR PRN PO 12/01/16 18:00 12/08/16 09:24 (Ativan) 0.5 mg Q12H PRN PO 12/01/16 18:00 12/06/16 10:53 (Ativan Inj) 0.5 mg Q12H PRN IM 12/01/16 18:00 12/01/16 17:50 (Tylenol) 650 mg Q4H PRN PO 12/01/16 18:00 12/04/16 15:06 (Milk Of Magnesia Liq) 30 ml DAILY PRN PO 12/01/16 18:00 (Mag-Al Plus Susp Liq) 30 ml Q6H PRN PO 12/01/16 18:00 12/06/16 20:20 (Habitrol 21 Mg Patch.24 Hr) 1 patch DAILY T-DERMAL 12/01/16 18:00 12/04/16 07:58 (Romazicon Inj) 0.2 mg Q1M PRN IV PUSH 12/01/16 16:45 (Ativan) 1 mg Q4H PRN PO 12/01/16 16:45 (Ativan Inj) 1 mg Q4H PRN IV PUSH 12/01/16 16:45 (Ativan) 2 mg Q2H PRN PO 12/01/16 16:45 12/01/16 21:23 (Ativan Inj) 2 mg Q2H PRN IV PUSH 12/01/16 16:45 (Ativan Inj) 2 mg Q1H PRN IV PUSH 12/01/16 16:45 (Ativan Inj) 2 mg Q15M PRN IV PUSH 12/01/16 16:45 Miscellaneous Information 1 DAILY T-DERMAL 12/01/16 18:00 12/04/16 07:58 ([place] 10-325 Mg) 1 tab Q6H PRN PO 12/02/16 00:30 12/06/16 20:20 (Lactinex) 1 tab Q12HR PO 12/02/16 09:00 12/08/16 09:24 (Lopressor) 100 mg Q12HR PO 12/02/16 21:00 Hold 12/06/16 08:52 (Prinivil) 40 mg DAILY PO 12/02/16 10:00 Hold 12/05/16 08:04 (Dakin'S 0.5% Soln) 500 ml BID TOPICAL 12/02/16 12:45 12/07/16 21:25 Tamsulosin HCl 0.4 mg 0.4 mg DAILY PO 12/02/16 12:45 12/08/16 09:24 (Vancomycin Consult Pharmacy) 0 ml @ 0 mls/hr UNSCH OTHER 12/02/16 14:15 (KlonoPIN) 0.5 mg BID PO 12/03/16 10:15 12/08/16 09:24 (Depakote Dr) 500 mg BID PO 12/05/16 09:00 12/08/16 09:24 (Phenergan) 25 mg Q6H PRN PO 12/04/16 14:45 12/06/16 21:11 (Santyl Oint) 1 applic DAILY TOPICAL 12/06/16 09:00 12/07/16 08:34 (Pill Splitter) 1 ea UNSCH PRN OTHER 12/06/16 09:00 (SEROquel) 300 mg HS PO 12/07/16 21:00 12/07/16 21:16 (Megace Liq) 400 mg DAILY PO 12/07/16 17:00 12/08/16 09:24 Divalproex Sodium 500 mg 500 mg HS PO 12/08/16 21:00 UNV (Vancomycin Inj/ NS 500 ml Inj) 515 ml @ 250 mls/hr Q18H IV 12/09/16 00:00 Miscellaneous Information SPECIFIC LAB TO BE DRAWN:VANCOMYCIN TROUGH DATE TO... ONCE ONCE .XX 12/11/16 05:45 12/11/16 05:46 (Azactam Inj/NS Inj) 100 ml @ 200 mls/hr Q8H IV 12/08/16 15:00 Assessment and Plan Assessment and Plan 71 y.o psychotic male s/p debridement of perineal/scrotal wound with AUR Dakins solution ordered for BID Maintain sood catheter Start Flomax 0.4mg QHS 12/03 71 y.o psychotic male s/p debridement of perineal/scrotal wound with AUR Dakins solution to wound BID; apply tegaderm over dressing to prevent soiling. Maintain sood catheter. Void trial next /Tue. Continue Flomax 0.4mg QHS 12/05 71 y.o psychotic male s/p debridement of perineal/scrotal wound with AUR Dakins solution to wound BID; apply tegaderm over dressing to prevent soiling. Maintain sood catheter. Void trial next /Tue. Continue Flomax 0.4mg QHS Will order santyl ointment to apply to wound. 12/07 71 y.o psychotic male s/p debridement of perineal/scrotal wound with AUR Dakins solution to wound BID; apply tegaderm over dressing to prevent soiling. Maintain sood catheter. Void trial in AM Continue Flomax 0.4mg QHS Santyl ointment to apply to wound. 12/08 71 y.o psychotic male s/p debridement of perineal/scrotal wound with AUR Dakins solution to wound today Void trial today Continue Flomax 0.4mg QHS Meliton Bear DO Dec 08, 2016 10:51
[2016-12-08] MEDS: ALUMINUM/MAGNESIUM/SIMETH 30 ML CUP PO PRN (13:46)
--- NOTE | 2016-12-08 14:14 | HHI.PR ---
Subjective Remarks patient is upset that he is going to court denies cp/sob sood has been removed denies fevers/chills denies hematuria Objective Vitals Vital Signs Date Time Temp Pulse Resp B/P Pulse Ox O2 Delivery O2 Flow Rate FiO2 12/08/16 05:58 98.2 82 18 119/64 98 12/07/16 17:57 97.5 113 18 108/70 96 I/O 12/07/16 12/07/16 12/07/16 12/08/16 12/08/16 12/08/16 06:59 14:59 22:59 06:59 14:59 22:59 Intake Total 240 ml 1920 ml 1200 ml 360 ml Output Total 1900 ml 2000 ml 1500 ml 1250 ml Balance -1660 ml -80 ml -300 ml -1250 ml 360 ml Intake Oral 240 ml 1920 ml 1200 ml 360 ml Output Urine Total 1900 ml 2000 ml 1500 ml 1250 ml Bladder Scan Volume Amount 999 ml # Voids 1 # Bowel Movements 1 Result Diagram: 12/07/16 1336 12/08/16 0545 Objective Remarks Awake and alert, upset. lungs clear bl S1S2 RRR abdomnen soft, non tender Procedures none Medications and IVs Current Medications Medications (Trade) Dose Ordered Sig/Ernie Route Start Time Stop Time Status Last Admin (Imodium) 2 mg Q4HR PRN PO 12/01/16 18:00 12/08/16 13:46 (Ativan) 0.5 mg Q12H PRN PO 12/01/16 18:00 12/06/16 10:53 (Ativan Inj) 0.5 mg Q12H PRN IM 12/01/16 18:00 12/01/16 17:50 (Tylenol) 650 mg Q4H PRN PO 12/01/16 18:00 12/04/16 15:06 (Milk Of Magnesia Liq) 30 ml DAILY PRN PO 12/01/16 18:00 (Mag-Al Plus Susp Liq) 30 ml Q6H PRN PO 12/01/16 18:00 12/08/16 13:46 (Habitrol 21 Mg Patch.24 Hr) 1 patch DAILY T-DERMAL 12/01/16 18:00 12/04/16 07:58 (Romazicon Inj) 0.2 mg Q1M PRN IV PUSH 12/01/16 16:45 (Ativan) 1 mg Q4H PRN PO 12/01/16 16:45 (Ativan Inj) 1 mg Q4H PRN IV PUSH 12/01/16 16:45 (Ativan) 2 mg Q2H PRN PO 12/01/16 16:45 12/01/16 21:23 (Ativan Inj) 2 mg Q2H PRN IV PUSH 12/01/16 16:45 (Ativan Inj) 2 mg Q1H PRN IV PUSH 12/01/16 16:45 (Ativan Inj) 2 mg Q15M PRN IV PUSH 12/01/16 16:45 Miscellaneous Information 1 DAILY T-DERMAL 12/01/16 18:00 12/04/16 07:58 ([place] 10-325 Mg) 1 tab Q6H PRN PO 12/02/16 00:30 12/06/16 20:20 (Lactinex) 1 tab Q12HR PO 12/02/16 09:00 12/08/16 09:24 (Lopressor) 100 mg Q12HR PO 12/02/16 21:00 Hold 12/06/16 08:52 (Prinivil) 40 mg DAILY PO 12/02/16 10:00 Hold 12/05/16 08:04 (Dakin'S 0.5% Soln) 500 ml BID TOPICAL 12/02/16 12:45 12/07/16 21:25 Tamsulosin HCl 0.4 mg 0.4 mg DAILY PO 12/02/16 12:45 12/08/16 09:24 (Vancomycin Consult Pharmacy) 0 ml @ 0 mls/hr UNSCH OTHER 12/02/16 14:15 (KlonoPIN) 0.5 mg BID PO 12/03/16 10:15 12/08/16 09:24 (Depakote Dr) 500 mg BID PO 12/05/16 09:00 12/08/16 09:24 (Phenergan) 25 mg Q6H PRN PO 12/04/16 14:45 12/06/16 21:11 (Santyl Oint) 1 applic DAILY TOPICAL 12/06/16 09:00 12/07/16 08:34 (Pill Splitter) 1 ea UNSCH PRN OTHER 12/06/16 09:00 (SEROquel) 300 mg HS PO 12/07/16 21:00 12/07/16 21:16 (Megace Liq) 400 mg DAILY PO 12/07/16 17:00 12/08/16 09:24 Divalproex Sodium 500 mg 500 mg HS PO 12/08/16 21:00 (Vancomycin Inj/ NS 500 ml Inj) 515 ml @ 250 mls/hr Q18H IV 12/09/16 00:00 Miscellaneous Information SPECIFIC LAB TO BE DRAWN:VANCOMYCIN TROUGH DATE TO... ONCE ONCE .XX 12/11/16 05:45 12/11/16 05:46 (Azactam Inj/NS Inj) 100 ml @ 200 mls/hr Q8H IV 12/08/16 15:00 A/P Problem List: (1) Bipolar disorder ICD Code: F31.9 Status: Chronic (2) Cellulitis, perineum ICD Code: L03.315 Status: Acute (3) Alcohol abuse ICD Code: F10.10 Status: Chronic (4) Cellulitis of scrotum ICD Code: N49.2 Status: Acute (5) Perineal abscess ICD Code: L02.215 Status: Acute (6) BPH (benign prostatic hyperplasia) ICD Code: N40.0 Status: Chronic (7) HTN (hypertension) ICD Code: I10 Status: Chronic (8) Alcohol abuse with alcohol-induced disorder ICD Code: F10.19 Status: Chronic (9) Hypotension ICD Code: I95.9 Status: Resolved Assessment and Plan Mr. Rodriguez is 71 yo, with history of bipolar disease, hypertension, hyperlipidemia, and benign prostatic hypertrophy. He was admitted on 11/29 for perineal eschar and ulcers and underwent debridement on 11/30/16. He was subsequently transferred to the medical psychiatric unit on 11/30/16. Bipolar disorder -Psychiatry managing. Continue Seroquel Depakote and clonazepam as per psychiatric recommendations. Hypokalemia - Resolved. Replace orally as needed. Continue to monitor BMP. Perineal abscess Continue antibiotics; status post debridement, Wound care consulted Infectious disease consulted - Recommended IV Vancomycin and Aztreonam. Continue Vancomycin and aztreonam daily (stop date 12/14/16). EtOH dependence -[facility] protocol HTN (hypertension) 12/06 Will hold metoprolol and lisinopril due to hypotension which could be sedation induced, Consider IVF bolus if still hypotensive. 12/07 Patient still hypotensive likely due to poor oral intake. Will give an IVF bolus with NS. 12/08 Bp much improved after Ns bolus. continue to monitor vital signs. BPH (benign prostatic hyperplasia) Urology following 12/08 wound clean with taking solution by urology today. Sood catheter removed , continue with voiding trials. Continue Flomax. Poor appetite Appetite seems to be improving. Continue Megace. Discharge Planning DC pending urology clearance and successful voiding trial, and as per primary. Problem Qualifiers (1) Bipolar disorder: Qualified Code: F31.13 - Bipolar disorder, current episode manic without psychotic features, severe (2) BPH (benign prostatic hyperplasia): Qualified Code: N40.0 - Benign prostatic hyperplasia without lower urinary tract symptoms Oj Rockwell MD Dec 08, 2016 14:14
[2016-12-08 17:56] VITALS: BP 144/100; PULSE 113; RESP 20; TEMP 96.6; O2SAT 99
[2016-12-08 19:47] VITALS: BP 119/64; PULSE 82; RESP 18; TEMP 98.2; O2SAT 98
[2016-12-08] MEDS: DIVALPROEX SODIUM DELAYED RELEASE 250 MG TAB PO SCH (20:55)
[2016-12-08] MEDS: QUEtiapine FUMARATE 100 MG TAB PO SCH ×2 (20:58→21:35)
[2016-12-09] MEDS: AZTREONAM INJ 2,000 MG in SODIUM CHLORIDE 0.9% INJ 100 ML IV SCH ×4 (00:07→22:10)
[2016-12-09 06:11] VITALS: BP 124/76; PULSE 92; RESP 16; TEMP 97; O2SAT 98
[2016-12-09] MEDS: SODIUM HYPOCHLORITE 0.5% 500 ML BTL TOPICAL SCH ×2 (09:00→21:59)
[2016-12-09] MEDS: REMOVE OLD PATCH T-DERMAL SCH (09:00)
[2016-12-09] MEDS: NICOTINE 21 MG/24 HR PATCH T-DERMAL SCH (09:00)
[2016-12-09] MEDS: COLLAGENASE OINT 30 GM TUBE TOPICAL SCH (09:00)
[2016-12-09] MEDS: TAMSULOSIN HCL 0.4 MG CAP PO SCH ×2 (09:19→21:57)
[2016-12-09] MEDS: MEGESTROL ACETATE SUSP 400 MG/10 ML CUP PO SCH (09:19)
[2016-12-09] MEDS: LACTOBACILLUS ACIDOPHILUS TAB PO SCH ×2 (09:19→21:55)
[2016-12-09] MEDS: clonazePAM 0.5 MG TAB PO SCH ×2 (09:20→21:58)
[2016-12-09] MEDS: DIVALPROEX DR 500 MG TABEC PO SCH ×2 (09:20→21:56)
--- NOTE | 2016-12-09 09:29 | HHI.PR ---
Subjective Patient symptoms today Pt seen and examined. Failed void trial yesterday; sood replaced. Objective Vital Signs Vital Signs Date Time Temp Pulse Resp B/P Pulse Ox O2 Delivery O2 Flow Rate FiO2 12/09/16 06:11 97.0 92 16 124/76 98 12/08/16 19:47 98.2 82 18 119/64 98 12/08/16 17:56 96.6 113 20 144/100 99 Intake & Output 12/09/16 12/09/16 07:00 19:00 Intake Total 720 ml Output Total 2100 ml Balance -1380 ml Intake Oral 720 ml Output Urine Total 2100 ml Result Diagram: 12/07/16 1336 12/08/16 0545 Objective Remarks Abd:soft,nt,nd Sood; Urine clear Wound: soiled 12/03 Abd:soft,nt,nd Sood clear Wound: dressing intact 12/05 Abd:soft,nt,nd Sood clear Wound: dressing changed: wound clean 12/07 Abd:soft,nt,nd Sood: urine clear Dressing intact 12/08 Abd:soft,nt,nd Sood out; has not voided as of yet Wound: clean and dry; dressing changed with Dakin's at bedside 12/09 12/08 Abd:soft,nt,nd Sood out; has not voided as of yet Wound: Dressing intact Medications and IVs Current Medications Medications (Trade) Dose Ordered Sig/Ernie Route Start Time Stop Time Status Last Admin (Imodium) 2 mg Q4HR PRN PO 12/01/16 18:00 12/08/16 13:46 (Ativan) 0.5 mg Q12H PRN PO 12/01/16 18:00 12/06/16 10:53 (Ativan Inj) 0.5 mg Q12H PRN IM 12/01/16 18:00 12/01/16 17:50 (Tylenol) 650 mg Q4H PRN PO 12/01/16 18:00 12/04/16 15:06 (Milk Of Magnesia Liq) 30 ml DAILY PRN PO 12/01/16 18:00 (Mag-Al Plus Susp Liq) 30 ml Q6H PRN PO 12/01/16 18:00 12/08/16 13:46 (Habitrol 21 Mg Patch.24 Hr) 1 patch DAILY T-DERMAL 12/01/16 18:00 12/04/16 07:58 (Romazicon Inj) 0.2 mg Q1M PRN IV PUSH 12/01/16 16:45 (Ativan) 1 mg Q4H PRN PO 12/01/16 16:45 (Ativan Inj) 1 mg Q4H PRN IV PUSH 12/01/16 16:45 (Ativan) 2 mg Q2H PRN PO 12/01/16 16:45 12/01/16 21:23 (Ativan Inj) 2 mg Q2H PRN IV PUSH 12/01/16 16:45 (Ativan Inj) 2 mg Q1H PRN IV PUSH 12/01/16 16:45 (Ativan Inj) 2 mg Q15M PRN IV PUSH 12/01/16 16:45 Miscellaneous Information 1 DAILY T-DERMAL 12/01/16 18:00 12/04/16 07:58 ([place] 10-325 Mg) 1 tab Q6H PRN PO 12/02/16 00:30 12/06/16 20:20 (Lactinex) 1 tab Q12HR PO 12/02/16 09:00 12/08/16 20:55 (Lopressor) 100 mg Q12HR PO 12/02/16 21:00 Hold 12/06/16 08:52 (Prinivil) 40 mg DAILY PO 12/02/16 10:00 Hold 12/05/16 08:04 (Dakin'S 0.5% Soln) 500 ml BID TOPICAL 12/02/16 12:45 12/07/16 21:25 Tamsulosin HCl 0.4 mg 0.4 mg DAILY PO 12/02/16 12:45 12/08/16 09:24 (Vancomycin Consult Pharmacy) 0 ml @ 0 mls/hr UNSCH OTHER 12/02/16 14:15 (KlonoPIN) 0.5 mg BID PO 12/03/16 10:15 12/08/16 20:55 (Depakote Dr) 500 mg BID PO 12/05/16 09:00 12/08/16 20:54 (Phenergan) 25 mg Q6H PRN PO 12/04/16 14:45 12/06/16 21:11 (Santyl Oint) 1 applic DAILY TOPICAL 12/06/16 09:00 12/07/16 08:34 (Pill Splitter) 1 ea UNSCH PRN OTHER 12/06/16 09:00 (SEROquel) 300 mg HS PO 12/07/16 21:00 12/08/16 21:35 (Megace Liq) 400 mg DAILY PO 12/07/16 17:00 12/08/16 09:24 Divalproex Sodium 500 mg 500 mg HS PO 12/08/16 21:00 12/08/16 20:55 (Vancomycin Inj/ NS 500 ml Inj) 515 ml @ 250 mls/hr Q18H IV 12/09/16 00:00 12/09/16 00:00 Miscellaneous Information SPECIFIC LAB TO BE DRAWN:VANCOMYCIN TROUGH DATE TO... ONCE ONCE .XX 12/11/16 05:45 12/11/16 05:46 (Azactam Inj/NS Inj) 100 ml @ 200 mls/hr Q8H IV 12/08/16 15:00 12/09/16 00:07 Assessment and Plan Assessment and Plan 71 y.o psychotic male s/p debridement of perineal/scrotal wound with AUR Dakins solution ordered for BID Maintain sood catheter Start Flomax 0.4mg QHS 12/03 71 y.o psychotic male s/p debridement of perineal/scrotal wound with AUR Dakins solution to wound BID; apply tegaderm over dressing to prevent soiling. Maintain sood catheter. Void trial next /Tue. Continue Flomax 0.4mg QHS 12/05 71 y.o psychotic male s/p debridement of perineal/scrotal wound with AUR Dakins solution to wound BID; apply tegaderm over dressing to prevent soiling. Maintain sood catheter. Void trial next /Tue. Continue Flomax 0.4mg QHS Will order santyl ointment to apply to wound. 12/07 71 y.o psychotic male s/p debridement of perineal/scrotal wound with AUR Dakins solution to wound BID; apply tegaderm over dressing to prevent soiling. Maintain sood catheter. Void trial in AM Continue Flomax 0.4mg QHS Santyl ointment to apply to wound. 12/08 71 y.o psychotic male s/p debridement of perineal/scrotal wound with AUR Dakins solution to wound today Void trial today Continue Flomax 0.4mg QHS 12/09 12/08 71 y.o psychotic male s/p debridement of perineal/scrotal wound with AUR Dakins solution to wound today Failed Void trial yesterday Increase Flomax 0.8mg QHS Meliton Bear DO Dec 09, 2016 09:29
--- NOTE | 2016-12-09 13:51 | HHI.PR ---
Subjective Remarks Patient denies cp/sob denies cough denies abdominal pain Objective Vitals Vital Signs Date Time Temp Pulse Resp B/P Pulse Ox O2 Delivery O2 Flow Rate FiO2 12/09/16 06:11 97.0 92 16 124/76 98 12/08/16 19:47 98.2 82 18 119/64 98 12/08/16 17:56 96.6 113 20 144/100 99 I/O 12/08/16 12/08/16 12/08/16 12/09/16 12/09/16 12/09/16 07:00 15:00 23:00 07:00 15:00 23:00 Intake Total 720 ml 480 ml 240 ml 480 ml Output Total 1250 ml 850 ml 1250 ml Balance -1250 ml 720 ml -370 ml -1010 ml 480 ml Intake Oral 720 ml 480 ml 240 ml 480 ml Output Urine Total 1250 ml 850 ml 1250 ml Bladder Scan Volume Amount 999 ml 999 ml # Voids 2 # Bowel Movements 2 Result Diagram: 12/07/16 1336 12/08/16 0545 Objective Remarks Awake and alert, upset. lungs clear bl S1S2 RRR abdomnen soft, non tender Procedures none Medications and IVs Current Medications Medications (Trade) Dose Ordered Sig/Ernie Route Start Time Stop Time Status Last Admin (Imodium) 2 mg Q4HR PRN PO 12/01/16 18:00 12/08/16 13:46 (Ativan) 0.5 mg Q12H PRN PO 12/01/16 18:00 12/06/16 10:53 (Ativan Inj) 0.5 mg Q12H PRN IM 12/01/16 18:00 12/01/16 17:50 (Tylenol) 650 mg Q4H PRN PO 12/01/16 18:00 12/04/16 15:06 (Milk Of Magnesia Liq) 30 ml DAILY PRN PO 12/01/16 18:00 (Mag-Al Plus Susp Liq) 30 ml Q6H PRN PO 12/01/16 18:00 12/08/16 13:46 (Habitrol 21 Mg Patch.24 Hr) 1 patch DAILY T-DERMAL 12/01/16 18:00 12/04/16 07:58 (Romazicon Inj) 0.2 mg Q1M PRN IV PUSH 12/01/16 16:45 (Ativan) 1 mg Q4H PRN PO 12/01/16 16:45 (Ativan Inj) 1 mg Q4H PRN IV PUSH 12/01/16 16:45 (Ativan) 2 mg Q2H PRN PO 12/01/16 16:45 12/01/16 21:23 (Ativan Inj) 2 mg Q2H PRN IV PUSH 12/01/16 16:45 (Ativan Inj) 2 mg Q1H PRN IV PUSH 12/01/16 16:45 (Ativan Inj) 2 mg Q15M PRN IV PUSH 12/01/16 16:45 Miscellaneous Information 1 DAILY T-DERMAL 12/01/16 18:00 12/04/16 07:58 ([place] 10-325 Mg) 1 tab Q6H PRN PO 12/02/16 00:30 12/06/16 20:20 (Lactinex) 1 tab Q12HR PO 12/02/16 09:00 12/09/16 09:19 (Lopressor) 100 mg Q12HR PO 12/02/16 21:00 Hold 12/06/16 08:52 (Prinivil) 40 mg DAILY PO 12/02/16 10:00 Hold 12/05/16 08:04 Sodium Hypochlorite 500 ml 500 ml BID TOPICAL 12/02/16 12:45 12/09/16 09:00 (Vancomycin Consult Pharmacy) 0 ml @ 0 mls/hr UNSCH OTHER 12/02/16 14:15 (KlonoPIN) 0.5 mg BID PO 12/03/16 10:15 12/09/16 09:20 (Depakote Dr) 500 mg BID PO 12/05/16 09:00 12/09/16 09:20 (Phenergan) 25 mg Q6H PRN PO 12/04/16 14:45 12/06/16 21:11 (Santyl Oint) 1 applic DAILY TOPICAL 12/06/16 09:00 12/09/16 09:00 (Pill Splitter) 1 ea UNSCH PRN OTHER 12/06/16 09:00 (SEROquel) 300 mg HS PO 12/07/16 21:00 12/08/16 21:35 (Megace Liq) 400 mg DAILY PO 12/07/16 17:00 12/09/16 09:19 Divalproex Sodium 500 mg 500 mg HS PO 12/08/16 21:00 12/08/16 20:55 (Vancomycin Inj/ NS 500 ml Inj) 515 ml @ 250 mls/hr Q18H IV 12/09/16 00:00 12/09/16 00:00 Miscellaneous Information SPECIFIC LAB TO BE DRAWN:VANCOMYCIN TROUGH DATE TO... ONCE ONCE .XX 12/11/16 05:45 12/11/16 05:46 (Azactam Inj/NS Inj) 100 ml @ 200 mls/hr Q8H IV 12/08/16 15:00 12/09/16 07:00 (Flomax) 0.8 mg HS PO 12/09/16 21:00 A/P Problem List: (1) Bipolar disorder ICD Code: F31.9 Status: Chronic (2) Cellulitis, perineum ICD Code: L03.315 Status: Acute (3) Alcohol abuse ICD Code: F10.10 Status: Chronic (4) Cellulitis of scrotum ICD Code: N49.2 Status: Acute (5) Perineal abscess ICD Code: L02.215 Status: Acute (6) BPH (benign prostatic hyperplasia) ICD Code: N40.0 Status: Chronic (7) HTN (hypertension) ICD Code: I10 Status: Chronic (8) Alcohol abuse with alcohol-induced disorder ICD Code: F10.19 Status: Chronic (9) Hypotension ICD Code: I95.9 Status: Resolved Assessment and Plan Mr. Rodriguez is 71 yo, with history of bipolar disease, hypertension, hyperlipidemia, and benign prostatic hypertrophy. He was admitted on 11/29 for perineal eschar and ulcers and underwent debridement on 11/30/16. He was subsequently transferred to the medical psychiatric unit on 11/30/16. Bipolar disorder -Psychiatry managing. Continue Seroquel Depakote and clonazepam as per psychiatric recommendations. Hypokalemia - Resolved. Replace orally as needed. Continue to monitor BMP. Perineal abscess Continue antibiotics; status post debridement, Wound care consulted Infectious disease consulted - Recommended IV Vancomycin and Aztreonam. Continue Vancomycin and aztreonam daily (stop date 12/14/16). EtOH dependence -[facility] protocol HTN (hypertension) 12/06 Will hold metoprolol and lisinopril due to hypotension which could be sedation induced, Consider IVF bolus if still hypotensive. 12/07 Patient still hypotensive likely due to poor oral intake. Will give an IVF bolus with NS. 12/08 Bp much improved after Ns bolus. continue to monitor vital signs. BPH (benign prostatic hyperplasia) Urology following 12/08 wound cleaned wound with Dakin's solution by urology today. Barrett catheter removed, continue with voiding trials. Continue Flomax. 12/09 Failed voiding trial, Barrett reinserted. Flomax dose increased to 0.8 mg po daily. Poor appetite Appetite seems to be improving. Continue Megace. Discharge Planning DC pending urology clearance and successful voiding trial, and as per primary. Problem Qualifiers (1) Bipolar disorder: Qualified Code: F31.13 - Bipolar disorder, current episode manic without psychotic features, severe (2) BPH (benign prostatic hyperplasia): Qualified Code: N40.0 - Benign prostatic hyperplasia without lower urinary tract symptoms Oj Rockwell MD Dec 09, 2016 13:51
[2016-12-09] MEDS: LOPERAMIDE HCL 2 MG CAP PO PRN (16:02)
--- NOTE | 2016-12-09 17:20 | HHI.PYPN ---
Subjective Remarks Patient seen for follow, chart review. After discussion with nursing report patient had Barrett reinserted as patient has difficulty voiding. Patient was seen by string studies director to address his diet he eats. Patient was taken to mental health court earlier today with a petition for involuntary admission was granted. Patient found sitting in hospital bed noted to be upset with junior underwriter due to the same. Patient states that he has nothing to say but was able to engage in interview despite feeling upset initially. Patient was encouraged to let staff help whenever he had to go have a bowel movement so that he does not contaminate his wound which she agreed. Patient was reminded that he still has further antibiotic treatment as per medical team and that his mood has been more stable with current treatment regimen and will likely require a few more days to complete stabilization which he acknowledged. Patient denies SI, HI, AVH or delusions. Review of Systems Except as stated in HPI: all other systems reviewed are Neg Objective Alert: Yes [place]: Person, Place Mood: Other (okay) Affect: Other (patient noted to be upset initially but later was appropriate) Memory Intact: Comment (not formally assessed) Hallucinations: Other (denied) Delusions: Yes Delusion Type: Grandiose, Paranoid (less so today) Suicidal: Ideation (denies) Homicidal: Ideation (denies) Insight/Judgment Limited insight, impulse control and judgment Labs Labs reviewed. Date/Time Procedure Status Source Growth 12/07/16 18:00 Urine Culture - Final Complete Urine Catheterized Urine NO GROWTH IN 48 HOURS. Vitals/IOs Vital Signs Date Time Temp Pulse Resp B/P Pulse Ox O2 Delivery O2 Flow Rate FiO2 12/09/16 06:11 97.0 92 16 124/76 98 Intake and Output 12/08/16 12/08/16 12/09/16 08:00 16:00 00:00 Intake Total 120 ml 600 ml 480 ml Output Total 1250 ml 850 ml Balance -1130 ml 600 ml -370 ml Assessment & Plan Problem List: (1) Bipolar disorder ICD Code: F31.9 Assessment & Plan Patient noted to be less disorganized, less tangential, has pressured speech, mood has been stabilizing and improving. Patient had a consult with a string studies director to address his diet needs. Patient to continue medical treatment as per primary medical team. Patient will have a repeat of valproic acid level tomorrow a.m. to get more accurate reading as last level was drawn in the afternoon after he had first dose in the morning. Continue current treatment regimen for now. Monitor for medication response and adverse drug reactions. Patient encouraged to let staff know to assist in bowel movements so that he did not contaminated wound. Patient agreed. Justification for Cont. Inpt. Patient risk for decompensation if at lower level of care Discharge Planning In progress Problem Qualifiers (1) Bipolar disorder: Qualified Code: F31.13 - Bipolar disorder, current episode manic without psychotic features, severe Camron Hayes MD Dec 09, 2016 17:20
[2016-12-09 18:00] VITALS: BP 128/91; PULSE 107; RESP 18; TEMP 98.2; O2SAT 96
[2016-12-09] MEDS: VANCOMYCIN INJ 1,500 MG in SODIUM CHLORID 0.9% 500 ML INJ 500 ML IV SCH ×3 (18:03)
[2016-12-09] MEDS: QUEtiapine FUMARATE 100 MG TAB PO SCH (21:55)
[2016-12-09] MEDS: DIVALPROEX SODIUM DELAYED RELEASE 250 MG TAB PO SCH (21:58)
[2016-12-09] MEDS: ALUMINUM/MAGNESIUM/SIMETH 30 ML CUP PO PRN (23:07)
[2016-12-10] MEDS: AZTREONAM INJ 2,000 MG in SODIUM CHLORIDE 0.9% INJ 100 ML IV SCH ×3 (05:40→22:06)
[2016-12-10 06:04] VITALS: BP 137/81; PULSE 94; RESP 14; TEMP 97.6; O2SAT 97
[2016-12-10] MEDS: COLLAGENASE OINT 30 GM TUBE TOPICAL SCH (09:00)
[2016-12-10] MEDS: NICOTINE 21 MG/24 HR PATCH T-DERMAL SCH (09:00)
[2016-12-10] MEDS: SODIUM HYPOCHLORITE 0.5% 500 ML BTL TOPICAL SCH ×2 (09:00→20:56)
[2016-12-10] MEDS: REMOVE OLD PATCH T-DERMAL SCH (09:00)
[2016-12-10] MEDS: DIVALPROEX DR 500 MG TABEC PO SCH ×2 (09:01→20:52)
[2016-12-10] MEDS: clonazePAM 0.5 MG TAB PO SCH ×2 (09:01→20:52)
[2016-12-10] MEDS: MEGESTROL ACETATE SUSP 400 MG/10 ML CUP PO SCH (09:01)
[2016-12-10] MEDS: LACTOBACILLUS ACIDOPHILUS TAB PO SCH ×2 (09:01→20:55)
--- NOTE | 2016-12-10 09:02 | HHI.PYPN ---
Subjective Remarks Patient seen for follow-up, chart review. After discussion with nursing staff patient with no behavioral issues overnight, was requested to see his medical records but was advised that he may have access to them through Department of medical records post discharge. Patient found sitting in hospital bed eating breakfast. Patient states feeling content that after the bicycle designer came to see him yesterday he was receiving breakfast exactly how he wanted today. Patient noted to be in good spirits. Patient reports having some difficulty sleeping last night but feels that his current treatment regimen is "working". Patient states that he is now feeling "more mellow" and reports wanting to continue regimen. Patient aware that he continues to require further antibiotic treatments and is willing to comply with recommendations for speedy. Patient denies SI, HI, AVH but continues with some grandiosity which may be part of his personality and baseline. Review of Systems Except as stated in HPI: all other systems reviewed are Neg Objective Alert: Yes [place]: Person, Place, Date Mood: Other ("good") Affect: Appropriate Memory Intact: Comment (not formally assessed) Hallucinations: Other (denied) Delusions: Yes Delusion Type: Grandiose Suicidal: Ideation (denies) Homicidal: Ideation (denies) Insight/Judgment Improved insight, impulse control and judgment Labs Labs reviewed. Test 12/10/16 07:25 Creatinine 0.65 MG/DL Estimat Glomerular Filtration 121 ML/MIN Rate Valproic Acid (Depakene) Level 64 MCG/ML Date/Time Procedure Status Source Growth 12/07/16 18:00 Urine Culture - Final Complete Urine Catheterized Urine NO GROWTH IN 48 HOURS. Vitals/IOs Vital Signs Date Time Temp Pulse Resp B/P Pulse Ox O2 Delivery O2 Flow Rate FiO2 12/10/16 06:04 97.6 94 14 137/81 97 Intake and Output 12/09/16 12/09/16 12/10/16 08:00 16:00 00:00 Intake Total 720 ml 1440 ml 720 ml Output Total 1250 ml 1300 ml 1600 ml Balance -530 ml 140 ml -880 ml Assessment & Plan Problem List: (1) Bipolar disorder ICD Code: F31.9 Assessment & Plan Patient this time noted to be responding well to current treatment regimen. Patient valproic acid levels were within therapeutic range. We will continue current treatment and monitor her medication response and possible adverse drug reactions. Patient to continue recommendations as per primary medical team. Patient likely will be discharged soon to continue medical treatment. We'll continue to monitor for now. Justification for Cont. Inpt. Patient at risk for further decompensation if at lower level of care. Discharge Planning In progress Problem Qualifiers (1) Bipolar disorder: Qualified Code: F31.13 - Bipolar disorder, current episode manic without psychotic features, severe Camron Hayes MD Dec 10, 2016 09:02
--- NOTE | 2016-12-10 12:12 | HHI.PR ---
Subjective Remarks Patient c/o rash in face denies cp/sob denies fevers or chills vital signs stable Objective Vitals Vital Signs Date Time Temp Pulse Resp B/P Pulse Ox O2 Delivery O2 Flow Rate FiO2 12/10/16 06:04 97.6 94 14 137/81 97 12/09/16 18:00 98.2 107 18 128/91 96 I/O 12/09/16 12/09/16 12/09/16 12/10/16 12/10/16 12/10/16 07:00 15:00 23:00 07:00 15:00 23:00 Intake Total 240 ml 1920 ml 720 ml Output Total 1250 ml 1300 ml 1600 ml 1700 ml Balance -1010 ml 620 ml -880 ml -1700 ml Intake Oral 240 ml 1920 ml 720 ml Output Urine Total 1250 ml 1300 ml 1600 ml 1700 ml Result Diagram: 12/07/16 1336 12/10/16 0725 Objective Remarks Awake and alert, calm lungs clear bl S1S2 RRR abdomnen soft, non tender sood catheter in place - sood bag with clear urine Procedures none Urinary Catheter: Yes A/P Problem List: (1) Bipolar disorder ICD Code: F31.9 Status: Chronic (2) Cellulitis, perineum ICD Code: L03.315 Status: Acute (3) Alcohol abuse ICD Code: F10.10 Status: Chronic (4) Cellulitis of scrotum ICD Code: N49.2 Status: Acute (5) Perineal abscess ICD Code: L02.215 Status: Acute (6) BPH (benign prostatic hyperplasia) ICD Code: N40.0 Status: Chronic (7) HTN (hypertension) ICD Code: I10 Status: Chronic (8) Alcohol abuse with alcohol-induced disorder ICD Code: F10.19 Status: Chronic (9) Hypotension ICD Code: I95.9 Status: Resolved Assessment and Plan Mr. Rodriguez is 71 yo, with history of bipolar disease, hypertension, hyperlipidemia, and benign prostatic hypertrophy. He was admitted on 11/29 for perineal eschar and ulcers and underwent debridement on 11/30/16. He was subsequently transferred to the medical psychiatric unit on 11/30/16. Bipolar disorder -Psychiatry managing. Continue Seroquel Depakote and clonazepam as per psychiatric recommendations. Hypokalemia - Resolved. Replace orally as needed. Continue to monitor BMP. Perineal abscess Continue antibiotics; status post debridement, Wound care consulted Infectious disease consulted - Recommended IV Vancomycin and Aztreonam. Continue Vancomycin and aztreonam daily (stop date 12/14/16). EtOH dependence -[facility] protocol HTN (hypertension) 12/06 Will hold metoprolol and lisinopril due to hypotension which could be sedation induced, Consider IVF bolus if still hypotensive. 12/07 Patient still hypotensive likely due to poor oral intake. Will give an IVF bolus with NS. 12/08 Bp much improved after Ns bolus. continue to monitor vital signs. BPH (benign prostatic hyperplasia) Urology following 12/08 wound cleaned wound with Dakin's solution by urology today. Sood catheter removed, continue with voiding trials. Continue Flomax. 12/09 Failed voiding trial, Sood reinserted. Flomax dose increased to 0.8 mg po daily. 12/10 management as per urology. Poor appetite Appetite seems to be improving. Continue Megace. Discharge Planning DC pending urology clearance and successful voiding trial, completion of antibiotics, as per primary. Problem Qualifiers (1) Bipolar disorder: Qualified Code: F31.13 - Bipolar disorder, current episode manic without psychotic features, severe (2) BPH (benign prostatic hyperplasia): Qualified Code: N40.0 - Benign prostatic hyperplasia without lower urinary tract symptoms Oj Rockwell MD Dec 10, 2016 12:11
[2016-12-10] MEDS: VANCOMYCIN INJ 1,500 MG in SODIUM CHLORID 0.9% 500 ML INJ 500 ML IV SCH (12:14)
[2016-12-10 17:29] VITALS: BP 141/93; PULSE 121; RESP 16; TEMP 98.6; O2SAT 96
[2016-12-10] MEDS: LOPERAMIDE HCL 2 MG CAP PO PRN (18:10)
--- NOTE | 2016-12-10 18:35 | PD.WCN.NOT ---
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 Continue dressing changes as ordered for scrotal area Additional Information: Patient see for follow up of shallow stage 4 pressure injury to coccyx area. Patient able to stand for wound assessment. Patient able to remove briefs to reveal closed scar tissue to coccyx area. Left coccyx area open to air.Patient getting dressing changed for scrotal area with dakins .50%. Scrotal wound appears also improved from previous assessment. Bre Morales [facility] Dec 10, 2016 18:35
--- NOTE | 2016-12-10 18:45 | HHI.IDPN ---
Note Infectious Disease Note ID follow up. delayed entry. Patient seen At 12:30p No distress. Rambling and complaining. Noted to have urine coming into contact with the wound. Touching the drainage soaked dressing with his hands. Afebrile. PAST MEDICAL HISTORY: 1. Bipolar disorder. 2. Hypertension. 3. Hyperlipidemia. 4. Dyspepsia. ALLERGIES CIPRO PENICILLIN ANTIBIOTICS: 1. Vancomycin. 2. Aztreonam. PHYSICAL EXAMINATION: GENERAL: No acute distress. HEENT: No icterus. OROPHARYNX: No visible lesions. LUNGS: Clear breath sounds. HEART: Regular rate and rhythm. No murmurs, rubs, or gallops. ABDOMEN: Bowel sounds present, soft, nontender. GENITOURINARY: Post debridement of perineum. Wound has a lot of drainage on either side of the perineum. EXTREMITIES: No clubbing, cyanosis or edema. SKIN: No rash. NEUROLOGIC: Nonfocal. PSYCHIATRIC: remains anxious. Disjointed thoughts. Emotionally labile. IMPRESSION Perineal abscess and necrotic cellulitis. Klebsiella/ strep not A,B D. Post debridement. RECOMMENDATIONS 1. Continue vancomycin. Pharmacy to dose. 2. Continue aztreonam. Continue to monitor the wound. Plan on IV vancomycin plus Aztreonam x 2 weeks from day of last debridement. Patient cautioned about keeping the wound clean. Ankur Chacon MD Dec 10, 2016 18:45
[2016-12-10] MEDS: QUEtiapine FUMARATE 100 MG TAB PO SCH (20:52)
[2016-12-10] MEDS: DIVALPROEX SODIUM DELAYED RELEASE 250 MG TAB PO SCH (20:53)
[2016-12-10] MEDS: TAMSULOSIN HCL 0.4 MG CAP PO SCH (20:53)
[2016-12-10] MEDS: ALUMINUM/MAGNESIUM/SIMETH 30 ML CUP PO PRN (21:20)
[2016-12-11] MEDS: VANCOMYCIN INJ 1,500 MG in SODIUM CHLORID 0.9% 500 ML INJ 500 ML IV SCH (05:13)
[2016-12-11] MEDS ORDERED: PHARMACY ORDERED LAB ONE (05:45)
[2016-12-11 06:11] VITALS: BP 144/79; PULSE 97; RESP 18; TEMP 98.3; O2SAT 94
[2016-12-11] MEDS: AZTREONAM INJ 2,000 MG in SODIUM CHLORIDE 0.9% INJ 100 ML IV SCH ×2 (06:36→15:00)
[2016-12-11] MEDS: COLLAGENASE OINT 30 GM TUBE TOPICAL SCH (09:00)
[2016-12-11] MEDS: KETOCONAZOLE 2% CREAM 15 GM TOPICAL SCH (09:00)
[2016-12-11] MEDS: REMOVE OLD PATCH T-DERMAL SCH (09:00)
[2016-12-11] MEDS: SODIUM HYPOCHLORITE 0.5% 500 ML BTL TOPICAL SCH ×2 (09:00→21:00)
[2016-12-11] MEDS: NICOTINE 21 MG/24 HR PATCH T-DERMAL SCH (09:00)
--- NOTE | 2016-12-11 09:37 | HHI.PYPN ---
Subjective Remarks Patient seen for follow, chart review. After discussion with nursing staff. Patient currently on IV antibiotics as per recommendations from primary medical team. Patient found sitting in hospital bed eating breakfast and noted be irritable due to his dissatisfaction of what the brought in for breakfast. He reports adhering to recommendations by medical team and allowing dressing changes and avoiding removing dressing. Patient reports having spoken with the medical team and that he will need continued IV antibiotic treatment but that his recovery is progressing. Patient reports his mood being okay, denies any SI , HI, AVH or delusions but continues to have some grandiosity. Review of Systems Except as stated in HPI: all other systems reviewed are Neg Objective Alert: Yes [place]: Person, Place, Date Mood: Other (okay) Affect: Appropriate Memory Intact: Comment (not formally assessed) Hallucinations: Other (denied) Delusions: Yes Delusion Type: Grandiose Suicidal: Ideation (denies) Homicidal: Ideation (denies) Insight/Judgment Limited insight, impulse control and judgment Labs Labs reviewed. Test 12/11/16 04:45 Vancomycin Level Trough 9.5 MCG/ML Date/Time Procedure Status Source Growth 12/07/16 18:00 Urine Culture - Final Complete Urine Catheterized Urine NO GROWTH IN 48 HOURS. Vitals/IOs Vital Signs Date Time Temp Pulse Resp B/P Pulse Ox O2 Delivery O2 Flow Rate FiO2 12/11/16 06:11 98.3 97 18 144/79 94 Intake and Output 12/10/16 12/10/16 12/11/16 08:00 16:00 00:00 Intake Total 1860 ml 1200 ml Output Total 1700 ml 1001 ml Balance -1700 ml 1860 ml 199 ml Assessment & Plan Problem List: (1) Bipolar disorder ICD Code: F31.9 Assessment & Plan Estimated LOS: 2-3 days. Patient at this time with more stable mood, noted to have pressured speech, nor endorsing any bizarre delusions. Patient continues to have some grandiosity but maybe likely related to baseline personality. Patient adhering to recommendations as per medical team, adhering to treatment regimen. Patient's current Depakote levels are within therapeutic range. Patient will likely continue on this regimen with probable discharge back to medical floor to continue treatment. Justification for Cont. Inpt. Patient at risk for further decompensation if it lower level of care Discharge Planning In progress Problem Qualifiers (1) Bipolar disorder: Qualified Code: F31.13 - Bipolar disorder, current episode manic without psychotic features, severe Camron Hayes MD Dec 11, 2016 09:37
[2016-12-11] MEDS: DIVALPROEX DR 500 MG TABEC PO SCH ×2 (10:16→21:10)
[2016-12-11] MEDS: LACTOBACILLUS ACIDOPHILUS TAB PO SCH ×2 (10:16→21:10)
[2016-12-11] MEDS: MEGESTROL ACETATE SUSP 400 MG/10 ML CUP PO SCH (10:16)
[2016-12-11] MEDS: clonazePAM 0.5 MG TAB PO SCH ×2 (10:16→21:11)
[2016-12-11] MEDS: LORazepam 2 MG TAB PO PRN (10:16)
--- NOTE | 2016-12-11 12:48 | HHI.PR ---
Subjective Remarks Follow-up perineal abscess, hypokalemia, hypertension, seborrheic dermatitis and BPH with urinary retention Patient sitting in a chair watching out the window appears to be in no acute distress Patient reports moderate constant aching left hand pain. Patient reports that when he was initially bitten by a spider he fell which is when his left hand pain started. Patient is a poor historian and difficult to get specific information from due to his tangential and grandiose speech. Initially patient reports that he fell on 2 days ago and then a reports he fell when he was bitten by the spider prior to admission to the hospital. Of note patient was admitted to the hospital 11/29/2016. Patient reports initially he was unable to hold a glass or use his fingers. But at this time patient observed eating and drinking and appears to have full use of both hands with no limitation of ROM and equal hand strength bilaterally Patient also complains of the, "rash,: on his face. Patient is unable to give information as to how long it's been there. Patient being treated for seborrheic dermatitis. 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 Patient is upset that he is in the inpatient psychiatric unit and is calling the psychiatrist rosemarie. Reporting they, "caught him like prey." Patient denies chest pain shortness of breath nausea vomiting diarrhea constipation fevers or chills. Patient repeat reports wound and scrotal/groin area appears to be improving and denies pain in scrotal/groin area at this time Objective Vitals Vital Signs Date Time Temp Pulse Resp B/P Pulse Ox O2 Delivery O2 Flow Rate FiO2 12/11/16 06:11 98.3 97 18 144/79 94 12/10/16 17:29 98.6 121 16 141/93 96 I/O 12/10/16 12/10/16 12/10/16 12/11/16 12/11/16 12/11/16 06:59 14:59 22:59 06:59 14:59 22:59 Intake Total 1860 ml 1200 ml 360 ml 720 ml Output Total 1700 ml 1001 ml 1250 ml Balance -1700 ml 1860 ml 199 ml -890 ml 720 ml Intake Oral 1860 ml 1200 ml 360 ml 720 ml Output Urine Total 1700 ml 1000 ml 1250 ml Stool Total 1 ml Result Diagram: 12/07/16 1336 12/10/16 0725 Objective Remarks Awake and alert appears to be in no acute distress lungs clear bl S1S2 RRR Bilateral upper and lower extremities with full range of motion and equal strength bilaterally abdomnen soft, non tender sood catheter in place - sood bag with clear urine Procedures none A/P Problem List: (1) Bipolar disorder ICD Code: F31.9 Status: Chronic (2) Cellulitis, perineum ICD Code: L03.315 Status: Acute (3) Alcohol abuse ICD Code: F10.10 Status: Chronic (4) Cellulitis of scrotum ICD Code: N49.2 Status: Acute (5) Perineal abscess ICD Code: L02.215 Status: Acute (6) BPH (benign prostatic hyperplasia) ICD Code: N40.0 Status: Chronic (7) HTN (hypertension) ICD Code: I10 Status: Chronic (8) Alcohol abuse with alcohol-induced disorder ICD Code: F10.19 Status: Chronic (9) Hypotension ICD Code: I95.9 Status: Resolved Assessment and Plan Mr. Rodriguez is 71 yo, with history of bipolar disease, hypertension, hyperlipidemia, and benign prostatic hypertrophy. He was admitted on 11/29 for perineal eschar and ulcers and underwent debridement on 11/30/16. He was subsequently transferred to the medical psychiatric unit on 11/30/16. Bipolar disorder -Psychiatry managing. Hypokalemia - Resolved. Replace orally as needed. Continue to monitor BMP. Perineal abscess Continue antibiotics; status post debridement, Wound care consulted and following Infectious disease consulted - Recommended IV Vancomycin and Aztreonam. Continue Vancomycin and aztreonam daily (stop date 12/14/16). EtOH dependence -[facility] protocol HTN (hypertension) 12/06 Will hold metoprolol and lisinopril due to hypotension 12/07 Patient still hypotensive likely due to poor oral intake. Will give an IVF bolus with NS. 12/08 BP much improved after Ns bolus. continue to monitor vital signs. 12/10/16 BP stable continue to monitor BPH (benign prostatic hyperplasia) Urology following 12/08 wound cleaned wound with Dakin's solution by urology today. Sood catheter removed, continue with voiding trials. Continue Flomax. 12/09 Failed voiding trial, Sood reinserted. Flomax dose increased to 0.8 mg po daily. 12/11 management as per urology. Poor appetite Appetite seems to be improving. Continue Megace. seborrheic dermatitis - continue topical antifungal cream (ketoconazole) Left hand pain- x-ray left hand and wrist ordered and pending Discharge Planning DC pending urology clearance, completion of antibiotics per ID recommendations, as per primary. Discussed with patient, nursing and Dr. Bailey Problem Qualifiers (1) Bipolar disorder: Qualified Code: F31.13 - Bipolar disorder, current episode manic without psychotic features, severe (2) BPH (benign prostatic hyperplasia): Qualified Code: N40.0 - Benign prostatic hyperplasia without lower urinary tract symptoms Dalia Lundberg Dec 11, 2016 12:48
--- NOTE | 2016-12-11 13:58 | RADRPT ---
EXAM DATE/TIME: 12/11/2016 13:36 [facility] COMPARISON: No previous studies available for comparison. INDICATIONS : Pain from prior spider bite. MEDICAL HISTORY : None. SURGICAL HISTORY : None. ENCOUNTER: Initial ACUITY: 1 month PAIN SCORE: 5/10 LOCATION: Left hand. FINDINGS: Three view examination of the left hand demonstrates no soft tissue swelling, dislocation, or fractur e. Scattered degenerative changes. Chondrocalcinosis. The carpal bones appear intact. The interphal angeal and metacarpophalangeal joints are intact. Bony mineralization is normal. CONCLUSION: Degenerative changes without fracture.. Camron Kate MD on December 11, 2016 at 13:56 Board Certified Radiologist. This report was verified electronically.
--- NOTE | 2016-12-11 13:59 | RADRPT ---
EXAM DATE/TIME: 12/11/2016 13:36 [facility] COMPARISON: No previous studies available for comparison. INDICATIONS : Pain from prior spider bite. MEDICAL HISTORY : None. SURGICAL HISTORY : None. ENCOUNTER: Initial ACUITY: 1 day PAIN SCORE: 2/10 LOCATION: Left wrist. FINDINGS: Three view examination of the left wrist demonstrates prominent degenerative changes involving the ra diocarpal joints. Chondrocalcinosis. No fracture. Bony mineralization is normal. Soft tissue swellin g. No radiopaque foreign body.CONCLUSION: Prominent degenerative/arthritic changes. Soft tissue swelling without fracture. Camron Kate MD on December 11, 2016 at 13:57 Board Certified Radiologist. This report was verified electronically.
[2016-12-11 18:08] VITALS: BP 136/83; PULSE 104; RESP 18; TEMP 97.2; O2SAT 98
[2016-12-11] MEDS: ALUMINUM/MAGNESIUM/SIMETH 30 ML CUP PO PRN (21:09)
[2016-12-11] MEDS: ACETAMINOPHEN/HYDROcodone 325 MG/10 MG TAB PO PRN (21:10)
[2016-12-11] MEDS: DIVALPROEX SODIUM DELAYED RELEASE 250 MG TAB PO SCH (21:10)
[2016-12-11] MEDS: QUEtiapine FUMARATE 100 MG TAB PO SCH (21:10)
[2016-12-11] MEDS: TAMSULOSIN HCL 0.4 MG CAP PO SCH (21:11)
[2016-12-11] MEDS: LOPERAMIDE HCL 2 MG CAP PO PRN (21:11)
[2016-12-11] MEDS: VANCOMYCIN 1,000 MG/NS 250 ML IV SCH ×2 (21:25)
[2016-12-12] MEDS: AZTREONAM INJ 2,000 MG in SODIUM CHLORIDE 0.9% INJ 100 ML IV SCH ×4 (00:15→22:52)
[2016-12-12 05:23] VITALS: BP 124/75; PULSE 99; RESP 17; TEMP 97.4; O2SAT 97
[2016-12-12] MEDS: VANCOMYCIN 1,000 MG/NS 250 ML IV SCH ×4 (06:00→17:34)
[2016-12-12] MEDS: LOPERAMIDE HCL 2 MG CAP PO PRN ×3 (06:30→21:20)
[2016-12-12] MEDS: LACTOBACILLUS ACIDOPHILUS TAB PO SCH ×2 (08:05→21:21)
[2016-12-12] MEDS: clonazePAM 0.5 MG TAB PO SCH ×2 (08:05→21:22)
[2016-12-12] MEDS: DIVALPROEX DR 500 MG TABEC PO SCH ×2 (08:05→21:21)
[2016-12-12] MEDS: KETOCONAZOLE 2% CREAM 15 GM TOPICAL SCH (08:07)
[2016-12-12] MEDS: SODIUM HYPOCHLORITE 0.5% 500 ML BTL TOPICAL SCH ×2 (08:07→21:00)
[2016-12-12] MEDS: COLLAGENASE OINT 30 GM TUBE TOPICAL SCH (08:07)
[2016-12-12] MEDS: REMOVE OLD PATCH T-DERMAL SCH (08:07)
[2016-12-12] MEDS: NICOTINE 21 MG/24 HR PATCH T-DERMAL SCH (08:07)
[2016-12-12] MEDS: MEGESTROL ACETATE SUSP 400 MG/10 ML CUP PO SCH (08:07)
--- NOTE | 2016-12-12 14:43 | HHI.PR ---
Subjective Remarks Follow-up perineal abscess, hypokalemia, hypertension, seborrheic dermatitis and BPH with urinary retention Patient sitting in a bed playing chess by himself, appears to be in no acute distress Patient continues to be grandiose in his speech wants to be discharged out of the psych unit Objective Vitals Vital Signs Date Time Temp Pulse Resp B/P (MAP) Pulse Ox O2 Delivery O2 Flow Rate FiO2 12/12/16 05:23 97.4 99 17 124/75 (91) 97 12/11/16 18:08 97.2 104 18 136/83 (100) 98 I/O 12/11/16 12/11/16 12/11/16 12/12/16 12/12/16 12/12/16 07:00 15:00 23:00 07:00 15:00 23:00 Intake Total 360 ml 1440 ml 2640 ml 380 ml Output Total 1250 ml 2400 ml Balance -890 ml 1440 ml 240 ml 380 ml Intake Oral 360 ml 1440 ml 2640 ml IV Total 380 ml Output Urine Total 1250 ml 2400 ml Result Diagram: 12/12/16 0525 Imaging Last Impressions Wrist X-Ray 12/11/16 0000 Signed Impressions: Service Date/Time: Sunday, December 11, 2016 13:36 - CONCLUSION: Prominent degenerative/arthritic changes. Soft tissue swelling without fracture. Camron Kate MD Hand X-Ray 12/11/16 0000 Signed Impressions: Service Date/Time: Sunday, December 11, 2016 13:36 - CONCLUSION: Degenerative changes without fracture.. Camron Kate MD Objective Remarks Awake and alert appears to be in no acute distress lungs clear bl S1S2 RRR Bilateral upper and lower extremities with full range of motion and equal strength bilaterally abdomnen soft, non tender sood catheter in place - sood bag with clear urine Procedures none A/P Problem List: (1) Bipolar disorder ICD Code: F31.9 - Bipolar disorder, unspecified Status: Chronic (2) Cellulitis, perineum ICD Code: L03.315 - Cellulitis of perineum Status: Acute (3) Alcohol abuse ICD Code: F10.10 - Alcohol abuse Status: Chronic (4) Cellulitis of scrotum ICD Code: N49.2 - Inflammatory disorders of scrotum Status: Acute (5) Perineal abscess ICD Code: L02.215 - Cutaneous abscess of perineum Status: Acute (6) BPH (benign prostatic hyperplasia) ICD Code: N40.0 - Benign prostatic hyperplasia without lower urinary tract symptoms Status: Chronic (7) HTN (hypertension) ICD Code: I10 - Essential (primary) hypertension Status: Chronic (8) Alcohol abuse with alcohol-induced disorder ICD Code: F10.19 - Alcohol abuse with alcohol-induced disorder Status: Chronic (9) Hypotension ICD Code: I95.9 - Hypotension, unspecified Status: Resolved Assessment and Plan Mr. Rodriguez is 71 yo, with history of bipolar disease, hypertension, hyperlipidemia, and benign prostatic hypertrophy. He was admitted on 11/29 for perineal eschar and ulcers and underwent debridement on 11/30/16. He was subsequently transferred to the medical psychiatric unit on 11/30/16. Bipolar disorder -Psychiatry managing. Hypokalemia - Resolved. Replace orally as needed. Continue to monitor BMP. Perineal abscess Continue antibiotics; status post debridement, Wound care consulted and following Infectious disease consulted - Recommended IV Vancomycin and Aztreonam. Continue Vancomycin and aztreonam daily (stop date 12/14/16). EtOH dependence -[facility] protocol HTN (hypertension) 12/06 Will hold metoprolol and lisinopril due to hypotension 12/07 Patient still hypotensive likely due to poor oral intake. Will give an IVF bolus with NS. 12/08 BP much improved after Ns bolus. continue to monitor vital signs. BP stable continue to monitor BPH (benign prostatic hyperplasia) Urology following 12/08 wound cleaned wound with Dakin's solution by urology today. Sood catheter removed, continue with voiding trials. Continue Flomax. 12/09 Failed voiding trial, Sood reinserted. Flomax dose increased to 0.8 mg po daily. management as per urology. Poor appetite Appetite seems to be improving. Continue Megace. seborrheic dermatitis - continue topical antifungal cream (ketoconazole) Left hand pain- x-ray left hand and wrist reviewed and reveals: Degenerative changes without fracture, prominent degenerative/arthritic changes. Soft tissue swelling without fracture Discharge Planning DC pending urology clearance, completion of antibiotics per ID recommendations, as per primary. Discussed with patient, nursing and Dr. Bailey Problem Qualifiers (1) Bipolar disorder: (2) BPH (benign prostatic hyperplasia): Dalia Lundberg Dec 12, 2016 14:43
[2016-12-12 17:53] VITALS: BP 161/91; PULSE 100; RESP 18; TEMP 98.1; O2SAT 99
--- NOTE | 2016-12-12 18:22 | HHI.PYPN ---
Subjective Remarks Patient seen for follow-up, chart reviewed. After discussion with nursing staff , patient has been cooperating well with nursing staff. Patient found sitting on hospital bed, calm and cooperative with interview. Patient states that he had spoken to the medical team and that his wound is healing well and would like to continue his treatment. He is noted to be calm and engaging in interview, no longer noted to have pressured speech, organized thought process, no longer endorsing bizarre delusions. Reports feeling "fine", denies SI, HI, AVH or delusions. Review of Systems Except as stated in HPI: all other systems reviewed are Neg Objective Alert: Yes [place]: Person, Place, Date Mood: Other (fine) Affect: Appropriate Memory Intact: Comment (not formally assessed) Hallucinations: Other (denied) Delusions: Yes Delusion Type: Grandiose Suicidal: Ideation (denies) Homicidal: Ideation (denies) Insight/Judgment Limited insight, impulse control and improved judgement Labs Labs reviewed. Test 12/12/16 05:25 Creatinine 0.56 MG/DL Estimat Glomerular Filtration Rate 143 ML/MIN Date/Time Source Procedure Growth Status 12/07/16 18:00 Urine Catheterized Urine Urine Culture - Final NO GROWTH IN 48 HOURS. Complete Vitals/IOs Vital Signs Date Time Temp Pulse Resp B/P (MAP) Pulse Ox O2 Delivery O2 Flow Rate FiO2 12/12/16 17:53 98.1 100 18 161/91 (114) 99 Intake and Output 12/12/16 12/12/16 12/12/16 07:59 15:59 23:59 Intake Total 380 ml 640 ml 960 ml Balance 380 ml 640 ml 960 ml Assessment & Plan Problem List: (1) Bipolar disorder ICD Codes: F31.9 - Bipolar disorder, unspecified Status: Chronic Assessment & Plan Estimated LOS: 2-3 days. Patient at this time has maintained stable mood, with cessation of manic symptoms, organized thought process and improved judgement. Patient has cooperated with staff and adhered to recommendations. Patient likely to be discharged back to the medical floor to continue medical management. Continue current treatment regimen. Discharge planning in progress. Justification for Cont. Inpt. Patient at risk for decompensation at lower level of care. Discharge Planning In progress Problem Qualifiers (1) Bipolar disorder: Camron Hayes MD Dec 12, 2016 18:22
[2016-12-12] MEDS: ALUMINUM/MAGNESIUM/SIMETH 30 ML CUP PO PRN (21:21)
[2016-12-12] MEDS: TAMSULOSIN HCL 0.4 MG CAP PO SCH (21:21)
[2016-12-12] MEDS: QUEtiapine FUMARATE 100 MG TAB PO SCH (21:22)
[2016-12-12] MEDS: DIVALPROEX SODIUM DELAYED RELEASE 250 MG TAB PO SCH (21:22)
[2016-12-12] MEDS: ACETAMINOPHEN/HYDROcodone 325 MG/10 MG TAB PO PRN (22:51)
[2016-12-13] MEDS ORDERED: PHARMACY ORDERED LAB ONE (05:45)
[2016-12-13] MEDS: VANCOMYCIN 1,000 MG/NS 250 ML IV SCH ×2 (05:53)
[2016-12-13 06:26] VITALS: BP 142/88; PULSE 95; RESP 16; TEMP 97.6; O2SAT 97
[2016-12-13] MEDS: LOPERAMIDE HCL 2 MG CAP PO PRN ×3 (06:26→23:36)
[2016-12-13] MEDS ORDERED: QUET1TAB8 PO (08:33)
[2016-12-13] MEDS ORDERED: DIVA500T PO ×2 (08:33)
[2016-12-13] MEDS: MEGESTROL ACETATE SUSP 400 MG/10 ML CUP PO SCH (08:41)
[2016-12-13] MEDS: LACTOBACILLUS ACIDOPHILUS TAB PO SCH ×2 (08:42→23:36)
[2016-12-13] MEDS: clonazePAM 0.5 MG TAB PO SCH ×2 (08:42→23:37)
[2016-12-13] MEDS: DIVALPROEX DR 500 MG TABEC PO SCH ×2 (08:42→23:36)
[2016-12-13] MEDS: NICOTINE 21 MG/24 HR PATCH T-DERMAL SCH (08:43)
[2016-12-13] MEDS: REMOVE OLD PATCH T-DERMAL SCH (08:43)
[2016-12-13] MEDS: AZTREONAM INJ 2,000 MG in SODIUM CHLORIDE 0.9% INJ 100 ML IV SCH ×5 (08:47→23:55)
[2016-12-13] MEDS: SODIUM HYPOCHLORITE 0.5% 500 ML BTL TOPICAL SCH ×2 (09:00→21:00)
[2016-12-13] MEDS: KETOCONAZOLE 2% CREAM 15 GM TOPICAL SCH (09:00)
[2016-12-13] MEDS: COLLAGENASE OINT 30 GM TUBE TOPICAL SCH (09:00)
--- NOTE | 2016-12-13 09:48 | HHI.PR ---
Subjective Patient symptoms today Pt seen and examined. Wound staying clean. Sood with clear urine. Objective Vital Signs Vital Signs Date Time Temp Pulse Resp B/P (MAP) Pulse Ox O2 Delivery O2 Flow Rate FiO2 12/13/16 06:26 97.6 95 16 142/88 (106) 97 12/12/16 17:53 98.1 100 18 161/91 (114) 99 Intake & Output 12/13/16 12/13/16 06:59 18:59 Intake Total 1320 ml Output Total 2400 ml Balance -1080 ml Intake Oral 1320 ml Output Urine Total 2400 ml Result Diagram: 12/12/16 0525 Objective Remarks Abd:soft,nt,nd Sood; Urine clear Wound: soiled 12/03 Abd:soft,nt,nd Sood clear Wound: dressing intact 12/05 Abd:soft,nt,nd Sood clear Wound: dressing changed: wound clean 12/07 Abd:soft,nt,nd Sood: urine clear Dressing intact 12/08 Abd:soft,nt,nd Sood out; has not voided as of yet Wound: clean and dry; dressing changed with Dakin's at bedside 12/09 Abd:soft,nt,nd Sood out; has not voided as of yet Wound: Dressing intact 12/13 Abd:soft,nt,nd Sood with clear urine Wound: Dressing intact; clean and dry Medications and IVs Current Medications Medications (Trade) Dose Ordered Sig/Ernie Route Start Time Stop Time Status Last Admin (Imodium) 2 mg Q4HR PRN PO 12/01/16 18:00 12/13/16 06:26 (Ativan) 0.5 mg Q12H PRN PO 12/01/16 18:00 12/06/16 10:53 (Ativan Inj) 0.5 mg Q12H PRN IM 12/01/16 18:00 12/01/16 17:50 (Tylenol) 650 mg Q4H PRN PO 12/01/16 18:00 12/04/16 15:06 (Milk Of Magnesia Liq) 30 ml DAILY PRN PO 12/01/16 18:00 (Mag-Al Plus Susp Liq) 30 ml Q6H PRN PO 12/01/16 18:00 12/12/16 21:21 (Habitrol 21 Mg Patch.24 Hr) 1 patch DAILY T-DERMAL 12/01/16 18:00 12/12/16 08:07 (Romazicon Inj) 0.2 mg Q1M PRN IV PUSH 12/01/16 16:45 (Ativan) 1 mg Q4H PRN PO 12/01/16 16:45 (Ativan Inj) 1 mg Q4H PRN IV PUSH 12/01/16 16:45 (Ativan) 2 mg Q2H PRN PO 12/01/16 16:45 12/11/16 10:16 (Ativan Inj) 2 mg Q2H PRN IV PUSH 12/01/16 16:45 (Ativan Inj) 2 mg Q1H PRN IV PUSH 12/01/16 16:45 (Ativan Inj) 2 mg Q15M PRN IV PUSH 12/01/16 16:45 Miscellaneous Information 1 DAILY T-DERMAL 12/01/16 18:00 12/13/16 08:43 ([place] 10-325 Mg) 1 tab Q6H PRN PO 12/02/16 00:30 12/12/16 22:51 (Lactinex) 1 tab Q12HR PO 12/02/16 09:00 12/13/16 08:42 (Lopressor) 100 mg Q12HR PO 12/02/16 21:00 Future Hold 12/06/16 08:52 (Prinivil) 40 mg DAILY PO 12/02/16 10:00 Future Hold 12/05/16 08:04 (Dakin'S 0.5% Soln) 500 ml BID TOPICAL 12/02/16 12:45 12/13/16 09:00 Pharmacy Profile Note 0 ml @ 0 mls/hr UNSCH OTHER 12/02/16 14:15 (KlonoPIN) 0.5 mg BID PO 12/03/16 10:15 12/13/16 08:42 (Depakote Dr) 500 mg BID PO 12/05/16 09:00 12/13/16 08:42 (Phenergan) 25 mg Q6H PRN PO 12/04/16 14:45 12/06/16 21:11 (Santyl Oint) 1 applic DAILY TOPICAL 12/06/16 09:00 12/13/16 09:00 (Pill Splitter) 1 ea UNSCH PRN OTHER 12/06/16 09:00 (SEROquel) 300 mg HS PO 12/07/16 21:00 12/12/16 21:22 (Megace Liq) 400 mg DAILY PO 12/07/16 17:00 12/13/16 08:41 (Depakote Dr) 500 mg HS PO 12/08/16 21:00 12/12/16 21:22 Aztreonam 2000 mg/ Sodium Chloride 100 ml @ 200 mls/hr Q8H IV 12/08/16 15:00 12/13/16 08:47 (Flomax) 0.8 mg HS PO 12/09/16 21:00 12/12/16 21:21 (Nizoral 2% Cream) 1 applic DAILY TOPICAL 12/10/16 13:00 12/13/16 09:00 Vancomycin HCl 1000 mg/Sodium Chloride 250 ml @ 250 mls/hr Q12H IV 12/11/16 18:00 12/13/16 05:53 Assessment and Plan Assessment and Plan 71 y.o psychotic male s/p debridement of perineal/scrotal wound with AUR Dakins solution ordered for BID Maintain sood catheter Start Flomax 0.4mg QHS 12/03 71 y.o psychotic male s/p debridement of perineal/scrotal wound with AUR Dakins solution to wound BID; apply tegaderm over dressing to prevent soiling. Maintain sood catheter. Void trial next . Continue Flomax 0.4mg QHS 12/05 71 y.o psychotic male s/p debridement of perineal/scrotal wound with AUR Dakins solution to wound BID; apply tegaderm over dressing to prevent soiling. Maintain sood catheter. Void trial next . Continue Flomax 0.4mg QHS Will order santyl ointment to apply to wound. 12/07 71 y.o psychotic male s/p debridement of perineal/scrotal wound with AUR Dakins solution to wound BID; apply tegaderm over dressing to prevent soiling. Maintain sood catheter. Void trial in AM Continue Flomax 0.4mg QHS Santyl ointment to apply to wound. 12/08 71 y.o psychotic male s/p debridement of perineal/scrotal wound with AUR Dakins solution to wound today Void trial today Continue Flomax 0.4mg QHS 12/09 71 y.o psychotic male s/p debridement of perineal/scrotal wound with AUR Dakins solution to wound today Failed Void trial yesterday Increase Flomax 0.8mg QHS 12/13 71 y.o psychotic male s/p debridement of perineal/scrotal wound with AUR Dakins solution to wound daily Void trial prior to discharge Continue Flomax Meliton Bear DO Dec 13, 2016 09:48
--- NOTE | 2016-12-13 14:22 | HHI.DS ---
Psychiatry Discharge Summary Inpatient Psychiatric care?: Yes Advance Directive: No Mental Health AdvanceDirective: No Health Care Proxy: No Admission Admission Date Dec 01, 2016 at 16:11 Admission Diagnosis: (1) Bipolar disorder, current episode manic w/o psychotic features, severe ICD Code: F31.13 - Bipolar disorder, current episode manic without psychotic features, severe Brief History Patient is a 71-year-old man, single living in the trailer, , past psychiatric history of bipolar disorder, alcohol use disorder, previous psychiatric hospitalizations, no prior suicide attempts, [facility], history of noncompliance with treatment, who brought himself to the emergency room on 11/29/16 complaining of pain in his scrotal area which he had been self treating himself with Indira, cinnamon, bleach bath, and unspecified steroid cream and told by a ghost to come to the emergency room. Patient was admitted to the medical floor for perennial abscess for further management and treatment. Patient was followed by urology and surgical team for debridement and continued on antibiotics. During admission patient was noted to be hyperverbal, tangential, grandiose suspicion of acute mai which psychiatry was consulted for evaluation. As per Dr. Rogers note: patient reports happy mood, he says that he recognizes that his acutely manic "but I like to be manic". Patient says that he came to the doctors, he usually doesn't come "because I have premaster degrees, to PhD's and I know more that you know". 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 He says that he doesn't like to take medications, but if he has to take his Depakote and Seroquel and was doing. He says that [facility], but I don't usually take the medication. 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 ..prominent delusions of grandiosity, disorganized speech, loosening of associations, tangentiality, pressured speech are present.... It was determined that due to patients acute state of mai has impacted patients judgment in that he has been taking very poor care and neglect of his medical conditions and poses danger to himself which he was placed under involuntary admission and transferred to the medical/psychiatry unit on for mood stabilization and psychosis . Patient was restarted on Depakote 250mg PO BID and titrated up to 500mg PO BID as well as Seroquel 25mg PO BID and uptitrated to 50mg PO BID. Patient seen on the unit with nurse, found to be irritable and superficially cooperative and at times dismissive. As per nursing report patient has been irritable. Patient found sitting in hospital bed eating breakfast reports be feeling upset that he has to be under psychiatric care and noted to be tangential, somewhat disorganized and irritable with telegraphic typewriter operator chief. Patient states that he is here to take his medications for his current problem down there but refuses take any psychiatric medications as he states that he has a lot of energy which he doesnt need to take energy drinks for and that theyre trying to sandbag me referring to reducing the amount of energy feels. Patient states that he does not need take medications. Patient also noted to be hypersexual and that he was stayed that he needs to have a woman any woman even an Amazon woman. Patient also mentioning feeling upset that he has to take medications for his diarrhea and that he is difficult for him and frustrating to be soiling himself. Patient states that if anyone tries to force him to take medications intramuscularly he will fight everyone tooth-and- nail. Patient continues to be dismissive, hyperverbal with some pressured speech, irritable and refused to continue interview with telegraphic typewriter operator chief. Past psychiatric history: Previous psychiatric diagnoses of bipolar disorder, alcohol use disorder, history of previous substance use, previous psychiatric hospitalizations, as per chart patient admitted to various [facility] facilities, no history of suicide attempt or self aged behavior as per chart, previous medication trials as reported by patient and previous notes include Depakote, olanzapine, Seroquel, SSRIs. Past family psychiatric history: As per chart, paternal grandmother diagnosed with classic manic depression. Past medical history: Hypertension, dyspepsia, hyperlipidemia, benign prostatic hyperplasia with urinary retention. Current perennial abscess. 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 Patient is [facility], living in [place] since 1987. Currently receiving [facility] benefits. Patient previously reported ties education as masters in PhDs Today 12/04/2016 patient seen for second opinion, continue to be manic, very talkative, elevated mood, disorganized, but more insightful and redirectable. Oriented 3, compliant with his medication. Denies suicidal or homicidal ideation, denies visual and auditory hallucinations. Tobacco Use In Past 30 Days: No Tobacco Past 30 Days Alcohol Use: Monthly or Less Hospital Course Patient was continued on Depakote 500mg PO BID and quetiapine 100mg PO HS. Patient continued to endorse irritability, pressured speech, grandiosity, hypersexuality, tangiential and disorganized which medications were titrated for better response. Patient initial VPA level was subtherapeutic which upon increasing to 500mg am and 1000mg HS with subsequent VPA levels within therapeutic range. Quetiapine was also increased to 300mg PO HS for mood stabilization adjunct. Patient responded well to regimen and was noted to have cessation of disorganized thought process, less impulsive, less intrusive, more appropriate behavior and cooperation with staff. Patient continued to comply with medical management of recent debridement and IV antibiotic regimen. On day of discharge, patient noted to be calm and cooperative with interview, no longer exhibiting manic symptoms but continued to have some grandiosity which likely is part of his personality baseline. Patient agrees to continue with current treatment and recommendations as per primary medical team. Patient will be discharged back to medical floor to finish his medical treatment. Patient advised to continue medication regimen upon discharge and follow up appointments for continuity of care. Patient agrees with plan. Results Blood Pressure 142 / 88 Vital Signs Date Time Temp Pulse Resp B/P (MAP) Pulse Ox O2 Delivery O2 Flow Rate FiO2 12/13/16 06:26 97.6 95 16 142/88 (106) 97 Laboratory Tests Test 12/11/16 04:45 12/12/16 05:25 12/13/16 05:45 Creatinine 0.56 MG/DL (0.60-1.30) Laboratory Results Test 12/02/16 11:01 12/10/16 07:25 Cholesterol Level 166 MG/DL (120-200) HDL Cholesterol 51.3 MG/DL (40.0-60.0) Hemoglobin A1c 5.3 % (4.3-6.0) LDL Cholesterol 92 MG/DL (0-99) Triglycerides Level 112 MG/DL (42-150) Valproic Acid (Depakene) Level 64 MCG/ML (50-100) Summary of Procedures None Imaging Last Impressions Wrist X-Ray 12/11/16 0000 Signed Impressions: Service Date/Time: Sunday, December 11, 2016 13:36 - CONCLUSION: Prominent degenerative/arthritic changes. Soft tissue swelling without fracture. Camron Kate MD Hand X-Ray 12/11/16 0000 Signed Impressions: Service Date/Time: Sunday, December 11, 2016 13:36 - CONCLUSION: Degenerative changes without fracture.. Camron Kate MD Pending results at discharge: No Medications # of Antipsychotic meds at D/C: 1 Approp Antipsych med options 1 - Minimum of three failed multiple trials of monotherapy. 2 - Documented plan to taper to monotherapy due to previous use of multiple meds OR cross-taper in progress at D/C. 3 - Documentation of augmentation of Clozapine. 4 - Justification other than those listed in allowable values 1-3, document here : Discharge Discharge Date: Dec 13, 2016 Discharge Diagnosis: (1) Bipolar disorder, current episode manic w/o psychotic features, severe Diagnosis: Principal ICD Code: F31.13 - Bipolar disorder, current episode manic without psychotic features, severe Mental Status Exam at Disch MSE: Appearance/Behavior: appears stated age, in hospital [facility], with sood and IV line, fair hygiene and grooming, fair eye contact. Speech: Normal rate tone and prosody Language: Fluent and spontaneous Mood: alright Affect: Full, reactive Thought process: Linear, future oriented, goal directed Thought content: Denies SI, HI, AVH or delusions Insight: Fair Impulse control: Fair Judgment: Fair Alert and oriented 3 Pt Condition on Discharge: Stable Discharge Disposition: Discharge Home Discharge Instructions Diet Instructions: As Tolerated, No Restrictions Activities you can perform: Regular-No Restrictions Discharge Time > 30 minutes Discharge/Advance Care Plan Health Problems: (1) Bipolar disorder Goals to promote your health * To prevent worsening of your condition and complications * To maintain your health at the optimal level Directions to meet your goals Take your medications as prescribed Follow your dietary instruction Follow activity as directed Keep your appointments as scheduled Take your immunizations and boosters as scheduled If your symptoms worsen call your PCP, if no PCP go to Urgent Care Center or Emergency Room For 15/11 questions related to your inpatient stay or results of tests pending at discharge, please contact Dr. Camron Hayes at Smoking is Dangerous to Your Health. Avoid second hand smoking Camron Hayes MD Dec 13, 2016 14:21
[2016-12-13] MEDS: VANCOMYCIN INJ 1,250 MG in SODIUM CHLOR 0.9% 250 ML INJ 250 ML IV SCH (17:40)
[2016-12-13 18:00] VITALS: BP 163/92; PULSE 101; RESP 20; TEMP 97.5; O2SAT 96
--- NOTE | 2016-12-13 18:27 | HHI.PR ---
Subjective Remarks deferred entry - patient seen earlier at 11:30 am Patient denies cp/sob sood with clear urine denies fevers/chills Objective Vitals Vital Signs Date Time Temp Pulse Resp B/P (MAP) Pulse Ox O2 Delivery O2 Flow Rate FiO2 12/13/16 06:26 97.6 95 16 142/88 (106) 97 I/O 12/12/16 12/12/16 12/12/16 12/13/16 12/13/16 12/13/16 07:00 15:00 23:00 07:00 15:00 23:00 Intake Total 380 ml 640 ml 2295 ml 480 ml 960 ml 587 ml Output Total 750 ml 1650 ml 425 ml 300 ml Balance 380 ml 640 ml 1545 ml -1170 ml 535 ml 287 ml Intake Oral 640 ml 1800 ml 480 ml 960 ml 360 ml IV Total 380 ml 495 ml 227 ml Output Urine Total 750 ml 1650 ml 425 ml 300 ml Result Diagram: 12/12/16 0525 Imaging Last Impressions Wrist X-Ray 12/11/16 0000 Signed Impressions: Service Date/Time: Sunday, December 11, 2016 13:36 - CONCLUSION: Prominent degenerative/arthritic changes. Soft tissue swelling without fracture. Camron Kate MD Hand X-Ray 12/11/16 0000 Signed Impressions: Service Date/Time: Sunday, December 11, 2016 13:36 - CONCLUSION: Degenerative changes without fracture.. Camron Kate MD Objective Remarks Awake and alert, calm lungs clear bl S1S2 RRR abdomnen soft, non tender sood catheter in place - sood bag with clear urine Procedures none Medications and IVs Current Medications Medications (Trade) Dose Ordered Sig/Ernie Route Start Time Stop Time Status Last Admin (Imodium) 2 mg Q4HR PRN PO 12/01/16 18:00 12/13/16 17:34 (Ativan) 0.5 mg Q12H PRN PO 12/01/16 18:00 12/06/16 10:53 (Ativan Inj) 0.5 mg Q12H PRN IM 12/01/16 18:00 12/01/16 17:50 (Tylenol) 650 mg Q4H PRN PO 12/01/16 18:00 12/04/16 15:06 (Milk Of Magnesia Liq) 30 ml DAILY PRN PO 12/01/16 18:00 (Mag-Al Plus Susp Liq) 30 ml Q6H PRN PO 12/01/16 18:00 12/12/16 21:21 (Habitrol 21 Mg Patch.24 Hr) 1 patch DAILY T-DERMAL 12/01/16 18:00 12/12/16 08:07 (Romazicon Inj) 0.2 mg Q1M PRN IV PUSH 12/01/16 16:45 (Ativan) 1 mg Q4H PRN PO 12/01/16 16:45 (Ativan Inj) 1 mg Q4H PRN IV PUSH 12/01/16 16:45 (Ativan) 2 mg Q2H PRN PO 12/01/16 16:45 12/11/16 10:16 (Ativan Inj) 2 mg Q2H PRN IV PUSH 12/01/16 16:45 (Ativan Inj) 2 mg Q1H PRN IV PUSH 12/01/16 16:45 (Ativan Inj) 2 mg Q15M PRN IV PUSH 12/01/16 16:45 Miscellaneous Information 1 DAILY T-DERMAL 12/01/16 18:00 12/13/16 08:43 (Bayside 10-325 Mg) 1 tab Q6H PRN PO 12/02/16 00:30 12/12/16 22:51 (Lactinex) 1 tab Q12HR PO 12/02/16 09:00 12/13/16 08:42 (Lopressor) 100 mg Q12HR PO 12/02/16 21:00 Future Hold 12/06/16 08:52 (Prinivil) 40 mg DAILY PO 12/02/16 10:00 Future Hold 12/05/16 08:04 (Dakin'S 0.5% Soln) 500 ml BID TOPICAL 12/02/16 12:45 12/13/16 09:00 Pharmacy Profile Note 0 ml @ 0 mls/hr UNSCH OTHER 12/02/16 14:15 (KlonoPIN) 0.5 mg BID PO 12/03/16 10:15 12/13/16 08:42 (Depakote Dr) 500 mg BID PO 12/05/16 09:00 12/13/16 08:42 (Phenergan) 25 mg Q6H PRN PO 12/04/16 14:45 12/06/16 21:11 (Santyl Oint) 1 applic DAILY TOPICAL 12/06/16 09:00 12/13/16 09:00 (Pill Splitter) 1 ea UNSCH PRN OTHER 12/06/16 09:00 (SEROquel) 300 mg HS PO 12/07/16 21:00 12/12/16 21:22 (Megace Liq) 400 mg DAILY PO 12/07/16 17:00 12/13/16 08:41 (Depakote Dr) 500 mg HS PO 12/08/16 21:00 12/12/16 21:22 Aztreonam 2000 mg/ Sodium Chloride 100 ml @ 200 mls/hr Q8H IV 12/08/16 15:00 12/13/16 15:30 (Flomax) 0.8 mg HS PO 12/09/16 21:00 12/12/16 21:21 (Nizoral 2% Cream) 1 applic DAILY TOPICAL 12/10/16 13:00 12/13/16 09:00 Vancomycin HCl 1250 mg/Sodium Chloride 262.5 ml @ 250 mls/hr Q12H IV 12/13/16 18:00 12/13/16 17:40 Urinary Catheter: No Vascular Central Line Catheter: No A/P Problem List: (1) Bipolar disorder ICD Code: F31.9 - Bipolar disorder, unspecified Status: Chronic (2) Cellulitis, perineum ICD Code: L03.315 - Cellulitis of perineum Status: Acute (3) Alcohol abuse ICD Code: F10.10 - Alcohol abuse Status: Chronic (4) Cellulitis of scrotum ICD Code: N49.2 - Inflammatory disorders of scrotum Status: Acute (5) Perineal abscess ICD Code: L02.215 - Cutaneous abscess of perineum Status: Acute (6) BPH (benign prostatic hyperplasia) ICD Code: N40.0 - Benign prostatic hyperplasia without lower urinary tract symptoms Status: Chronic (7) HTN (hypertension) ICD Code: I10 - Essential (primary) hypertension Status: Chronic (8) Alcohol abuse with alcohol-induced disorder ICD Code: F10.19 - Alcohol abuse with alcohol-induced disorder Status: Chronic (9) Hypotension ICD Code: I95.9 - Hypotension, unspecified Status: Resolved Assessment and Plan Mr. Rodriguez is 71 yo, with history of bipolar disease, hypertension, hyperlipidemia, and benign prostatic hypertrophy. He was admitted on 11/29 for perineal eschar and ulcers and underwent debridement on 11/30/16. He was subsequently transferred to the medical psychiatric unit on 11/30/16. Bipolar disorder -Psychiatry managing. Continue Seroquel Depakote and clonazepam as per psychiatric recommendations. Hypokalemia - Resolved. Replace orally as needed. Continue to monitor BMP. Perineal abscess Continue antibiotics; status post debridement, Wound care consulted Infectious disease consulted - Recommended IV Vancomycin and Aztreonam. Continue Vancomycin and aztreonam daily (stop date 12/14/16). EtOH dependence -[facility] protocol HTN (hypertension) 12/06 Will hold metoprolol and lisinopril due to hypotension which could be sedation induced, Consider IVF bolus if still hypotensive. 12/07 Patient still hypotensive likely due to poor oral intake. Will give an IVF bolus with NS. 12/08 Bp much improved after Ns bolus. continue to monitor vital signs. 12/13 BP stable, continue to monitor bp. BPH (benign prostatic hyperplasia) Urology following 12/08 wound cleaned wound with Dakin's solution by urology today. Sood catheter removed, continue with voiding trials. Continue Flomax. 12/09 Failed voiding trial, Sood reinserted. Flomax dose increased to 0.8 mg po daily. 12/10 management as per urology. Poor appetite Appetite seems to be improving. Continue Megace. Discharge Planning DC pending urology clearance and successful voiding trial, completion of antibiotics, as per primary. Problem Qualifiers (1) Bipolar disorder: (2) BPH (benign prostatic hyperplasia): Oj Rockwell MD Dec 13, 2016 18:27
[2016-12-13] MEDS: QUEtiapine FUMARATE 100 MG TAB PO SCH (23:36)
[2016-12-13] MEDS: TAMSULOSIN HCL 0.4 MG CAP PO SCH (23:36)
[2016-12-13] MEDS: ACETAMINOPHEN/HYDROcodone 325 MG/10 MG TAB PO PRN (23:36)
[2016-12-13] MEDS: DIVALPROEX SODIUM DELAYED RELEASE 250 MG TAB PO SCH (23:37)
[2016-12-13] MEDS: ALUMINUM/MAGNESIUM/SIMETH 30 ML CUP PO PRN (23:37)
[2016-12-14] MEDS: LOPERAMIDE HCL 2 MG CAP PO PRN ×2 (05:59→10:16)
[2016-12-14] MEDS: VANCOMYCIN INJ 1,250 MG in SODIUM CHLOR 0.9% 250 ML INJ 250 ML IV SCH (05:59)
[2016-12-14 06:08] VITALS: BP 116/60; PULSE 86; RESP 16; TEMP 97.4; O2SAT 97
[2016-12-14] MEDS: KETOCONAZOLE 2% CREAM 15 GM TOPICAL SCH (08:24)
[2016-12-14] MEDS: SODIUM HYPOCHLORITE 0.5% 500 ML BTL TOPICAL SCH (08:24)
[2016-12-14] MEDS: COLLAGENASE OINT 30 GM TUBE TOPICAL SCH (08:24)
[2016-12-14] MEDS: LACTOBACILLUS ACIDOPHILUS TAB PO SCH (08:24)
[2016-12-14] MEDS: DIVALPROEX DR 500 MG TABEC PO SCH (08:24)
[2016-12-14] MEDS: MEGESTROL ACETATE SUSP 400 MG/10 ML CUP PO SCH (08:24)
[2016-12-14] MEDS: NICOTINE 21 MG/24 HR PATCH T-DERMAL SCH (08:24)
[2016-12-14] MEDS: clonazePAM 0.5 MG TAB PO SCH (08:24)
[2016-12-14] MEDS: REMOVE OLD PATCH T-DERMAL SCH (08:24)
[2016-12-14] MEDS: AZTREONAM INJ 2,000 MG in SODIUM CHLORIDE 0.9% INJ 100 ML IV SCH ×2 (08:25→15:00)
[2016-12-14] MEDS ORDERED: METOPROLOL TARTRATE 25 MG TAB PO SCH (10:00)
--- NOTE | 2016-12-14 11:30 | HHI.PYPN ---
Subjective Remarks Patient seen for follow, chart review. Patient was discharged to medical floor yesterday but is currently awaiting bed availability there for continues to be on medical psychiatry unit. Patient noted to be slightly upset that he did not receive all the items requested for his breakfast tray. Patient continues to have stable mood denies any psychotic symptoms or symptoms of mai at this time aside from some grandiosity likely due to his personality. Patient denies SI, HI, AVH or delusions. Review of Systems Except as stated in HPI: all other systems reviewed are Neg Objective Alert: Yes [place]: Person, Place, Date Mood: Other (fine) Affect: Appropriate Memory Intact: Comment (not formally assessed) Hallucinations: Other (denied) Delusions: Yes Delusion Type: Grandiose (grandiose at baseline) Suicidal: Ideation (denies) Homicidal: Ideation (denies) Insight/Judgment Limited insight, impulse control and judgment Labs Date/Time Source Procedure Growth Status 12/07/16 18:00 Urine Catheterized Urine Urine Culture - Final NO GROWTH IN 48 HOURS. Complete Vitals/IOs Vital Signs Date Time Temp Pulse Resp B/P (MAP) Pulse Ox O2 Delivery O2 Flow Rate FiO2 12/14/16 06:08 97.4 86 16 116/60 (78) 97 Intake and Output 12/14/16 12/14/16 12/15/16 08:00 16:00 00:00 Intake Total 580 ml 240 ml Output Total 2750 ml Balance -2170 ml 240 ml Assessment & Plan Problem List: (1) Bipolar disorder ICD Codes: F31.9 - Bipolar disorder, unspecified Status: Chronic Assessment & Plan Patient discharged to the medical floor yesterday but continues to be awaiting bed availability. Patient to continue current treatment. Patient to be transferred once there is a bed available. Justification for Cont. Inpt. At risk for further decompensation if it lower level of care Problem Qualifiers (1) Bipolar disorder: Camron Hayes MD Dec 14, 2016 11:30
--- NOTE | 2016-12-14 14:10 | HHI.PR ---
Subjective Remarks Patient denies cp/sob denies fevers/chills states that he has been self catheterizing for a long time Objective Vitals Vital Signs Date Time Temp Pulse Resp B/P (MAP) Pulse Ox O2 Delivery O2 Flow Rate FiO2 12/14/16 06:08 97.4 86 16 116/60 (78) 97 12/13/16 18:00 97.5 101 20 163/92 (115) 96 I/O 12/13/16 12/13/16 12/13/16 12/14/16 12/14/16 12/14/16 07:00 15:00 23:00 07:00 15:00 23:00 Intake Total 480 ml 960 ml 1547 ml 580 ml 480 ml Output Total 1650 ml 425 ml 300 ml 2750 ml Balance -1170 ml 535 ml 1247 ml -2170 ml 480 ml Intake Oral 480 ml 960 ml 1320 ml 480 ml 240 ml Oral Supplement 240 ml IV Total 227 ml 100 ml Output Urine Total 1650 ml 425 ml 300 ml 2750 ml # Bowel Movements 1 Result Diagram: 12/12/16 0525 Imaging Last Impressions Wrist X-Ray 12/11/16 0000 Signed Impressions: Service Date/Time: Sunday, December 11, 2016 13:36 - CONCLUSION: Prominent degenerative/arthritic changes. Soft tissue swelling without fracture. Camron Kate MD Hand X-Ray 12/11/16 0000 Signed Impressions: Service Date/Time: Sunday, December 11, 2016 13:36 - CONCLUSION: Degenerative changes without fracture.. Camron Kate MD Objective Remarks Awake and alert, calm lungs clear bl S1S2 RRR abdomnen soft, non tender sood catheter in place - sood bag with clear urine Procedures none Medications and IVs Current Medications Medications (Trade) Dose Ordered Sig/Ernie Route Start Time Stop Time Status Last Admin (Imodium) 2 mg Q4HR PRN PO 12/01/16 18:00 12/14/16 10:16 (Ativan) 0.5 mg Q12H PRN PO 12/01/16 18:00 12/06/16 10:53 (Ativan Inj) 0.5 mg Q12H PRN IM 12/01/16 18:00 12/01/16 17:50 (Tylenol) 650 mg Q4H PRN PO 12/01/16 18:00 12/04/16 15:06 (Milk Of Magnesia Liq) 30 ml DAILY PRN PO 12/01/16 18:00 (Mag-Al Plus Susp Liq) 30 ml Q6H PRN PO 12/01/16 18:00 12/13/16 23:37 (Habitrol 21 Mg Patch.24 Hr) 1 patch DAILY T-DERMAL 12/01/16 18:00 12/12/16 08:07 (Romazicon Inj) 0.2 mg Q1M PRN IV PUSH 12/01/16 16:45 (Ativan) 1 mg Q4H PRN PO 12/01/16 16:45 (Ativan Inj) 1 mg Q4H PRN IV PUSH 12/01/16 16:45 (Ativan) 2 mg Q2H PRN PO 12/01/16 16:45 12/11/16 10:16 (Ativan Inj) 2 mg Q2H PRN IV PUSH 12/01/16 16:45 (Ativan Inj) 2 mg Q1H PRN IV PUSH 12/01/16 16:45 (Ativan Inj) 2 mg Q15M PRN IV PUSH 12/01/16 16:45 Miscellaneous Information 1 DAILY T-DERMAL 12/01/16 18:00 12/13/16 08:43 ([place] 10-325 Mg) 1 tab Q6H PRN PO 12/02/16 00:30 12/13/16 23:36 (Lactinex) 1 tab Q12HR PO 12/02/16 09:00 12/14/16 08:24 (Dakin'S 0.5% Soln) 500 ml BID TOPICAL 12/02/16 12:45 12/14/16 08:24 Pharmacy Profile Note 0 ml @ 0 mls/hr UNSCH OTHER 12/02/16 14:15 (KlonoPIN) 0.5 mg BID PO 12/03/16 10:15 12/14/16 08:24 (Depakote Dr) 500 mg BID PO 12/05/16 09:00 12/14/16 08:24 (Phenergan) 25 mg Q6H PRN PO 12/04/16 14:45 12/06/16 21:11 (Santyl Oint) 1 applic DAILY TOPICAL 12/06/16 09:00 12/14/16 08:24 (Pill Splitter) 1 ea UNSCH PRN OTHER 12/06/16 09:00 (SEROquel) 300 mg HS PO 12/07/16 21:00 12/13/16 23:36 (Megace Liq) 400 mg DAILY PO 12/07/16 17:00 12/14/16 08:24 (Depakote Dr) 500 mg HS PO 12/08/16 21:00 12/13/16 23:37 Aztreonam 2000 mg/ Sodium Chloride 100 ml @ 200 mls/hr Q8H IV 12/08/16 15:00 12/14/16 08:25 (Flomax) 0.8 mg HS PO 12/09/16 21:00 12/13/16 23:36 (Nizoral 2% Cream) 1 applic DAILY TOPICAL 12/10/16 13:00 12/14/16 08:24 (Lopressor) 25 mg Q12HR PO 12/14/16 10:00 12/14/16 11:03 (Prinivil) 10 mg DAILY PO 12/15/16 09:00 Vancomycin HCl 1500 mg/Sodium Chloride 515 ml @ 250 mls/hr Q12H IV 12/14/16 18:00 Miscellaneous Information SPECIFIC LAB TO BE DRAWN:VANCOMYCIN TROUGH DATE TO... ONCE ONCE .XX 12/16/16 05:45 12/16/16 05:46 Urinary Catheter: No Vascular Central Line Catheter: No A/P Problem List: (1) Bipolar disorder ICD Code: F31.9 - Bipolar disorder, unspecified Status: Chronic (2) Cellulitis, perineum ICD Code: L03.315 - Cellulitis of perineum Status: Resolved (3) Alcohol abuse ICD Code: F10.10 - Alcohol abuse Status: Chronic (4) Cellulitis of scrotum ICD Code: N49.2 - Inflammatory disorders of scrotum Status: Resolved (5) Perineal abscess ICD Code: L02.215 - Cutaneous abscess of perineum Status: Acute (6) BPH (benign prostatic hyperplasia) ICD Code: N40.0 - Benign prostatic hyperplasia without lower urinary tract symptoms Status: Chronic (7) HTN (hypertension) ICD Code: I10 - Essential (primary) hypertension Status: Chronic (8) Alcohol abuse with alcohol-induced disorder ICD Code: F10.19 - Alcohol abuse with alcohol-induced disorder Status: Chronic (9) Hypotension ICD Code: I95.9 - Hypotension, unspecified Status: Resolved Assessment and Plan Mr. Rodriguez is 71 yo, with history of bipolar disease, hypertension, hyperlipidemia, and benign prostatic hypertrophy. He was admitted on 11/29 for perineal eschar and ulcers and underwent debridement on 11/30/16. He was subsequently transferred to the medical psychiatric unit on 11/30/16. Bipolar disorder -Psychiatry managing. Continue Seroquel Depakote and clonazepam as per psychiatric recommendations. Hypokalemia - Resolved. Replace orally as needed. Continue to monitor BMP. Perineal abscess Continue antibiotics; status post debridement, Wound care consulted Infectious disease consulted - Recommended IV Vancomycin and Aztreonam. Continue Vancomycin and aztreonam daily (stop date 12/14/16). Antibiotics finish today. Patient may be discharged home with [facility] for wound care and nursing. EtOH dependence -[facility] protocol HTN (hypertension) 12/06 Will hold metoprolol and lisinopril due to hypotension which could be sedation induced, Consider IVF bolus if still hypotensive. 12/07 Patient still hypotensive likely due to poor oral intake. Will give an IVF bolus with NS. 12/08 Bp much improved after Ns bolus. continue to monitor vital signs. 12/13 BP stable, continue to monitor bp. BPH (benign prostatic hyperplasia) Urology following 12/08 wound cleaned wound with Dakin's solution by urology today. Sood catheter removed, continue with voiding trials. Continue Flomax. 12/09 Failed voiding trial, Sood reinserted. Flomax dose increased to 0.8 mg po daily. 12/10 management as per urology. 12/14 Patient states he self catheterizes at home. He states he has the supplies at home. Will DC sood catheter. Fu with urology as an outpatient. Poor appetite Improved. Continue Megace. Discharge Planning Patient cleared to be discharged home with [facility] wound care and nursing. Fu as outpatient with primary and urology. Problem Qualifiers (1) Bipolar disorder: (2) BPH (benign prostatic hyperplasia): Oj Rockwell MD Dec 14, 2016 14:10
[2016-12-14] MEDS ORDERED: VANCOMYCIN INJ 1,500 MG in SODIUM CHLORID 0.9% 500 ML INJ 500 ML IV SCH (18:00)
[2016-12-15] MEDS ORDERED: LISINOPRIL 10 MG TAB PO SCH (09:00)
[2016-12-16] MEDS ORDERED: PHARMACY ORDERED LAB ONE (05:45)
== END 2016-12-14 19:15 | disposition home or self-care (01) | DRG 885 ==
LOC: H4EA 16:11
PROVIDERS: ADMIT Student in an Organized Health Care Education/Training Program; ATTEND Student in an Organized Health Care Education/Training Program
DX: F31.10 Bipolar disorder, current episode manic without psychotic features, unspecified (principal); L02.215 Cutaneous abscess of perineum; L03.315 Cellulitis of perineum; F22 Delusional disorders; I10 Essential (primary) hypertension; E78.5 Hyperlipidemia, unspecified; R10.13 Epigastric pain; N40.1 Benign prostatic hyperplasia with lower urinary tract symptoms; R33.8 Other retention of urine; F10.20 Alcohol dependence, uncomplicated; F12.90 Cannabis use, unspecified, uncomplicated; L21.9 Seborrheic dermatitis, unspecified; N49.2 Inflammatory disorders of scrotum; E87.6 Hypokalemia; Z79.899 Other long term (current) drug therapy; Z86.14 Personal history of Methicillin resistant Staphylococcus aureus infection; Z87.891 Personal history of nicotine dependence; Z91.14 Patient's other noncompliance with medication regimen
CPT/HCPCS: 73110; 73130; 76937; 80048; 80053; 80061; 80164; 80202; 81001; 82565; 83036; 83735; 84443; 85025; 87086; 87493; 93005; J2060; J3370; J7040; J7050; Q0169

== ENCOUNTER 2017-01-14 04:39 | Observation (INO) | payer OTHER, MEDICAID ==
[2017-01-13 20:00] VITALS: BP 133/77; PULSE 113; RESP 18; TEMP 97.7; O2SAT 98
[~2017-01-14] VITALS: Ht 172.7 cm; Wt 73.0 kg
[~2017-01-14 04:39] MED LIST changes: +DIVA500T PO; +QUET1TAB8 PO
[2017-01-14 05:03] VITALS: BP 136/100; PULSE 98; RESP 18; TEMP 98.3; O2SAT 97
--- NOTE | 2017-01-14 05:23 | PD ---
HPI Chief Complaint: Skin Problem Time Seen by Provider: 04:55 Travel History International Travel<30 days: No Contact w/Intl Traveler<30days: No Traveled to known affect area: No History of Present Illness HPI The patient is a 71-year-old bipolar male who states he has had diarrhea for months, sometimes alternating with constipation and he has cellulitis for months in the perineal area. He states he has a history of MRSA. The patient states he showers and put splenic on the ulcers that have formed. He says the area of ulcers on his perineum is becoming more painful and swollen. He is an alcoholic but states he hasn't had any alcohol in 3 days. He is followed by the [facility] but he does not like going there because as soon as he shows up they keep send him to [place]. 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 He lives in a trailer but he got a notice yesterday for eviction. He denies any suicidal or homicidal ideation. PFSH Past Medical History Asthma: Yes (CHILDHOOD) Bipolar Disorder: Yes Anxiety: Yes High Cholesterol: Yes Diminished Hearing: Yes ([place]) Gastrointestinal Disorders: Yes (ACID REFLUX, FREQUENTLY VOMITS FOOD) GERD: Yes Genitourinary: Yes ((PER PT) S/P MRSA INF PROSTATE FREQUENT INFLAMATION -STR CATHS SELF-) Hypertension: Yes Psychiatric: Yes (BIPOLAR DISORDER) Immunizations Current: Yes Tetanus Vaccination: < 5 Years Influenza Vaccination: Yes PNEUMOCCOCAL Vaccine (Year): 2 Past Surgical History Hysterectomy: No Joint Replacement: No (? PARTS IN RIGHT KNEE AFTER O.R.) Valve Replacement: Yes (RIGHT KNEE PAIN) Other Surgery: No Social History Alcohol Use: Yes Tobacco Use: No Substance Use: No Allergies-Medications (Allergen,Severity, Reaction): Coded Allergies: ciprofloxacin (Unverified Allergy, Severe, 01/14/17) states that in the past he got violent and does not want to take the med penicillin G (Unverified Allergy, Severe, 01/14/17) Reported Meds & Prescriptions Reported Meds & Active Scripts Active Divalproex DR (Divalproex Sodium) 500 Mg Tabdr 1,000 Mg PO HS Divalproex DR (Divalproex Sodium) 500 Mg Tabdr 500 Mg PO DAILY Quetiapine (Quetiapine Fumarate) 100 Mg Tab 300 Mg PO HS 30 Days Reported Loperamide (Loperamide HCl) 2 Mg Cap 2 Mg PO DIRECTED PRN One capsule after each loose stool. Not to exceed 8 capsules per day. Lisinopril 40 Mg Tab 40 Mg PO DAILY Review of Systems Except as stated in HPI: all other systems reviewed are Neg Physical Exam Narrative GENERAL: The patient is alert, oriented 3 in moderate apparent distress with his bilateral perineal ulcers. The patient is dirty, wearing a diaper and covered with feces in the diaper. His vital signs show pulse of 98 and blood pressure 136/100 but otherwise normal. He does not appear clinically intoxicated and does not smell of alcohol. SKIN: Focused skin assessment warm/dry. There are several ulcers with eschar at the base measuring about 5 cm x 2 cm. They are located on each side posterior to the scrotum. No abscesses are noted. The area was covered with feces. The feces is guaiac negative. HEAD: Atraumatic. Normocephalic. EYES: Pupils equal and round. No scleral icterus. No injection or drainage. ENT: No nasal bleeding or discharge. Mucous membranes pink and moist. NECK: Trachea midline. No JVD. CARDIOVASCULAR: Regular rate and rhythm. No murmur appreciated. RESPIRATORY: No accessory muscle use. Clear to auscultation. Breath sounds equal bilaterally. GASTROINTESTINAL: Abdomen soft, non-tender, nondistended. Hepatic and splenic margins not palpable. MUSCULOSKELETAL: No obvious deformities. No clubbing. No cyanosis. No edema. NEUROLOGICAL: Awake and alert. No obvious cranial nerve deficits. Motor grossly within normal limits. Normal speech. PSYCHIATRIC: The patient appears slightly delusional and is judgment is fair. Data Data Last Documented VS Vital Signs Date Time Temp Pulse Resp B/P (MAP) Pulse Ox O2 Delivery O2 Flow Rate FiO2 01/14/17 05:05 18 01/14/17 05:03 98.3 98 136/100 (112) 97 Orders Orders Complete Blood Count With Diff (01/14/17 04:55) Comprehensive Metabolic Panel (01/14/17 04:55) Magnesium (Mg) (01/14/17 04:55) Urinalysis - C+S If Indicated (01/14/17 05:08) Enteric Path (Stool) (01/14/17 05:10) C Diff Toxin Pcr (01/14/17 05:10) Giardia Antigen (Stool) (01/14/17 05:10) Sodium Chlor 0.9% 1000 Ml Inj (Ns 1000 M (01/14/17 06:00) Labs Laboratory Tests Test 01/14/17 05:20 White Blood Count 4.5 TH/MM3 Red Blood Count 3.91 MIL/MM3 Hemoglobin 12.6 GM/DL Hematocrit 36.0 % Mean Corpuscular Volume 92.1 FL Mean Corpuscular Hemoglobin 32.2 PG Mean Corpuscular Hemoglobin Concent 34.9 % Red Cell Distribution Width 13.7 % Platelet Count 279 TH/MM3 Mean Platelet Volume 6.2 FL Neutrophils (%) (Auto) 69.7 % Lymphocytes (%) (Auto) 18.4 % Monocytes (%) (Auto) 11.3 % Eosinophils (%) (Auto) 0.2 % Basophils (%) (Auto) 0.4 % Neutrophils # (Auto) 3.2 TH/MM3 Lymphocytes # (Auto) 0.8 TH/MM3 Monocytes # (Auto) 0.5 TH/MM3 Eosinophils # (Auto) 0.0 TH/MM3 Basophils # (Auto) 0.0 TH/MM3 CBC Comment DIFF FINAL Differential Comment Blood Urea Nitrogen 10 MG/DL Creatinine 0.65 MG/DL Random Glucose 133 MG/DL Total Protein 7.4 GM/DL Albumin 2.8 GM/DL Calcium Level 8.6 MG/DL Magnesium Level 1.5 MG/DL Alkaline Phosphatase 176 U/L Aspartate Amino Transf (AST/SGOT) 20 U/L Alanine Aminotransferase (ALT/SGPT) 12 U/L Total Bilirubin 0.5 MG/DL Sodium Level 135 MEQ/L Potassium Level 2.9 MEQ/L Chloride Level 97 MEQ/L Carbon Dioxide Level 27.8 MEQ/L Anion Gap 10 MEQ/L Estimat Glomerular Filtration Rate 121 ML/MIN MDM Medical Decision Making Medical Screen Exam Complete: Yes Emergency Medical Condition: Yes Medical Record Reviewed: Yes Interpretation(s) The CBC shows a white count of 4500 with a hemoglobin of 12.6 and hematocrit of 36.0. The complete metabolic profile shows a sodium of 135, potassium 2.9 and glucose 133 and alkaline phosphatase 176 and albumin 2.8. 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 He also has a hypokalemia. The patient is highly unreliable, he is delusional and his ulcers and cellulitis will continue to get worse if left for home treatment. The patient also has chronic diarrhea. Impression: Perineal cellulitis, nonhealing perineal ulcers, dehydration, hypokalemia Plan: The patient admitted to Dr. Bernal. Diagnosis Primary Impression: Cellulitis, perineum Additional Impressions: Nonhealing skin ulcer with fat layer exposed Hypokalemia Moderate dehydration Chronic diarrhea Bipolar disorder Admitting Information Admitting Physician Requests: Admit Chris Mann MD Jan 14, 2017 05:23
[2017-01-14 05:35] LABS: AUTOMATED NEUTROPHIL # 3.2 TH/MM3 (1.8-7.7); BASOPHIL % 0.4 % (0.0-2.0); EOSINOPHIL % 0.2 % (0.0-4.0); HEMO FLAGS DIFF FINAL; LYMPH % 18.4 % (9.0-44.0); LYMPHOCYTE # 0.8 TH/MM3 (1.0-4.8); MEAN CELL VOLUME 92.1 FL (80.0-100.0); MEAN CORPUSCULAR HEMOGLOBIN 32.2 PG (27.0-34.0); MEAN CORPUSCULAR HGB CONC 34.9 % (32.0-36.0); MONO % 11.3 % (0.0-8.0); NEUT % 69.7 % (16.0-70.0); PLATELET COUNT 279 TH/MM3 (150-450); RED BLOOD COUNT 3.91 MIL/MM3 (4.50-5.90); RED CELL DISTRIBUTION WIDTH 13.7 % (11.6-17.2); WHITE BLOOD COUNT 4.5 TH/MM3 (4.0-11.0)
[2017-01-14] MEDS: SODIUM CHLOR 0.9% 1000 ML INJ 1,000 ML IV SCH ×2 (05:56→05:57)
[2017-01-14 05:57] LABS: ALKALINE PHOSPHATASE 176 U/L (45-117); ALT (GPT) 12 U/L (12-78); ANION GAP 10 MEQ/L (5-15); AST (GOT) 20 U/L (15-37); BICARBONATE 27.8 MEQ/L (21.0-32.0); BLOOD UREA NITROGEN 10 MG/DL (7-18); CHLORIDE 97 MEQ/L (98-107); GLOMERULAR FILTRATION RATE 121 ML/MIN (>89); MAGNESIUM 1.5 MG/DL (1.5-2.5); SODIUM (NA) 135 MEQ/L (136-145); TOTAL BILIRUBIN ADULT 0.5 MG/DL (0.2-1.0)
[2017-01-14 06:06] LABS: POTASSIUM 2.9 MEQ/L (3.5-5.1)
[2017-01-14] MEDS ORDERED: SODIUM CHLOR 0.9% 1000 ML INJ 1,000 ML IV SCH (06:37)
[2017-01-14] MEDS ORDERED: Vancomycin Consult Pharmacy 1 EA OTHER SCH (06:45)
[2017-01-14] MEDS ORDERED: BISACODYL 10 MG SUPP RECTAL PRN (06:45)
[2017-01-14] MEDS ORDERED: MAGNESIUM HYDROXIDE SUSP 30 ML CUP PO PRN (06:45)
[2017-01-14] MEDS ORDERED: ACETAMINOPHEN/HYDROcodone 325 MG/5 MG TAB PO PRN (06:45)
[2017-01-14] MEDS ORDERED: SODIUM CHLORIDE 0.9% FLUSH 10 ML FLUSH IV FLUSH PRN (06:45)
[2017-01-14] MEDS ORDERED: SENNOSIDES 8.6 MG TAB PO PRN (06:45)
[2017-01-14] MEDS ORDERED: ACETAMINOPHEN 325 MG TAB PO PRN (06:45)
[2017-01-14] MEDS ORDERED: LACTULOSE SYRUP 20 GM/30 ML CUP PO PRN (06:45)
[2017-01-14] MEDS ORDERED: MORPHINE SULFATE 4 MG/ML INJ IV PUSH PRN (06:45)
[2017-01-14] MEDS ORDERED: ONDANSETRON HCL 4 MG/2 ML VIAL IVP PRN (06:45)
[2017-01-14 07:58] VITALS: BP 174/97; PULSE 99; RESP 20; TEMP 98.7; O2SAT 98
[2017-01-14] MEDS ORDERED: VANCOMYCIN 1,500 MG/NS 500 ML IV ONE ×2 (08:00)
[2017-01-14] MEDS ORDERED: AZTREONAM INJ 1,000 MG in SODIUM CHLORIDE 0.9% INJ 100 ML IV SCH (08:00)
[2017-01-14] MEDS: DOCUSATE SODIUM 50 MG/SENNA 8.6 MG TAB PO SCH ×2 (08:54→20:48)
[2017-01-14] MEDS: LISINOPRIL 20 MG TAB PO SCH (08:54)
[2017-01-14] MEDS: DIVALPROEX DR 500 MG TABEC PO SCH (08:54)
[2017-01-14 10:50] LABS: C. DIFF EPI 027 PRESUMPTIVE NEGATIVE (NEGATIVE)
--- NOTE | 2017-01-14 11:49 | HHI.HP ---
HPI Service [facility] Primary [facility] Physician [facility] Admission Diagnosis perineal cellulitis, perineal ulcers, dehydration, chronic diarrhea, Diagnoses: Chief Complaint: Abdominal pain Travel History International Travel<30 Days: No Contact w/Intl Traveler <30 Da: No Traveled to Known Affected Are: No History of Present Illness Patient is a 71-year-old gentleman with known history of prostate disease with intermittent self catheterizing. He came to the emergency room with complaints of pelvic pain. Patient recently was treated for perineal abscess/ Shavonne's gangrene and had I&D with antibiotics. He did well and was discharged home a few weeks ago. Apparently he ran out of cathetering supplies and has been unable to urinate. He came to the emergency room for further evaluation and was admitted for scrotal "cellulitis". On exam the patient has no superficial or deep skin changes in the scrotal area. Patient does have old skin changes consistent with healing recent infection. Previously I did evaluate the patient for his admission and overall he is at baseline if not improved from his previous infection. Unfortunately the patient had no relief of his urinary retention and put a straw in his urethra. There was some bleeding. The patient removed the straw and became very agitated due to the bladder distention. A bladder scan was done and there was about 900 mL in his bladder. I did speak with the urologist mission coordinator due to this issue and he recommended we put a large catheter in. Patient is agreeable to this and this will be done by the nursing team Review of Systems Constitutional: DENIES: Diaphoretic episodes, Fatigue, Fever, Weight gain, Weight loss, Chills, Dizziness, Change in appetite, Night Sweats Endocrine: DENIES: Heat/cold intolerance, Polydipsia, Polyuria, Polyphagia Eyes: DENIES: Blurred vision, Diplopia, Eye inflammation, Eye pain, Vision loss , Photosensitivity, Double Vision Ears, nose, mouth, throat: DENIES: Tinnitus, Hearing loss, Vertigo, Nasal discharge, Oral lesions, Throat pain, Hoarseness, Ear Pain, Running Nose, Epistaxis, Sinus Pain, Toothache, Odynophagia Respiratory: DENIES: Apneas, Cough, Snoring, Wheezing, Hemoptysis, Sputum production, Shortness of breath Cardiovascular: DENIES: Chest pain, Palpitations, Syncope, Dyspnea on Exertion , PND, Lower Extremity Edema, Orthopnea, Claudication Gastrointestinal: COMPLAINS OF: Abdominal pain, DENIES: Black stools, Bloody stools, Constipation, Diarrhea, Nausea, Vomiting, Difficulty Swallowing, Anorexia Genitourinary: COMPLAINS OF: Urgency, DENIES: Sexual dysfunction, Urinary frequency, Urinary incontinence, Hematuria, Dysuria, Nocturia, Penile Discharge , Testicular Pain, Testicular Swelling Musculoskeletal: DENIES: Joint pain, Muscle aches, Stiffness, Joint Swelling, Back pain, Neck pain Integumentary: DENIES: Abnormal pigmentation, Nail changes, Pruritus, Rash Hematologic/lymphatic: DENIES: Bruising, Lymphadenopathy Immunologic/allergic: DENIES: Eczema, Urticaria Neurologic: DENIES: Abnormal gait, Headache, Localized weakness, Paresthesias, Seizures, Speech Problems, Tremor, Poor Balance Psychiatric: DENIES: Anxiety, Confusion, Mood changes, Depression, Hallucinations, Agitation, Suicidal Ideation, Homicidal Ideation, Delusions Except as stated in HPI: all other systems reviewed are Neg Past Family Social History Past Medical History Chronic urinary retention, bipolar disorder, recent treatment with antibiotics and surgical debridement for Shavonne's gangrene hypertension Past Surgical History I&D perineum Reported Medications reviewed in the medical record Allergies: Coded Allergies: ciprofloxacin (Unverified Allergy, Severe, 01/14/17) states that in the past he got violent and does not want to take the med penicillin G (Unverified Allergy, Severe, 01/14/17) Active Ordered Medications reviewed in the medical record Family History Patient not forthcoming Social History Lives independently (although evicted recently), marijuana, no tobacco, alcohol frequently Physical Exam Vital Signs Vital Signs Date Time Temp Pulse Resp B/P (MAP) Pulse Ox O2 Delivery O2 Flow Rate FiO2 01/14/17 07:58 98.7 99 20 174/97 (122) 98 01/14/17 05:05 18 01/14/17 05:03 98.3 98 18 136/100 (112) 97 Physical Exam GENERAL: This is a well-nourished, well-developed patient, in no apparent distress. 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 No rashes, ecchymoses or lesions. Cool and dry. HEAD: Atraumatic. Normocephalic. No temporal or scalp tenderness. EYES: Pupils equal round and reactive. Extraocular motions intact. No scleral icterus. No injection or drainage. ENT: Nose without bleeding, purulent drainage or septal hematoma. Throat without erythema, tonsillar hypertrophy or exudate. Uvula midline. Airway patent. NECK: Trachea midline. No JVD or lymphadenopathy. Supple, nontender, no meningeal signs. CARDIOVASCULAR: Regular rate and rhythm without murmurs, gallops, or rubs. RESPIRATORY: Clear to auscultation. Breath sounds equal bilaterally. No wheezes , rales, or rhonchi. GASTROINTESTINAL: Abdomen soft, non-tender, bladder is distended. No hepato- splenomegaly, or palpable masses. No guarding. MUSCULOSKELETAL: Extremities without clubbing, cyanosis, or edema. No joint tenderness, effusion, or edema noted. No calf tenderness. Negative Homans sign bilaterally. NEUROLOGICAL: Awake and alert. Cranial nerves II through XII intact. Motor and sensory grossly within normal limits. Five out of 5 muscle strength in all muscle groups. Normal speech. Laboratory Laboratory Tests Test 01/14/17 05:20 White Blood Count 4.5 Red Blood Count 3.91 Hemoglobin 12.6 Hematocrit 36.0 Mean Corpuscular Volume 92.1 Mean Corpuscular Hemoglobin 32.2 Mean Corpuscular Hemoglobin Concent 34.9 Red Cell Distribution Width 13.7 Platelet Count 279 Mean Platelet Volume 6.2 Neutrophils (%) (Auto) 69.7 Lymphocytes (%) (Auto) 18.4 Monocytes (%) (Auto) 11.3 Eosinophils (%) (Auto) 0.2 Basophils (%) (Auto) 0.4 Neutrophils # (Auto) 3.2 Lymphocytes # (Auto) 0.8 Monocytes # (Auto) 0.5 Eosinophils # (Auto) 0.0 Basophils # (Auto) 0.0 CBC Comment DIFF FINAL Differential Comment Stool C. difficile Toxin (PCR) NEGATIVE Stl C. difficile Toxin Epiderm 027 PRESUMPTIVE NEGATIVE Blood Urea Nitrogen 10 Creatinine 0.65 Random Glucose 133 Total Protein 7.4 Albumin 2.8 Calcium Level 8.6 Magnesium Level 1.5 Alkaline Phosphatase 176 Aspartate Amino Transf (AST/SGOT) 20 Alanine Aminotransferase (ALT/SGPT) 12 Total Bilirubin 0.5 Sodium Level 135 Potassium Level 2.9 Chloride Level 97 Carbon Dioxide Level 27.8 Anion Gap 10 Estimat Glomerular Filtration Rate 121 Date/Time Source Procedure Growth Status 01/14/17 05:20 Stool Stool Giardia Antigen (BAUDILIO) Pending Received Result Diagram: 01/14/1751901/14/17519 Imaging Bladder scan shows over 900 mL Caprini VTE Risk Assessment Caprini VTE Risk Assessment: No/Low Risk (score <= 1) Caprini Risk Assessment Model Point Value = 1 Point Value = 2 Point Value = 3 Point Value = 5 Age 41-60 Minor surgery BMI > 25 kg/m2 Swollen legs Varicose veins or History of unexplained or recurrent spontaneous Oral contraceptives or hormone replacement Sepsis (< 1 month) Serious lung disease, including pneumonia (< 1 month) Abnormal pulmonary function Acute myocardial infarction Congestive heart failure (< 1 month) History of inflammatory bowel disease Medical patient at bed rest Age 61-74 Arthroscopic surgery Major open surgery (> 45 min) Laparoscopic surgery (> 45 min) Malignancy Confined to bed (> 72 hours) Immobilizing plaster cast Central venous access Age >= 75 History of VTE Family history of VTE Factor V Leiden Prothrombin [id number] Lupus anticoagulant Anticardiolipin antibodies Elevated serum homocysteine Heparin-induced thrombocytopenia Other congenital or acquired thrombophilia Stroke (< 1 month) Elective arthroplasty Hip, pelvis, or leg fracture Acute spinal cord injury (< 1 month) Prophylaxis Regimen Total Risk Factor Score Risk Level Prophylaxis Regimen 0-1 Low Early ambulation 2 Moderate Order ONE of the following: *Sequential Compression Device (SCD) *Heparin 5000 units SQ BID 3-4 Higher Order ONE of the following medications: *Heparin 5000 units SQ TID *Enoxaparin/Lovenox 40 mg SQ daily (WT < 150 kg, CrCl > 30 mL/min) *Enoxaparin/Lovenox 30 mg SQ daily (WT < 150 kg, CrCl > 10-29 mL/min) *Enoxaparin/Lovenox 30 mg SQ BID (WT < 150 kg, CrCl > 30 mL/min) AND/OR *Sequential Compression Device (SCD) 5 or more Highest Order ONE of the following medications: *Heparin 5000 units SQ TID (Preferred with Epidurals) *Enoxaparin/Lovenox 40 mg SQ daily (WT < 150 kg, CrCl > 30 mL/min) *Enoxaparin/Lovenox 30 mg SQ daily (WT < 150 kg, CrCl > 10-29 mL/min) *Enoxaparin/Lovenox 30 mg SQ BID (WT < 150 kg, CrCl > 30 mL/min) AND *Sequential Compression Device (SCD) Assessment and Plan Problem List: (1) Urinary retention ICD Code: R33.9 - Retention of urine, unspecified Plan: Place and maintain Barrett in this patient with known prostate hyperplasia. Patient will see urology (2) Perineal abscess ICD Code: L02.215 - Cutaneous abscess of perineum Status: Acute Plan: resolving D/c azactam and vanco IV (3) Bipolar disorder ICD Code: F31.9 - Bipolar disorder, unspecified Status: Chronic Plan: table at this time, recent psych admission now on seroquel and divalproex Assessment and Plan Likely discharge home in am Aminaat Lugo MD Jan 14, 2017 11:49
[2017-01-14 12:00] VITALS: BP 160/95; PULSE 102; RESP 20; TEMP 98.9; O2SAT 98
[2017-01-14 16:00] VITALS: BP 171/98; PULSE 108; RESP 20; TEMP 97.4; O2SAT 98
[2017-01-14] MEDS ORDERED: LOPERAMIDE HCL 2 MG CAP PO PRN (17:30)
[2017-01-14 20:00] VITALS: BP 133/77; PULSE 113; RESP 18; TEMP 97.7; O2SAT 98
[2017-01-14] MEDS: SODIUM CHLORIDE 0.9% FLUSH 10 ML FLUSH IV FLUSH SCH (20:48)
--- NOTE | 2017-01-14 20:59 | MB ---
cc: FERMIN FOWLER MD DATE OF CONSULTATION 01/14/2017 REASON FOR CONSULTATION 1. Urinary retention. 2. History of BPH. HISTORY OF PRESENT ILLNESS The patient is a 71-year-old male with history of BPH on clean intermittent catheterization for the past several years, came to emergency room earlier with complains of pelvic pain. 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 He did well, was discharge home a few weeks ago. Apparently, he ran out of cathing supplies and has been unable to urinate. Came to the emergency room for further evaluation was admitted for scrotal cellulitis. On exam the patient had no superficial . While he was being evaluated he was complaining of significant lower abdominal pain and was demanding to have a urinary catheter. However, he stated that he did not get one in time so he attempted to empty his bladder by passing a straw in his urethra. There was some bleeding from the straw. The patient then removed the straw and became very agitated because he still could not urinate. A bladder scan was done in the ER and approximately 900 ml was seen in his bladder. Urology was consulted for acute urinary retention. Under direction of urology instructed nursing staff to place a Barrett catheter, which she did greater than a liter came out. The patient is currently comfortable. Denies any abdominal pain, flank pain, nausea or vomiting. Says he has been [facility] but he is tired of waiting. He denies history of kidney stones, urinary tract infections. He said he passes a catheter four to six times daily and gets a significant amount every time, approximately 4-500 cc. REVIEW OF SYSTEMS See HPI otherwise all systems reviewed, otherwise are negative. PAST MEDICAL HISTORY Significant for bipolar disorder. History of Shavonne's gangrene. Urinary retention. PAST SURGICAL HISTORY Debridement of perineum. ALLERGIES CIPRO, PENICILLIN G. FAMILY HISTORY Denies urolithiasis, genitourinary malignancies. SOCIAL HISTORY He lives independently. Occasionally smokes marijuana. Denies tobacco use and drinks alcohol frequently. MEDICATIONS Home medications include: 1. Lisinopril. 2. Loperamide. 3. Quetiapine. 4. Divalproex. PHYSICAL EXAMINATION VITAL SIGNS: Temperature 97.4, pulse 108, respiratory rate 20, blood pressure 171/98, satting 98% on room air. GENERAL: He is alert and oriented x3. No apparent distress, appears older than stated age. Is quite eccentric and agitated. HEENT: Head is normocephalic, atraumatic. SKIN: No ulcers or rashes. [place] and moist. NECK: Neck is supple. Trachea is midline. No JVD. LUNGS: Clear to auscultation bilaterally. No wheezes, rales or rhonchi. EYES: No scleral icterus. Extraocular muscles intact. HEART: Regular rhythm. No murmurs, gallops, rubs. ABDOMEN: Soft, nontender, nondistended. Positive bowel. GENITOURINARY: His penis is uncircumcised. Testes are descended bilaterally. Normal size and consistency. RECTAL: Deferred at this time. EXTREMITIES: Nontender. No clubbing, cyanosis, edema. In his perineum he has a large debrided wound with good granulation tissue filling in, healing nicely. No evidence of necrosis or of crepitus. PSYHC: Agitated. NEUROLOGIC: Cranial nerves II-XII intact. 5/5 in all four extremities. LABORATORY DATA White count 4.5, hemoglobin 12.6, hematocrit 36.0, platelet count 279, sodium 139, potassium 2.9, chloride 97, bicarb 27.8, BUN 10, creatinine 0.65. IMAGING STUDIES No recent imaging studies. ASSESSMENT/PLAN The patient is a 71-year-old male with a history of BPH on clean intermittent catheterization, presents with acute urinary retention. PLAN Recommend continue Barrett catheter for now. He is going to be discharged with catheter in place and follow-up as outpatient. Discussed treatment options for him in the future which includes TURP which he has been apparently waiting for the last 3 years [facility] the [facility]. From urology standpoint he is okayed to be discharged home in the morning with the catheter in place. Please call with any questions Fermin Fowler MD EMF/JULES /8:06 PM /8:33 PM
[2017-01-14] MEDS ORDERED: QUEtiapine FUMARATE 100 MG TAB PO SCH (21:00)
[2017-01-14] MEDS ORDERED: DIVALPROEX DR 500 MG TABEC PO SCH (21:00)
[2017-01-14] MEDS ORDERED: VANCOMYCIN INJ 1,250 MG in SODIUM CHLOR 0.9% 250 ML INJ 250 ML IV SCH (23:00)
[2017-01-15] VITALS: BP 90/40; PULSE 108; RESP 16; TEMP 97.6; O2SAT 96
[2017-01-15 08:00] VITALS: BP 100/72; PULSE 124; RESP 18; TEMP 98.8; O2SAT 96
[2017-01-15 08:26] LABS: AUTOMATED NEUTROPHIL # 4.6 TH/MM3 (1.8-7.7); BASOPHIL % 0.3 % (0.0-2.0); EOSINOPHIL # 0.2 TH/MM3 (0-0.4); EOSINOPHIL % 3.7 % (0.0-4.0); HEMATOCRIT 32.9 % (39.0-51.0); HEMO FLAGS DIFF FINAL; LYMPH % 16.4 % (9.0-44.0); MEAN CELL VOLUME 92.7 FL (80.0-100.0); MEAN CORPUSCULAR HGB CONC 34.5 % (32.0-36.0); MONO % 8.7 % (0.0-8.0); NEUT % 70.9 % (16.0-70.0); PLATELET COUNT 251 TH/MM3 (150-450); RED BLOOD COUNT 3.55 MIL/MM3 (4.50-5.90); RED CELL DISTRIBUTION WIDTH 13.7 % (11.6-17.2); WHITE BLOOD COUNT 6.3 TH/MM3 (4.0-11.0)
[2017-01-15] MEDS: DOCUSATE SODIUM 50 MG/SENNA 8.6 MG TAB PO SCH (09:00)
[2017-01-15] MEDS: SODIUM CHLORIDE 0.9% FLUSH 10 ML FLUSH IV FLUSH SCH (09:00)
[2017-01-15 09:02] LABS: ALKALINE PHOSPHATASE 137 U/L (45-117); ALT (GPT) 9 U/L (12-78); ANION GAP 11 MEQ/L (5-15); AST (GOT) 18 U/L (15-37); BICARBONATE 26.2 MEQ/L (21.0-32.0); BLOOD UREA NITROGEN 10 MG/DL (7-18); CHLORIDE 100 MEQ/L (98-107); GLOMERULAR FILTRATION RATE 60 ML/MIN (>89); SODIUM (NA) 137 MEQ/L (136-145); TOTAL BILIRUBIN ADULT 0.5 MG/DL (0.2-1.0)
[2017-01-15 09:13] LABS: POTASSIUM 2.9 MEQ/L (3.5-5.1)
[2017-01-15] MEDS: LISINOPRIL 20 MG TAB PO SCH (09:42)
[2017-01-15] MEDS: DIVALPROEX DR 500 MG TABEC PO SCH (09:42)
[2017-01-15 09:43] VITALS: RESP 18
[2017-01-15] MEDS ORDERED: TAMS5CAP PO (09:47)
--- NOTE | 2017-01-15 09:48 | HHI.DCPOC ---
Discharge Care Plan Diagnosis: (1) BPH (benign prostatic hyperplasia) (2) HTN (hypertension) (3) Hypokalemia (4) Urinary retention Goals to Promote Your Health * To prevent worsening of your condition and complications * To maintain your health at the optimal level Directions to Meet Your Goals Take your medications as prescribed Follow your dietary instruction Follow activity as directed Keep your appointments as scheduled Take your immunizations and boosters as scheduled If your symptoms worsen call your PCP, if no PCP go to Urgent Care Center or Emergency Room Smoking is Dangerous to Your Health. Avoid second hand smoke Call the 24-hour hour crisis hotline for domestic abuse at Aminata Boggs MD Jan 15, 2017 09:48
[2017-01-15] MEDS ORDERED: INFLUENZA VIRUS VACCINE (QUADRIVALENT) 0.5 ML SYR IM ONE (10:00)
[2017-01-15] MEDS ORDERED: TAMSULOSIN HCL 0.4 MG CAP PO ONE (10:15)
[2017-01-15] MEDS ORDERED: POTASSIUM CHLORIDE 10 MEQ CONTROLLED RELEASE TAB PO ONE (10:15)
--- NOTE | 2017-01-15 11:37 | HHI.PR ---
Subjective Remarks Patient seen in follow-up for urinary retention. No issues since his Barrett was placed yesterday. Urological consult appreciated. Patient recommended for outpatient evaluation for prostatic enlargement. He has expressed understanding of this plan. Patient has potassium 2.9 today which will be replaced. Patient be discharged home. He does have some diarrhea which is chronic and for which he has been given antidiarrheal. No evidence of C. difficile Objective Vitals Vital Signs Date Time Temp Pulse Resp B/P (MAP) Pulse Ox O2 Delivery O2 Flow Rate FiO2 01/15/17 09:43 18 01/15/17 08:00 98.8 124 18 100/72 (81) 96 01/15/17 00:00 97.6 108 16 90/40 (57) 96 01/14/17 20:00 97.7 113 18 133/77 (95) 98 01/14/17 16:00 97.4 108 20 171/98 (122) 98 01/14/17 16:00 97.4 108 20 171/98 (122) 98 01/14/17 12:00 98.9 102 20 160/95 (116) 98 01/14/17 11:40 18 I/O 01/14/17 01/14/17 01/14/17 01/15/17 01/15/17 01/15/17 07:00 15:00 23:00 07:00 15:00 23:00 Intake Total 700 ml 220 ml 522 ml Output Total 2000 ml 1100 ml 100 ml Balance -2000 ml -400 ml 120 ml 522 ml Intake Oral 700 ml 220 ml 522 ml Output Urine Total 2000 ml 1100 ml 100 ml Bladder Scan Volume Amount 999 ml 999 ml # Bowel Movements 1 0 0 Result Diagram: 01/15/17 0747 01/15/17 0747 Objective Remarks GENERAL: This is a thin male who is well-developed in no acute distress and who is with some difficulty communicating due to his bipolar disorder CARDIOVASCULAR: Regular rate and rhythm without murmurs, gallops, or rubs. RESPIRATORY: Clear to auscultation. Breath sounds equal bilaterally. No wheezes , rales, or rhonchi. GASTROINTESTINAL: Abdomen soft, non-tender, nondistended. Normal active bowel sounds MUSCULOSKELETAL: Extremities without clubbing, cyanosis, or edema. NEURO: Alert & Oriented x4 to person, place, time, situation. Moves all ext x4 A/P Problem List: (1) Urinary retention ICD Code: R33.9 - Retention of urine, unspecified Plan: Place and maintain Barrett in this patient with known prostate hyperplasia. Urology consult appreciated Follow-up as outpatient (2) Perineal abscess ICD Code: L02.215 - Cutaneous abscess of perineum Status: Acute Plan: Improved. Continue aggressive wound care (3) Bipolar disorder ICD Code: F31.9 - Bipolar disorder, unspecified Status: Chronic Plan: stable at this time, recent psych admission now on seroquel and divalproex Discharge Planning Discharge home Activity unrestricted Keep Barrett in Diet regular Aminata Boggs MD Jan 15, 2017 11:37
[2017-01-16] MEDS ORDERED: VANCOMYCIN TROUGH ONE ×2 (10:45→22:45)
== END 2017-01-15 13:05 | disposition home or self-care (01) ==
LOC: PHED 04:39 → PHEDA 06:39 → INTOOBSV 06:39 → PH5A 07:58
PROVIDERS: ADMIT Hospitalist; ATTEND Hospitalist
DX: N40.1 Benign prostatic hyperplasia with lower urinary tract symptoms (principal); R33.8 Other retention of urine; L02.215 Cutaneous abscess of perineum; I10 Essential (primary) hypertension; E87.6 Hypokalemia; R19.7 Diarrhea, unspecified
CPT/HCPCS: 80053; 83735; 85025; 87329; 87493; 87506; 96361; 96374; 99285; G0378; J2270; J3370; J7030; J7040

== ENCOUNTER 2017-06-24 21:06 | Inpatient (IN) | payer OTHER, MEDICAID, MEDICARE ==
[~2017-06-24] VITALS: Ht 172.7 cm; Wt 67.2 kg
[~2017-06-24 21:06] MED LIST changes: +TAMS5CAP PO
[2017-06-24 21:15] VITALS: BP 157/102; PULSE 107; RESP 18; TEMP 97.5; O2SAT 98
[2017-06-24 21:24] VITALS: O2SAT 98
--- NOTE | 2017-06-24 21:25 | PD ---
HPI Chief Complaint: Psychiatric Symptoms Time Seen by Provider: 21:14 Travel History International Travel<30 days: No Contact w/Intl Traveler<30days: No Traveled to known affect area: No History of Present Illness HPI 72 y/o male who is heavily intoxicated and very difficult to get history from currently was found by the ambulance team in his yard by himself with a cut to the side of his head. He is under Remy act given there was concern that he would hurt himself. The ambulance team stated neighbor called when they saw him. History is significantly limited as patient just keeps yelling random words PFSH Past Medical History Narrative Medical By records Arthritis: No Asthma: Yes (CHILDHOOD) Bipolar Disorder: Yes Anxiety: Yes Cardiovascular Problems: No High Cholesterol: Yes Diminished Hearing: Yes (CHEVAK) Gastrointestinal Disorders: Yes (ACID REFLUX, FREQUENTLY VOMITS FOOD) GERD: Yes Genitourinary: Yes ((PER PT) S/P MRSA INF PROSTATE FREQUENT INFLAMATION -STR CATHS SELF-) Hypertension: Yes Musculoskeletal: No Neurologic: No Psychiatric: Yes (BIPOLAR DISORDER) Respiratory: No Immunizations Current: Yes PNEUMOCCOCAL Vaccine (Year): 2 Past Surgical History Narrative Surgical By records Hysterectomy: No Joint Replacement: No (? PARTS IN RIGHT KNEE AFTER O.R.) Valve Replacement: Yes (RIGHT KNEE PAIN) Other Surgery: No Social History Alcohol Use: Yes Tobacco Use: No Substance Use: No Allergies-Medications (Allergen,Severity, Reaction): Coded Allergies: ciprofloxacin (Unverified Allergy, Severe, 06/24/17) states that in the past he got violent and does not want to take the med penicillin G (Unverified Allergy, Severe, 06/24/17) Reported Meds & Prescriptions Reported Meds & Active Scripts Active Flomax (Tamsulosin HCl) 0.4 Mg Cap 0.4 Mg PO HS Divalproex DR (Divalproex Sodium) 500 Mg Tabdr 1,000 Mg PO HS Divalproex DR (Divalproex Sodium) 500 Mg Tabdr 500 Mg PO DAILY Quetiapine (Quetiapine Fumarate) 100 Mg Tab 300 Mg PO HS 30 Days Reported Loperamide (Loperamide HCl) 2 Mg Cap 2 Mg PO DIRECTED PRN One capsule after each loose stool. Not to exceed 8 capsules per day. Lisinopril 40 Mg Tab 40 Mg PO DAILY Review of Systems Except as stated in HPI: all other systems reviewed are Neg Physical Exam Exam Limitations: Combative Narrative GENERAL: 72-year-old male who appears intoxicated HEAD: laceration noted. Normocephalic. EYES: Pupils equal and round. No scleral icterus. No injection or drainage. ENT: No nasal bleeding or discharge. Mucous membranes pink and moist. NECK: Trachea midline. No JVD. c-collar in place CARDIOVASCULAR: Regular rate and rhythm. RESPIRATORY: No accessory muscle use. MUSCULOSKELETAL: No obvious deformities. NEUROLOGICAL: Awake. moves all extremities. slurred speech. Data Data Last Documented VS Vital Signs Date Time Temp Pulse Resp B/P (MAP) Pulse Ox O2 Delivery O2 Flow Rate FiO2 06/24/17 22:12 110 16 128/86 (100) 98 Room Air 06/24/17 21:15 97.5 Orders Orders Basic Metabolic Panel (Bmp) (06/24/17 21:17) Complete Blood Count With Diff (06/24/17 21:17) Prothrombin Time / Inr (Pt) (06/24/17 21:17) Act Partial Throm Time (Ptt) (06/24/17 21:17) Alcohol (Ethanol) (06/24/17 21:17) Ct Brain W/O Iv Contrast(Rout) (06/24/17 21:17) Ct Cerv Spine W/O Contrast (06/24/17 21:17) Iv Access Insert/Monitor (06/24/17 21:17) Ecg Monitoring (06/24/17 21:17) Oximetry (06/24/17 21:17) Sodium Chloride 0.9% Flush (Ns Flush) (06/24/17 21:30) Psych Screen (06/24/17 21:17) Lorazepam Inj (Ativan Inj) (06/24/17 22:00) Labs Laboratory Tests Test 06/24/17 21:25 White Blood Count 5.8 TH/MM3 Red Blood Count 4.53 MIL/MM3 Hemoglobin 14.5 GM/DL Hematocrit 42.7 % Mean Corpuscular Volume 94.3 FL Mean Corpuscular Hemoglobin 32.0 PG Mean Corpuscular Hemoglobin Concent 33.9 % Red Cell Distribution Width 16.2 % Platelet Count 352 TH/MM3 Mean Platelet Volume 6.5 FL Neutrophils (%) (Auto) 40.1 % Lymphocytes (%) (Auto) 45.0 % Monocytes (%) (Auto) 13.4 % Eosinophils (%) (Auto) 1.1 % Basophils (%) (Auto) 0.4 % Neutrophils # (Auto) 2.3 TH/MM3 Lymphocytes # (Auto) 2.6 TH/MM3 Monocytes # (Auto) 0.8 TH/MM3 Eosinophils # (Auto) 0.1 TH/MM3 Basophils # (Auto) 0.0 TH/MM3 CBC Comment DIFF FINAL Differential Comment Prothrombin Time 9.9 SEC Prothromb Time International Ratio 1.0 RATIO Activated Partial Thromboplast Time 26.6 SEC Blood Urea Nitrogen 7 MG/DL Creatinine 0.78 MG/DL Random Glucose 115 MG/DL Calcium Level 8.5 MG/DL Sodium Level 143 MEQ/L Potassium Level 3.3 MEQ/L Chloride Level 108 MEQ/L Carbon Dioxide Level 26.5 MEQ/L Anion Gap 9 MEQ/L Estimat Glomerular Filtration Rate 98 ML/MIN Ethyl Alcohol Level 287 MG/DL MDM Medical Decision Making Medical Screen Exam Complete: Yes Emergency Medical Condition: Yes Medical Record Reviewed: Yes (pmh confirmed) Interpretation(s) CBC & BMP Diagram 06/24/17 21:[address] brain no bleed ct c spine no fracture Differential Diagnosis laceration, ich, fracture... Narrative Course will check labs, ct head and laceration repaired ed workup with alcohol intoxication, given ativan for agitation, medically cleared Diagnosis Primary Impression: Alcohol intoxication Additional Impression: Fall Qualified Codes: W19.XXXA - Unspecified fall, initial encounter Arelis Charles MD Jun 24, 2017 21:24
[2017-06-24] MEDS ORDERED: SODIUM CHLORIDE 0.9% FLUSH 10 ML FLUSH IVF PRN (21:30)
[2017-06-24 21:50] LABS: AUTOMATED NEUTROPHIL # 2.3 TH/MM3 (1.8-7.7); BASOPHIL % 0.4 % (0.0-2.0); EOSINOPHIL # 0.1 TH/MM3 (0-0.4); EOSINOPHIL % 1.1 % (0.0-4.0); HEMATOCRIT 42.7 % (39.0-51.0); HEMOGLOBIN 14.5 GM/DL (13.0-17.0); LYMPHOCYTE # 2.6 TH/MM3 (1.0-4.8); MEAN CELL VOLUME 94.3 FL (80.0-100.0); MEAN CORPUSCULAR HGB CONC 33.9 % (32.0-36.0); MEAN PLATELET VOLUME 6.5 FL (7.0-11.0); MONO % 13.4 % (0.0-8.0); MONOCYTE # 0.8 TH/MM3 (0-0.9); NEUT % 40.1 % (16.0-70.0); PLATELET COUNT 352 TH/MM3 (150-450); RED BLOOD COUNT 4.53 MIL/MM3 (4.50-5.90); RED CELL DISTRIBUTION WIDTH 16.2 % (11.6-17.2); WHITE BLOOD COUNT 5.8 TH/MM3 (4.0-11.0)
[2017-06-24 21:58] LABS: PROTHROMBIN TIME - PATIENT 9.9 SEC (9.8-11.6)
[2017-06-24] MEDS ORDERED: LORazepam 2 MG/ML VIAL IV PUSH ONE (22:00)
--- NOTE | 2017-06-24 22:02 | RADRPT ---
EXAM DATE/TIME: 06/24/2017 21:43 [facility] COMPARISON: No previous studies available for comparison. INDICATIONS : Trauma, fall. RADIATION DOSE: 56.35 CTDIvol (mGy) MEDICAL HISTORY : None SURGICAL HISTORY : None. ENCOUNTER: Initial ACUITY: 1 day PAIN SCALE: 5/10 LOCATION: cranial TECHNIQUE: Multiple contiguous axial images were obtained of the head. Using automated exposure control and adj ustment of the mA and/or kV according to patient size, radiation dose was kept as low as reasonably a chievable to obtain optimal diagnostic quality images. DICOM format image data is available electro nically for review and comparison. FINDINGS: CEREBRUM: Mild atrophy is noted. Mild periventricular and subcortical white matter small vessel ischemic change s are noted bilaterally. No evidence of midline shift, mass lesion, hemorrhage or acute infarction. No extra-axial fluid collections are seen. POSTERIOR FOSSA: The cerebellum and brainstem are intact. The 4th ventricle is midline. The cerebellopontine angle i s unremarkable. EXTRACRANIAL: The visualized portion of the orbits is intact. SKULL: The calvaria is intact. No evidence of skull fracture. CONCLUSION: Mild cerebral atrophy. Mild periventricular and subcortical white matter small vessel ischemic changes. No acute infarct, acute hemorrhage, mass effect or extra-axial fluid collections. Bernabe Greer MD on June 24, 2017 at 22:00 Board Certified Radiologist. This report was verified electronically.
[2017-06-24 22:03] LABS: BICARBONATE 26.5 MEQ/L (21.0-32.0); CALCIUM 8.5 MG/DL (8.5-10.1); CREATININE 0.78 MG/DL (0.60-1.30)
[2017-06-24 22:12] VITALS: BP 128/86; PULSE 110; RESP 16; O2SAT 98
--- NOTE | 2017-06-24 22:23 | RADRPT ---
EXAM DATE/TIME: 06/24/2017 21:43 [facility] COMPARISON: No previous studies available for comparison. INDICATIONS : Trauma, fall. RADIATION DOSE: 28.35 CTDIvol (mGy) MEDICAL HISTORY : None SURGICAL HISTORY : None. ENCOUNTER: Initial ACUITY: 1 day PAIN SCALE: 5/10 LOCATION: neck TECHNIQUE: Volumetric scanning of the cervical spine was performed. Multiplanar reconstructions in the sagittal, coronal and oblique axial planes were performed. Using automated exposure control and adjustment o f the mA and/or kV according to patient size, radiation dose was kept as low as reasonably achievable to obtain optimal diagnostic quality images. DICOM format image data is available electronically f or review and comparison. FINDINGS: There is straightening of the normal cervical lordosis. There is no acute fracture or prevertebral so ft tissue swelling. Grade I anterolisthesis at C7 in relation to T1 is noted. Diffuse cervical spondy losis is noted from C3 through T1. Severe right neural foraminal narrowing is noted at C3-4 and C4-5. Severe bilateral foraminal narrowing is noted at C5-6 and C6-7. Moderate bilateral foraminal narrowi ng is noted at C7-T1. Mild spinal stenosis is noted at C5-6 and C6-7. The bony relationship and align ment between C1 and C2 is well maintained. CONCLUSION: 1. Straightening of the normal cervical lordosis. 2. No acute fracture or prevertebral soft tissue swelling. 3. Grade I anterolisthesis of C7 in relation to T1. 4. Diffuse cervical spondylosis from C3 through T1. 5. Severe right neural foraminal narrowing at C3-4 and C4-5 and severe bilateral foraminal narrowing at C5-6 and C6-7. 6. Moderate bilateral foraminal narrowing at C7-T1. 7. Mild spinal stenosis at C5-6 and C6-7. Bernabe Greer MD on June 24, 2017 at 22:19 Board Certified Radiologist. This report was verified electronically.
--- NOTE | 2017-06-24 22:36 | PD ---
Physical Exam Time Seen by Provider: 22:35 Data Data Last Documented VS Vital Signs Date Time Temp Pulse Resp B/P (MAP) Pulse Ox O2 Delivery O2 Flow Rate FiO2 06/24/17 22:12 110 16 128/86 (100) 98 Room Air 06/24/17 21:15 97.5 Orders Orders Basic Metabolic Panel (Bmp) (06/24/17 21:17) Complete Blood Count With Diff (06/24/17 21:17) Prothrombin Time / Inr (Pt) (06/24/17 21:17) Act Partial Throm Time (Ptt) (06/24/17 21:17) Alcohol (Ethanol) (06/24/17 21:17) Ct Brain W/O Iv Contrast(Rout) (06/24/17 21:17) Ct Cerv Spine W/O Contrast (06/24/17 21:17) Iv Access Insert/Monitor (06/24/17 21:17) Ecg Monitoring (06/24/17 21:17) Oximetry (06/24/17 21:17) Sodium Chloride 0.9% Flush (Ns Flush) (06/24/17 21:30) Psych Screen (06/24/17 21:17) Lorazepam Inj (Ativan Inj) (06/24/17 22:00) Labs Laboratory Tests Test 06/24/17 21:25 White Blood Count 5.8 TH/MM3 Red Blood Count 4.53 MIL/MM3 Hemoglobin 14.5 GM/DL Hematocrit 42.7 % Mean Corpuscular Volume 94.3 FL Mean Corpuscular Hemoglobin 32.0 PG Mean Corpuscular Hemoglobin Concent 33.9 % Red Cell Distribution Width 16.2 % Platelet Count 352 TH/MM3 Mean Platelet Volume 6.5 FL Neutrophils (%) (Auto) 40.1 % Lymphocytes (%) (Auto) 45.0 % Monocytes (%) (Auto) 13.4 % Eosinophils (%) (Auto) 1.1 % Basophils (%) (Auto) 0.4 % Neutrophils # (Auto) 2.3 TH/MM3 Lymphocytes # (Auto) 2.6 TH/MM3 Monocytes # (Auto) 0.8 TH/MM3 Eosinophils # (Auto) 0.1 TH/MM3 Basophils # (Auto) 0.0 TH/MM3 CBC Comment DIFF FINAL Differential Comment Prothrombin Time 9.9 SEC Prothromb Time International Ratio 1.0 RATIO Activated Partial Thromboplast Time 26.6 SEC Blood Urea Nitrogen 7 MG/DL Creatinine 0.78 MG/DL Random Glucose 115 MG/DL Calcium Level 8.5 MG/DL Sodium Level 143 MEQ/L Potassium Level 3.3 MEQ/L Chloride Level 108 MEQ/L Carbon Dioxide Level 26.5 MEQ/L Anion Gap 9 MEQ/L Estimat Glomerular Filtration Rate 98 ML/MIN Ethyl Alcohol Level 287 MG/DL MDM Medical Record Reviewed: Yes Supervised Visit with RAYMOND: No Procedures Procedure Narrative LACERATION LOCATION: Left parietal scalp LENGTH: 3 cm NUMBER OF STITCHES/ESPINOZA: 3 espinoza REPAIR: The area of the laceration was prepped with Betadine and sterilely draped. . The wound was copiously irrigated and explored without evidence of foreign body, tendon injury or neurovascular injury. The wound was closed using espinoza. This was a single layer repair. A sterile dressing was applied. The patient was advised to keep the dressing clean and dry. Patient tolerated the procedure well. Condition: Stable [place] Jun 24, 2017 22:36
[2017-06-25] MEDS ORDERED: ONDANSETRON HCL 4 MG/2 ML VIAL ONE (05:34)
[2017-06-25] MEDS ORDERED: ONDANSETRON HCL 4 MG/2 ML VIAL IV PUSH ONE (05:45)
[2017-06-25 08:49] VITALS: BP 135/100; PULSE 109; RESP 18; O2SAT 98
[2017-06-25] MEDS ORDERED: LORazepam 1 MG TAB PO PRN ×2 (10:30)
[2017-06-25] MEDS ORDERED: LORazepam 2 MG TAB PO PRN (10:30)
[2017-06-25] MEDS ORDERED: ACETAMINOPHEN 325 MG TAB PO PRN (10:30)
[2017-06-25] MEDS ORDERED: LORazepam 2 MG/ML VIAL IV PUSH PRN ×4 (10:30)
[2017-06-25] MEDS ORDERED: FLUMAZENIL 0.5 MG/5 ML VIAL IV PUSH PRN (10:30)
[2017-06-25] MEDS ORDERED: MAGNESIUM HYDROXIDE SUSP 30 ML CUP PO PRN (10:30)
[2017-06-25] MEDS ORDERED: LORazepam 2 MG/ML VIAL IM PRN ×2 (10:30)
[2017-06-25] MEDS ORDERED: ALUMINUM/MAGNESIUM/SIMETH 30 ML CUP PO PRN (10:30)
[2017-06-25] MEDS ORDERED: LORazepam 0.5 MG TAB PO PRN (10:30)
[2017-06-25 13:35] VITALS: BP 128/88; PULSE 97; RESP 20; TEMP 97.9
--- NOTE | 2017-06-25 14:05 | HHI.HP ---
Provisional Diagnosis Admission Date Jun 25, 2017 at 10:20 [place] I. Bipolar disorder, recent episode manic, alcohol use disorder [place] II. Deferred [place] III. BPH, hypertension Certification of Person's Competence To Provide Express and Informed Consent I have personally examined Matthias Rodriguez , a person being served at [facility] on, Jun 25, 2017 13:51. Express and informed consent means consent voluntarily given in writing, by a competent person, after sufficient explanation and disclosure of the subject matter involved to enable the person to make a knowing and willful decision without any element of force, fraud, deceit, duress, or other form of constraint or coercion. This person is 18 years of age or older, is not now known to be incompetent to consent to treatment with a guardian advocate, and does not have a health care surrogate or proxy currently making medical treatment decisions. I have found this person to be one of the following: [] Competent to provide express and informed consent, as defined above, for voluntary admission to this facility and is competent to provide express and informed consent for treatment. He/she has the consistent capacity to make well reasoned, willful, and knowing decisions concerning his or her medical or mental health treatment. The person fully and consistently understands the purpose of the admission for examination/placement and is fully capable of personally exercising all rights assured under [place] [] Incompetent to provide express and informed consent to voluntary admission, and this is incompetent to provide express and informed consent to treatment. The person must be transferred to involuntary status and a petition for a guardian advocate filed with the Circuit Court. [x] Refusing to provide express and informed consent to voluntary admission but is competent to provide express and informed consent for treatment. The person must be discharged or transferred to involuntary status. Form shall be completed within 24 hours of a person's arrival at the receiving facility and filed in the clinical record of each person: 1. Admitted on a voluntary basis 2. Permitted to provide express and informed consent to his/her own treatment 3. Allowed to transfer from involuntary to voluntary status 4. Prior to permitting a person to consent to his or her own treatment after having been previously found incompetent to consent to treatment. History of Present Illness Capacity: Lacks Capacity HPI The patient is a 72-year-old man, his domiciled in a trailer is a , single, with psychiatric history of bipolar disorder, alcohol use disorder, history of noncompliant with medications, multiple psychiatric hospitalizations, he was hospitalized here at [place] in summer 2016 due to a manic episode, no previous suicidal attempts, he gets his outpatient treatment in the [facility], he is on Depakote 500 mg a.m., thousand milligrams at bedtime , Seroquel 300 mg at bedtime, he has medical history of BPH, hypertension, urinary retention, this time the patient arrived to the ER heavily intoxicated and very difficult to get history from currently was found by the ambulance team in his yard by himself with a cut to the side of his head. He is under Remy act given there was concern that he would hurt himself. The ambulance team stated neighbor called when they saw him. History is significantly limited as patient just keeps yelling random words. BAL is 267 and valproate levels is 6. On psychiatric evaluation today the patient is extremely oppositional, irritable, since the patient saw me in the room immediately recognized me from our previous encounter during his last hospitalization in psychiatry. He says that he doesn't want to speak with a psychiatrist, he says that he needs to have a real doctor. He came agitated, even physical, tried to attack me, I left the room, the patient barricaded behind his door yelling that he is not going to be admitted with crazy people, that last time he was here he was poisoned, "a 300 pounds fat man tried to kill". Became extremely disorganized and had to be verbally de-escalate about nurses. Past psychiatric history: Previous psychiatric diagnoses of bipolar disorder, alcohol use disorder, history of previous substance use, previous psychiatric hospitalizations, as per chart patient admitted to various [place] facilities, no history of suicide attempt or self aged behavior as per chart, previous medication trials as reported by patient and previous notes include Depakote, olanzapine, Seroquel, SSRIs. Past family psychiatric history: As per chart, paternal grandmother diagnosed with classic manic depression. Past medical history: Hypertension, dyspepsia, hyperlipidemia, benign prostatic hyperplasia with urinary retention. Current perennial abscess. Past Psych History Violence risk - self (6 mos) Increased Past Family Social History Coded Allergies: ciprofloxacin (Unverified Allergy, Severe, 06/24/17) states that in the past he got violent and does not want to take the med penicillin G (Unverified Allergy, Severe, 06/24/17) Active Scripts Tamsulosin (Flomax) 0.4 Mg Cap, 0.4 MG PO HS for Manage Prostate Problems, #30 CAP 0 Refills Prov:Aminata Boggs MD 01/15/[address] (Divalproex DR) 500 Mg Tabdr, 1000 MG PO HS for health, #60 TAB Prov:Camron Hayes MD 12/13/16 Divalproex (Divalproex DR) 500 Mg Tabdr, 500 MG PO DAILY for Control Seizures , #30 TAB 0 Refills Prov:Camron Hayes MD 12/13/16 Quetiapine (Quetiapine) 100 Mg Tab, 300 MG PO HS for health for 30 Days, #90 TAB Prov:Camron Hayes MD 12/13/16 Reported Medications Loperamide (Loperamide) 2 Mg Cap, 2 MG PO DIRECTED Y for DIARRHEA, CAP 0 Refills One capsule after each loose stool. Not to exceed 8 capsules per day. 11/29/16 Lisinopril (Lisinopril) 40 Mg Tab, 40 MG PO DAILY for Blood Pressure Management , #30 TAB 0 Refills 11/29/16 Current Medications Medications (Trade) Dose Ordered Sig/Ernie Route Start Time Stop Time Status Last Admin (NS Flush) 2 ml UNSCH PRN IVF 06/24/17 21:30 (Libertad Gutierrez) 1,000 mg HS PO 06/25/17 21:00 (Libertad Gutierrez) 500 mg DAILY PO 06/26/17 09:00 (SEROquel) 300 mg HS PO 06/25/17 21:00 (Flomax) 0.4 mg HS PO 06/25/17 21:00 (Prinivil) 40 mg DAILY PO 06/26/17 09:00 (Ativan) 0.5 mg Q12H PRN PO 06/25/17 10:30 (Ativan Inj) 0.5 mg Q12H PRN IM 06/25/17 10:30 (Tylenol) 650 mg Q4H PRN PO 06/25/17 10:30 (Milk Of Magnesia Liq) 30 ml DAILY PRN PO 06/25/17 10:30 (Mag-Al Plus Susp Liq) 30 ml Q6H PRN PO 06/25/17 10:30 (Romazicon Inj) 0.2 mg Q1M PRN IV PUSH 06/25/17 10:30 (Ativan) 1 mg Q4H PRN PO 06/25/17 10:30 (Ativan Inj) 1 mg Q4H PRN IV PUSH 06/25/17 10:30 (Ativan) 2 mg Q2H PRN PO 06/25/17 10:30 (Ativan Inj) 2 mg Q2H PRN IV PUSH 06/25/17 10:30 (Ativan Inj) 2 mg Q1H PRN IV PUSH 06/25/17 10:30 (Ativan Inj) 2 mg Q15M PRN IV PUSH 06/25/17 10:30 Social History Patient was born and raised in [place], he has been living in [place] since 1987, he is single, he lives alone in a trailer, , with VA benefits, and service-connected, his highest level of education is master degree Patient's Strengths (min. 2) Outpatient care with the [place] Physical Exam Agitated, restless, hyperverbal Vital Signs Vital Signs Date Time Temp Pulse Resp B/P (MAP) Pulse Ox O2 Delivery O2 Flow Rate FiO2 06/25/17 08:52 109 18 06/25/17 08:49 135/100 (112) 98 Room Air 06/24/17 21:15 97.5 I/O 06/25/17 06/25/17 06/26/17 08:00 16:00 00:00 Intake Total 600 ml Balance 600 ml Lab Results Test 06/24/17 21:25 White Blood Count 5.8 TH/MM3 Red Blood Count 4.53 MIL/MM3 Hemoglobin 14.5 GM/DL Hematocrit 42.7 % Mean Corpuscular Volume 94.3 FL Mean Corpuscular Hemoglobin 32.0 PG Mean Corpuscular Hemoglobin Concent 33.9 % Red Cell Distribution Width 16.2 % Platelet Count 352 TH/MM3 Mean Platelet Volume 6.5 FL Neutrophils (%) (Auto) 40.1 % Lymphocytes (%) (Auto) 45.0 % Monocytes (%) (Auto) 13.4 % Eosinophils (%) (Auto) 1.1 % Basophils (%) (Auto) 0.4 % Neutrophils # (Auto) 2.3 TH/MM3 Lymphocytes # (Auto) 2.6 TH/MM3 Monocytes # (Auto) 0.8 TH/MM3 Eosinophils # (Auto) 0.1 TH/MM3 Basophils # (Auto) 0.0 TH/MM3 CBC Comment DIFF FINAL Differential Comment Prothrombin Time 9.9 SEC Prothromb Time International Ratio 1.0 RATIO Activated Partial Thromboplast Time 26.6 SEC Blood Urea Nitrogen 7 MG/DL Creatinine 0.78 MG/DL Random Glucose 115 MG/DL Calcium Level 8.5 MG/DL Sodium Level 143 MEQ/L Potassium Level 3.3 MEQ/L Chloride Level 108 MEQ/L Carbon Dioxide Level 26.5 MEQ/L Anion Gap 9 MEQ/L Estimat Glomerular Filtration Rate 98 ML/MIN Valproic Acid (Depakene) Level 6 MCG/ML Ethyl Alcohol Level 287 MG/DL Mental Status Examination Appearance: Dirty, Disheveled, Malodorous Consciousness: Alert Orientation: x4 Motor Activity: Abnormal gait Speech: Pressured, Rapid Language: Adequate Fund of Knowledge: Adequate Attention and Concentration: Adequate Memory: Unremarkable Mood: Angry, Irritable Affect: Irritable Thought Process & Associations: Loose associations, Disorganized Thought Content: Racing thoughts, Delusional Hallucination Type: None Delusion Type: Bizarre, Paranoid Suicidal Ideation: No Suicidal Plan: No Suicidal Intention: No Homicidal Ideation: No Homicidal Plan: No Homicidal Intention: No Insight: Poor Judgment: Poor Assessment & Plan Problem List: (1) Bipolar disorder, current episode manic w/o psychotic features, severe ICD Codes: F31.13 - Bipolar disorder, current episode manic without psychotic features, severe Assessment & Plan: On psychiatric evaluation the patient is acutely manic, very disorganized, agitated, restless, hyperverbal, with delusional thinking of being poisoned in the hospital, verbally aggressive. Patient has history of bipolar disorder, noncompliant with medications, alcohol use disorder. Where he arrived in the hospital he was intoxicated with alcohol, his BAL a was 267, Depakote level 6, wich shows he has not been compliant with psychotropics. As per Remy acted the patient neighbors has been complaining about his erratic behavior, self neglecting himself, which is a very similar presentation than his previous psychiatric hospitalization. Patient needs to be admitted in psychiatry due to his level of mai and psychosis. He has a high risk of danger to self and others. We will restart Depakote 500 mg twice a day, Seroquel 200 mg at bedtime. Will order a psychiatric consult for second opinion , medical consult to follow up his underlying medical conditions. 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 Assessment & Plan Estimated LOS: days Rafy Aggarwal MD Jun 25, 2017 14:05
[2017-06-25 18:37] VITALS: BP 143/78; PULSE 74; RESP 18; TEMP 98.7; O2SAT 98
[2017-06-25 18:38] VITALS: BP 143/78; PULSE 98; RESP 18; TEMP 98.7; O2SAT 98
[2017-06-25] MEDS ORDERED: DIVALPROEX DR 500 MG TABEC PO SCH (21:00)
[2017-06-25] MEDS: QUEtiapine FUMARATE 300 MG TAB PO SCH (21:00)
[2017-06-25] MEDS: TAMSULOSIN HCL 0.4 MG CAP PO SCH (21:00)
[2017-06-25] MEDS: DIVALPROEX DR 500 MG TABEC PO SCH (21:00)
[2017-06-26 06:00] VITALS: BP 112/78; PULSE 87; RESP 18; TEMP 98.2; O2SAT 100
[2017-06-26] MEDS: LISINOPRIL 20 MG TAB PO SCH (08:15)
[2017-06-26] MEDS: DIVALPROEX DR 500 MG TABEC PO SCH ×3 (08:15→20:22)
[2017-06-26] MEDS ORDERED: NICOTINE 21 MG/24 HR PATCH T-DERMAL SCH (09:00)
[2017-06-26] MEDS ORDERED: DIVALPROEX DR 500 MG TABEC PO SCH (09:00)
[2017-06-26 10:18] VITALS: BP 124/75; PULSE 80; RESP 17; TEMP 97.5; O2SAT 99
[2017-06-26 11:20] LABS: BICARBONATE 28.1 MEQ/L (21.0-32.0); BLOOD UREA NITROGEN 14 MG/DL (7-18); CALCIUM 8.5 MG/DL (8.5-10.1); CHLORIDE 103 MEQ/L (98-107); CHOLESTEROL 163 MG/DL (120-200); CREATININE 0.67 MG/DL (0.60-1.30); GLOMERULAR FILTRATION RATE 116 ML/MIN (>89); GLUCOSE,RANDOM 126 MG/DL (74-106); SODIUM (NA) 138 MEQ/L (136-145)
[2017-06-26 11:22] LABS: CHOLESTEROL/ HDL RATIO 3.58 RATIO; HDL CHOLESTEROL 45.5 MG/DL (40.0-60.0); LDL CHOLESTEROL 77 MG/DL (0-99); TRIGLYCERIDES 202 MG/DL (42-150)
--- NOTE | 2017-06-26 14:41 | HHI.PYPN ---
Subjective Remarks Patient was seen and case discussed with nursing.'s request for second opinion. Admission note was reviewed. Patient remains various manic symptoms. He is grandiose and elated. Affect is somewhat childlike. He has auditory hallucinations of music. He remains on the CIWA scale but it is 0. He denies suicidal or homicidal ideation intent or plan. Social on the unit Mental Status Examination Appearance: Dirty, Disheveled, Malodorous Consciousness: Alert Orientation: x4 Motor Activity: Abnormal gait Speech: Pressured, Rapid Language: Adequate Fund of Knowledge: Adequate Attention and Concentration: Adequate Memory: Unremarkable Mood: Angry, Irritable Affect: Other (elevated) Thought Process & Associations: Loose associations, Disorganized Thought Content: Racing thoughts, Delusional Hallucination Type: Auditory (music) Delusion Type: Bizarre, Paranoid Suicidal Ideation: No Suicidal Plan: No Suicidal Intention: No Homicidal Ideation: No Homicidal Plan: No Homicidal Intention: No Insight: Poor Judgment: Poor Results Labs Test 06/26/17 09:49 Blood Urea Nitrogen 14 MG/DL Creatinine 0.67 MG/DL Random Glucose 126 MG/DL Calcium Level 8.5 MG/DL Sodium Level 138 MEQ/L Potassium Level 3.4 MEQ/L Chloride Level 103 MEQ/L Carbon Dioxide Level 28.1 MEQ/L Anion Gap 7 MEQ/L Estimat Glomerular Filtration Rate 116 ML/MIN Triglycerides Level 202 MG/DL Cholesterol Level 163 MG/DL LDL Cholesterol 77 MG/DL HDL Cholesterol 45.5 MG/DL Cholesterol/HDL Ratio 3.58 RATIO Vitals/IOs Vital Signs Date Time Temp Pulse Resp B/P (MAP) Pulse Ox O2 Delivery O2 Flow Rate FiO2 06/26/17 10:18 97.5 80 17 124/75 (91) 99 06/25/17 08:49 Room Air Intake and Output 06/26/17 06/26/17 06/27/17 08:00 16:00 00:00 Intake Total 1680 ml Balance 1680 ml Assessment & Plan Problem List: (1) Bipolar disorder, current episode manic w/o psychotic features, severe ICD Codes: F31.13 - Bipolar disorder, current episode manic without psychotic features, severe Assessment & Plan I agree with the first opinion to continue petition. Criteria include acute mai Justification for Cont. Inpt. Patient would decompensate in a less restrictive setting Fortunato Daley DO Jun 26, 2017 14:41
[2017-06-26 18:05] VITALS: BP 157/89; PULSE 80; RESP 17; TEMP 97.7; O2SAT 99
[2017-06-26 18:06] VITALS: BP 157/89; PULSE 80; RESP 17; TEMP 97.7; O2SAT 99
[2017-06-26] MEDS: TAMSULOSIN HCL 0.4 MG CAP PO SCH (21:00)
[2017-06-26] MEDS: QUEtiapine FUMARATE 300 MG TAB PO SCH (21:00)
[2017-06-27 05:17] VITALS: BP 112/73; PULSE 93; RESP 17; TEMP 98.4; O2SAT 99
[2017-06-27] MEDS: LISINOPRIL 20 MG TAB PO SCH (08:30)
[2017-06-27] MEDS: DIVALPROEX DR 500 MG TABEC PO SCH (08:30)
--- NOTE | 2017-06-27 14:52 | HHI.PYPN ---
Subjective Remarks Patient seen in day room with nurse Jenkins, chart review, patient discussed with nurse. Patient grandiose intense irritable paranoid somewhat psychotic. He is also quite profane and insulting. Claiming that he is been abused that he will be calling his friends and getting Dr. Mar's and my medical license taken away from us. He minimizes his alcohol use she realizes it. He is called me a "shithead" and "Asshole" patient denies any significant mental illness at this time denies need for medication. With this time patient continues to meet criteria for the Remy act for further observation and assessment. I reviewed Dr. Mar's H&P. I finished the psychiatric admission template orders. And review the med reconciliation. Review of Systems Except as stated in HPI: all other systems reviewed are Neg Mental Status Examination Appearance: Dirty, Disheveled, Malodorous Consciousness: Alert Orientation: x4 Motor Activity: Abnormal gait Speech: Pressured, Rapid Language: Adequate Fund of Knowledge: Adequate Attention and Concentration: Adequate Memory: Unremarkable Mood: Angry, Oppositional, Irritable, Manic Affect: Other (marked increase range and intensity) Thought Process & Associations: Loose associations, Disorganized Thought Content: Racing thoughts, Delusional (grandiose and paranoid) Hallucination Type: Auditory (music) Delusion Type: Bizarre, Paranoid, Other (grandiose) Suicidal Ideation: No Suicidal Plan: No Suicidal Intention: No Homicidal Ideation: No Homicidal Plan: No Homicidal Intention: No Insight: Poor Judgment: Poor Results Vitals/IOs Vital Signs Date Time Temp Pulse Resp B/P (MAP) Pulse Ox O2 Delivery O2 Flow Rate FiO2 06/27/17 05:17 98.4 93 17 112/73 (86) 99 06/25/17 08:49 Room Air Intake and Output 06/27/17 06/27/17 06/28/17 08:00 16:00 00:00 Intake Total 240 ml Balance 240 ml Assessment & Plan Problem List: (1) Bipolar disorder, current episode manic w/o psychotic features, severe ICD Codes: F31.13 - Bipolar disorder, current episode manic without psychotic features, severe Assessment & Plan Estimated LOS: days patient remains manic paranoid and grandiose, also intrusive somewhat in intimidating. Bizarre behavior such as bringing appear of his underwear to the nurses station full of feces Justification for Cont. Inpt. At this time patient decompensated placed a lower level of care Discharge Planning Probable to return Cali Tejada MD Jun 27, 2017 14:52
[2017-06-27] MEDS ORDERED: hydrOXYzine HCL 50 MG TAB PO PRN (16:00)
[2017-06-27 16:05] LABS: HEMOGLOBIN A1C 5.5 % (4.3-6.0)
[2017-06-27] MEDS: LOPERAMIDE HCL 2 MG CAP PO PRN (20:39)
[2017-06-27] MEDS: TAMSULOSIN HCL 0.4 MG CAP PO SCH (20:43)
[2017-06-28 06:12] VITALS: BP 132/83; PULSE 90; RESP 17; TEMP 98.6; O2SAT 97
[2017-06-28] MEDS: LISINOPRIL 20 MG TAB PO SCH (08:21)
--- NOTE | 2017-06-28 13:09 | HHI.PYPN ---
Subjective Remarks Patient seen in day room with nurse Dugan, chart review, patient compliant medications, patient discussed with nurse. Patient did show me the scalpel issue of the left frontotemporal area at the hairline 3 espinoza well healing without drainage redness or swelling. Patient continues manipulative with attempts at being intimidating. Making claims of knowing many master tax advisor and people in power who will take care of him. Review of our EMR shows multiple episodes of elevated blood alcohol level ranging back to 2005. Patient shows no insight, however his also unable to contract for safety. Thus at this refill continues to meet Remy criteria will continue to observe. Monitor him for any signs of detox. Him monitoring his mental health issues. Patient scheduled for [facility]y court on 06/30 Review of Systems Except as stated in HPI: all other systems reviewed are Neg Mental Status Examination Appearance: Dirty, Disheveled, Malodorous Consciousness: Alert Orientation: x4 Motor Activity: Abnormal gait Speech: Pressured, Rapid Language: Adequate Fund of Knowledge: Adequate Attention and Concentration: Adequate Memory: Unremarkable Mood: Angry, Oppositional, Irritable, Manic Affect: Other (marked increase range and intensity) Thought Process & Associations: Loose associations, Disorganized Thought Content: Racing thoughts, Delusional (grandiose and paranoid) Hallucination Type: Auditory (music) Delusion Type: Bizarre, Paranoid, Other (grandiose) Suicidal Ideation: No Suicidal Plan: No Suicidal Intention: No Homicidal Ideation: No Homicidal Plan: No Homicidal Intention: No Insight: Poor Judgment: Poor Results Labs Test 06/27/17 15:15 Stool C. difficile Toxin (PCR) NEGATIVE Stl C. difficile Toxin Epiderm 027 PRESUMPTIVE NEGATIVE Vitals/IOs Vital Signs Date Time Temp Pulse Resp B/P (MAP) Pulse Ox O2 Delivery O2 Flow Rate FiO2 06/28/17 06:12 98.6 90 17 132/83 (99) 97 06/25/17 08:49 Room Air Intake and Output 06/28/17 06/28/17 06/29/17 08:00 16:00 00:00 Intake Total 360 ml Balance 360 ml Assessment & Plan Problem List: (1) Bipolar disorder, current episode manic w/o psychotic features, severe ICD Codes: F31.13 - Bipolar disorder, current episode manic without psychotic features, severe Assessment & Plan Estimated LOS: days patient continues somewhat manic grandiose entitled and delusional. Though he is been no significant behavioral problems. For now continue treatment and observation patient scheduled for [facility] court 06/30 Justification for Cont. Inpt. At this time patient will decompensate a placed a lower level of care Discharge Planning To be determined Cali Moulton MD Jun 28, 2017 13:09
[2017-06-28 17:24] VITALS: BP 105/66; PULSE 92; RESP 18; TEMP 98.4; O2SAT 99
[2017-06-28 18:13] VITALS: BP 105/66; PULSE 92; RESP 18; TEMP 98.4; O2SAT 99
[2017-06-28] MEDS: TAMSULOSIN HCL 0.4 MG CAP PO SCH (21:00)
[2017-06-28] MEDS: LOPERAMIDE HCL 2 MG CAP PO PRN (21:24)
[2017-06-29 05:36] VITALS: BP 110/63; PULSE 90; RESP 17; TEMP 98.1; O2SAT 97
[2017-06-29 06:00] VITALS: BP 110/63; PULSE 90; RESP 17; TEMP 98.1; O2SAT 97
[2017-06-29] MEDS: LISINOPRIL 20 MG TAB PO SCH (08:15)
[2017-06-29] MEDS: LOPERAMIDE HCL 2 MG CAP PO PRN ×2 (09:03→20:34)
--- NOTE | 2017-06-29 11:04 | HHI.PYPN ---
Subjective Remarks Patient seen in [place] with nurse Kellie, chart review patient discussed with nurse, patient continues intense, showing mixed compliance with medication. Denying need for mood stabilizer. So focus on his well-healing laceration left lateral ventricle patient scheduled for Remy court tomorrow Review of Systems Except as stated in HPI: all other systems reviewed are Neg Mental Status Examination Appearance: Dirty, Disheveled, Malodorous Consciousness: Alert Orientation: x4 Motor Activity: Abnormal gait Speech: Pressured, Rapid Language: Adequate Fund of Knowledge: Adequate Attention and Concentration: Adequate Memory: Unremarkable Mood: Angry, Oppositional, Irritable, Manic Affect: Other (marked increase range and intensity) Thought Process & Associations: Loose associations, Disorganized Thought Content: Racing thoughts, Delusional (grandiose and paranoid) Hallucination Type: Auditory (music) Delusion Type: Bizarre, Paranoid, Other (grandiose) Suicidal Ideation: No Suicidal Plan: No Suicidal Intention: No Homicidal Ideation: No Homicidal Plan: No Homicidal Intention: No Insight: Poor Judgment: Poor Results Vitals/IOs Vital Signs Date Time Temp Pulse Resp B/P (MAP) Pulse Ox O2 Delivery O2 Flow Rate FiO2 06/29/17 06:00 98.1 90 17 110/63 (79) 97 06/25/17 08:49 Room Air Intake and Output 06/29/17 06/29/17 06/30/17 08:00 16:00 00:00 Intake Total 360 ml Balance 360 ml Assessment & Plan Problem List: (1) Bipolar disorder, current episode manic w/o psychotic features, severe ICD Codes: F31.13 - Bipolar disorder, current episode manic without psychotic features, severe Assessment & Plan Estimated LOS: days patient remains manic intrusive intense manipulative with no insight. Justification for Cont. Inpt. At this time patient will decompensate if place to the lower level of care Discharge Planning To be determined Cali Moulton MD Jun 29, 2017 11:04
--- NOTE | 2017-06-29 15:32 | PD.TTN ---
Patient Problems 1. Discharge planning 2. Medication compliance 3. Knowledge deficit 4. Lack of coping skills Progress Toward Goals Provider Present: Dr. Paula Moulton Provider Input: 06/29/17 patient not medicated yet, still manic meeting criteria, will be going to court tomorrow Psychiatric Counselors Present: Jaelyn Ocasio LCSW Psych Therapist Input: 06/29/17 notmuch insight and not medicated, wants to go home and is constantly talking about being aggitated to be here to others Group Spec/RT/OT/CALDERÓN Present: STEPHANE Sandoval Group Spec/RT/OT/CALDERÓN Input: 06/29/17 refuses to attend groups, but came to movie today, poor insight to his condition, social on the unit Jaelyn Ocasio LCSW Jun 29, 2017 15:32
[2017-06-29 17:33] VITALS: BP 125/77; PULSE 89; RESP 18; TEMP 98.6; O2SAT 99
[2017-06-29] MEDS: TAMSULOSIN HCL 0.4 MG CAP PO SCH (20:33)
[2017-06-30 05:41] VITALS: BP 157/91; PULSE 98; RESP 16; TEMP 97.9; O2SAT 98
[2017-06-30] MEDS: LOPERAMIDE HCL 2 MG CAP PO PRN (06:08)
[2017-06-30] MEDS: LISINOPRIL 20 MG TAB PO SCH (08:23)
[2017-06-30 09:15] VITALS: BP 157/91; PULSE 75; RESP 16; TEMP 97.9; O2SAT 98
[2017-06-30 09:17] VITALS: BP 157/91; PULSE 75; RESP 16; TEMP 97.9; O2SAT 98
--- NOTE | 2017-06-30 12:30 | HHI.PYPN ---
Subjective Remarks Patient seen in [place] [facility], retained by Wind Operations Manager Sergey, health care surrogate appointment. If remain superficial and silly somewhat entitled and manipulating. However with appointment of health care surrogate we'll now order Geodon 20 mg twice a day Review of Systems Except as stated in HPI: all other systems reviewed are Neg Mental Status Examination Appearance: Dirty, Disheveled, Malodorous Consciousness: Alert Orientation: x4 Motor Activity: Abnormal gait Speech: Pressured, Rapid Language: Adequate Fund of Knowledge: Adequate Attention and Concentration: Adequate Memory: Unremarkable Mood: Angry, Oppositional, Irritable, Manic Affect: Other (marked increase range and intensity) Thought Process & Associations: Loose associations, Disorganized Thought Content: Racing thoughts, Delusional (grandiose and paranoid) Hallucination Type: Auditory (music) Delusion Type: Bizarre, Paranoid, Other (grandiose) Suicidal Ideation: No Suicidal Plan: No Suicidal Intention: No Homicidal Ideation: No Homicidal Plan: No Homicidal Intention: No Insight: Poor Judgment: Poor Results Vitals/IOs Vital Signs Date Time Temp Pulse Resp B/P (MAP) Pulse Ox O2 Delivery O2 Flow Rate FiO2 06/30/17 09:17 97.9 75 16 157/91 (113) 98 Intake and Output 06/30/17 06/30/17 07/01/17 08:00 16:00 00:00 Intake Total 720 ml 600 ml Balance 720 ml 600 ml Assessment & Plan Problem List: (1) Bipolar disorder, current episode manic w/o psychotic features, severe ICD Codes: F31.13 - Bipolar disorder, current episode manic without psychotic features, severe Assessment & Plan Estimated LOS: days patient retained by Wind Operations Manager Sergey she medication orders above to be given all with palpation of health care surrogate patient remains manic intrusive entitled somewhat grandiose Justification for Cont. Inpt. At this time patient will decompensate a placed in the lower level of care Discharge Planning To be determined Cali Moulton MD Jun 30, 2017 12:30
[2017-06-30 17:57] VITALS: BP 134/66; PULSE 81; RESP 19; TEMP 98.7; O2SAT 97
[2017-06-30] MEDS ORDERED: ZIPRASIDONE HCL 20 MG CAP PO SCH (18:00)
[2017-06-30] MEDS: TAMSULOSIN HCL 0.4 MG CAP PO SCH (21:00)
[2017-07-01] MEDS: LOPERAMIDE HCL 2 MG CAP PO PRN (04:41)
[2017-07-01 06:00] VITALS: BP 121/68; PULSE 72; RESP 16; TEMP 96.9; O2SAT 95
[2017-07-01] MEDS: LISINOPRIL 20 MG TAB PO SCH (10:11)
--- NOTE | 2017-07-01 12:10 | HHI.PYPN ---
Subjective Remarks Patient seen in day room with nurse Tyrone, chart review, patient discussed with nurse. Patient somewhat calmer less entitled and manipulative. Now stating be willing to take Seroquel in divided doses during the day. Per patient's med reconciliation he he had been on 300 mg Seroquel at bedtime we will order that along with 50 mg Seroquel 9 AM and 4 PM. We'll discontinue the Depakote that didn't on hold and the Geodon at at bedtime home. Review of Systems Except as stated in HPI: all other systems reviewed are Neg Mental Status Examination Appearance: Dirty, Disheveled, Malodorous Consciousness: Alert Orientation: x4 Motor Activity: Abnormal gait Speech: Pressured, Rapid Language: Adequate Fund of Knowledge: Adequate Attention and Concentration: Adequate Memory: Unremarkable Mood: Angry, Oppositional, Irritable, Manic Affect: Other (marked increase range and intensity) Thought Process & Associations: Loose associations, Disorganized Thought Content: Racing thoughts, Delusional (grandiose and paranoid) Hallucination Type: Auditory (music) Delusion Type: Bizarre, Paranoid, Other (grandiose) Suicidal Ideation: No Suicidal Plan: No Suicidal Intention: No Homicidal Ideation: No Homicidal Plan: No Homicidal Intention: No Insight: Poor Judgment: Poor Results Vitals/IOs Vital Signs Date Time Temp Pulse Resp B/P (MAP) Pulse Ox O2 Delivery O2 Flow Rate FiO2 07/01/17 06:00 96.9 72 16 121/68 (85) 95 Intake and Output 07/01/17 07/01/17 07/02/17 08:00 16:00 00:00 Output Total 0 ml Balance 0 ml Assessment & Plan Problem List: (1) Bipolar disorder, current episode manic w/o psychotic features, severe ICD Codes: F31.13 - Bipolar disorder, current episode manic without psychotic features, severe Assessment & Plan Estimated LOS: days patient somewhat less intense and intrusive. Though still grandiose and manipulative. She medication adjustments above Justification for Cont. Inpt. At this time patient will decompensate a place to the lower level of care Discharge Planning It appears patient has been evicted from his place of residence. Patient may become problematic Cali Moulton MD Jul 01, 2017 12:10
[2017-07-01 14:55] VITALS: PULSE 18; RESP 17; TEMP 98.9; O2SAT 99
[2017-07-01] MEDS: QUEtiapine FUMARATE 25 MG TAB PO SCH (16:12)
[2017-07-01] MEDS: QUEtiapine FUMARATE 300 MG TAB PO SCH (20:41)
[2017-07-01] MEDS: TAMSULOSIN HCL 0.4 MG CAP PO SCH (20:41)
[2017-07-01 20:45] VITALS: BP 87/52; PULSE 90
[2017-07-02 01:26] VITALS: BP 88/53; PULSE 96; RESP 22; TEMP 97; O2SAT 97
[2017-07-02 01:30] VITALS: O2SAT 94
[2017-07-02] MEDS: LOPERAMIDE HCL 2 MG CAP PO PRN ×3 (03:06→18:00)
[2017-07-02 06:05] VITALS: BP 110/66; PULSE 86; RESP 16; TEMP 96.9; O2SAT 96
[2017-07-02] MEDS: QUEtiapine FUMARATE 25 MG TAB PO SCH ×3 (08:06→21:10)
[2017-07-02] MEDS: LISINOPRIL 20 MG TAB PO SCH (08:07)
--- NOTE | 2017-07-02 11:54 | HHI.PYPN ---
Subjective Remarks Pt seen and discussed with staff. He has been making grandiose and bizarre statements. He is paranoid and disorganized. He attempted to use his own salvia to lubricate for self catheterization and argues in a rambling fashion that this is "the most clean. much more safe than hospitals." He had a fall last night but was not injured. He states that he wishes to take seroquel because " it helps until it takes you over" but wishes to start with a lower dose. "you' ve got to work up to it." Mental Status Examination Appearance: Dirty, Disheveled, Malodorous Consciousness: Alert Orientation: x4 Motor Activity: Abnormal gait Speech: Pressured, Rapid Language: Adequate Fund of Knowledge: Adequate Attention and Concentration: Adequate Memory: Unremarkable Mood: Angry, Oppositional, Irritable, Manic Affect: Other (marked increase range and intensity) Thought Process & Associations: Loose associations, Disorganized Thought Content: Bizarre thinking, Racing thoughts, Delusional (grandiose and paranoid) Hallucination Type: Auditory (music) Delusion Type: Bizarre, Paranoid, Other (grandiose) Suicidal Ideation: No Suicidal Plan: No Suicidal Intention: No Homicidal Ideation: No Homicidal Plan: No Homicidal Intention: No Insight: Poor Judgment: Poor Results Vitals/IOs Vital Signs Date Time Temp Pulse Resp B/P (MAP) Pulse Ox O2 Delivery O2 Flow Rate FiO2 07/02/17 06:05 96.9 86 16 110/66 (81) 96 07/02/17 01:30 21 Intake and Output 07/02/17 07/02/17 07/03/17 08:00 16:00 00:00 Intake Total 360 ml Balance 360 ml Assessment & Plan Problem List: (1) Bipolar disorder, current episode manic w/o psychotic features, severe ICD Codes: F31.13 - Bipolar disorder, current episode manic without psychotic features, severe Assessment & Plan Will reduce evening dose of seroquel to 50mg and titrate up from there as tolerated. Continue hospitalization for safety Estimated LOS: days Justification for Cont. Inpt. impairments in self care and reality testing Lizeth Marroquin MD Jul 02, 2017 11:54
[2017-07-02 18:00] VITALS: BP 125/76; PULSE 90; RESP 18; TEMP 98.3; O2SAT 97
[2017-07-02] MEDS: TAMSULOSIN HCL 0.4 MG CAP PO SCH (21:00)
[2017-07-03 05:53] VITALS: BP 128/75; PULSE 80; RESP 16; TEMP 98.2; O2SAT 98
[2017-07-03] MEDS: LISINOPRIL 20 MG TAB PO SCH (08:41)
[2017-07-03] MEDS: QUEtiapine FUMARATE 25 MG TAB PO SCH ×3 (08:42→20:09)
[2017-07-03] MEDS: LOPERAMIDE HCL 2 MG CAP PO PRN (08:51)
--- NOTE | 2017-07-03 16:16 | HHI.PYPN ---
Subjective Remarks Pt seen and discussed with staff. He has been irritable and agitated today with care. Mood remains labile. He demands "my dose of 100mg of immodium!" When told that this is impossible, pt states that he will not take current dose and states "you better get me a whole crate of diapers then!" Mental Status Examination Appearance: Dirty, Disheveled, Malodorous Consciousness: Alert Orientation: x4 Motor Activity: Abnormal gait Speech: Pressured, Rapid Language: Adequate Fund of Knowledge: Adequate Attention and Concentration: Adequate Memory: Unremarkable Mood: Irritable, Manic Affect: Labile Thought Process & Associations: Loose associations, Disorganized Thought Content: Bizarre thinking, Racing thoughts, Delusional (grandiose and paranoid) Hallucination Type: Auditory (music) Delusion Type: Bizarre, Paranoid, Other (grandiose) Suicidal Ideation: No Suicidal Plan: No Suicidal Intention: No Homicidal Ideation: No Homicidal Plan: No Homicidal Intention: No Insight: Poor Judgment: Poor Results Vitals/IOs Vital Signs Date Time Temp Pulse Resp B/P (MAP) Pulse Ox O2 Delivery O2 Flow Rate FiO2 07/03/17 05:53 98.2 80 16 128/75 (92) 98 07/02/17 01:30 21 Intake and Output 07/03/17 07/03/17 07/04/17 08:00 16:00 00:00 Intake Total 620 ml 480 ml Balance 620 ml 480 ml Assessment & Plan Problem List: (1) Bipolar disorder, current episode manic w/o psychotic features, severe ICD Codes: F31.13 - Bipolar disorder, current episode manic without psychotic features, severe Assessment & Plan Continue current tx plan. Estimated LOS: days Justification for Cont. Inpt. psychosis Lizeth Marroquin MD Jul 03, 2017 16:16
[2017-07-03 18:08] VITALS: BP 108/55; PULSE 104; RESP 16; TEMP 98.1; O2SAT 96
[2017-07-03] MEDS: TAMSULOSIN HCL 0.4 MG CAP PO SCH (20:09)
[2017-07-04 05:39] VITALS: BP 111/70; PULSE 98; RESP 17; TEMP 97.8; O2SAT 99
[2017-07-04] MEDS: LOPERAMIDE HCL 2 MG CAP PO PRN ×3 (08:30→21:17)
[2017-07-04] MEDS: QUEtiapine FUMARATE 25 MG TAB PO SCH ×3 (09:00→20:15)
[2017-07-04] MEDS: LISINOPRIL 20 MG TAB PO SCH (09:00)
--- NOTE | 2017-07-04 10:04 | PD.TTN ---
Patient Problems 1. Discharge planning 2. Medication compliance 3. Knowledge deficit 4. Lack of coping skills Progress Toward Goals Provider Present: Dr. Paula Moulton Provider Input: 07/04/17 Needs med adjustment, needs to remain for further stabilization 06/29/17 patient not medicated yet, still manic meeting criteria, will be going to court tomorrow Nurse(s) Input: 07/04/17 appropriate with other patients but condescending with staff, not nice with staff, intrusive and demanding , but med compliant Psychiatric Counselors Present: Jaelyn Ocasio LCSW Psych Therapist Input: 07/04/17 talkative, manic, unstable little to no insight to his mental illness 06/29/17 notmuch insight and not medicated, wants to go home and is constantly talking about being aggitated to be here to others Group Spec/RT/OT/CALDERÓN Present: STEPHANE Sandoval Group Spec/RT/OT/CALDERÓN Input: 07/04/17 patient participates, appropriate, engages in projects and able to complete tasks, is social 06/29/17 refuses to attend groups, but came to movie today, poor insight to his condition, social on the unit Jaelyn Ocasio LCSW Jul 04, 2017 10:04
--- NOTE | 2017-07-04 13:52 | HHI.PYPN ---
Subjective Remarks Patient seen in his room with nurse Vicente and counselor Jaelyn, chart review, patient discussed with nurse. Patient laying quietly in bed is been slight decrease in his intensity of his affect. There is still some mild grandiosity. And some continue negotiations about medication length of stay. It is noted that patient still has espinoza and laceration scalp will have hospitalist calm to remove those espinoza. Otherwise patient denies suicidality homicidality voices or visions. He does have a home to return to. Review of Systems Except as stated in HPI: all other systems reviewed are Neg Mental Status Examination Appearance: Dirty, Disheveled, Malodorous Consciousness: Alert Orientation: x4 Motor Activity: Abnormal gait Speech: Pressured, Rapid Language: Adequate Fund of Knowledge: Adequate Attention and Concentration: Adequate Memory: Unremarkable Mood: Irritable, Manic Affect: Labile Thought Process & Associations: Loose associations, Disorganized Thought Content: Bizarre thinking, Racing thoughts, Delusional (grandiose and paranoid) Hallucination Type: Auditory (music) Delusion Type: Bizarre, Paranoid, Other (grandiose) Suicidal Ideation: No Suicidal Plan: No Suicidal Intention: No Homicidal Ideation: No Homicidal Plan: No Homicidal Intention: No Insight: Poor Judgment: Poor Results Vitals/IOs Vital Signs Date Time Temp Pulse Resp B/P (MAP) Pulse Ox O2 Delivery O2 Flow Rate FiO2 07/04/17 05:39 97.8 98 17 111/70 (84) 99 07/02/17 01:30 21 Intake and Output 07/04/17 07/04/17 07/05/17 08:00 16:00 00:00 Intake Total 480 ml Balance 480 ml Assessment & Plan Problem List: (1) Bipolar disorder, current episode manic w/o psychotic features, severe ICD Codes: F31.13 - Bipolar disorder, current episode manic without psychotic features, severe Assessment & Plan Estimated LOS: days patient mood is improving his affect is softening in this range and intensity. We will hospitalist remove espinoza from patient's scalp laceration. Consider discharge when 36-48 hours Justification for Cont. Inpt. At this time patient will decompensate of placed in a lower level of care Discharge Planning Probable discharge home Cali Moulton MD Jul 04, 2017 13:52
--- NOTE | 2017-07-04 15:44 | PD.CONS ---
HPI Service [facility] Hospitalists Consult Requested By Reason for Consult Staple removal Primary Care Physician Bl[facility] Diagnoses: History of Present Illness 72-year-old male who was brought to the emergency department on 06/24 after ambulance found him heavily intoxicated and bleeding from the head in his yard per ED documentation. Patient reports that that night he had something to drink and somehow ended up with a cut in his head in bled a lot. When reviewing his past medical history he denies any history of hypertension, and GERD. He becomes agitated and states that he has been through this many times and that even at the [place] where he is cared for this has not been corrected, he also reports that any allergies listed on his record are not correct. I discussed with patient the main reason for hospitalist consult is to evaluate head staple removal. He goes on to tell me that he has been having ongoing diarrhea and needs his loperamide 25 mg which he takes regularly at home due to chronic diarrhea for the past 2 years. Diarrhea comes and goes does not specify frequency, he also repots that this has been ongoing since he arrived to [place]. He has been having liquid and soft stools since this AM, does not specify number of BM's today. He reports that these happen all of the time. He also mentions that at one point thought someone had put something in his food that made him sick. Patient reports that he had a colonoscopy done in February 2017 which revealed noncancerous polyps. He reports no follow-up with GI as it has been difficult to obtain specialists under the [place]. He reports that his acid in his stomach is not digesting food correctly in the acid is being digested too quickly. He goes on to tell me that he has a college degrees and he has a very high IQ and these are some of the reasons why he knows all these things. He reports that he gets his loperamide [address] [facility] and asks "what do I have to do to get that medication, get a dollar store doctor?". He is requesting more diapers and clothing due to frequent changes, reports that he is provided with plenty of diapers from the [place] at home. He denies any abdominal pain, nausea, fevers, chills, shortness of breath, cough, lightheadedness or dizziness. 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 His thoughts are scattered and insist that he knows what the problem is and what is going on. States all he needs is "mothers medicine". 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 Not to exceed 8 capsules per day. Lisinopril 40 Mg Tab 40 Mg PO DAILY Active Ordered Medications Current Medications Medications (Trade) Dose Ordered Sig/Ernie Route Start Time Stop Time Status Last Admin (NS Flush) 2 ml UNSCH PRN IVF 06/24/17 21:30 (Flomax) 0.4 mg HS PO 06/25/17 21:00 07/01/17 20:41 (Prinivil) 40 mg DAILY PO 06/26/17 09:00 07/03/17 08:41 (Ativan) 0.5 mg Q12H PRN PO 06/25/17 10:30 Future Hold (Ativan Inj) 0.5 mg Q12H PRN IM 06/25/17 10:30 Future Hold (Tylenol) 650 mg Q4H PRN PO 06/25/17 10:30 (Milk Of Magnesia Liq) 30 ml DAILY PRN PO 06/25/17 10:30 (Mag-Al Plus Susp Liq) 30 ml Q6H PRN PO 06/25/17 10:30 (Romazicon Inj) 0.2 mg Q1M PRN IV PUSH 06/25/17 10:30 (Ativan) 1 mg Q4H PRN PO 06/25/17 10:30 Future Hold (Ativan Inj) 1 mg Q4H PRN IV PUSH 06/25/17 10:30 Future Hold (Ativan) 2 mg Q2H PRN PO 06/25/17 10:30 Future Hold (Ativan Inj) 2 mg Q2H PRN IV PUSH 06/25/17 10:30 Future Hold (Ativan Inj) 2 mg Q1H PRN IV PUSH 06/25/17 10:30 Future Hold (Ativan Inj) 2 mg Q15M PRN IV PUSH 06/25/17 10:30 Future Hold (Atarax) 50 mg Q6H PRN PO 06/27/17 16:00 Future Hold (Imodium) 2 mg Q4HR PRN PO 06/27/17 15:30 07/03/17 08:51 (SEROquel) 50 mg BID@0900,1600 PO 07/01/17 16:00 07/04/17 09:00 (SEROquel) 50 mg HS PO 07/02/17 21:00 07/03/17 20:09 (Lactinex) 1 tab TID PO 07/04/17 18:00 (Questran 4 Gm Pkt) 4 gm Q8HR PO 07/04/17 22:00 Family History Father: History of tobacco abuse with COPD Mother: COPD due to secondhand smoking Social History Tobacco use: Quit in 2008 Alcohol use: Reports that he had quit 14 months ago prior to incident when he was brought into the emergency room room on 06/24 Illicit drug use: Denies Physical Exam Vital Signs Vital Signs Date Time Temp Pulse Resp B/P (MAP) Pulse Ox O2 Delivery O2 Flow Rate FiO2 07/04/17 05:39 97.8 98 17 111/70 (84) 99 07/03/17 18:08 98.1 104 16 108/55 (72) 96 Physical Exam GENERAL: This is a well-nourished, well-developed patient, in no apparent distress. SKIN: No rashes, ecchymoses or lesions. Cool and dry. HEAD: Left parietal laceration well approximated with scant amount of dried blood and 3 intact espinoza with minimal erythema noted. Normocephalic. EYES: Pupils equal round and reactive. No scleral icterus. No injection or drainage. ENT: Nose without bleeding, purulent drainage. Throat without erythema. Airway patent. NECK: Trachea midline. No JVD. CARDIOVASCULAR: Regular rate and rhythm without murmurs, gallops, or rubs. RESPIRATORY: Clear to auscultation. Breath sounds equal bilaterally. No wheezes , rales, or rhonchi. GASTROINTESTINAL: Abdomen soft, non-tender, nondistended. Hyperactive bowel sounds in all quadrants. No guarding. MUSCULOSKELETAL: Extremities without clubbing, cyanosis, or edema. No joint tenderness, effusion, or edema noted. NEUROLOGICAL: Awake and alert. Cranial nerves II through XII grossly. Motor and sensory grossly within normal limits. Five out of 5 muscle strength in all muscle groups. Normal speech. Imaging Last Impressions Head CT 06/24/172116 Signed Impressions: Service Date/Time: Saturday, June 24, 2017 21:43 - CONCLUSION: Mild cerebral atrophy. Mild periventricular and subcortical white matter small vessel ischemic changes. No acute infarct, acute hemorrhage, mass effect or extra-axial fluid collections. Bernabe Greer MD Cervical Spine CT 06/24/172116 Signed Impressions: Service Date/Time: Saturday, June 24, 2017 21:43 - CONCLUSION: 1. Straightening of the normal cervical lordosis. 2. No acute fracture or prevertebral soft tissue swelling. 3. Grade I anterolisthesis of C7 in relation to T1. 4. Diffuse cervical spondylosis from C3 through T1. 5. Severe right neural foraminal narrowing at C3-4 and C4-5 and severe bilateral foraminal narrowing at C5-6 and C6-7. 6. Moderate bilateral foraminal narrowing at C7-T1. 7. Mild spinal stenosis at C5-6 and C6-7. Bernabe Greer MD Assessment and Plan Assessment and Plan 72-year-old male with past medical history of enlarged prostate, and chronic diarrhea for the past 2 years brought into the emergency department after being found by ambulance intoxicated in his yard with head laceration. [facility] consulted to evaluate for head staple removal. Head laceration - s/p staple placement in the emergency department on 06/24 -Head laceration well approximated and appears healed, nursing order to remove espinoza. Prostate enlargement - Patient repots this is a result of past MRSA infection. - Continue self catheterizations as needed. Chronic diarrhea -Patient reports taking loperamide 25mg tabs at home however tabs only available in 2mg and recommended maximum daily dose to 16mg - C. diff tested on 06/27 was negative - Continue Loperamide 2mg PRN, will add Questran and probiotic - Check BMP to monitor for K wasting DVT prophylaxis-ambulating Discussed with nurse Vicente, will follow along to see if diarrhea improves, planed DC on . Thank you for this consultation, will continue to follow along. Austin Laird Jul 04, 2017 15:44
[2017-07-04] MEDS: LACTOBACILLUS ACIDOPHILUS TAB PO SCH (17:00)
[2017-07-04 18:16] VITALS: BP 137/89; PULSE 91; RESP 16; TEMP 98.5; O2SAT 100
[2017-07-04] MEDS: TAMSULOSIN HCL 0.4 MG CAP PO SCH (21:00)
[2017-07-04] MEDS: CHOLESTYRAMINE 4 GM PACKET PO SCH (22:00)
[2017-07-05 06:00] VITALS: BP 139/79; PULSE 83; RESP 15; TEMP 98; O2SAT 98
[2017-07-05] MEDS: CHOLESTYRAMINE 4 GM PACKET PO SCH ×3 (06:00→21:46)
[2017-07-05 08:32] LABS: BICARBONATE 25.3 MEQ/L (21.0-32.0); CALCIUM 8.9 MG/DL (8.5-10.1); CREATININE 0.61 MG/DL (0.60-1.30)
[2017-07-05] MEDS: LISINOPRIL 20 MG TAB PO SCH (09:00)
[2017-07-05] MEDS: LACTOBACILLUS ACIDOPHILUS TAB PO SCH ×3 (09:09→18:43)
[2017-07-05] MEDS: QUEtiapine FUMARATE 25 MG TAB PO SCH ×3 (09:12→20:05)
--- NOTE | 2017-07-05 11:43 | HHI.PR ---
Subjective Remarks Follow-up visit for head laceration and staple removal, chronic diarrhea. Patient seen and examined sitting up in chair in the day room while eating lunch this afternoon. He denies any fevers, chills, nausea, vomiting, abdominal pain, cough, shortness of breath, chest pain, dizziness or lightheadedness. He continues to request loperamide 25 mg from the [facility]. Repeatedly states that all he needs is mother's medicine. Objective Vitals Vital Signs Date Time Temp Pulse Resp B/P (MAP) Pulse Ox O2 Delivery O2 Flow Rate FiO2 07/05/17 06:00 98.0 83 15 139/79 (99) 98 07/04/17 18:16 98.5 91 16 137/89 (105) 100 I/O 07/04/17 07/04/17 07/04/17 07/05/17 07/05/17 07/05/17 07:00 15:00 23:00 07:00 15:00 23:00 Intake Total 0 ml 1980 ml 1440 ml 340 ml Balance 0 ml 1980 ml 1440 ml 340 ml Intake Oral 0 ml 1980 ml 1440 ml 340 ml # Voids 3 4 1 # Bowel Movements 3 Result Diagram: 07/05/17 0612 Imaging Last Impressions Head CT 06/24/172116 Signed Impressions: Service Date/Time: Saturday, June 24, 2017 21:43 - CONCLUSION: Mild cerebral atrophy. Mild periventricular and subcortical white matter small vessel ischemic changes. No acute infarct, acute hemorrhage, mass effect or extra-axial fluid collections. Bernabe Greer MD Cervical Spine CT 06/24/172116 Signed Impressions: Service Date/Time: Saturday, June 24, 2017 21:43 - CONCLUSION: 1. Straightening of the normal cervical lordosis. 2. No acute fracture or prevertebral soft tissue swelling. 3. Grade I anterolisthesis of C7 in relation to T1. 4. Diffuse cervical spondylosis from C3 through T1. 5. Severe right neural foraminal narrowing at C3-4 and C4-5 and severe bilateral foraminal narrowing at C5-6 and C6-7. 6. Moderate bilateral foraminal narrowing at C7-T1. 7. Mild spinal stenosis at C5-6 and C6-7. Bernabe Greer MD Objective Remarks GENERAL: male awake, alert, in no apparent distress. SKIN: Cool and dry. HEAD: Left parietal laceration well approximated with scant amount of dried blood very minimal erythema noted no drainage. EYES: Pupils equal round and reactive. ENT: Airway patent. NECK: Trachea midline. No JVD. CARDIOVASCULAR: Regular rate and rhythm without murmurs, gallops, or rubs. RESPIRATORY: Clear to auscultation. Breath sounds equal bilaterally. No wheezes , rales, or rhonchi. GASTROINTESTINAL: Abdomen soft, non-tender, nondistended. Normoactive bowel sounds in all quadrants. No guarding. MUSCULOSKELETAL: Extremities without clubbing, cyanosis, or edema. NEUROLOGICAL: Awake and alert. Motor and sensory grossly within normal limits. Five out of 5 muscle strength in all muscle groups. Normal A/P Assessment and Plan 72-year-old male with past medical history of enlarged prostate, and chronic diarrhea for the past 2 years brought into the emergency department after being found by ambulance intoxicated in his yard with head laceration. [facility] consulted to evaluate for head staple removal. Head laceration - s/p staple placement in the emergency department on 06/24 -Head laceration well approximated and appears healed, espinoza removed. Prostate enlargement - Patient repots this is a result of past MRSA infection. - Continue self catheterizations as needed. Chronic diarrhea -Patient reports taking loperamide 25mg tabs at home however tabs only available in 2mg and recommended maximum daily dose to 16mg - C. diff tested on 06/27 was negative - Continue Loperamide 2mg PRN, encourage patient to try Questran -Continue probiotic -BMP reviewed, within normal limits DVT prophylaxis-ambulating Discussed with nurse. Will sign off, please reconsult if needed. Discharge Planning Psychiatry plans to discharge patient on . Austin Laird Jul 05, 2017 11:43
--- NOTE | 2017-07-05 13:55 | HHI.PYPN ---
Subjective Remarks Patient seen in day room with nurse Lashanda, chart reviewed, patient discussed with nurse. Patient compliant medication. Patient continues somewhat grandiose mildly intrusive though softening, compliant medications. He does denies suicidality homicidality voices or visions. The patient continues to improve will consider discharge on 07/07 Review of Systems Except as stated in HPI: all other systems reviewed are Neg Mental Status Examination Appearance: Dirty, Disheveled, Malodorous Consciousness: Alert Orientation: x4 Motor Activity: Abnormal gait Speech: Pressured, Rapid Language: Adequate Fund of Knowledge: Adequate Attention and Concentration: Adequate Memory: Unremarkable Mood: Irritable, Manic Affect: Labile Thought Process & Associations: Loose associations, Disorganized Thought Content: Bizarre thinking, Racing thoughts, Delusional (grandiose and paranoid) Hallucination Type: Auditory (music) Delusion Type: Bizarre, Paranoid, Other (grandiose) Suicidal Ideation: No Suicidal Plan: No Suicidal Intention: No Homicidal Ideation: No Homicidal Plan: No Homicidal Intention: No Insight: Poor Judgment: Poor Results Labs Test 07/05/17 06:12 Blood Urea Nitrogen 14 MG/DL Creatinine 0.61 MG/DL Random Glucose 78 MG/DL Calcium Level 8.9 MG/DL Sodium Level 139 MEQ/L Potassium Level 4.1 MEQ/L Chloride Level 107 MEQ/L Carbon Dioxide Level 25.3 MEQ/L Anion Gap 7 MEQ/L Estimat Glomerular Filtration Rate 130 ML/MIN Vitals/IOs Vital Signs Date Time Temp Pulse Resp B/P (MAP) Pulse Ox O2 Delivery O2 Flow Rate FiO2 07/05/17 06:00 98.0 83 15 139/79 (99) 98 07/02/17 01:30 21 Intake and Output 07/05/17 07/05/17 07/06/17 08:00 16:00 00:00 Intake Total 340 ml 360 ml Balance 340 ml 360 ml Assessment & Plan Problem List: (1) Bipolar disorder, current episode manic w/o psychotic features, severe ICD Codes: F31.13 - Bipolar disorder, current episode manic without psychotic features, severe Assessment & Plan Estimated LOS: days patient continues somewhat manic and grandiose still continues to improve, compliant medications. For now continue treatment Justification for Cont. Inpt. At this time patient decompensated placed on lower level of care Discharge Planning Consider discharge 07/07 Cali Moulton MD Jul 05, 2017 13:55
[2017-07-05 16:00] VITALS: BP 128/74; PULSE 89; RESP 18; TEMP 97.7; O2SAT 99
[2017-07-05] MEDS: LOPERAMIDE HCL 2 MG CAP PO PRN (20:05)
[2017-07-05] MEDS: TAMSULOSIN HCL 0.4 MG CAP PO SCH (20:05)
[2017-07-06] MEDS: CHOLESTYRAMINE 4 GM PACKET PO SCH ×3 (05:14→22:00)
[2017-07-06 05:34] VITALS: BP 113/70; PULSE 83; RESP 17; TEMP 98.4; O2SAT 98
[2017-07-06] MEDS: LISINOPRIL 20 MG TAB PO SCH (09:00)
[2017-07-06] MEDS: QUEtiapine FUMARATE 25 MG TAB PO SCH ×3 (09:00→20:07)
[2017-07-06] MEDS: LACTOBACILLUS ACIDOPHILUS TAB PO SCH ×3 (09:00→18:25)
--- NOTE | 2017-07-06 13:43 | HHI.PYPN ---
Subjective Remarks Patient seen in day room with nurse, chart reviewed, patient discussed with nurse. Overall cooperative medication, but he prefers 25 mg Seroquel during the day. He is cooperative with the 50 mg at at bedtime. Patient denies suicidality homicidality voices or visions. The patient continues to cooperate will consider discharge tomorrow he does have a residence go to, and wishes follow-up psychiatry in the community Review of Systems Except as stated in HPI: all other systems reviewed are Neg Mental Status Examination Appearance: Dirty, Disheveled, Malodorous Consciousness: Alert Orientation: x4 Motor Activity: Abnormal gait Speech: Pressured, Rapid Language: Adequate Fund of Knowledge: Adequate Attention and Concentration: Adequate Memory: Unremarkable Mood: Irritable, Manic Affect: Labile Thought Process & Associations: Loose associations, Disorganized Thought Content: Bizarre thinking, Racing thoughts, Delusional (grandiose and paranoid) Hallucination Type: Auditory (music) Delusion Type: Bizarre, Paranoid, Other (grandiose) Suicidal Ideation: No Suicidal Plan: No Suicidal Intention: No Homicidal Ideation: No Homicidal Plan: No Homicidal Intention: No Insight: Poor Judgment: Poor Results Vitals/IOs Vital Signs Date Time Temp Pulse Resp B/P (MAP) Pulse Ox O2 Delivery O2 Flow Rate FiO2 07/06/17 05:34 98.4 83 17 113/70 (84) 98 Intake and Output 07/06/17 07/06/17 07/07/17 08:00 16:00 00:00 Intake Total 120 ml 360 ml Balance 120 ml 360 ml Assessment & Plan Problem List: (1) Bipolar disorder, current episode manic w/o psychotic features, severe ICD Codes: F31.13 - Bipolar disorder, current episode manic without psychotic features, severe Assessment & Plan Estimated LOS: days patient mood is stabilized, his intrusiveness and mild paranoia are diminishing also Justification for Cont. Inpt. At this time patient would decompensated placed in a lower level of care Discharge Planning Consider discharge tomorrow if patient continues to improve Cali Moulton MD Jul 06, 2017 13:43
[2017-07-06 18:04] VITALS: BP 127/81; PULSE 97; RESP 18; TEMP 98.4; O2SAT 96
[2017-07-06] MEDS: LOPERAMIDE HCL 2 MG CAP PO PRN (18:30)
[2017-07-06] MEDS: TAMSULOSIN HCL 0.4 MG CAP PO SCH ×2 (20:07→20:59)
[2017-07-07 05:08] VITALS: BP 120/78; PULSE 92; RESP 18; TEMP 98.2
[2017-07-07] MEDS: CHOLESTYRAMINE 4 GM PACKET PO SCH (06:00)
[2017-07-07] MEDS: LISINOPRIL 20 MG TAB PO SCH (09:00)
[2017-07-07] MEDS: LOPERAMIDE HCL 2 MG CAP PO PRN (09:30)
[2017-07-07] MEDS: QUEtiapine FUMARATE 25 MG TAB PO SCH (09:30)
[2017-07-07] MEDS: LACTOBACILLUS ACIDOPHILUS TAB PO SCH (09:31)
[2017-07-07] MEDS ORDERED: LISI40TA PO (09:59)
[2017-07-07] MEDS ORDERED: LACT PO (09:59)
[2017-07-07] MEDS ORDERED: SERO50TA PO (09:59)
[2017-07-07] MEDS ORDERED: TAMS5CAP PO (09:59)
[2017-07-07] MEDS ORDERED: LOPE2CAP PO (09:59)
[2017-07-07] MEDS ORDERED: CHOL4POW4 PO (09:59)
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
== END 2017-07-07 11:35 | disposition home or self-care (01) | DRG 885 ==
LOC: NEPC 21:06 → NEDA 06-25 10:20 → H250 06-25 13:32
PROVIDERS: ADMIT Psychiatry & Neurology Psychiatry; ATTEND Psychiatry & Neurology Psychiatry
PROC: 0HQ0XZZ Repair Scalp Skin, External Approach (ICD-10-PCS; principal; 2017-06-24)
DX: F31.13 Bipolar disorder, current episode manic without psychotic features, severe (principal); Z91.14 Patient's other noncompliance with medication regimen; E78.5 Hyperlipidemia, unspecified; F41.9 Anxiety disorder, unspecified; F10.120 Alcohol abuse with intoxication, uncomplicated; Y90.8 Blood alcohol level of 240 mg/100 ml or more; H91.90 Unspecified hearing loss, unspecified ear; S01.01XA Laceration without foreign body of scalp, initial encounter; W19.XXXA Unspecified fall, initial encounter; K52.9 Noninfective gastroenteritis and colitis, unspecified; N40.0 Benign prostatic hyperplasia without lower urinary tract symptoms; Z87.891 Personal history of nicotine dependence; Z86.14 Personal history of Methicillin resistant Staphylococcus aureus infection
CPT/HCPCS: 12002; 70450; 72125; 80048; 80061; 80164; 80307; 83036; 85025; 85610; 85730; 87493; 96374; 96375; J2060; J2405